=== PATIENT | male | born 1980 | race Two or more races ===

== ENCOUNTER 2023-11-11 08:34 | Outpatient (OUT) | payer OTHER, SELFPAY ==
[2023-11-11 09:16] LABS: Basophils Absolute Auto 0.1 10^3/uL (0.0-0.1); Basophils Percent Auto 1.1 % (0.2-2.0); Eosinophils Absolute Auto 0.1 10^3/uL (0.0-0.7); Eosinophils Percent Auto 1.6 % (0.9-7.0); Hematocrit 47.3 % (42.0-54.0); Hemoglobin 16.1 g/dL (14.0-18.0); Immature Granulocytes Abs Auto 0.03 10^3/uL (0.00-0.03); Immature Granulocytes Pct Auto 0.5 % (0.0-0.5); Lymphocytes Absolute Auto 2.3 10^3/uL (1.2-3.8); Lymphocytes Percent Auto 35.4 % (20.5-60.0); Mean Corpuscular Hemoglobin 29.1 pg (25.9-34.0); Mean Corpuscular Volume 85.5 fL (80.0-94.0); Mean Platelet Volume 9.7 fL (9.5-13.5); Monocytes Absolute Auto 0.6 10^3/uL (0.3-0.8); Monocytes Percent Auto 8.6 % (1.7-12.0); Neutrophils Absolute Auto 3.4 10^3/uL (1.4-6.5); Neutrophils Percent Auto 52.8 % (43.0-75.0); Platelet Count 268 10^3/uL (150-450); Red Blood Count 5.53 10^6/uL (4.70-6.10); White Blood Count 6.4 10^3/uL (4.0-11.0)
[2023-11-11 10:11] LABS: Alanine Aminotransferase 46 U/L (16-63); Albumin Globulin Ratio 1.2; Albumin Level 4.1 g/dL (3.4-5.0); Alkaline Phosphatase 59 U/L (46-116); Anion Gap 10.7; Aspartate Amino Transferase 20 U/L (15-37); BUN Creatinine Ratio 18.5; Carbon Dioxide 30.7 mmol/L (21.0-32.0); Chloride 103 mmol/L (98-107); Chol HDL Ratio 4.3; Cholesterol 192 mg/dL (<=200); Estimated GFR (African America >60 (>=60); Estimated GFR (Non-African Ame >60 (>=60); Globulin 3.4 g/dL; Glucose 109 mg/dL (74-106); HDL Cholesterol 45 mg/dL (40-60); Potassium 4.4 mmol/L (3.5-5.1); Prostate Specific Antigen Scrn 0.71 ng/mL (<=4.00); Sodium 140 mmol/L (136-145); Thyroid Stimulating Hormone 1.437 uIU/mL (0.358-3.740); Total Protein 7.5 g/dL (6.4-8.2); Triglycerides 166 mg/dL (<=150); VLDL CHOLESTEROL 33.2 mg/dL
[2023-11-11 10:14] LABS: Estimated Average Glucose 105 mg/dL; Glycohemoglobin A1C 5.3 % (4.5-6.2)
[2023-11-11 10:51] LABS: Bilirubin Urine NEGATIVE (NEGATIVE); Blood Urine TRACE-I (NEGATIVE); Clarity Urine CLEAR (CLEAR); Color Urine YELLOW (YELLOW); Glucose Urine UA NEGATIVE (NEGATIVE); Ketones Urine NEGATIVE (NEGATIVE); Leukocyte Esterase Urine NEGATIVE (NEGATIVE); Nitrite Urine NEGATIVE (NEGATIVE); Protein Urine NEGATIVE (NEG/TRACE); Specific Gravity Urine >=1.030 (1.005-1.025); Urobilinogen Urine 0.2 EU/dL (0.2-1.0)
[2023-11-11 11:44] LABS: Bacteria Urine NONE SEEN #/HPF (NONE SEEN); Crystals Seen? None Seen #/HPF (None Seen); Mucus Urine NONE SEEN (NONE SEEN); RBC Urine 0-2 #/HPF (0-2); Squamous Epithelial Cell Urine NONE SEEN #/LPF (NONE/RARE); WBC Urine 0-2 #/HPF (NONE SEEN)
[2023-11-11 11:45] LABS: Cast Seen? NONE SEEN #/LPF (NONE SEEN)
== END 2023-11-11 08:35 | disposition home or self-care (01) ==
LOC: LAB 08:39
PROVIDERS: PCP Family Medicine; Visit Provider Family Medicine
DX: Z00.00 Encounter for general adult medical examination without abnormal findings (principal); R63.5 Abnormal weight gain; Z12.5 Encounter for screening for malignant neoplasm of prostate
CPT/HCPCS: 36415; 80053; 80061; 81001; 83036; 84443; 85025; G0103

== ENCOUNTER 2024-11-12 08:45 | Outpatient (OUT) | payer OTHER, SELFPAY ==
--- OUTSIDE RECORDS SUMMARY | 2024-11-12 08:50 | XMS_ITS | Clinical Summary ---
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 Assessment & Plan (08/23/2022 10:23 AM EDT): Assessment: BMI = 32.10. Assessment & Plan (07/16/2022 8:48 AM EDT): Assessment: BMI=32 Encounters Date Type Department Care Team Description 10/30/2024 Patient Msg HOSP MAIN H060 [address] [place] [address] Provider, [facility] Sign up to manage your digestive symptoms in between visits, covered by insurance from Last 3 Months Family History Medical History Relation Comments No Known Problems Father No Known Problems Mother Anesthesia Problems No Family History Clotting Disorder No Family History Malig Hyperthermia No Family History Relation Status Comments Father Mother Social History Tobacco Use Types Packs/Day Years Used Date Smoking Tobacco: Never Smokeless Tobacco: Never Tobacco Cessation:Counseling Given: Not Answered Alcohol Use Standard Drinks/Week Comments Not Currently 0 (1 standard drink = 0.6 oz pur e alcohol) Area Deprivation Index Answer Date Collin rded National Score (1-100), lower number is lower ri sk 63 08/21/2022 State Score (1-10), lower number is lower risk 4 08/21/2022 Data from: https://www.neighborhoodatlas.medicine.[facility]/. Last address used for calculation [address] [place] [address] [address] 08/21/2022 Sex and Gender Information Value Date Recorded Sex Assigned at Not on file Legal Sex Male 12:47 AM EST Gender Identity Not on file Sexual Orientation Not on file Last Filed Vital Signs Vital Sign Reading Time Taken Comments Blood Pressure 118/68 05/31/2023 2:00 AM EST Pulse 69 05/31/2023 2:00 AM EST Temperature 36.5 C (97.7 F) 05/30/2023 11:23 PM EST Respiratory Rate 16 05/31/2023 2:00 AM EST Oxygen Saturation 98% 05/31/2023 2:00 AM EST Inhaled Oxygen Concentration - - Weight 119.7 kg (264 lb) 06/17/2023 9:04 AM EST Height 188 cm (6' 2 ) 06/17/2023 9:04 AM EST Body Mass Index 33.9 06/17/2023 9:04 AM EST Plan of Treatment Health Maintenance Due Date Last Done Comments Anxiety Screening 2000 Depression Screening 2000 HIV Screening 2000 Hepatitis C Screening 2000 DTaP,Tdap,Td Vaccine (1 - Tdap) 2001 Hepatitis B Vaccine (1 of 3 - 19+ 3-dose series) 06/12 Lipid Screening 2017 Influenza Vaccine (#1) 2024 Colonoscopy 01/17/2033 01/17/2023 Colorectal Cancer Screening 01/17/2033 Procedures Procedure Name Priority Date/Time Associated Diagnosis Comments COLONOSCOPY DIAGNOSTIC Routine 01/17/2023 7:16 AM EDT Crohn's disease with fistula, unspecified gastrointestinal tract location (HCC) from Last 3 Months or Most Recently Relevant to Health Maintenance Results * COLONOSCOPY DIAGNOSTIC (01/17/2023 7:16 AM EDT) Anatomical Region Laterality Modality Other 01/17/2023 7:16 AM EDT Narrative 01/17/2023 8:47 AM EDT [facility] Gastrointestinal Endoscopy Patient Name: Min Rock Procedure Date: 01/17/2023 7:16 AM Date of : 1980 Admit Type: Outpatient Age: 42 Room: [place] [address] Gender: Male Note Status: Finalized Attending MD: Christa Dubois MD Procedure: Colonoscopy Indications: Exclusion of Crohn's disease, Preoperative assessment Providers: Christa Dubois MD Patient Profile: Last Colonoscopy: none. The patient's first colonoscopy is today. Referring Physician: Christa Dubois MD (Referring MD) Medicines: Monitored Anesthesia Care Complications: No immediate complications. Estimated blood loss: Minimal. Requesting Provider: Procedure: Pre-Anesthesia Assessment: - Prior to the procedure, a History and Physical was performed, and patient medications and allergies were reviewed. The patient's tolerance of previous anesthesia was also reviewed. The risks and benefits of the procedure and the sedation options and risks were discussed with the patient. All questions were answered, and informed consent was obtained. Prior Anticoagulants: The patient has taken no anticoagulant or antiplatelet agents. ASA Grade Assessment: I - A normal, healthy patient. After reviewing the risks and benefits, the patient was deemed in satisfactory condition to undergo the procedure. After I obtained informed consent, the scope was passed under direct vision. Throughout the procedure, the patient's blood pressure, pulse, and oxygen saturations were monitored continuously. The [id number] was introduced through the anus and advanced to the terminal ileum. The colonoscopy was performed without difficulty. The patient tolerated the procedure well. The quality of the bowel preparation was good. The terminal ileum, ileocecal valve, appendiceal orifice, and rectum were photographed. Scope Withdrawal Time: 0 hours 16 minutes 48 seconds Moderate Sedation: MAC anesthesia was administered by the anesthesia team. Total Procedure Duration: 0 hours 22 minutes 57 seconds Findings: The perianal exam findings include external opening right posterior 2 cm from the anal verge without fluctuance. The exam was otherwise without abnormality on direct and retroflexion views. Random biopsies were taken with jubmo forceps in the TI, ascending colon, transvese colon, descending colon and rectum. EBL was minimal. No internal fistula opening visualized. Non-bleeding internal hemorrhoids were found during retroflexion. The hemorrhoids were mild. Impression: - External opening right posterior 2 cm from the anal verge without fluctuance found on perianal exam. - Non-bleeding internal hemorrhoids. - The examination was otherwise normal on direct and retroflexion views. No internal fistula opening visualized. - Random biopsies of the TI, ascending, transvese, descending colon and rectum for histoloy. Recommendation: - Patient has a contact number available for emergencies. The signs and symptoms of potential delayed complications were discussed with the patient. Return to normal activities tomorrow. Written discharge instructions were provided to the patient. - Resume previous diet. - Continue present medications. - Await pathology results. - Repeat colonoscopy in 10 years for screening purposes. - Return to my office as previously scheduled. Procedure Code(s): --- Professional --- 73244, Colonoscopy, flexible; diagnostic, including collection of specimen(s) by brushing or washing, when performed (separate procedure) Diagnosis Code(s): --- Professional --- K64.8, Other hemorrhoids Z01.818, Encounter for other preprocedural examination CPT copyright 2020 [employer]. All rights reserved. The codes documented in this report are preliminary and upon jacquard loom carpet weaver review may be revised to meet current compliance requirements. Attending Participation: I personally performed the entire procedure. Scope In: 8:07:24 AM Scope Out: 8:30:21 AM MD Christa Reddy MD 01/17/2023 8:43:04 AM This report has been signed electronically by Christa Dubois MD Number of Addenda: 0 Note Initiated On: 01/17/2023 7:16 AM Estimated Blood Loss: Estimated blood loss was minimal. Christa Dubois MD DIGESTIVE DISEASE Final Result from Last 3 Months or Most Recently Relevant to Health Maintenance Insurance [facility] Care Teams Pt Skilled Relationship Specialty Start Date End Date Dwight Mcqueen DO [address] [place] [phone] PCP - General Family Medicine 07/12/22
--- OUTSIDE RECORDS SUMMARY | 2024-11-12 08:50 | XMS_ITS | Encounter Summary ---
Author Organization [facility] Address [address] [place] [address] Care Team Providers Care Machines Technician Name Role Phone Dwight Mcqueen DO Primary Care Provider [phone] Source Comments In the event this information is protected by the Federal Confidentiality of Alcohol and Drug AbusePatient Records regulations: The Federal rules restrict any use of the information to criminally investigate or prosecute any alcohol or drug abuse patient.[facility] Encounter Details Date Type Department Care Team (Late st Contact Info) Description 01/16/2023 GI Preprocedure Call [facility] Surgery [address] [place] [address] Dwight Mcqueen, DO [address] [place] [address] Social History Tobacco Use Types Packs/Day Years Used Date Smoking Tobacco: Never Smokeless Tobacco: Never Alcohol Use Standard Drinks/Week Comments Not Currently 0 (1 standard drink = 0.6 oz pur e alcohol) Area Deprivation Index Answer Date Collin rded National Score (1-100), lower number is lower ri sk 63 08/21/2022 State Score (1-10), lower number is lower risk 4 08/21/2022 Data from: https://www.neighborhoodatlas.medicine.[facility].edu/. Last address used for calculation [address] [place] [address] [address] 08/21/2022 Sex and Gender Information Value Date Recorded Sex Assigned at Not on file Legal Sex Male 12:47 AM EST Gender Identity Not on file Sexual Orientation Not on file documented as of this encounter Plan of Treatment Not on file documented as of this encounter Visit Diagnoses Not on filedocumented in this encounter Care Teams Machines Technician Relationship Specialty Start Date End Date Dwight Mcqueen DO [address] [place] [phone] PCP - General Family Medicine 07/12/22 documented as of this encounter
--- OUTSIDE RECORDS SUMMARY | 2024-11-12 08:50 | XMS_ITS | Clinical Summary ---
Author Organization [facility] Address [address] [facility] [place] [address] Phone Care Team Providers Care Wash Oil Cooler Operator Name Role Phone Dwight Mcqueen DO Primary Care Provider [phone] Social History Tobacco Use Types Packs/Day Years Used Date Smoking Tobacco: Never Assessed Sex and Gender Information Value Date Recorded Sex Assigned at Not on file Legal Sex Male 9:19 AM EST Gender Identity Not on file Sexual Orientation Not on file Plan of Treatment Not on file Care Teams Wash Oil Cooler Operator Relationship Specialty Start Date End Date Dwight Mcqueen DO PCP - General 10/26/20
--- OUTSIDE RECORDS SUMMARY | 2024-11-12 08:50 | XMS_ITS | Encounter Summary ---
Author Organization [facility] Address [address] [place] [address] Care Team Providers Care Slate Mixer Name Role Phone Dwight Mcqueen DO Primary Care Provider [phone] Source Comments In the event this information is protected by the Federal Confidentiality of Alcohol and Drug AbusePatient Records regulations: The Federal rules restrict any use of the information to criminally investigate or prosecute any alcohol or drug abuse patient.[facility] Encounter Details Date Type Department Care Team (Late st Contact Info) Description 05/09/2022 Lab Requisition [facility] Laboratory [address] [place] [address] [address] [place] [address] Social History Tobacco Use Types Packs/Day Years Used Date Smoking Tobacco: Never Assessed Sex and Gender Information Value Date Recorded Sex Assigned at Not on file Legal Sex Male 12:47 AM EST Gender Identity Not on file Sexual Orientation Not on file documented as of this encounter Plan of Treatment Not on file documented as of this encounter Procedures Procedure Name Priority Date/Time Associated Diagnosis Comments ORGANISM JAKI Routine 05/03/2022 4:40 PM EST documented in this encounter Results * (ABNORMAL) ORGANISM JAKI (05/03/2022 4:40 PM EST) Culture, Organism JAKI Result Parabacteroides distasonis(A) MINIMUM INHIBITORY CONCENTRATION ([place]) 05/14/2022 8:23 AM EST [facility] Comment: Identification performed by client. (Bacteroides fragilis group) Micro Specimen SPECIMEN FROM ABSCESS / Unknown 05/03/2022 4:40 PM EST 05/09/2022 12:49 AM EST Narrative [facility] - 05/14/2022 8:23 AM EST Organism Antibiotic Method Susceptibility Parabacteroides distasonis Ertapenem MINIM UM INHIBITORY CONCENTRATION(E-TEST ) 0.5: Susceptible Parabacteroides distasonis Ampicillin/Sulbact MT NIMUM INHIBITORY CONCENTRATION(E-TEST ) 32: Resistant Parabacteroides distasonis Metronidazole MINIM UM INHIBITORY CONCENTRATION(E-TEST ) 0.25: Susceptible us [place] Ann LABORATORY Final Res ult [facility] [address] [place] [address], documented in this encounter Visit Diagnoses Not on filedocumented in this encounter Care Teams Slate Mixer Relationship Specialty Start Date End Date Dwight Mcqueen DO [address] [place] [address] PCP - General Family Medicine 07/12/22 documented as of this encounter
--- OUTSIDE RECORDS SUMMARY | 2024-11-12 08:50 | XMS_ITS | Clinical Summary ---
Author Organization [facility] Address [address] [place] [address], [address] [place] [address] Care Team Providers Care Shellacker Name Role Phone Unavailable Primary Care Provider Unavailabl e Allergies No known active allergies Medications No known medications Social History Tobacco Use Types Packs/Day Years Used Date Smoking Tobacco: Never Alcohol Use Standard Drinks/Week Comments Yes 0 (1 standard drink = 0.6 oz pur e alcohol) social Sex and Gender Information Value Date Recorded Sex Assigned at Not on file Legal Sex Male 8:32 PM EDT Gender Identity Not on file Sexual Orientation Not on file Last Filed Vital Signs Vital Sign Reading Time Taken Comments Blood Pressure 120/75 09/18/2017 9:38 PM EDT Pulse 86 09/18/2017 9:38 PM EDT Temperature 36.6 C (97.9 F) 09/18/2017 8:37 PM EDT Respiratory Rate 20 09/18/2017 9:38 PM EDT Oxygen Saturation 93% 09/18/2017 9:38 PM EDT Inhaled Oxygen Concentration - - Weight 108.6 kg (239 lb 7 oz) 09/18/2017 8:37 PM EDT Height 188 cm (6' 2 ) 09/18/2017 8:37 PM EDT Body Mass Index 30.74 09/18/2017 8:37 PM EDT Plan of Treatment Not on file Insurance [employer]
--- OUTSIDE RECORDS SUMMARY | 2024-11-12 08:50 | XMS_ITS | Clinical Summary ---
Author Organization [facility] Address [id number] [address] [place] [address] Care Team Providers Care Cold Storage Worker Name Role Phone Unavailable Primary Care Provider Unavailabl e Social History Tobacco Use Types Packs/Day Years Used Date Smoking Tobacco: Never Assessed Sex and Gender Information Value Date Recorded Sex Assigned at Not on file Legal Sex Male 3:16 PM EDT Gender Identity Not on file Sexual Orientation Not on file Plan of Treatment Health Maintenance Due Date Last Done Comments Depression Screening 1994 Tobacco Screening 1994 Adult BMI Screening 2000 DTaP,Tdap and Td Vaccines (1 - Tdap) 2001 Influenza Vaccine 12/14/2024 Medical Devices Not on file Insurance [employer]
--- OUTSIDE RECORDS SUMMARY | 2024-11-12 08:50 | XMS_ITS | Encounter Summary ---
Author Organization [facility] Address [address] [place] [address] Care Team Providers Care Director Of Graduate Admissions Name Role Phone Dwight Mcqueen DO Primary Care Provider [phone] Source Comments In the event this information is protected by the Federal Confidentiality of Alcohol and Drug AbusePatient Records regulations: The Federal rules restrict any use of the information to criminally investigate or prosecute any alcohol or drug abuse patient.[facility] Encounter Details Date Type Department Care Team (Late st Contact Info) Description 08/23/2022 Patient Msg Pre Anesthesia [address] [facility] [address] [place] [phone] Chapis Petersen APRN.TALENT ASSISTANT [address] [place] [address] Pre-op Instructions Social History Tobacco Use Types Packs/Day Years Used Date Smoking Tobacco: Never Smokeless Tobacco: Never Alcohol Use Standard Drinks/Week Comments Not Currently 0 (1 standard drink = 0.6 oz pur e alcohol) Area Deprivation Index Answer Date Collin rded National Score (1-100), lower number is lower ri sk 63 08/21/2022 State Score (1-10), lower number is lower risk 4 08/21/2022 Data from: https://www.neighborhoodatlas.[facility]/. Last address used for calculation [address] [place] [address] [address] 08/21/2022 Sex and Gender Information Value Date Recorded Sex Assigned at Not on file Legal Sex Male 12:47 AM EST Gender Identity Not on file Sexual Orientation Not on file documented as of this encounter Plan of Treatment Not on file documented as of this encounter Visit Diagnoses Not on filedocumented in this encounter Care Teams Director Of Graduate Admissions Relationship Specialty Start Date End Date Dwight Mcqueen DO [address] [place] [phone] PCP - General Family Medicine 07/12/22 documented as of this encounter
--- OUTSIDE RECORDS SUMMARY | 2024-11-12 08:50 | XMS_ITS | Encounter Summary ---
Author Organization [employer] Address [id number] [address] [place] [address] Care Team Providers Care Morgue Technician Name Role Phone Unavailable Primary Care Provider Unavailabl e Encounter Details Date Type Department Care Team (Late st Contact Info) Description 07/25/2022 Orders Only [facility] [address] [facility] [address] [place] [phone] External, Scanning Provider Social History Tobacco Use Types Packs/Day Years [...] Procedure Name Priority Date/Time Associated Diagnosis Comments UNLISTED NON-[facility] PROCEDURE Routine 05/03/2022 UNLISTED NON-[facility] PROCEDURE Routine 03/29/2022 documented in this encounter Results * Unlisted Non-[facility] Procedure (05/03/2022) us Scanning Provider External PROCEDURE/MINOR SURGI SANDY ORDERABLES Final Result Performing Organization Address City/[facility] Co de Phone Number MANUALLY TRANSCRIBED RESULTS * Unlisted Non-[facility] Procedure (03/29/2022) us Scanning Provider External PROCEDURE/MINOR SURGI SANDY ORDERABLES Final Result Performing Organization Address City/[facility] Co de Phone Number MANUALLY TRANSCRIBED RESULTS documented in this encounter Visit Diagnoses Not on filedocumented in this encounter
--- OUTSIDE RECORDS SUMMARY | 2024-11-12 08:50 | XMS_ITS | Encounter Summary ---
Author Organization [facility] Address [address] [place] [address] Care Team Providers Care Assistant Name Role Phone Dwight Mcqueen DO Primary Care Provider [phone] Source Comments In the event this information is protected by the Federal Confidentiality of Alcohol and Drug AbusePatient Records regulations: The Federal rules restrict any use of the information to criminally investigate or prosecute any alcohol or drug abuse patient.[facility] Encounter Details Date Type Department Care Team (Late st Contact Info) Description 05/30/2023 Get Medical Advice Colorectal Surgery [address] [place] [address] Dwight Castañeda MD [address] [place], [place] [id number] Updated photos Social History Tobacco Use Types Packs/Day Years Used Date Smoking Tobacco: Never Smokeless Tobacco: Never Alcohol Use Standard Drinks/Week Comments Not Currently 0 (1 standard drink = 0.6 oz pur e alcohol) Area Deprivation Index Answer Date Collin rded National Score (1-100), lower number is lower ri sk 63 08/21/2022 State Score (1-10), lower number is lower risk 4 08/21/2022 Data from: https://www.neighborhoodatlas.medicine.[facility].edu/. Last address used for calculation [address] [place] [address] [address] 08/21/2022 Sex and Gender Information Value Date Recorded Sex Assigned at Not on file Legal Sex Male 12:47 AM EST Gender Identity Not on file Sexual Orientation Not on file documented as of this encounter Plan of Treatment Not on file documented as of this encounter Visit Diagnoses Not on filedocumented in this encounter Care Teams Assistant Relationship Specialty Start Date End Date Dwight Mcqueen, [address] [place] [phone] PCP - General Family Medicine 07/12/22 documented as of this encounter
--- OUTSIDE RECORDS SUMMARY | 2024-11-12 08:50 | XMS_ITS | Encounter Summary ---
Author Organization [facility] Address [address] [place] [address] Care Team Providers Care Field Director Name Role Phone Dwight Mcqueen DO Primary Care Provider [phone] Source Comments In the event this information is protected by the Federal Confidentiality of Alcohol and Drug AbusePatient Records regulations: The Federal rules restrict any use of the information to criminally investigate or prosecute any alcohol or drug abuse patient.[facility] Encounter Details Date Type Department Care Team (Late st Contact Info) Description 05/30/2023 Get Medical Advice Colorectal Surgery [address] [place] [address] Dwight Castañeda MD [address] [place], [place] [phone] Follow up Social History Tobacco Use Types Packs/Day Years Used Date Smoking Tobacco: Never Smokeless Tobacco: Never Alcohol Use Standard Drinks/Week Comments Not Currently 0 (1 standard drink = 0.6 oz pur e alcohol) Area Deprivation Index Answer Date Collin rded National Score (1-100), lower number is lower ri sk 63 08/21/2022 State Score (1-10), lower number is lower risk 4 08/21/2022 Data from: https://www.neighborhoodatlas.medicine.[facility].edu/. Last address used for calculation [address] [place] [address] [address] 08/21/2022 Sex and Gender Information Value Date Recorded Sex Assigned at Not on file Legal Sex Male 12:47 AM EST Gender Identity Not on file Sexual Orientation Not on file documented as of this encounter Plan of Treatment Not on file documented as of this encounter Visit Diagnoses Not on filedocumented in this encounter Care Teams Field Director Relationship Specialty Start Date End Date Dwight Mcqueen, [address] [place] [phone] PCP - General Family Medicine 07/12/22 documented as of this encounter
--- OUTSIDE RECORDS SUMMARY | 2024-11-12 08:50 | XMS_ITS | Encounter Summary ---
Author Organization [facility] Address [address] [place] [address] Care Team Providers Care Hospital Cleaning Specialist Name Role Phone Dwight Mcqueen DO Primary Care Provider [phone] Source Comments In the event this information is protected by the Federal Confidentiality of Alcohol and Drug AbusePatient Records regulations: The Federal rules restrict any use of the information to criminally investigate or prosecute any alcohol or drug abuse patient.[facility] Encounter Details Date Type Department Care Team (Late st Contact Info) Description 12/10/2022 Patient Msg Gastroenterology [address] [place], [place] [id number] Provider, Ccf Miralax prep instructions Social History Tobacco Use Types Packs/Day Years Used Date Smoking Tobacco: Never Smokeless Tobacco: Never Alcohol Use Standard Drinks/Week Comments Not Currently 0 (1 standard drink = 0.6 oz pur e alcohol) Area Deprivation Index Answer Date Collin rded National Score (1-100), lower number is lower ri sk 63 08/21/2022 State Score (1-10), lower number is lower risk 4 08/21/2022 Data from: https://www.neighborhoodatlas.medicine.[facility].edu/. Last address used for calculation [address] [place] [address] 08/21/2022 Sex and Gender Information Value Date Recorded Sex Assigned at Not on file Legal Sex Male 12:47 AM EST Gender Identity Not on file Sexual Orientation Not on file documented as of this encounter Plan of Treatment Not on file documented as of this encounter Visit Diagnoses Not on filedocumented in this encounter Care Teams Hospital Cleaning Specialist Relationship Specialty Start Date End Date Dwight Mcqueen DO [address] [place] [address] PCP - General Family Medicine 07/12/22 documented as of this encounter
--- OUTSIDE RECORDS SUMMARY | 2024-11-12 08:50 | XMS_ITS | Clinical Summary ---
Author Organization [facility] Address [address] [place] [address] Care Team Providers Care Applications Packager Name Role Phone Unavailable Primary Care Provider Unavailabl e Social History Tobacco Use Types Packs/Day Years Used Date Smoking Tobacco: Never Assessed Sex and Gender Information Value Date Recorded Sex Assigned at Not on file Legal Sex Male 11:09 PM EDT Gender Identity Not on file Sexual Orientation Not on file Last Filed Vital Signs Vital Sign Reading Time Taken Comments Blood Pressure 120/72 11/13/2020 12:00 PM EDT Pulse - - Temperature - - Respiratory Rate - - Oxygen Saturation - - Inhaled Oxygen Concentration - - Weight 118 kg (260 lb) 07/03/2022 12:00 PM EDT Height 188 cm (6' 2 ) 07/03/2022 12:00 PM EDT Body Mass Index 33.38 07/03/2022 12:00 PM EDT Plan of Treatment Not on file Insurance [employer]
--- OUTSIDE RECORDS SUMMARY | 2024-11-12 08:50 | XMS_ITS | Encounter Summary ---
Author Organization [facility] Address [address] [place] [address] Care Team Providers Care Lead Mechanic Name Role Phone Dwight Mcqueen DO Primary Care Provider [phone] Source Comments In the event this information is protected by the Federal Confidentiality of Alcohol and Drug AbusePatient Records regulations: The Federal rules restrict any use of the information to criminally investigate or prosecute any alcohol or drug abuse patient.[facility] Encounter Details Date Type Department Care Team (Late st Contact Info) Description 07/23/2022 Patient Msg Colorectal Surgery [address] [place] [address] [place] [address] [address] [place], [place] [id number] MRI results Social History Tobacco Use Types Packs/Day Years Used Date Smoking Tobacco: Never Smokeless Tobacco: Never Alcohol Use Standard Drinks/Week Comments Not Currently 0 (1 standard drink = 0.6 oz pur e alcohol) Area Deprivation Index Answer Date Collin rded National Score (1-100), lower number is lower ri sk 60 07/06/2022 State Score (1-10), lower number is lower risk N ot on file 07/06/2022 Data from: https://www.neighborhoodatlas.[facility].edu/. Last address used for calculation [address] [place] [address] [address] 07/06/2022 Sex and Gender Information Value Date Recorded Sex Assigned at Not on file Legal Sex Male 12:47 AM EST Gender Identity Not on file Sexual Orientation Not on file documented as of this encounter Plan of Treatment Not on file documented as of this encounter Visit Diagnoses Not on filedocumented in this encounter Care Teams Lead Mechanic Relationship Specialty Start Date End Date Dwight Mcqueen DO [address] [place] [address] PCP - General Family Medicine 07/12/22 documented as of this encounter
--- OUTSIDE RECORDS SUMMARY | 2024-11-12 08:50 | XMS_ITS | Encounter Summary ---
Author Organization [facility] Address [address] [place] [address] Care Team Providers Care Pharmacist Apprentice Name Role Phone Dwight Mcqueen DO Primary Care Provider [phone] Source Comments In the event this information is protected by the Federal Confidentiality of Alcohol and Drug AbusePatient Records regulations: The Federal rules restrict any use of the information to criminally investigate or prosecute any alcohol or drug abuse patient.[facility] Encounter Details Date Type Department Care Team (Late st Contact Info) Description 10/01/2022 Patient Msg General Surgery [address] [place] [address] Provider, Ccf Appointment Social History Tobacco Use Types Packs/Day Years Used Date Smoking Tobacco: Never Smokeless Tobacco: Never Alcohol Use Standard Drinks/Week Comments Not Currently 0 (1 standard drink = 0.6 oz pur e alcohol) Area Deprivation Index Answer Date Collin rded National Score (1-100), lower number is lower ri sk 63 08/21/2022 State Score (1-10), lower number is lower risk 4 08/21/2022 Data from: https://www.neighborhoodatlas.medicine.[facility].edu/. Last address used for calculation [address] [place] [address] 08/21/2022 Sex and Gender Information Value Date Recorded Sex Assigned at Not on file Legal Sex Male 12:47 AM EST Gender Identity Not on file Sexual Orientation Not on file documented as of this encounter Plan of Treatment Not on file documented as of this encounter Visit Diagnoses Not on filedocumented in this encounter Care Teams Pharmacist Apprentice Relationship Specialty Start Date End Date Dwight Mcqueen DO [address] [place] [address] PCP - General Family Medicine 07/12/22 documented as of this encounter
--- OUTSIDE RECORDS SUMMARY | 2024-11-12 08:50 | XMS_ITS | Encounter Summary ---
Author Organization [facility] Address [address] [place] [address] Care Team Providers Care Securities Analyst Name Role Phone Dwight Mcqueen DO Primary Care Provider [phone] Source Comments In the event this information is protected by the Federal Confidentiality of Alcohol and Drug AbusePatient Records regulations: The Federal rules restrict any use of the information to criminally investigate or prosecute any alcohol or drug abuse patient.[facility] Encounter Details Date Type Department Care Team (Late st Contact Info) Description 01/21/2023 Patient Msg Colorectal Surgery [address] [place] [address] [place] [address] [place], [place] [phone] MRI and colonoscopy results Social History Tobacco Use Types Packs/Day [...] [facility].edu/. Last address used for calculation [address] [place] [address] [address] 08/21/2022 Sex and Gender Information Value Date Recorded Sex Assigned at Not on file Legal Sex Male 12:47 AM EST Gender Identity Not on file Sexual Orientation Not on file documented as of this encounter Plan of Treatment Not on file documented as of this encounter Visit Diagnoses Not on filedocumented in this encounter Care Teams Securities Analyst Relationship Specialty Start Date End Date Dwight Mcqueen DO [address] [place] [address] PCP - General Family Medicine 07/12/22 documented as of this encounter
--- OUTSIDE RECORDS SUMMARY | 2024-11-12 08:50 | XMS_ITS | Encounter Summary ---
Author Organization [facility] Address [address] [place] [address] Care Team Providers Care Ballistics Laboratory Gunsmith Name Role Phone Dwight Mcqueen DO Primary Care Provider [phone] Source Comments In the event this information is protected by the Federal Confidentiality of Alcohol and Drug AbusePatient Records regulations: The Federal rules restrict any use of the information to criminally investigate or prosecute any alcohol or drug abuse patient.[facility] Encounter Details Date Type Department Care Team (Late st Contact Info) Description 10/30/2024 Patient Msg HOSP MAIN H[address] [place] [address] Provider, Ccf Sign up to manage your digestive symptoms in between visits, covered by insurance Social History Tobacco Use Types Packs/Day Years Used Date Smoking Tobacco: Never Smokeless Tobacco: Never Alcohol Use Standard Drinks/Week Comments Not Currently 0 (1 standard drink = 0.6 oz pur e alcohol) Area Deprivation Index Answer Date Collin rded National Score (1-100), lower number is lower ri sk 63 08/21/2022 State Score (1-10), lower number is lower risk 4 08/21/2022 Data from: https://www.neighborhoodatlas.medicine.[facility].edu/. Last address used for calculation [address] [place] [address] 08/21/2022 Sex and Gender Information Value Date Recorded Sex Assigned at Not on file Legal Sex Male 12:47 AM EST Gender Identity Not on file Sexual Orientation Not on file documented as of this encounter Plan of Treatment Not on file documented as of this encounter Visit Diagnoses Not on filedocumented in this encounter Care Teams Ballistics Laboratory Gunsmith Relationship Specialty Start Date End Date Dwight Mcqueen DO [address] [place] [address] PCP - General Family Medicine 07/12/22 documented as of this encounter
--- OUTSIDE RECORDS SUMMARY | 2024-11-12 08:50 | XMS_ITS | Encounter Summary ---
Author Organization [facility] Address [address] [place] [address] Care Team Providers Care Core Placer Name Role Phone Dwight Mcqueen DO Primary Care Provider [phone] Source Comments In the event this information is protected by the Federal Confidentiality of Alcohol and Drug AbusePatient Records regulations: The Federal rules restrict any use of the information to criminally investigate or prosecute any alcohol or drug abuse patient.[facility] Encounter Details Date Type Department Care Team (Late st Contact Info) Description 07/01/2023 Get Medical Advice Colorectal Surgery [address] [place] [address] Dwight Castañeda MD [address] [place], [place] [id number] Follow up Social History Tobacco Use Types [...] is lower risk 4 08/21/2022 Data from: https://www.neighborhoodatlas.medicine.[facility].edu/. Last address used for calculation [address] [place] [address] [address] 08/21/2022 Sex and Gender Information Value Date Recorded Sex Assigned at Not on file Legal Sex Male 12:47 AM EST Gender Identity Not on file Sexual Orientation Not on file documented as of this encounter Plan of Treatment Not on file documented as of this encounter Visit Diagnoses Not on filedocumented in this encounter Care Teams Core Placer Relationship Specialty Start Date End Date Dwight Mcqueen, [address] [place] [address] PCP - General Family Medicine 07/12/22 documented as of this encounter
--- OUTSIDE RECORDS SUMMARY | 2024-11-12 08:50 | XMS_ITS | Encounter Summary ---
Author Organization [facility] Address [address] [place] [address] Care Team Providers Care Electric Motor Control Assembler Name Role Phone Dwight Mcqueen DO Primary Care Provider [phone] Source Comments In the event this information is protected by the Federal Confidentiality of Alcohol and Drug AbusePatient Records regulations: The Federal rules restrict any use of the information to criminally investigate or prosecute any alcohol or drug abuse patient.[facility] Encounter Details Date Type Department Care Team (Late st Contact Info) Description 02/28/2023 Get Medical Advice Colorectal Surgery [address] [place] [address] Dwight Castañeda MD [address] [place], [place] [phone] Schedule EUA Social History Tobacco Use Types Packs/Day Years [...] risk 4 08/21/2022 Data from: https://www.neighborhoodatlas.medicine.[facility].edu/. Last address used for calculation [address] [place] [address] [address] 08/21/2022 Sex and Gender Information Value Date Recorded Sex Assigned at Not on file Legal Sex Male 12:47 AM EST Gender Identity Not on file Sexual Orientation Not on file documented as of this encounter Plan of Treatment Not on file documented as of this encounter Visit Diagnoses Not on filedocumented in this encounter Care Teams Electric Motor Control Assembler Relationship Specialty Start Date End Date Dwight Mcqueen DO [address] [place] [address] PCP - General Family Medicine 07/12/22 documented as of this encounter
--- OUTSIDE RECORDS SUMMARY | 2024-11-12 09:08 | XMS_ITS | CCD ---
Author Organization [facility] Care Team Providers Care Emergency Services Dispatcher Name Role Phone JENS SHAIKH Unavailable Unavailable Renetta Gonzalez Unavailable DO Renetta Gonzalez Primary Care Provider MD Lokesh Ann Attending Provider DR RENETTA GONZALEZ Primary Care Unavailable SADIE LOZOYA Admitting Unavailable SADIE LOZOYA Attending Unavailable SADIE LOZOYA Consulting Unavailable PIA COLLINS Consulting Unavailable CHIKIS SANDOVAL Consulting Unavailable DR RENETTA GONZALEZ Primary Care Unavailable JENS SHAIKH Admitting Unavailable JENS SHAIKH Attending Unavailable JENS SHAIKH Consulting Unavailable Lokesh Ann Admitting Unavailable Lokesh Ann Attending Unavailable Renetta Gonzalez Primary Care Unavailable Lokesh Ann Admitting Unavailable Lokesh Ann Attending Unavailable Renetta Gonzalez Primary Care Unavailable Unavailable Primary Care Provider UnavailRenetta Vogt DO Primary Care Provider Renetta Gonzalez DO Primary Care Provider SHERLY, CHRISTA Referring Unavailable RENETTA GONZALEZ Primary Care Unavailable SEAN ANDRADE Attending Unavailable SHERLY, CHRISTA Referring Unavailable RENETTA GONZALEZ Primary Care Unavailable BAN, CHRISTA Attending Unavailable BAN, CHRISTA Admitting Unavailable BAN CHRISTA Attending Unavailable BAN, CHRISTA Admitting Unavailable RENETTA GONZALEZ Primary Care Unavailable BAN, CHRISTA Attending Unavailable SHERLY, CHRISTA Admitting Unavailable RENETTA GONZALEZ Primary Care Unavailable SHERLY, CHRISTA Referring Unavailable RENETTA GONZALEZ Primary Care Unavailable SHERLY, CHRISTA Referring Unavailable RENETTA GONZALEZ Primary Care Unavailable RENETTA GARNER Referring Unavailable RENETTA GONZALEZ Primary Care Unavailable Renetta Gonzalez DO Primary Care Provider [phone] ERIK POWERS Attending Unavailable RENETTA GONZALEZ Primary Care Unavailable RENETTA GARNER Attending Unavailable RENETTA GONZALEZ Primary Care Unavailable CHRISTA DUBOIS Attending Unavailable RENETTA GONZALEZ Primary Care Unavailable CLIFFORD MAN Attending Unavailable RENETTA GONZALEZ Primary Care Unavailable CLIFFORD MAN Referring Unavailable RENETTA GONZALEZ Primary Care Unavailable RENETTA GARNER Admitting Unavailable RENETTA GONZALEZ Primary Care Unavailable RENETTA GARNER Attending Unavailable RENETTA GONZALEZ Primary Care Unavailable RENETTA GARNER Attending Unavailable RENETTA GARNER Admitting Unavailable RENETTA GONZALEZ Primary Care Unavailable LUZ RING Attending Unavailable RENETTA GARNER Attending Unavailable RENETTA GONZALEZ Primary Care Unavailable CHRISTA DUBOIS Attending Unavailable RENETTA GONZALEZ Primary Care Unavailable RENETTA GARNER Attending Unavailable RENETTA GONZALEZ Primary Care Unavailable RENETTA GONZALEZ Primary Care Unavailable RENETTA GONZALEZ Primary Care Unavailable RENETTA GARNER Attending Unavailable RENETTA GONZALEZ Primary Care Unavailable RENETTA GARNER Referring Unavailable Medications Current Medications Medication Drug Class(es) Dates Sig (Normalized) Sig (Original) acetaminophen 325 mg / HYDROcodone bitartrate 5 mg oral tablet (5 sources) Opioid Agonist Start: 03-29-2022 End: 05-03-2022 take 1 tablet by mouth every six hours Hydrocodone-Aceta minophen Active 1 TAB PO Q6H 28 7 May 03, 2022 Start: 03-29-2022 End: 05-03-2022 Hydrocodone-Acetaminophen Di scontinued 1 TAB PO As Directed March 29, 2022 12:00am May 03, 2022 1:04pm aspirin 81 mg oral tablet (3 sources) Platelet Aggregation Inhibitor, Nonsteroidal Anti-inflammatory Drug Start: 09-14-2020 take 1 tablet by mouth once daily at mealtime Aspirin EC 81 MG 1 tablet Orally qd with food Sep, Active Start: 09-14-2020 take 1 tablet by heather th once daily at mealtime Aspirin EC 81 MG 1 tablet Orally qd with food Sep, Active azithromycin 250 mg oral tablet (2 sources) Macrolide Antimicrobial Start: 08-28-2021 Azithromycin 250 MG 2 tablet on the first day, then 1 tablet daily for 4 days Orally Once a day for 5 day(s) August, Active cephalexin 500 mg oral capsule (1 source) Cephalosporin Antibacterial Start: 05-03-2022 take 500 mg by mouth twice daily Cephalexin Active 500 MG PO Twice daily May 03, 2022 12:00am Co Q 10 100 MG (3 sources) Start: 05-08-2021 Co Q 10 100 MG as directed Orally Apr, Active Magnesium (3 sources) Start: 05-08-2021 Magnesium 400 MG as directed Orally Apr, Active Multivitamin preparation (2 sources) Start: 03-29-2022 take 1 tablet by mouth once daily Multivitamin Active 1 TAB PO Daily March 29, 2022 12:00am Tomales 3 1000 MG (3 sources) Start: 05-08-2021 take 1 capsule by mouth once daily Tomales 3 1000 MG 1 capsule Orally Once a day Apr, Active predniSONE 20 mg oral tablet (3 sources) Start: 08-28-2021 predniSONE 20 MG take 3 tablets Orally x3 days, then 2 tabs x3 days then 1 tab a day x3 days with food or milk for 9 days August, Active Start: 08-29-2020 predniSONE 20 MG take 3 tablets Orally x3 days, then 2 tabs x3 days then 1 tab a day x3 days with food or milk for 9 days August, Not-Taking sulfamethoxazole 800 mg / trimethoprim 160 mg oral tablet (1 source) Dihydrofolate Reductase Inhibitor Antibacterial, Sulfonamide Antimicrobial Start: 08-13-2022 End: 08-18-2022 take 1 tablet by mouth twice daily sulfamethoxazole-trimethoprim (BACTRIM DS) 800-160 mg per tablet Indications: Anal fistula Take 1 tablet by mouth twice daily for 5 days. 10 tablet 0 08/13/2022 08/18/2022 Active Comment on above: Take 1 tablet by heather twice daily for 5 days. Completed/Discontinued Medications Medication Drug Class(es) Dates Sig (Normalized) Sig (Original) acetaminophen 325 mg oral tablet (20 sources) Start: 10-19-2022 End: 06-17-2023 take 2 tablets by mouth every six hours acetaminophen (TYLENOL) 325 mg tablet Take 2 tablets by mouth every 6 hours. 0 10/19/2022 06/17/2023 Discontinued acetaminophen (T YLENOL ORAL) Take by mouth. 0 Active Comment on above: Take by mouth. Take 2 tablets by [facility] every 6 hours. cholecalciferol 0.025 mg oral tablet (20 sources) Vitamin D take 1 tablet by mouth once daily cholecalciferol (VITAMIN D3) 1,000 unit tab tablet Take 1,000 Units by mouth once daily. 0 Active Comment on above: Take 1,000 Units by mouth once daily. clindamycin 300 mg oral capsule (2 sources) Lincosamide Antibacterial Start: End: take 300 mg by mouth four times daily Clindamycin Hcl Discontinued 300 MG PO Four times daily March 29, 2022 12:00am May 03, 2022 1:06pm diclofenac potassium 50 mg oral tablet (11 sources) Nonsteroidal Anti-inflammatory Drug take 50 mg by mouth twice daily DICLOFENAC SODIUM ORAL Take 50 mg by mouth twice daily. 0 Active Comment on above: Take 50 mg by mouth twice daily. docusate sodium 100 mg oral capsule (2 sources) Start: End: take 1 capsule by mouth twice daily docusate sodium (COLACE) 100 mg capsule Take 1 capsule by mouth two times a day. 60 capsule 0 05/21/2023 06/17/2023 Discontinued Comment on above: Take 1 capsule by [facility] two times a day. enteric contrast (will be provided with radiology test) (18 sources) Start: End: enteric contrast (will be provided with radiology test) Indications: Crohn's disease with fistula, unspecified gastrointestinal tract location (HCC) For MRI ENTEROGRAPHY WO/W Administer, As Directed One Time Only, via Oral, Rectal, both Oral and Rectal, Enteric Tube, Stoma or Indwelling Catheter, Enteric Contrast as designated per enteric contrast guidelines 1 Each 0 11/27/2022 06/17/2023 Discontinued Start: 11-27-[address] (will be provided with radiology test) Indications: Crohn's disease with fistula, unspecified gastrointestinal tract location (HCC) For MRI ENTEROGRAPHY WO/W Administer, As Directed One Time Only, via Oral, Rectal, both Oral and Rectal, Enteric Tube, Stoma or Indwelling Catheter, Enteric Contrast as designated per enteric contrast guidelines 1 Each 0 11/27/2022 Active Comment on above: For MRI ENTEROGRAPHY WO/W Administer, As Directed One Time Only, via Oral, Rectal, both Oral and Rectal, Enteric Tube, Stoma or Indwelling Catheter, Enteric Contrast as designated per enteric contrast guidelines glucagon (rdna) 1 mg injection (16 sources) Antihypoglycemic Agent Start: 2022 End: 2023 inject 1 mg intravenously once glucagon (GLUCAGEN) 1 mg/mL injection Indications: Crohn's disease with fistula, unspecified gastrointestinal tract location (HCC) Inject 1 mg intravenously one time only for 1 dose. For MRI Enterography, Inject 1 mg intravenously, as directed. Slow push at the appropriate time during MRI Scan 1 Each 0 11/27/2022 06/17/2023 Discontinued Comment on above: Inject 1 mg intravenously one time only for 1 dose. For MRI Enterography, Inject 1 mg intravenously, as directed. Slow push at the appropriate time during MRI Scan HERBAL DRUGS ORAL (20 sources) HERBAL DRUGS ORA L Take by mouth. Vitamin c, b, e, omega and whey protein 0 Active Comment on above: Take by mouth. Vitamin c, b, e, omega an d whey protein ibuprofen 200 mg oral tablet (20 sources) Nonsteroidal Anti-inflammatory Drug Start: 2022 End: 2023 take 1-2 tablets by mouth every six hours ibuprofen (MOTRIN) 200 mg tablet Take 1-2 tablets by mouth every 6 hours. 0 10/19/2022 06/17/2023 Discontinued ibuprofen (MOTRI N ORAL) Take by mouth. 0 Active Comment on above: Take by mouth. Take 1-2 tablets by mouth every 6 hours. iv contrast (will be provided with radiology test) (20 sources) Start: 02-04-2023 End: 02-05-2023 iv contrast (will be provided with radiology test) MRI Pel/Perineum Inject, intravenously, once for 1 dose. No IV access, insert saline lock prior to the beginning of sedation, infusion, injection of imaging exam. Discontinue saline lock post exam. If Pt has a central line or IVAD, may access for administration according to line specific nursing protocol. Once exam is complete flush line and de-access according to line specific nursing protocol in the MR contrast administration guidelines link. 1 Each 0 02/04/2023 02/05/2023 Start: 11-27-2022 End: 06-17-2023 iv contrast (will be provide d with radiology test) Indications: Crohn's disease with fistula, unspecified gastrointestinal tract location (HCC) MRI Enterography Inject, intravenously, once for 1 dose. No IV access, insert saline lock prior to the beginning of sedation, infusion, injection of imaging exam. Discontinue saline lock post exam. If Pt. has a central line or IVAD, may access for administration according to line specific nursing protocol. Once exam is complete flush line and de-access according to line specific nursing protocol in the MR contrast administration guidelines link. 1 Each 0 11/27/2022 06/17/2023 Discontinued Start: 11-27-2022 iv contrast (w ill be provided with radiology test) Indications: Crohn's disease with fistula, unspecified gastrointestinal tract location (HCC) MRI Enterography Inject, intravenously, once for 1 dose. No IV access, insert saline lock prior to the beginning of sedation, infusion, injection of imaging exam. Discontinue saline lock post exam. If Pt. has a central line or IVAD, may access for administration according to line specific nursing protocol. Once exam is complete flush line and de-access according to line specific nursing protocol in the MR contrast administration guidelines link. 1 Each 0 11/27/2022 Active Start: 07-16-2022 End: 07-17-2022 iv contrast (will be provide d with radiology test) MRI Pel/Perineum Inject, intravenously, once for 1 dose. No IV access, insert saline lock prior to the beginning of sedation, infusion, injection of imaging exam. Discontinue saline lock post exam. If Pt has a central line or IVAD, may access for administration according to line specific nursing protocol. Once exam is complete flush line and de-access according to line specific nursing protocol in the MR contrast administration guidelines link. 1 Each 0 07/16/2022 07/17/2022 Active Comment on above: MRI Pel/Perineum Inj ect, intravenously, once for 1 dose. No IV access, insert saline lock prior to the beginning of sedation, infusion, injection of imaging exam. Discontinue saline lock post exam. If Pt has a central line or IVAD, may access for administration according to line specific nursing protocol. Once exam is complete flush line and de-access according to line specific nursing protocol in the MR contrast administration guidelines link. MRI Enterography Inj ect, intravenously, once for 1 dose. No IV access, insert saline lock prior to the beginning of sedation, infusion, injection of imaging exam. Discontinue saline lock post exam. If Pt. has a central line or IVAD, may access for administration according to line specific nursing protocol. Once exam is complete flush line and de-access according to line specific nursing protocol in the MR contrast administration guidelines link. oxyCODONE hydrochloride 5 mg oral tablet (20 sources) Opioid Agonist Start: 10-20-19 End: 01-18-20 take 0.5 tablet by mouth every six hours as needed for pain oxyCODONE IR (ROXICODONE) 5 mg immediate release tablet Indications: Obesity, Class I, BMI 30-34.9 Take 0.5 tablets by mouth every 6 hours as needed for pain. 10 tablet 0 10/19/2022 01/17/2023 Discontinued Start: 09-07-2022 take 1 tablet by heather th every six hours as needed for pain oxyCODONE IR (ROXICODONE) 5 mg immediate release tablet Indications: Transsphincteric anal fistula Take 1 tablet by mouth every 6 hours as needed for pain. 20 tablet 0 09/07/2022 Active Start: 07-27-2022 End: 08-09-2022 take 1 tablet by mouth every six hours as needed for pain oxyCODONE IR (ROXICODONE) 5 mg immediate release tablet Indications: Post-op pain Take 1 tablet by mouth every 6 hours as needed for pain. 5 tablet 0 08/09/2022 Active Comment on above: Take 1 tablet by heather th every 6 hours as needed for pain. Take 0.5 tablets by mouth every 6 hours as needed for pain. 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, unspecified] Chronic Joint disorders and dislocations; trauma-related (1 source) Unspecified dislocation of left shoulder joint, initial encounter; Translations: [Unspecified dislocation of left shoulder joint, initial encounter] Onset: 09-18-2017 Episodic Other aftercare (2 sources) Surgical follow-up; Translations: [Encounter for follow-up examination after completed treatment for conditions other than malignant neoplasm] Episodic Other aftercare (1 source) Wound ; Translations: [Encounter for other specified surgical aftercare] Episodic Other and ill-defined heart disease (3 sources) Right atrial enlargement; Translations: [Cardiomegaly] Chronic Other disorders of stomach and duodenum (2 sources) Gastrointestinal fistula; Translations: [Fistula of stomach and duodenum] Episodic Other liver diseases (3 sources) Steatosis of liver; Translations: [Fatty (change of) liver, not elsewhere classified] Chronic Other nervous system disorders (2 sources) Acute postoperative pain; Translations: [Other acute postprocedural pain] 03-29-2022 Episodic Other nervous system disorders (1 source) Postoperative pain ; Translations: [Other acute postprocedural pain] Episodic Other nutritional; endocrine; and metabolic disorders (20 sources) Obese class I; Translations: [Obesity, unspecified] Onset: 07-10-2022 07-10-2022 Chronic Other nutritional; endocrine; and metabolic disorders (1 source) Obesity, unspecified; Translations: [Obesity, Class I, BMI 30-34.9] Onset: 07-10-2022 Chronic Regional enteritis and ulcerative colitis (5 sources) Crohn's disease; Translations: [Crohn's disease, unspecified, with fistula] Onset: 01-17-2023 11-27-2022 Chronic Residual codes; unclassified (1 source) Other specified postprocedural states; Translations: [Other specified postprocedural states] Onset: 05-03-2022 Episodic Residual codes; unclassified (1 source) Postoperative state; Translations: [Other specified postprocedural states] 06-01-2023 Episodic Skin and subcutaneous tissue infections (8 sources) Cutaneous abscess of buttock; Translations: [Cellulitis of buttock] Onset: 03-01-2022 Episodic Past or Other Problems Problem Classification Problem Date Documented Da te Episodic/Chronic Gastrointestinal hemorrhage (1 source) Hemorrhage of anus and rectum; Translations: [Anal bleeding] Onset: 05-30-2023 Episodic Headache; including migraine (1 source) Headache; including migraine Onset: 01-24-2022 Resolved: 05-08-2021 Other aftercare (1 source) Encounter for follow-up examination after completed treatment for conditions other than malignant neoplasm; Translations: [Follow-up examination after colorectal surgery] Onset: 11-27-2022 Episodic Other disorders of stomach and duodenum (1 source) Fistula of stomach and duodenum; Translations: [Fistula of stomach and duodenum (CODE)] Onset: 07-20-2022 Episodic Other nervous system disorders (3 sources) Other acute postprocedural pain; Translations: [Other acute postprocedural pain] Onset: 05-03-2022 Episodic Other nutritional; endocrine; and metabolic disorders (1 source) Abnormal weight gain Onset: 05-08-2021 Resolved: 05-08-2021 Episodic Unclassified (1 source) Lumbar pain M54.50 Onset: 05-08-2021 Resolved: 05-08-2021 Viral infection (1 source) COVID-19 Onset: 05-08-2021 Resolved: 05-08-2021 Results Test Name Value Interpretation Reference Range Facility [facility] 11-08-2023 [facility] Telephone (ALBINO) ----- LORENZA ROCK ([id number]) 1980 M Date Time Provider Department 11/08/23 RENETTA GARNER During your visit today, we recorded the following information about you: Anita Payne 11/08/2023 9:17 AM Signed Lorenza Rock returned Lorena's call. [phone] Lorena Ren RN 11/11/2023 3:32 PM Signed SPECIALTY CARE COORDINATION FOLLOW-UP NOTE Return call to Lorenza. No answer, voicemail left to follow up to further discuss message received. Welcome to call the office back to discuss his questions/concerns and follow up since surgery. 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 He is still experiencing the same issues. [phone] Lorena Ren RN 11/04/2023 9:52 AM Addendum SPECIALTY CARE COORDINATION FOLLOW-UP NOTE Return call to Lorenza to further discuss message received. No answer, voicemail left to call back to further discuss his concerns. He mentions a 'bump' near his incisional site that is fully healed. Photo was sent via [employer] and the area circled looks as if this is a healed, likely scar tissued area. Does not look concerning or in need of surgical intervention. If he notices that he has a hard nodule/lesion, tenderness, redness, pain, or is experiencing fevers, then he will need further evaluation in office is able to do same day appointment or go the ED for evaluation and rule out abscess. Right now, nothing of concern noted. If he would like to have this evaluated he can schedule a visit with our SECURITY PROGRAM MANAGER, Erik. 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 He had to cancel his trip to [place] because his wound is not completely healed. The airline is requesting a letter from the doctor so he can get reimbursed. [phone] Lorena Ren RN 07/04/2023 12:47 PM Signed SPECIALTY CARE COORDINATION FOLLOW-UP NOTE Message sent to Admin to assist with letter needed in request for airline to refund cancelled drip. You can write him a letter for a refund. Just ask him specifically what he needs in the letter. He has a slow healing post-surgical wound. 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] 01/07/2023 Perianal abscess [K61.0] 01/07/2023 Encounter Status:Closed by ANITA PAYNE on 07/04/23 [facility] CNOVon 06-17-2023 RADHA Office Visit (ALBINO ) ----- LORENZA ROCK ([id number]) 1980 M Date Time Provider Department 06/17/23 9:40 AM RENETTA GARNER During your visit today, we recorded the following information about you: Weight Height 119.7 kg 1.88 m Renetta Garner MD 06/17/2023 10:27 PM Signed COLORECTAL SURGERY Post-Op Visit June 17, 2023 Lorenza Rock returns for a post-operative visit after undergoing Examination under anesthesia, removal of seton and fistulotomy, on 05/21/23. His post-operative period was uncomplicated. He is tolerating diet with an improving appetite, stable weight, and energy level is improving . He has no specific complaints. He has regular BM, once daily, no bleeding/rectum, occasional yellowish discharge, no incontinence. He shows concern about whitish granulation tissue growth at site of fistulotomy. Current pain medications: NA Current bowel related medications: NA Bowel movement frequency: 1/day Current Outpatient Medications Medication Sig Dispense Refill docusate sodium (COLACE) 100 mg capsule Take 1 capsule by mouth two times a day. 60 capsule 0 iv contrast (will be provided with radiology test) MRI Enterography Inject, intravenously, once for 1 dose. No IV access, insert saline lock prior to the beginning of sedation, infusion, injection of imaging exam. Discontinue saline lock post exam. If Pt. has a central line or IVAD, may access for administration according to line specific nursing protocol. Once exam is complete flush line and de-access according to line specific nursing protocol in the MR contrast administration guidelines link. 1 Each 0 enteric contrast (will be provided with radiology test) For MRI ENTEROGRAPHY WO/W Administer, As Directed One Time Only, via Oral, Rectal, both Oral and Rectal, Enteric Tube, Stoma or Indwelling Catheter, Enteric Contrast as designated per enteric contrast guidelines 1 Each 0 glucagon (GLUCAGEN) 1 mg/mL injection Inject 1 mg intravenously one time only for 1 dose. For MRI Enterography, Inject 1 mg intravenously, as directed. Slow push at the appropriate time during MRI Scan 1 Each 0 ibuprofen (MOTRIN) 200 mg tablet Take 1-2 tablets by mouth every 6 hours. acetaminophen (TYLENOL) 325 mg tablet Take 2 tablets by mouth every 6 hours. No current facility-administered medications for this visit. ALLERGIES No Known Allergies Ht 188 cm (6' 2 ) Wt 119.7 kg (264 lb) BMI 33.90 kg/m? Abdominal examination: soft, non-distended, and non-tender without masses or hernias. Wound is granulating. Anorectal: fistulotomy site is healing with healthy granulation tissue and no signs of infection. 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 He is here for postop follow up visit, reporting regular BM, no incontinence. Fistulotomy site is granulating well with no signs of infection. Plan - can use sitz warm bath as needed. - reassured that fistulotomy growth site is healing well - f/u here as needed. 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 No IV access, insert saline lock prior to the beginning of sedation, infusion, injection of imaging exam. Discontinue saline lock post exam. If Pt. has a central line or IVAD, may access for administration according to line specific nursing protocol. Once exam is complete flush line and de-access according to line specific nursing protocol in the MR contrast administration guidelines link. - ibuprofen (MOTRIN) 200 mg tablet (Discontinued) Take 1-2 tablets by mouth every 6 hours. - glucagon (GLUCAGEN) 1 mg/mL injection (Discontinued) Inject 1 mg intravenously one time only for 1 dose. For MRI Enterography, Inject 1 mg intravenously, as directed. Slow push at the appropriate time during MRI Scan - enteric contrast (will be provided with radiology test) (Discontinued) For MRI ENTEROGRAPHY WO/W Administer, As Directed One Time Only, via Oral, Rectal, both Oral and Rectal, Enteric Tube, Stoma or Indwelling Catheter,? Enteric Contrast as designated per enteric contrast guidelines - docusate sodium (COLACE) 100 mg capsule (Discontinued) Take 1 capsule by mouth two (more content not included)... Normal [facility] CBC W Auto Differential pane l (Bld)on 05-31-2023 Basophils (Bld) [#/Vol] 0.10 10*3/uL Normal <0.11 [facility] Comment on above: Order Comment: Speci men Type: BLOOD SPECIMENOrdering Facility: [facility] Address: [address] [place] [address] Performed By: #### 5 7021-8 ####[facility] LABCLIA [id number] [place] [address] [place] Basophils/100 WBC (Bld) 0.9 % Normal [facility] Comment on above: Order Comment: Speci men Type: BLOOD SPECIMENOrdering Facility: [facility] Address: [address] [place] [address] Performed By: #### 5 7021-8 ####[facility] LABCLIA [id number] [place] [address] [place] Differential cell count method Nom (Bld) Auto Normal [facility] Comment on above: Order Comment: Speci men Type: BLOOD SPECIMENOrdering Facility: [facility] Address: [address] [place] [address] Performed By: #### 5 7021-8 ####[facility] LABCLIA [id number] [place] [address] [place] Eosinophils (Bld) [#/Vol] 0.19 10*3/uL Normal <0.46 [facility] Comment on above: Order Comment: Speci men Type: BLOOD SPECIMENOrdering Facility: [facility] Address: [address] [place] [address] Performed By: #### 5 7021-8 ####[facility] LABCLIA [id number] [place] [address] [place] Eosinophils/100 WBC (Bld) 1.8 % Normal [facility] Comment on above: Order Comment: Speci men Type: BLOOD SPECIMENOrdering Facility: [facility] Address: [address] [place] [address] Performed By: #### 5 7021-8 ####[facility] LABCLIA [id number] [place] [address] [place] Erythrocyte distribution width (RBC) [Ratio] 11.9 % Normal 11.5-15.0 [facility] Comment on above: Order Comment: Speci men Type: BLOOD SPECIMENOrdering Facility: [facility] Address: [address] [place] [address] Performed By: #### 5 7021-8 ####[facility] LABCLIA [id number] [place] [address] [place] Hematocrit (Bld) [Volume fraction] 48.9 % Normal 39.0-51.0 [facility] Comment on above: Order Comment: Speci men Type: BLOOD SPECIMENOrdering Facility: [facility] Address: [address] [place] [address] Performed By: #### 5 7021-8 ####[facility] LABCLIA [id number] [place] [address] [place] Hemoglobin (Bld) [Mass/Vol] 17.0 g/dL Normal 13.0-17.0 [facility] Comment on above: Order Comment: Speci men Type: BLOOD SPECIMENOrdering Facility: [facility] Address: [address] [place] [address] Performed By: #### 5 7021-8 ####[facility] LABCLIA [id number] [place] [address] [place] Immature granulocytes (Bld) [#/Vol] 0.06 10*3/uL Normal <0.10 [facility] Comment on above: Order Comment: Speci men Type: BLOOD SPECIMENOrdering Facility: [facility] Address: [address] [place] [address] Performed By: #### 5 7021-8 ####[facility] LABCLIA [id number] [place] [address] [place] Immature granulocytes/100 WBC (Bld) 0.6 % Normal [facility] Comment on above: Order Comment: Speci men Type: BLOOD SPECIMENOrdering Facility: [facility] Address: [address] [place] [address] Performed By: #### 5 7021-8 ####[facility] LABCLIA [id number] [place] [address] [place] Lymphocytes (Bld) [#/Vol] 3.09 10*3/uL Normal 1.00-4.00 [facility] Comment on above: Order Comment: Speci men Type: BLOOD SPECIMENOrdering Facility: [facility] Address: [address] [place] [address] Performed By: #### 5 7021-8 ####[facility] LABIA [id number] [place] [address] [place] Lymphocytes/100 WBC (Bld) 28.6 % Normal [facility] Comment on above: Order Comment: Speci men Type: BLOOD SPECIMENOrdering Facility: [facility] Address: [address] [place] [address] Performed By: #### 5 7021-8 ####[facility] LABIA [id number] [place] [address] [place] MCH (RBC) [Entitic mass] 28.9 pg Normal 26.0-34.0 [facility] Comment on above: Order Comment: Speci men Type: BLOOD SPECIMENOrdering Facility: [facility] Address: [address] [place] [address] Performed By: #### 5 7021-8 ####[facility] LABIA [id number] [place] [address] [place] MCHC (RBC) [Mass/Vol] 34.8 g/dL Normal 30.5-36.0 [facility] Comment on above: Order Comment: Speci men Type: BLOOD SPECIMENOrdering Facility: [facility] Address: [address] [place] [address] Performed By: #### 5 7021-8 ####[facility] LABIA [id number] [place] [address] [place] MCV (RBC) [Entitic vol] 83.2 fL Normal 80.0-100.0 [facility] Comment on above: Order Comment: Speci men Type: BLOOD SPECIMENOrdering Facility: [facility] Address: [address] [place] [address] Performed By: #### 5 7021-8 ####[facility] LABCLIA [id number] [place] [address] [place] Monocytes (Bld) [#/Vol] 0.97 10*3/uL High <0.87 [facility] Comment on above: Order Comment: Speci men Type: BLOOD SPECIMENOrdering Facility: [facility] Address: [address] [place] [address] Performed By: #### 5 7021-8 ####[facility] LABCLIA [id number] [place] [address] [place] Monocytes/100 WBC (Bld) 9.0 % Normal [facility] Comment on above: Order Comment: Speci men Type: BLOOD SPECIMENOrdering Facility: [facility] Address: [address] [place] [address] Performed By: #### 5 7021-8 ####[facility] LABCLIA [id number] [place] [address] [place] Neutrophils (Bld) [#/Vol] 6.38 10*3/uL Normal 1.45-7.50 [facility] Comment on above: Order Comment: Speci men Type: BLOOD SPECIMENOrdering Facility: [facility] Address: [address] [place] [address] Performed By: #### 5 7021-8 ####[facility] LABCLIA [id number] [place] [address] [place] Neutrophils/100 WBC (Bld) 59.1 % Normal [facility] Comment on above: Order Comment: Speci men Type: BLOOD SPECIMENOrdering Facility: [facility] Address: [address] [place] [address] Performed By: #### 5 7021-8 ####[facility] LABCLIA [id number] [place] [address] [place] Nucleated RBC (Bld) [#/Vol] 10*3/uL Normal <0.01 [facility] Comment on above: Order Comment: Speci men Type: BLOOD SPECIMENOrdering Facility: [facility] Address: [address] [place] [address] Performed By: #### 5 7021-8 ####[facility] LABCLIA [id number] [place] [address] [place] Nucleated RBC/100 WBC (Bld) [Ratio] 0.0 /100 WBC Normal [facility] Comment on above: Order Comment: Speci men Type: BLOOD SPECIMENOrdering Facility: [facility] Address: [address] [place] [address] Performed By: #### 5 7021-8 ####[facility] LABIA [id number] [place] [address] [place] Platelet mean volume (Bld) [Entitic vol] 9.5 fL Normal 9.0-12.7 [facility] Comment on above: Order Comment: Speci men Type: BLOOD SPECIMENOrdering Facility: [facility] Address: [address] [place] [address] Performed By: #### 5 7021-8 ####[facility] LABIA [id number] [place] [address] [place] Platelets (Bld) [#/Vol] 310 10*3/uL Normal 150-400 [facility] Comment on above: Order Comment: Speci men Type: BLOOD SPECIMENOrdering Facility: [facility] Address: [address] [place] [address] Performed By: #### 5 7021-8 ####[facility] LABIA [id number] [place] [address] [place] RBC (Bld) [#/Vol] 5.88 10*6/uL Normal 4.20-6.00 [facility] Comment on above: Order Comment: Speci men Type: BLOOD SPECIMENOrdering Facility: [facility] Address: [address] [id number] Performed By: #### 5 7021-8 ####[facility] [id number] [place] [address] [place] WBC (Bld) [#/Vol] 10.79 10*3/uL Normal 3.70-11.00 [facility] Comment on above: Order Comment: Speci men Type: BLOOD SPECIMENOrdering Facility: [facility] Address: [address] [id number] Performed By: #### 5 7021-8 ####[facility] [id number] [place] [id number] [place] CNOVon 05-31-2023 CNOV Office Visit ([facility] ) ----- LORENZA ROCK ([id number]) 1980 M Date Time Provider Department 05/31/23 10:30 AM ERIK POWERS During your visit today, we recorded the following information about you: Weight Height 119.7 kg 1.88 m Erik Powers APRN.[facility] 06/01/2023 10:39 PM Signed COLORECTAL SURGERY Post-Op Visit Lorenza Rock returns for a post-operative visit after undergoing surgery, on 05/21/23. SURGEON: Renetta Garner M.D. SURGERY/PROCEDURE: Examination under anesthesia, removal of seton and fistulotomy. INDICATIONS: This is a 42-year-old male with a complicated history related to anal abscesses and fistulas. This started at the end of 2021, and he has required over 6 trips to operating rooms at different hospitals for treatment of his fistula. I performed an examination under anesthesia in February of this year, where a transsphincteric fistula was identified and a seton had been placed. He now presents to the operating room for definitive treatment. We discussed doing a fistulotomy versus advancement flap depending on the involvement of the sphincter muscle. Of note, he had excellent sphincter function. We discussed risks, benefits, and alternatives in detail including risks related to anesthesia, risks of bleeding, infection, recurrence, and sphincter injury. He understood all this well and desired to proceed. OPERATIVE FINDINGS: On examination under anesthesia, the seton was identified posteriorly, just right of the midline approximately a centimeter from the anal verge. The fistula tract was mostly involving scar tissue from prior and a small amount of internal sphincter muscle and about 2 mm of external sphincter muscle. Given the minimal amount of external sphincter muscle involved, the fistulotomy was performed. The external sphincter muscle at the distal aspect of the base of the wound was reapproximated. Patient messaged the office 05/30/23 to report increased wound drainage/bleeding (see photos from 05/30/23). Today he reports: -Patient monitored increased bloody drainage from wound and as the day progressed the amount of bloody drainage increased, which prompted him to go the ED in the evening on 05/30 -the wound had stopped bleeding/draining by the time he was assessed in the ED -wound care: no longer packing. Now keeping dry gauze tucked between buttocks to absorb drainage -Showering daily and doing frequent sitz baths daily -Denies f/c -bm frequency/consistency: once daily, soft -Bowel regimen: none -no pain regimen -denies change in activity that would have caused increased bleeding -wound is tender, feels like there is a foreign object inside his perianal area -Walking and sitting are very uncomfortable -He is avoiding sitting directly on the wound Path: none Current Outpatient Medications Medication Sig Dispense Refill docusate sodium (COLACE) 100 mg capsule Take 1 capsule by mouth two times a day. 60 capsule 0 iv contrast (will be provided with radiology test) MRI Enterography Inject, intravenously, once for 1 dose. No IV access, insert saline lock prior to the beginning of sedation, infusion, injection of imaging exam. Discontinue saline lock post exam. If Pt. has a central line or IVAD, may access for administration according to line specific nursing protocol. Once exam is complete flush line and de-access according to line specific nursing protocol in the MR contrast administration guidelines link. 1 Each 0 enteric contrast (will be provided with radiology test) For MRI ENTEROGRAPHY WO/W Administer, As Directed One Time Only, via Oral, Rectal, both Oral and Rectal, Enteric Tube, Stoma or Indwelling Catheter, Enteric Contrast as designated per enteric contrast guidelines 1 Each 0 glucagon (GLUCAGEN) 1 mg/mL injection Inject 1 mg intravenously one time only for 1 dose. For MRI Enterography, Inject 1 mg intravenously, as directed. Slow push at the appropriate time during MRI Scan 1 Each 0 ibuprofen (MOTRIN) 200 mg tablet Take 1-2 tablets by mouth every 6 hours. acetaminophen (TYLENOL) 325 mg tablet Take 2 tablets by mouth every 6 hours. No current facility-administered medications for this visit. ALLERGIES No Known Allergies There were no vitals taken for this visit. Abdominal examination: deferred Anorectal: perianal skin is mildly excoriated. Perianal wound right lateral to anal verge,nickel-sized, wound is granulating in with scant slough in the wound bed. Skin surrounding wound bed is blanchable and bleeds easily. +TTP. No concern for infection. See picture below for reference: Health Program Director present: Chikis Maharaj MA Assessment Assessment: Incision/wound: healing as expected BMs: normal Overall doing well from surgical standpoint Plan: -sitz baths 2-3x/day in very warm water for ~15 min -shower daily and allow soap and (more content not included)... Normal [facility] CONSULTon 05-31-2023 CONSULT HNO ID: [id number] Author: MARIZOL BACH MD Service: Colorectal Author Type: Resident Type: Consults Filed: 06/04/2023 20:55 Note Text: ----- Attestation signed by Marizol Bach MD at 06/04/2023 8:55 PM Agree. Patient has an appointment in the morning Marizol Bach MD ----- GENERAL SURGERY INITIAL CONSULT NOTE NAME: Lorenza Rock DATE: 05/31/2023 TIME: 12:50 AM REASON FOR CONSULT: postop bleeding SUBJECTIVE HISTORY OF PRESENT ILLNESS: Lorenza Rock is a 42 year old man with recurrent perianal abscess s/p transsphincteric anal fistula s/p multiple interventions since March 2022, most recently seton placement (Maddy 02/2023) and removal of seton and fistulotomy (Maddy 05/21/2023) who presents with bleeding from surgical site. Colorectal surgery is consulted to evaluate in the setting of recent anorectal procedure. In the ED, patient is afebrile and hemodynamically stable in bed. He reports he had been packing the anus daily since surgery and was done with packing 05/30. After he stopped packing he started noticing ongoing bleeding per rectum. He had placed gauze external to the anal opening and was needing to change it 3-4 times given saturation. He called Dr. Garner's office and they were able to schedule him to see a nurse practitioner 05/31 at 10:30 am. He presents this evening for concern of ongoing bleeding. On my evaluation, there is healthy granulation tissue at the left wall of the anal canal at the site of the fistulotomy. No bleeding noted. No tenderness of fluctuance. Patient is having normal soft, formed bowel movements without blood. Normal appetite, no nausea or vomiting. Nopurulent drainage or fullness subjectively. No fevers or chills. Previous Anorectal Procedures: 07/2022: seton placement 08/2022: drainage of perirectal abscess, removal of prior seton and placement of new seton 10/2022: complex fistulotomy 02/2023: debridement of anal fistula tract and seton placement 05/21/2022: removal of seton and fistulotomy Last Colonoscopy/ EGD: 01/2023 colonoscopy Anticoagulation/ Antiplatelet: none REVIEW OF SYSTEMS: Consitutional: denies fevers/chills, significant weight loss/gain Neuro: denies dizziness/syncope CV: denies chest pain, palpitations, leg swelling Pulm: denies cough, SOB, hemoptysis GI: + blood per rectum, denies nausea, vomiting, hematemesis, hematochezia, diarrhea : denies hematuria, dysuria, urinary incontinence, retention PAST MEDICAL HISTORY: PAST MEDICAL HISTORY Diagnosis Date Fistula 07/2022 PAST SURGICAL HISTORY: PAST SURGICAL HISTORY Procedure Laterality Date FISTULOTOMY SUBCUT 10/2022 PAST SURGICAL HISTORY OF rectal abscess drained x 2 PAST SURGICAL HISTORY OF [place] teeth removal PAST SURGICAL HISTORY OF 08/2022 anal procedure PAST SURGICAL HISTORY OF 03/06/2023 EUA, debridement of anal fistula tract and seton placement FAMILY HISTORY: FAMILY HISTORY Problem Relation Age of Onset No Known Problems Mother No Known Problems Father Clotting Disorder No Family History Anesthesia Problems No Family History Malig Hyperthermia No Family History SOCIAL HISTORY: Social History Tobacco Use Smoking status: Never Smokeless tobacco: Never Vaping Use Vaping Use: Never used Substance Use Topics Alcohol use: Not Currently Drug use: Not Currently MEDICATIONS: Prior to Admission Medications: (Not in a hospital admission) No current facility-administered medications for this encounter. ALLERGIES: ALLERGIES No Known Allergies OBJECTIVE PHYSICAL EXAM: BP 134/71 Pulse 70 Temp (Src) 97.7 (Oral) Resp 16 Wt 260 lb (117.9kg) SpO2 95% O2 Therapy: Room Air General: comfortable, no acute distress Cardiac: regular rate AND rhythm; no murmurs, rubs, or gallops Pulm: normal respiratory effort on room air; lungs clear to auscultation bilaterally Abd: soft, non-distended, non-tender Anorectal: left anal canal wall with healthy granulation tissue, no bleeding, no fluctuance, no drainage, no tenderness LABS: Recent Labs 05/31/23 0001 WBC 10.79 HB 17.0 HCT 48.9 PLT 310 NA 139 K 4.2 CHLOR 104 CO2 22 CREAT 1.20 BUN 25* GLUC 114* TPROT 7.7 ALB 4.6 CA 10.1 ALKPHOS 65 TBILI 0.7 AST 22 ALT 34 IMAGING: No imaging obtained. ASSESSMENT AND PLAN Lorenza Rock is a 42 year old man with recurrent perianal abscess s/p transsphincteric anal fistula s/p multiple interventions since March 2022, most recently seton placement (Liska 02/2023) and removal of seton and fistulotomy (Liska 05/21/2023) who presents with bleeding from surgical site. Colorectal surgery is consulted to evaluate in the setting of recent anorectal procedure. On exam, patient is HDS and the wound appears to have healthy (more content not included)... Normal [facility] Comprehensive metabolic 2000 panelon 05-31-2023 Albumin [Mass/Vol] 4.6 g/dL Normal 3.9-4.9 [facility] Comment on above: Order Comment: Speci men Type: BLOOD SPECIMENOrdering Facility: [facility] Address: [address] [place] [address] Performed By: #### 2 4323-8 ####[facility] LABCLIA [id number] [place] [address] [place] ALP [Catalytic activity/Vol] 65 U/L Normal 38-113 [facility] Comment on above: Order Comment: Speci men Type: BLOOD SPECIMENOrdering Facility: [facility] Address: [address] [place] [address] Performed By: #### 2 4323-8 ####[facility] LABCLIA [id number] [place] [address] [place] ALT [Catalytic activity/Vol] 34 U/L Normal 10-54 [facility] Comment on above: Order Comment: Speci men Type: BLOOD SPECIMENOrdering Facility: [facility] Address: [address] [place] [address] Performed By: #### 2 4323-8 ####[facility] LABCLIA [id number] [place] [address] [place] Anion gap [Moles/Vol] 13 mmol/L Normal 9-18 [facility] Comment on above: Order Comment: Speci men Type: BLOOD SPECIMENOrdering Facility: [facility] Address: [address] [place] [address] Performed By: #### 2 4323-8 ####[facility] LABCLIA [id number] [place] [id number] [place] AST [Catalytic activity/Vol] 22 U/L Normal 14-40 [facility] Comment on above: Order Comment: Speci men Type: BLOOD SPECIMENOrdering Facility: [facility] Address: [address] [place] [address] Performed By: #### 2 4323-8 ####[facility] LABCLIA [id number] [place] [address] [place] Bilirubin [Mass/Vol] 0.7 mg/dL Normal 0.2-1.3 [facility] Comment on above: Order Comment: Speci men Type: BLOOD SPECIMENOrdering Facility: [facility] Address: [address] [place] [address] Performed By: #### 2 4323-8 ####[facility] LABCLIA [id number] [place] [address] [place] Calcium [Mass/Vol] 10.1 mg/dL Normal 8.5-10.2 [facility] Comment on above: Order Comment: Speci men Type: BLOOD SPECIMENOrdering Facility: [facility] Address: [address] [place] [address] Performed By: #### 2 4323-8 ####[facility] LABCLIA [id number] [place] [address] [place] Chloride [Moles/Vol] 104 mmol/L Normal 97-105 [facility] Comment on above: Order Comment: Speci men Type: BLOOD SPECIMENOrdering Facility: [facility] Address: [address] [place] [address] Performed By: #### 2 4323-8 ####[facility] LABCLIA [id number] [place] [id number] [place] CO2 [Moles/Vol] 22 mmol/L Normal 22-30 [facility] Comment on above: Order Comment: Speci men Type: BLOOD SPECIMENOrdering Facility: [facility] Address: [address] [place] [address] Performed By: #### 2 4323-8 ####[facility] LABIA [id number] [place] [address] [place] Creatinine [Mass/Vol] 1.20 mg/dL Normal 0.73-1.22 [facility] Comment on above: Order Comment: Speci men Type: BLOOD SPECIMENOrdering Facility: [facility] Address: [address] [place] [address] Performed By: #### 2 4323-8 ####[facility] LABIA [id number] [place] [address] [place] Creatinine and Glomerular filtration rate.predicted panel (S/P/Bld) 78 mL/min/1.73m??? Normal >=60 [facility] Comment on above: Order Comment: Speci men Type: BLOOD SPECIMENOrdering Facility: [facility] Address: [address] [place] [address] Result Comment: Miladis mated Glomerular Filtration Rate (eGFR) is calculated using the 2020 CKD-EPI creatinine equation. This equation utilizes serum creatinine, sex, and age as parameters. The creatinine assay has traceable calibration to isotope dilution-mass spectrometry. Refer to KDIGO guidelines for clinical interpretation. In patients with unstable renal function, e.g. those with acute kidney injury, the eGFR may not accurately reflect actual GFR. Performed By: #### 2 4323-8 ####[facility] LABIA [id number] [place] [address] [place] Glucose [Mass/Vol] 114 mg/dL High 74-99 [facility] Comment on above: Order Comment: Speci men Type: BLOOD SPECIMENOrdering Facility: [facility] Address: [address] [place] [address] Result Comment: The [place] Diabetes [employer] (ADA) provides guidance for cutoff values for fasting glucose and random glucose. The ADA defines fasting as no caloric intake for at least 8 hours. Fasting plasma glucose results between 100 to 125 mg/dL indicate increased risk for diabetes (prediabetes). Fasting plasma glucose results greater than or equal to 126 mg/dL meet the criteria for diagnosis of diabetes. In the absence of unequivocal hyperglycemia, results should be confirmed by repeat testing. In a patient with classic symptoms of hyperglycemia or hyperglycemic crisis, random plasma glucose results greater than or equal to 200 mg/dL meet the criteria for diagnosis of diabetes. Reference: Standards of Medical Care in Diabetes 2016, [place] Diabetes Association. Diabetes Care. 2016.39(Suppl 1). Performed By: #### 2 4323-8 ####[facility] LABCLIA [id number] [place] [address] [place] Potassium [Moles/Vol] 4.2 mmol/L Normal 3.7-5.1 [facility] Comment on above: Order Comment: Ashly vaughan Type: BLOOD SPECIMENOrdering Facility: [facility] Address: [address] [place] [address] Performed By: #### 2 4323-8 ####[facility] LABCLIA [id number] [place] [address] [place] Protein [Mass/Vol] 7.7 g/dL Normal 6.3-8.0 [facility] Comment on above: Order Comment: Evensi clement Type: BLOOD SPECIMENOrdering Facility: [facility] Address: [address] [place] [address] Performed By: #### 2 4323-8 ####[facility] LABCLIA [id number] [place] [address] [place] Sodium [Moles/Vol] 139 mmol/L Normal 136-144 [facility] Comment on above: Order Comment: Speci men Type: BLOOD SPECIMENOrdering Facility: [facility] Address: [address] [place] [address] Performed By: #### 2 4323-8 ####[facility] LABCLIA [id number] [place] [address] [place] Urea nitrogen [Mass/Vol] 25 mg/dL High 9-24 [facility] Comment on above: Order Comment: Speci men Type: BLOOD SPECIMENOrdering Facility: [facility] Address: [address] [place] [address] Performed By: #### 2 4323-8 ####[facility] LABCLIA [id number] [place] [address] [place] PT panel Coag (PPP)on 2023 INR Coag (PPP) [Relative time] 1.0 {INR} Normal 0.9-1.3 [facility] Comment on above: Order Comment: Speci clement Type: BLOOD SPECIMENOrdering Facility: [facility] Address: [address] [place] [address] Result Comment: Rosalva min K Antagonist (VKA) Therapeutic Range: INR 2 to 3 (Target INR of 2.5) Note: For patients treated with VKA drugs, such as warfarin, the [place] [employer] 2012 Guideline recommends a therapeutic INR range of 2 to 3 (target INR of 2.5). This recommendation includes high-risk patients with antiphospholipid syndrome with previous arterial or venous thromboembolism, current-generation mechanical or bioprosthetic aortic heart valve replacement. Note: Patients with mechanical aortic valve replacement and additional risk factors for thromboembolic events (atrial fibrillation, previous thromboembolism, LV dysfunction, hypercoagulable conditions) or an older generation mechanical AVR (i.e., ball in-Cage) or any mechanical MVR should have a INR therapeutic range of 2.5 to 3.5 (target INR of 3). Tacos GH, et al. Chest 2012, 141:7S-47S Zaira RA et al. [facility] 2017, 70: 252-289 Performed By: #### 1 4979-9, 34542-9 ####[facility] LABIA [id number] [place] [address] [place] PT Coag (PPP) [Time] 10.7 s Normal 9.7-13.0 [facility] Comment on above: Order Comment: Speci men Type: BLOOD SPECIMENOrdering Facility: [facility] Address: [address] [place] [address] Performed By: #### 1 4979-9, 15484-8 ####[facility] LABCLIA [id number] [place] [address] [place] TYPE + SCREENon 05-31-2023 ABO O Normal [facility] Comment on above: Order Comment: Speci men Type: BLOOD SPECIMENOrdering Facility: [facility] Address: [address] [place] [address] Performed By: #### T SCR ####[facility] BLOOD BANKCLIA [id number] [place] [address] [place] HISTORICAL AB SCR STATUS Negative Normal [facility] Comment on above: Order Comment: Speci men Type: BLOOD SPECIMENOrdering Facility: [facility] Address: [address] [place] [address] Performed By: #### T SCR ####[facility] BLOOD BANKCLIA [id number] [place] [address] [place] Rh Nom (Bld) Positive Normal [facility] Comment on above: Order Comment: Speci men Type: BLOOD SPECIMENOrdering Facility: [facility] Address: [address] [place] [address] Performed By: #### T SCR ####[facility] BLOOD BANKCLIA [id number] [place] [address] [place] TYPE AND SCREEN EXPIRATION 06/03/2023 23:59 Normal [facility] Comment on above: Order Comment: Speci men Type: BLOOD SPECIMENOrdering Facility: [facility] Address: [address] [place] [address] Performed By: #### T SCR ####[facility] BLOOD BANKCLIA [id number] [place] [id number] [place] aPTT PPPon 05-31-2023 aPTT Coag (PPP) [Time] 33.9 s High 23.0-32.4 [facility] Comment on above: Order Comment: Speci men Type: BLOOD SPECIMENOrdering Facility: [facility] Address: [address] [place] [address] Performed By: #### 1 4979-9, 90862-6 ####[facility] LABCLIA [id number] [id number] [address] [place] ED PROV NOTEon 05-30-2023 ED PROV NOTE HNO ID: [id number] Author: LUZ RING MD Service: Emergency Medicine Author Type: Physician Type: ED Provider Notes Filed: 05/31/2023 18:23 Note Text: ED Provider Note Patient Name: Lorenza Rock : 1980 SERVICE DATE: 05/30/23 History Patient presents with: Post Op Bleeding: Patient states he had a fistulotomy on 05/21 and is now experiencing increased anal bleeding not associated with any bowel movements. Patient not able to sit in triage. Patient has not been taking prescribed colace. HPI 32-year-old male past medical history of perirectal fistula with fistulotomy presents for anal bleeding and pain. Patient states that he has had continued pain since his fistulotomy last week. He is unable to sit on his bottom. Also endorses bleeding that is not associated with stool or bowel movements. Denies incontinence, fever, chills, abdominal pain, painful defecation. Does endorse some expression of pus on gauze. PAST MEDICAL HISTORY Diagnosis Date Fistula 07/2022 PAST SURGICAL HISTORY Procedure Laterality Date FISTULOTOMY SUBCUT 10/2022 PAST SURGICAL HISTORY OF rectal abscess drained x 2 PAST SURGICAL HISTORY OF [place] teeth removal PAST SURGICAL HISTORY OF 08/2022 anal procedure PAST SURGICAL HISTORY OF 03/06/2023 EUA, debridement of anal fistula tract and seton placement FAMILY HISTORY Problem Relation Age of Onset No Known Problems Mother No Known Problems Father Clotting Disorder No Family History Anesthesia Problems No Family History Malig Hyperthermia No Family History Social History Tobacco Use Smoking status: Never Smokeless tobacco: Never Vaping Use Vaping Use: Never used Substance and Sexual Activity Alcohol use: Not Currently Drug use: Not Currently Sexual activity: Not on file ALLERGIES No Known Allergies Review of Systems Constitutional: Negative for fatigue and fever. HENT: Negative for congestion. Respiratory: Negative for cough and shortness of breath. Cardiovascular: Negative for chest pain and leg swelling. Gastrointestinal: Positive for anal bleeding. Negative for diarrhea, nausea and vomiting. Genitourinary: Negative for dysuria. Musculoskeletal: Negative for back pain. Neurological: Negative for headaches. Physical Exam Vitals BP Pulse Temp Temp src Resp SpO2 Weight Height 05/30/23 2323 05/30/23 2323 05/30/23 2323 05/30/23232205/30/23232205/30/23232205/30/235 -- 145/99 83 36.5 ?C (97.7 ?F) Oral 18 98 % 117.9 kg (260 lb) Physical Exam Constitutional: General: He is not in acute distress. Appearance: He is not toxic-appearing. HENT: Head: Normocephalic. Nose: Nose normal. Mouth/Throat: Mouth: Mucous membranes are moist. Eyes: Conjunctiva/sclera: Conjunctivae normal. Cardiovascular: Rate and Rhythm: Normal rate. Pulses: Normal pulses. Pulmonary: Effort: Pulmonary effort is normal. No respiratory distress. Breath sounds: No wheezing. Abdominal: Palpations: Abdomen is soft. Tenderness: There is no abdominal tenderness. There is no guarding. Genitourinary: Comments: Opening of fistula appreciated near anal verge. No active bleeding or pus appreciated. Musculoskeletal: Cervical back: Normal range of motion. Right lower leg: No edema. Left lower leg: No edema. Skin: General: Skin is warm. Neurological: Mental Status: He is alert. Mental status is at baseline. Psychiatric: Mood and Affect: Mood normal. Diagnostic Testing ED Labs Ordered and Reviewed COMP METABOLIC PANEL - Abnormal; Notable for the following components: Result Value Ref Range Glucose 114 (*) 74 - 99 mg/dL BUN 25 (*) 9 - 24 mg/dL All other components within normal limits CBC + DIFF - Abnormal; Notable for the following components: Abs Frontier 0.97 (*) <0.87 k/uL All other components within normal limits ACTIVATED PTT - Abnormal; Notable for the following components: APTT 33.9 (*) 23.0 - 32.4 sec All other components within normal limits Narrative: Unfractionated Heparin Therapeutic Ranges: Standard Heparin Nomogram: 53 to 78 seconds (anti-Xa level of 0.3 to 0.7 U/ml) Low Dose/ACS Nomogram: 49 to 67 seconds (anti-Xa level of 0.2 to 0.5 U/ml) Stroke Treatment Nomogram: 49 to 67 seconds (anti-Xa level of 0.2 to 0.5 U/ml) Note: The APTT therapeutic range has been determined for the current lot of laboratory APTT reagent in use throughout the [facility]. PROTHROMBIN TIME/PT - Normal TYPE + SCREEN Procedures ED Course / Clinical Impression ED Course as of 05/31/23 1822 Others' Documentation SatMay 31, 2023 0036 COMP METABOLIC PANEL (BMP+LFT)(!): Protein, Total 7.7 Albumin 4.6 Calcium 10.1 Bilirubin, Total 0.7 Alkaline Phosphatase 65 AST 22 ALT 34 Glucose 114(!) BUN 25(!) Creatinine 1.20 Sodium 139 Potassium 4.2 Chloride 104 CO2 22 Anion Gap 13 eGFR 78 Serum creatinine near prior [KS] 0036 CBC (more content not included)... Normal [facility] ANES POSTPROC EVALon 024 ANES POSTPROC EVAL HNO ID: [id number] Author: GERARDO ALEXANDER MD Service: ? Author Type: Anesthesiologist Type: Anesthesia Postprocedure Evaluation Filed: 05/21/2023 16:49 Note Text: POST ANESTHESIA EVALUATION NOTE : 1980 Procedure Summary Date: 05/21/23 Room / Location: [address] [facility] Anesthesia Start: 1009 Anesthesia Stop: 1124 Procedures: FISTULOTOMY ANAL SUBCUTANEOUS (Anus) EXAM UNDER ANESTHESIA RECTAL (Anus) Diagnosis: Perirectal fistula (Perirectal fistula [K60.4]) Surgeons: Renetta Garner MD Responsible Provider: Gerardo Alexander MD Anesthesia Type: general ASA Status: 2 Anesthesia Type: general Airway Type: LMA Last Vitals Vitals Value Taken Time BP 137/66 05/21/23 1230 Temp 36.2 ?C (97.2 ?F) 05/21/23 1230 Pulse 73 05/21/23 1230 Resp 16 05/21/23 1230 SpO2 95 % 05/21/23 1230 Post Anesthesia Patient Status Patient Evaluation: PACU. PACU/ICU Patient Condition: stable. Anticipated Disposition: phase 2 then home. Neurological Status: aware and responsive. Pulmonary Status: breathing comfortably on room air Airway Control: returned to baseline unsupported. Cardiovascular Status: stable. Pain Management: clinically adequate Postoperative Hydration: acceptable. Intraoperative Events: no significant anesthesia events Post Operative Nausea/Vomiting Status: no significant post operative nausea or vomiting Recommendation: continue current plan of care. Anesthesia Observations No Documentation SIGNATURE: Gerardo Alexander MD PATIENT NAME: Lorenza Rock DATE: May 21, 2023 TIME: 4:49 PM CSN: [id number] Normal [facility] ANES PRE-OPon 05-21-2023 ANES PRE-OP HNO ID: [id number] Author: GERARDO ALEXANDER MD Service: ? Author Type: Anesthesiologist Type: Anesthesia Preprocedure Evaluation Filed: 05/21/2023 09:15 Note Text: ANESTHESIOLOGY DAY OF SURGERY NOTE : 1980 Procedure Information Date/Time: 05/21/23 0903 Procedures: FISTULOTOMY ANAL SUBCUTANEOUS (Anus) CLOSURE OF ANAL FISTULA WITH RECTAL ADVANCEMENT FLAP ADULT (Anus) EXAM UNDER ANESTHESIA RECTAL (Anus) Location: [facility] Surgeons: Renetta Garner MD Estimated body mass index is 33.9 kg/m? as calculated from the following: Height as of 04/22/23: 188 cm (6' 2 ). Weight as of 04/22/23: 119.7 kg (264 lb). Most recent hematocrit and potassium results: Hematocrit 47.3 04/22/2023 Potassium 4.6 04/22/2023 Relevant Problems No relevant active problems I - PHYSICAL EVALUATION AIRWAY Patient intubated: No. Tracheostomy tube not present Mallampati: II. TM distance: >3 FB. Neck ROM: full ROM without neurological symptoms. Mouth opening: adequate. Short neck: no. Thick neck: no Dunham present: yes Microretrognathia/Microna gthia/Recessed Chin: No DENTAL Dental findings: teeth intact. Additional exam findings: yes. Other findings: denies regurg, reflux, motion sickness or anesthesia problems recurrant anal fistula . II - ANESTHESIA PLAN ASA Score: 2 Anesthetic Plan: general Airway type: LMA The patient is not a current smoker. NPO Status: adequate Anesthetic plan additional comments: ETT if lateral or prone . Beta Ha Monitoring Plan Monitoring plan: standard ASA. Post Procedure Analgesic Plan Postoperative analgesic plan: parenteral or oral opioids. Informed Consent Anesthetic risks, benefits, alternatives, personnel and consent discussed: yes. Patient / Responsible Constitution Party agrees to proceed: yes Patient / Surrogate agrees to blood products: Yes Significant changes in the patient condition since the History and Physical, not otherwise documented in primary service progress note: no. Potential Anesthesia issues that may suggest increased risk of complications or contraindication to planned procedure: none. Vitals Value Taken Time BP 122/75 05/21/23805 Pulse 75 05/21/23805 Resp 16 05/21/23805 Temp 36.5 ?C (97.7 ?F) 05/21/23805 SpO2 94 % 05/21/23805 Facility-Administered Medications as of 05/21/2023 Medication Dose Route Frequency - lidocaine (PF) 10 mg/mL (1 %) 1-2 mg injection (XYLOCAINE) 0.1-0.2 mL INTRADERMAL PRN Or - lidocaine 1% 0.25 mL subcutaneous j-tip syringe (XYLOCAINE) 0.25 mL SUBCUTANEOUS PRN - lactated ringers iv infusion 50 mL/hr INTRAVENOUS CONTINUOUS - NaCl 0.9% iv flush bag 20 mL INTRAVENOUS PRN - acetaminophen 1,000 mg tab(s) (TYLENOL) 1,000 mg ORAL ONCE - promethazine 12.5 mg tab(s) (PHENERGAN) 12.5 mg ORAL Pre-Op Once Outpatient Medications as of 05/21/2023 Medication Sig - acetaminophen (TYLENOL) 325 mg tablet Take 2 tablets by mouth every 6 hours. - oxyCODONE IR (ROXICODONE) 5 mg immediate release tablet Take 1 tablet by mouth every 8 hours as needed for pain. (Patient not taking: Reported on 04/22/2023) - iv contrast (will be provided with radiology test) MRI Enterography Inject, intravenously, once for 1 dose. No IV access, insert saline lock prior to the beginning of sedation, infusion, injection of imaging exam. Discontinue saline lock post exam. If Pt. has a central line or IVAD, may access for administration according to line specific nursing protocol. Once exam is complete flush line and de-access according to line specific nursing protocol in the MR contrast administration guidelines link. - enteric contrast (will be provided with radiology test) For MRI ENTEROGRAPHY WO/W Administer, As Directed One Time Only, via Oral, Rectal, both Oral and Rectal, Enteric Tube, Stoma or Indwelling Catheter,? Enteric Contrast as designated per enteric contrast guidelines - ibuprofen (MOTRIN) 200 mg tablet Take 1-2 tablets by mouth every 6 hours. I have interviewed and examined the patient. I have reviewed the medical record and/or the pre-anesthesia evaluation, pertinent labs, and test results. This contains updated information obtained within 48 hours of Surgery/Procedure. SIGNATURE: Gerardo Alexander MD PATIENT NAME: Lorenza Rock DATE: May 21, 2023 TIME: 9:07 AM CSN: [id number] Normal [facility] BRIEF OP NOTon 05-21-2023 BRIEF OP NOT HNO ID: [id number] Author: RADHIKA HODGES MD Service: Colorectal Author Type: Fellow Type: Brief Op Note Filed: 05/21/2023 11:05 Note Text: BRIEF OPERATIVE / PROCEDURE NOTE LOG ID: [id number] SURGERY/PROCEDURE DATE: 05/21/2023 INCISION/PROCEDURE START TIME: 10:26 AM INCISION CLOSE/PROCEDURE END TIME: 10:59 AM SURGEON(S)/PROCEDURALIST( S) AND PATTERN CHANGER AND REPAIRER(S): Surgeon(s) and Role: * Renetta Garner MD - Primary * Radhika Hodges MD - Fellow No Additional Staff SURGERY/PROCEDURE(S): Examination under anesthesia of anus, removal of seton, fistulotomy ANESTHESIA: General FINDINGS: 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 Fistula layed open. Base curetted. Ext sphincter edges reapprox 3/0 vicryl at base of the wound which closed some of the space of the wound. Exparel injected into wound ESTIMATED BLOOD LOSS: 5 mls SPECIMENS: * No specimens in log * COMPLICATIONS: None CLOSURE TECHNIQUE: Non-primary PRE-OP/PRE-PROCEDURE DIAGNOSIS: Axysyri-pc-qxw (cryptoglandular) POST-OP/POST-PROCEDURE DIAGNOSIS: Same as Preop SIGNATURE: Radhika Hodges MD PATIENT NAME: Lorenza Rock DATE: May 21, 2023 TIME: 11:03 AM Normal [facility] HISTORY PHYSICALon 4 HISTORY PHYSICAL HNO ID: [id number] Author: ALMA PITTS MD Service: Colorectal Author Type: Fellow Type: H&P Filed: 05/21/2023 08:44 Note Text: COLORECTAL SURGERY Follow-up April 22, 2023 Chief complaint: Perirectal Abscess HPI: Lorenza is a 42 y/o male here to follow up S/p EUA, debridement of anal fistula tract and seton placement on 03/06/23. Back Story: He began experiencing constipation in fall 12/2021 and noticed a perianal bump about 1-2 months later. Diagnosed with a perianal abscess that spontaneously burst and was debrided in 03/2022. Abscesses were drained in [place] in the OR. The abscess did not heal and he further followed up with Dr. Dubois in Colorectal Surgery. He had an EUA w/seton placement on 07/27/22 and subsequent EUA, drainage of abscess cavity, partial fistulotomy and seton placement on 09/07/22. He had a complex fistulotomy was performed on 10/19/22. He was seen in GI clinic with Dr. Man and recommended to complete Crohn's disease workup and follow up after. Further GI workup to r/o Crohn's disease was completed (see results below) and was negative. Currently: - Seton in place - No perianal pain. - Has occasional discharge - pus/mucus - wears a pad - Passes single soft bowel motion daily. No incontinence to stool or flatus. - No perianal bleeding - Non-smoker. Nil other drugs. Does not vape Diagnostics/Endoscopy Reviewed 02/05/23 MRI Perineum WWO FINDINGS: At the posterior aspect of the rectum 3 cm superior to the anal verge there is again demonstrated a fistulous tract from the approximately 6 o'clock location of the anus to the right gluteal fold, this is much less prominent than on the 07/20/2022 study, but this is visualized better than on the 01/18/2023 study, there is no visible abscess. Large and small bowel loops otherwise are unremarkable. Urinary bladder, prostate gland and seminal vesicles are unremarkable. The solid or cystic bone or soft tissue masses. No ascites. Vasculature is unremarkable. Study otherwise is unchanged and unremarkable. 01/18/23 MRE ABD/PEL WWO Impression No active inflammatory small bowel Crohn's disease. Penetrating disease: Absent Poorly visualized right perianal tract possibly corresponding to the known perianal fistula. No abscess. 01/17/23 Colonoscopy- Dr. Christa Dubois Findings: The perianal exam findings include external [...] found during retroflexion. The hemorrhoids were mild. FINAL DIAGNOSIS A. Terminal ileum, biopsy: - Small bowel mucosa with no diagnostic abnormality. B. Ascending colon, biopsy: - Colonic mucosa with no diagnostic abnormality. C. Transverse colon, biopsy: - Colonic mucosa with no diagnostic abnormality. D. Descending colon, biopsy: - Colonic mucosa with no diagnostic abnormality. E. Rectum, biopsy: - Colonic mucosa with no diagnostic abnormality. 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 Physical Exam: BP 122/75 Pulse 75 Temp 36.5 ?C (97.7 ?F) (Temporal Artery) Resp 16 SpO2 94% General - awake, alert, no acute distress HS dual Chest clear to auscultation Heart: RRR, normal S1.s2. No murmurs Abdominal - soft and non tender Anorectal: Perianal skin is intact. No erythema, induration or excoriation. Seton in place. Appears as superficial/intersphincte tyree fistula with external opening close to anal verge but internal opening near dentate. 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 No incontinence. Data Reviewed: Tests AND Documents Reviewed/ordered: Review of prior notes from previous encounters, all within [facility] Review of prior operative reports Review of Pathology Review of Imaging: MRI Abdomen, MRI Pelvis, MRI Perineum Review of Labs: most recent in [facility] Review of Procedures / Tests: Colonoscopy, Flexible [facility] I have independently interpreted: MRI Abdomen, MRI Pelvis, MRI Perineum I have discussed Lorenza H Morita's treatment plan and/or results with patient and his . Treatment plan: Explained will do EUA and likely fistulotomy. Risk of surgery explained including incontinence detailed. Consent obtained. Patient has trip booked to [place] end of june and ideally would like to have his surgery end of April/early may so the wound is mostly healed prior to his trip. Discussed that with repeat (more content not included)... Normal [facility] Basic metabolic 2000 panelon 04-22-2023 Anion gap [Moles/Vol] 11 mmol/L Normal 9-18 [facility] Comment on above: Order Comment: Speci men Type: BLOOD SPECIMENOrdering Facility: [facility] Address: [address] [place] [address] Performed By: #### 2 4321-2 ####[facility] LABCLIA [id number] [place] [address] [place] Calcium [Mass/Vol] 9.6 mg/dL Normal 8.5-10.2 [facility] Comment on above: Order Comment: Speci men Type: BLOOD SPECIMENOrdering Facility: [facility] Address: [address] [place] [address] Performed By: #### 2 4321-2 ####[facility] LABCLIA [id number] [place] [address] [place] Chloride [Moles/Vol] 103 mmol/L Normal 97-105 [facility] Comment on above: Order Comment: Speci men Type: BLOOD SPECIMENOrdering Facility: [facility] Address: [address] [place] [address] Performed By: #### 2 4321-2 ####[facility] LABCLIA [id number] [place] [address] [place] CO2 [Moles/Vol] 27 mmol/L Normal 22-30 [facility] Comment on above: Order Comment: Speci men Type: BLOOD SPECIMENOrdering Facility: [facility] Address: [address] [place] [address] Performed By: #### 2 4321-2 ####[facility] LABIA [id number] [place] [address] [place] Creatinine [Mass/Vol] 1.17 mg/dL Normal 0.73-1.22 [facility] Comment on above: Order Comment: Ashly vaughan Type: BLOOD SPECIMENOrdering Facility: [facility] Address: [address] [place] [address] Performed By: #### 2 4321-2 ####[facility] LABIA [id number] [place] [address] [place] Creatinine and Glomerular filtration rate.predicted panel (S/P/Bld) 81 mL/min/1.73m??? Normal >=60 [facility] Comment on above: Order Comment: Ashly vaughan Type: BLOOD SPECIMENOrdering Facility: [facility] Address: [address] [place] [address] Result Comment: Miladis mated Glomerular Filtration Rate (eGFR) is calculated using the 2020 CKD-EPI creatinine equation. This equation utilizes serum creatinine, sex, and age as parameters. The creatinine assay has traceable calibration to isotope dilution-mass spectrometry. Refer to KDIGO guidelines for clinical interpretation. In patients with unstable renal function, e.g. those with acute kidney injury, the eGFR may not accurately reflect actual GFR. Performed By: #### 2 4321-2 ####[facility] LABIA [id number] [place] [address] [place] Glucose [Mass/Vol] 105 mg/dL High 74-99 [facility] Comment on above: Order Comment: Ashly vaughan Type: BLOOD SPECIMENOrdering Facility: [facility] Address: [address] [place] [address] Result Comment: The [place] Diabetes Association (ADA) provides guidance for cutoff values for fasting glucose and random glucose. The ADA defines fasting as no caloric intake for at least 8 hours. Fasting plasma glucose results between 100 to 125 mg/dL indicate increased risk for diabetes (prediabetes). Fasting plasma glucose results greater than or equal to 126 mg/dL meet the criteria for diagnosis of diabetes. In the absence of unequivocal hyperglycemia, results should be confirmed by repeat testing. In a patient with classic symptoms of hyperglycemia or hyperglycemic crisis, random plasma glucose results greater than or equal to 200 mg/dL meet the criteria for diagnosis of diabetes. Reference: Standards of Medical Care in Diabetes 2016, [place] Diabetes Association. Diabetes Care. 2016.39(Suppl 1). Performed By: #### 2 4321-2 ####[facility] LABCLIA [id number] [place] [address] [place] Potassium [Moles/Vol] 4.6 mmol/L Normal 3.7-5.1 [facility] Comment on above: Order Comment: Speci men Type: BLOOD SPECIMENOrdering Facility: [facility] Address: [address] [place] [address] Performed By: #### 2 4321-2 ####[facility] LABIA [id number] [place] [address] [place] Sodium [Moles/Vol] 141 mmol/L Normal 136-144 [facility] Comment on above: Order Comment: Speci men Type: BLOOD SPECIMENOrdering Facility: [facility] Address: [address] [place] [address] Performed By: #### 2 4321-2 ####[facility] LABIA [id number] [place] [address] [place] Urea nitrogen [Mass/Vol] 17 mg/dL Normal 9-24 [facility] Comment on above: Order Comment: Speci men Type: BLOOD SPECIMENOrdering Facility: [facility] Address: [address] [place] [address] Performed By: #### 2 4321-2 ####[facility] LABIA [id number] [place] [address] [place] CBC W Auto Differential pane l (Bld)on 04-22-2023 Basophils (Bld) [#/Vol] 0.04 10*3/uL Normal <0.11 [facility] Comment on above: Order Comment: Speci men Type: BLOOD SPECIMENOrdering Facility: [facility] Address: [address] [place] [address] Performed By: #### 5 7021-8 ####[facility] LABCLIA [id number] [place] [address] [place] Basophils/100 WBC (Bld) 0.8 % Normal [facility] Comment on above: Order Comment: Speci men Type: BLOOD SPECIMENOrdering Facility: [facility] Address: [address] [place] [address] Performed By: #### 5 7021-8 ####[facility] LABCLIA [id number] [place] [address] [place] Differential cell count method Nom (Bld) Auto Normal [facility] Comment on above: Order Comment: Speci men Type: BLOOD SPECIMENOrdering Facility: [facility] Address: [address] [place] [address] Performed By: #### 5 7021-8 ####[facility] LABCLIA [id number] [place] [address] [place] Eosinophils (Bld) [#/Vol] 0.09 10*3/uL Normal <0.46 [facility] Comment on above: Order Comment: Speci men Type: BLOOD SPECIMENOrdering Facility: [facility] Address: [address] [place] [address] Performed By: #### 5 7021-8 ####[facility] LABCLIA [id number] [place] [address] [place] Eosinophils/100 WBC (Bld) 1.9 % Normal [facility] Comment on above: Order Comment: Speci men Type: BLOOD SPECIMENOrdering Facility: [facility] Address: [address] [place] [address] Performed By: #### 5 7021-8 ####[facility] LABCLIA [id number] [place] [address] [place] Erythrocyte distribution width (RBC) [Ratio] 11.9 % Normal 11.5-15.0 [facility] Comment on above: Order Comment: Speci men Type: BLOOD SPECIMENOrdering Facility: [facility] Address: [address] [place] [address] Performed By: #### 5 7021-8 ####[facility] LABCLIA [id number] [place] [address] [place] Hematocrit (Bld) [Volume fraction] 47.3 % Normal 39.0-51.0 [facility] Comment on above: Order Comment: Speci men Type: BLOOD SPECIMENOrdering Facility: [facility] Address: [address] [place] [address] Performed By: #### 5 7021-8 ####[facility] LABIA [id number] [place] [address] [place] Hemoglobin (Bld) [Mass/Vol] 15.8 g/dL Normal 13.0-17.0 [facility] Comment on above: Order Comment: Speci men Type: BLOOD SPECIMENOrdering Facility: [facility] Address: [address] [place] [address] Performed By: #### 5 7021-8 ####[facility] LABIA [id number] [place] [address] [place] Immature granulocytes (Bld) [#/Vol] 10*3/uL Normal <0.10 [facility] Comment on above: Order Comment: Speci men Type: BLOOD SPECIMENOrdering Facility: [facility] Address: [address] [place] [address] Performed By: #### 5 7021-8 ####[facility] LABIA [id number] [place] [address] [place] Immature granulocytes/100 WBC (Bld) 0.4 % Normal [facility] Comment on above: Order Comment: Speci men Type: BLOOD SPECIMENOrdering Facility: [facility] Address: [address] [place] [address] Performed By: #### 5 7021-8 ####[facility] LABCLIA [id number] [place] [address] [place] Lymphocytes (Bld) [#/Vol] 1.99 10*3/uL Normal 1.00-4.00 [facility] Comment on above: Order Comment: Speci men Type: BLOOD SPECIMENOrdering Facility: [facility] Address: [address] [place] [address] Performed By: #### 5 7021-8 ####[facility] LABCLIA [id number] [place] [address] [place] Lymphocytes/100 WBC (Bld) 41.2 % Normal [facility] Comment on above: Order Comment: Speci men Type: BLOOD SPECIMENOrdering Facility: [facility] Address: [address] [place] [address] Performed By: #### 5 7021-8 ####[facility] LABIA [id number] [place] [address] [place] MCH (RBC) [Entitic mass] 28.9 pg Normal 26.0-34.0 [facility] Comment on above: Order Comment: Speci men Type: BLOOD SPECIMENOrdering Facility: [facility] Address: [address] [place] [address] Performed By: #### 5 7021-8 ####[facility] LABCLIA [id number] [place] [address] [place] MCHC (RBC) [Mass/Vol] 33.4 g/dL Normal 30.5-36.0 [facility] Comment on above: Order Comment: Speci men Type: BLOOD SPECIMENOrdering Facility: [facility] Address: [address] [place] [address] Performed By: #### 5 7021-8 ####[facility] LABCLIA [id number] [place] [address] [place] MCV (RBC) [Entitic vol] 86.6 fL Normal 80.0-100.0 [facility] Comment on above: Order Comment: Speci men Type: BLOOD SPECIMENOrdering Facility: [facility] Address: [address] [place] [address] Performed By: #### 5 7021-8 ####[facility] LABCLIA [id number] [place] [address] [place] Monocytes (Bld) [#/Vol] 0.52 10*3/uL Normal <0.87 [facility] Comment on above: Order Comment: Speci men Type: BLOOD SPECIMENOrdering Facility: [facility] Address: [address] [place] [address] Performed By: #### 5 7021-8 ####[facility] LABCLIA [id number] [place] [address] [place] Monocytes/100 WBC (Bld) 10.8 % Normal [facility] Comment on above: Order Comment: Speci men Type: BLOOD SPECIMENOrdering Facility: [facility] Address: [address] [place] [address] Performed By: #### 5 7021-8 ####[facility] LABCLIA [id number] [place] [address] [place] Neutrophils (Bld) [#/Vol] 2.17 10*3/uL Normal 1.45-7.50 [facility] Comment on above: Order Comment: Speci men Type: BLOOD SPECIMENOrdering Facility: [facility] Address: [address] [place] [address] Performed By: #### 5 7021-8 ####[facility] LABCLIA [id number] [place] [address] [place] Neutrophils/100 WBC (Bld) 44.9 % Normal [facility] Comment on above: Order Comment: Speci men Type: BLOOD SPECIMENOrdering Facility: [facility] Address: [address] [place] [address] Performed By: #### 5 7021-8 ####[facility] LABCLIA [id number] [place] [address] [place] Nucleated RBC (Bld) [#/Vol] 10*3/uL Normal <0.01 [facility] Comment on above: Order Comment: Speci men Type: BLOOD SPECIMENOrdering Facility: [facility] Address: [address] [place] [address] Performed By: #### 5 7021-8 ####[facility] LABIA [id number] [place] [address] [place] Nucleated RBC/100 WBC (Bld) [Ratio] 0.0 /100 WBC Normal [facility] Comment on above: Order Comment: Speci men Type: BLOOD SPECIMENOrdering Facility: [facility] Address: [address] [place] [address] Performed By: #### 5 7021-8 ####[facility] LABIA [id number] [place] [address] [place] Platelet mean volume (Bld) [Entitic vol] 9.7 fL Normal 9.0-12.7 [facility] Comment on above: Order Comment: Speci men Type: BLOOD SPECIMENOrdering Facility: [facility] Address: [address] [place] [address] Performed By: #### 5 7021-8 ####[facility] LABIA [id number] [place] [address] [place] Platelets (Bld) [#/Vol] 236 10*3/uL Normal 150-400 [facility] Comment on above: Order Comment: Speci men Type: BLOOD SPECIMENOrdering Facility: [facility] Address: [address] [place] [address] Performed By: #### 5 7021-8 ####[facility] LABIA [id number] [place] [address] [place] RBC (Bld) [#/Vol] 5.46 10*6/uL Normal 4.20-6.00 [facility] Comment on above: Order Comment: Speci men Type: BLOOD SPECIMENOrdering Facility: [facility] Address: [place] [address] Performed By: #### 5 7021-8 ####[facility] LABCLIA [id number] [place] [address] [place] WBC (Bld) [#/Vol] 4.83 10*3/uL Normal 3.70-11.00 [facility] Comment on above: Order Comment: Speci men Type: BLOOD SPECIMENOrdering Facility: [facility] Address: [place] [address] Performed By: #### 5 7021-8 ####[facility] LABCLIA [id number] [address] [place] CNOVon 04-22-2023 CNOV Office Visit (ALBINO ) ----- LORENZA ROCK ([id number]) 1980 M Date Time Provider Department 04/22/23 10:40 AM RENETTA GARNER During your visit today, we recorded the following information about you: Weight Height 119.7 kg 1.88 m Renetta Garner MD 04/27/2023 7:17 AM Signed [facility] Follow-up April 22, 2023 Chief complaint: Perirectal Abscess HPI: Lorenza is a 42 y/o male here to follow up S/p EUA, debridement of anal fistula tract and seton placement on 03/06/23. Back Story: He began experiencing constipation in fall 12/2021 and noticed a perianal bump about 1-2 months later. Diagnosed with a perianal abscess that spontaneously burst and was debrided in 03/2022. Abscesses were drained in [place] in the OR. The abscess did not heal and he further followed up with Dr. Dubois in Colorectal Surgery. He had an EUA w/seton placement on 07/27/22 and subsequent EUA, drainage of abscess cavity, partial fistulotomy and seton placement on 09/07/22. He had a complex fistulotomy was performed on 10/19/22. He was seen in GI clinic with Dr. Man and recommended to complete Crohn's disease workup and follow up after. Further GI workup to r/o Crohn's disease was completed (see results below) and was negative. Currently: - Seton in place - No perianal pain. - Has occasional discharge - pus/mucus - wears a pad - Passes single soft bowel motion daily. No incontinence to stool or flatus. - No perianal bleeding - Non-smoker. Nil other drugs. Does not vape Diagnostics/Endoscopy Reviewed 02/05/23 MRI Perineum WWO FINDINGS: At the posterior aspect of the rectum 3 cm superior to the anal verge there is again demonstrated a fistulous tract from the approximately 6 o'clock location of the anus to the right gluteal fold, this is much less prominent than on the 07/20/2022 study, but this is visualized better than on the 01/18/2023 study, there is no visible abscess. Large and small bowel loops otherwise are unremarkable. Urinary bladder, prostate gland and seminal vesicles are unremarkable. The solid or cystic bone or soft tissue masses. No ascites. Vasculature is unremarkable. Study otherwise is unchanged and unremarkable. 01/18/23 MRE ABD/PEL WWO Impression No active inflammatory small bowel Crohn's disease. Penetrating disease: Absent Poorly visualized right perianal tract possibly corresponding to the known perianal fistula. No abscess. 01/17/23 Colonoscopy- Dr. Christa Dubois Findings: The perianal exam findings include external [...] found during retroflexion. The hemorrhoids were mild. FINAL DIAGNOSIS A. Terminal ileum, biopsy: - Small bowel mucosa with no diagnostic abnormality. B. Ascending colon, biopsy: - Colonic mucosa with no diagnostic abnormality. C. Transverse colon, biopsy: - Colonic mucosa with no diagnostic abnormality. D. Descending colon, biopsy: - Colonic mucosa with no diagnostic abnormality. E. Rectum, biopsy: - Colonic mucosa with no diagnostic abnormality. 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 Physical Exam: Ht 188 cm (6' 2 ) Wt 119.7 kg (264 lb) BMI 33.90 kg/m? General - awake, alert, no acute distress HS dual Chest clear to auscultation Abdominal - soft and non tender Anorectal: Perianal skin is intact. No erythema, induration or excoriation. Seton in place. Appears as superficial/intersphincte tyree fistula with external opening close to anal verge but internal opening near dentate. 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 No incontinence. Data Reviewed: Tests AND Documents Reviewed/ordered: Review of prior notes from previous encounters, all within [facility] Review of prior operative reports Review of Pathology Review of Imaging: MRI Abdomen, MRI Pelvis, MRI Perineum Review of Labs: most recent in [facility] Review of Procedures / Tests: Colonoscopy, Flexible [facility] I have independently interpreted: MRI Abdomen, MRI Pelvis, MRI Perineum I have discussed Lorenza Rock's treatment plan and/or results with patient and his . Treatment plan: Explained will do EUA and likely fistulotomy. Risk of surgery explained including incontinence detailed. Consent obtained. Patient [place] trip [place] (more content not included)... Normal [facility] TYPE AND SCREEN,30 DAYon ABO O Normal [facility] Comment on above: Order Comment: Speci men Type: BLOOD SPECIMENOrdering Facility: [facility] Address: [address] [place] [address] Performed By: #### T SCR30 ####[facility] BANKCLIA [id number] [place] [address] [place] HISTORICAL AB SCR STATUS Negative Normal [facility] Comment on above: Order Comment: Speci men Type: BLOOD SPECIMENOrdering Facility: [facility] Address: [address] [place] [address] Performed By: #### T SCR30 ####[facility] BLO[facility] BANKCLIA [id number] [address] [place] Rh Nom (Bld) Positive Normal [facility] Comment on above: Order Comment: Speci men Type: BLOOD SPECIMENOrdering Facility: [facility] Address: [address] [place] [address] Performed By: #### T SCR30 ####[facility] BLOOD BANKCLIA [id number] [address] OF [facility] ANES POSTPROC EVALon 023 ANES POSTPROC EVAL HNO ID: [id number] Author: Vandana Littlejohn MD Service: ? Author Type: Anesthesiologist Type: Anesthesia Postprocedure Evaluation Filed: 03/06/2023 2:39 PM Note Text: POST ANESTHESIA EVALUATION NOTE : 1980 Procedure Summary Date: 03/06/23 Room / Location: [address] [facility] Anesthesia Start: 1113 Anesthesia Stop: 1209 Procedure: EXAM UNDER ANESTHESIA RECTAL (Anus) Diagnosis: Perirectal fistula (Perirectal fistula [K60.4]) Surgeons: Renetta Garner MD Responsible Provider: Vandana Littlejohn MD Anesthesia Type: MAC, general ASA Status: 2 Anesthesia Type: MAC, general Last Vitals Vitals Value Taken Time BP 114/62 03/06/23 1237 Temp 36.6 ?C (97.9 ?F) 03/06/23 1237 HR SpO2 70 03/06/23 1237 Resp 18 03/06/23 1237 SpO2 96 % 03/06/23 1237 Post Anesthesia Patient Status Patient Evaluation: bedside. Neurological Status: aware and responsive. Pulmonary Status: breathing comfortably on room air Airway Control: returned to baseline unsupported. Cardiovascular Status: stable. Pain Management: clinically adequate Postoperative Hydration: acceptable. Intraoperative Events: no significant anesthesia events Post Operative Nausea/Vomiting Status: no significant post operative nausea or vomiting Recommendation: continue current plan of care. Anesthesia Observations No Documentation SIGNATURE: Vandana Littlejohn MD PATIENT NAME: Lorenza Rock DATE: March 06, 2023 TIME: 2:39 PM CSN: [id number] Normal [facility] ANES PRE-OPon 03-06-2023 ANES PRE-OP HNO ID: [id number] Author: Vandana Littlejohn MD Service: ? Author Type: Anesthesiologist Type: Anesthesia Preprocedure Evaluation Filed: 03/06/2023 9:24 AM Note Text: ANESTHESIOLOGY DAY OF SURGERY NOTE : 1980 Procedure Information Date/Time: 03/06/23 1045 Procedure: EXAM UNDER ANESTHESIA RECTAL (Anus) Location: [place] [address] / [facility] Surgeons: Renetta Garner MD Estimated body mass index is 34.79 kg/m? as calculated from the following: Height as of 02/04/23: 188 cm (6' 2 ). Weight as of 02/04/23: 122.9 kg (271 lb). Most recent hematocrit and potassium results: Hematocrit 45.9 01/07/2023 Potassium 3.7 01/07/2023 Relevant Problems No relevant active problems I - PHYSICAL EVALUATION AIRWAY Patient intubated: No. Tracheostomy tube not present Mallampati: II. TM distance: >3 FB. Neck ROM: full ROM without neurological symptoms. Mouth opening: adequate. Short neck: no. Thick neck: no DENTAL Normal dental observations. II - ANESTHESIA PLAN ASA Score: 2 Anesthetic Plan: MAC and general Beta Ha Monitoring Plan Monitoring plan: standard ASA. Post Procedure Analgesic Plan Informed Consent Anesthetic risks, benefits, alternatives, personnel and consent discussed: yes. Patient / Responsible [employer] Party agrees to proceed: yes Patient / Surrogate agrees to blood products: Yes Vitals Value Taken Time BP 138/69 03/06/23 0859 Pulse Resp 16 03/06/23 0859 Temp 36 ?C (96.8 ?F) 03/06/23 0859 SpO2 95 % 03/06/23 0859 Facility-Administered Medications as of 03/06/2023 Medication Dose Route Frequency - lidocaine (PF) 10 mg/mL (1 %) 1-2 mg injection (XYLOCAINE) 0.1-0.2 mL INTRADERMAL PRN Or - lidocaine 1% 0.25 mL subcutaneous j-tip syringe (XYLOCAINE) 0.25 mL SUBCUTANEOUS PRN - lactated ringers iv infusion 5-30 mL/hr INTRAVENOUS CONTINUOUS - NaCl 0.9% iv flush bag 20 mL INTRAVENOUS PRN Outpatient Medications as of 03/06/2023 Medication Sig - acetaminophen (TYLENOL) 325 mg tablet Take 2 tablets by mouth every 6 hours. - iv contrast (will be provided with radiology test) MRI Enterography Inject, intravenously, once for 1 dose. No IV access, insert saline lock prior to the beginning of sedation, infusion, injection of imaging exam. Discontinue saline lock post exam. If Pt. has a central line or IVAD, may access for administration according to line specific nursing protocol. Once exam is complete flush line and de-access according to line specific nursing protocol in the MR contrast administration guidelines link. - enteric contrast (will be provided with radiology test) For MRI ENTEROGRAPHY WO/W Administer, As Directed One Time Only, via Oral, Rectal, both Oral and Rectal, Enteric Tube, Stoma or Indwelling Catheter,? Enteric Contrast as designated per enteric contrast guidelines - ibuprofen (MOTRIN) 200 mg tablet Take 1-2 tablets by mouth every 6 hours. I have interviewed and examined the patient. I have reviewed the medical record and/or the pre-anesthesia evaluation, pertinent labs, and test results. This contains updated information obtained within 48 hours of Surgery/Procedure. SIGNATURE: Vandana Littlejohn MD PATIENT NAME: Lorenza Rock DATE: March 06, 2023 TIME: 9:24 AM CSN: [id number] [facility] BRIEF OP NOTon 03-06-2023 BRIEF OP NOT HNO ID: [id number] Author: Antonella Streeter MD Service: Colorectal Author Type: Resident Type: Brief Op Note Filed: 03/06/2023 11:58 AM Note Text: BRIEF OPERATIVE NOTE - COLORECTAL SURGERY Log ID: [id number] Surgery/Procedure Date: 03/06/2023 Incision/Procedure Start Time: 11:23 AM Incision Close/Procedure End Time: 11:48 AM Surgeon(s) and Outside Plant Field Engineer(s): Surgeon(s) and Role: * Renetta Garner MD - Primary * Antonella Streeter MD - Resident - Assisting No Additional Staff Procedures and Anesthesia: Procedure(s) and Anesthesia Type: * EXAM UNDER ANESTHESIA RECTAL - General Stoma Type: N/A Findings: - No perianal abscess appreciated - Evidence of prior scar - Some internal and external hemorrhoids - Right posterior transphincteric fistula , seton placed and tract curetted , exparel injected Estimated Blood Loss: Minimal Specimens: None Diagnosis Code(s): Pre-Op Diagnosis Codes: * Perirectal fistula [K60.4] Postop Diagnosis: Perianal fistula Drains: None Wound Classification: NA Complications: None SIGNATURE: Antonella Patiño MD PATIENT NAME: Lorenza Rock DATE: March 06, 2023 TIME: 11:57 AM Normal [facility] OPERATIVE NOon 03-06-2023 OPERATIVE NO HNO ID: [id number] Author: Renetta Garner MD Service: Colorectal Author Type: Physician Type: Operative Report Filed: 03/07/2023 12:54 PM Note Text: [facility] - Operative Report [id number] [place] [address] [place] LORENZA ROCK : 1980 AGE: 42. SEX: M PATIENT TYPE: A HOSP SVC: [facility] LOCATION: [place] [address] ATTENDING PHYSICIAN: Renetta Garner M.D. CSN NUMBER: [id number] DATE OF SURGERY/PROCEDURE: 03/06/2023 INCISION/PROCEDURE START TIME: 11:23 a.m. INCISION CLOSE/PROCEDURE END TIME: 11:48 a.m. PREOPERATIVE DIAGNOSIS: Recurrent anal fistula. POSTOPERATIVE DIAGNOSIS: Recurrent anal fistula. SURGEON: Renetta Garner M.D. PATTERN CHANGER AND REPAIRER: Dr. Antonella Streeter. SURGERY/PROCEDURE: Examination under anesthesia and debridement of anal fistula tract and seton placement. ANESTHESIA: General. INDICATIONS: This is a 42-year-old male with a history of anal fistula. This started when he developed an abscess at the end of 2021. The abscess spontaneously drained and then he developed a fistula and he was seen by one of my partners at [facility] and initially had a seton placed in July and subsequently underwent another examination under anesthesia with drainage of the abscess and partial fistulotomy and seton placement in August. In October, he then had a fistulotomy done. He had workup for Crohn's disease, which was negative. He unfortunately developed recurrent drainage from the wound from his fistulotomy with an external opening that had the appearance of a fistula tract. We ordered an MRI that showed a recurrent fistula in his right posterior perianal area, which looked similar to his previous fistula but was more fibrotic and smaller. Per my discussion with the radiologist, this appeared to be an intersphincteric fistula tract. I discussed with the patient performing an examination under anesthesia with assessment of the fistula with possible seton placement versus fistulotomy. We discussed risks, benefits, and alternatives including risks related to anesthesia and bleeding infections, recurrence and incontinence. He understood all this well and desired to proceed. OPERATIVE FINDINGS: On examination under anesthesia, we again found the external opening in the right posterior perianal area approximately 2 cm or a centimeter and a half from the anal verge. This external opening looked like quite fibrotic on probing and on anoscopy, there were enlarged internal hemorrhoids, but there was also an internal opening seen at the dentate line, which also was communicating with the scarred fistula tract. After widening the external opening, we were able to identify the chronic fistula tract, which was communicating with the internal opening and there appeared to be mostly internal sphincter muscle, but also a small amount of external muscle involved with the fistula tract making this a transsphincteric fistula. A seton was placed for ongoing drainage to allow for a subsequent definitive repair or fistulotomy. DESCRIPTION OF PROCEDURE: The patient was brought to the operating room. A surgical huddle was held. No preoperative antibiotics were indicated. General anesthesia was induced by Anesthesia team. The patient was placed in the lithotomy position. The perineum was prepped and draped. Visual inspection was performed and we then did a digital examination with a palpable small defect in the internal sphincter muscle on the right posterior aspect. A fistula probe was then used to cannulate the external opening and it did not immediately communicate with the tract. We then inserted a Hill-Clifton retractor and performed anoscopy and found a small opening corresponding to an internal opening, which was communicating with the tract that was heading towards the external opening. However, it also was not completely communicating. We were then able to gently debride the scar tissue associated with the external opening and we then were able to fall into a chronic appearing tract that was now communicating with the internal opening as evidenced by hydrogen peroxide that was coming from the small internal opening. We were now able to guide a probe through this tract and then threaded a silastic seton through it that was then tied to itself. We then used curettes to debride the tract and dilate the external opening. Exparel was then used for local anesthesia. The patient was then awoken from anesthesia and taken to the recovery room in stable condition. I, Renetta Garner, performed the entire procedure with the assistance of Dr. Antonella Streeter. WOUND CLASSIFICATION: Class 3. ESTIMATED BLOOD LOSS: Minimal. DRAINS: Silastic seton. COMPLICATIONS: None. SPECIMENS: None. Renetta Garner M.D. DL:[id number] /[id number] Normal [facility] 02-28-2023 [facility] Telephone ([facility]) ----- LORENZA ROCK ([id number]) 1980 M Date Time Provider Department 02/28/23 RENETTA GARNER During your visit today, we recorded the following information about you: Anita Payne 02/28/2023 3:17 PM Signed Lorenza Rock called again to schedule procedure. [phone] Allergies As of Date: 02/28/2023 (No Known Allergies) Date Reviewed: 02/20/2023 Reviewed by: Christa Dubois MD - Fully Assessed Reason for Visit: Patient Update [1234] Prescriptions as of 02/28/2023 - iv contrast (will be provided with radiology test) MRI Enterography Inject, intravenously, once for 1 dose. No IV access, insert saline lock prior to the beginning of sedation, infusion, injection of imaging exam. Discontinue saline lock post exam. If Pt. has a central line or IVAD, may access for administration according to line specific nursing protocol. Once exam is complete flush line and de-access according to line specific nursing protocol in the MR contrast administration guidelines link. - enteric contrast (will be provided with radiology test) For MRI ENTEROGRAPHY WO/W Administer, As Directed One Time Only, via Oral, Rectal, both Oral and Rectal, Enteric Tube, Stoma or Indwelling Catheter,? Enteric Contrast as designated per enteric contrast guidelines - glucagon (GLUCAGEN) 1 mg/mL injection Inject 1 mg intravenously one time only for 1 dose. For MRI Enterography, Inject 1 mg intravenously, as directed. Slow push at the appropriate time during MRI Scan - ibuprofen (MOTRIN) 200 mg tablet Take 1-2 tablets by mouth every 6 hours. - acetaminophen (TYLENOL) 325 mg tablet Take 2 tablets by mouth every 6 hours. 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 [phone] Lorena Ren RN 03/01/2023 2:28 PM Signed SPECIALTY CARE COORDINATION FOLLOW-UP NOTE Return call to Lorenza. Discussed next step to have outpatient EUA. Confirmed date for 03/06/23. Pre-op nursing educational sent through [employer] 2 fleet enemas to be administered prior to arrival. CR scheduling number to call for arrival time on Monday 03/05. NPO after midnight. Same day procedure, will need transportation arranged. Call with any further questions. Signature Lorena Ren RN March 01, 2023 Allergies As of Date: 02/27/2023 (No Known Allergies) Date Reviewed: 02/20/2023 Reviewed by: Christa Dubois MD - Fully Assessed Reason for Visit: Patient Update [1234] Care Coordination [4251] Prescriptions as of 03/01/2023 - iv contrast (will be provided with radiology test) MRI Enterography Inject, intravenously, once for 1 dose. No IV access, insert saline lock prior to the beginning of sedation, infusion, injection of imaging exam. Discontinue saline lock post exam. If Pt. has a central line or IVAD, may access for administration according to line specific nursing protocol. Once exam is complete flush line and de-access according to line specific nursing protocol in the MR contrast administration guidelines link. - enteric contrast (will be provided with radiology test) For MRI ENTEROGRAPHY WO/W Administer, As Directed One Time Only, via Oral, Rectal, both Oral and Rectal, Enteric Tube, Stoma or Indwelling Catheter,? Enteric Contrast as designated per enteric contrast guidelines - glucagon (GLUCAGEN) 1 mg/mL injection Inject 1 mg intravenously one time only for 1 dose. For MRI Enterography, Inject 1 mg intravenously, as directed. Slow push at the appropriate time during MRI Scan - ibuprofen (MOTRIN) 200 mg tablet Take 1-2 tablets by mouth every 6 hours. - acetaminophen (TYLENOL) 325 mg tablet Take 2 tablets by mouth every 6 hours. 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 Telephone ([facility]) ----- JOLOERNZA ANDERSON ([id number]) 1980 M Date Time Provider Department 02/27/23 LORENA REN During your visit today, we recorded the following information about you: Lorena Ren RN 02/27/2023 11:03 AM Signed SPECIALTY CARE COORDINATION FOLLOW-UP NOTE Follow up call to Lorenza. No answer, voicemail left recommending call back to the office, contact information provided. As discussed during virtual visit, plan for EUA with Dr. Garner. Signature Lorena Ren RN February 27, 2023 Allergies As of Date: 02/27/2023 (No Known Allergies) Date Reviewed: 02/20/2023 Reviewed by: Christa Dubois MD - Fully Assessed Reason for Visit: Care Coordination [3132] Prescriptions as of 02/27/2023 - iv contrast (will be provided with radiology test) MRI Enterography Inject, intravenously, once for 1 dose. No IV access, insert saline lock prior to the beginning of sedation, infusion, injection of imaging exam. Discontinue saline lock post exam. If Pt. has a central line or IVAD, may access for administration according to line specific nursing protocol. Once exam is complete flush line and de-access according to line specific nursing protocol in the MR contrast administration guidelines link. - enteric contrast (will be provided with radiology test) For MRI ENTEROGRAPHY WO/W Administer, As Directed One Time Only, via Oral, Rectal, both Oral and Rectal, Enteric Tube, Stoma or Indwelling Catheter,? Enteric Contrast as designated per enteric contrast guidelines - glucagon (GLUCAGEN) 1 mg/mL injection Inject 1 mg intravenously one time only for 1 dose. For MRI Enterography, Inject 1 mg intravenously, as directed. Slow push at the appropriate time during MRI Scan - ibuprofen (MOTRIN) 200 mg tablet Take 1-2 tablets by mouth every 6 hours. - acetaminophen (TYLENOL) 325 mg tablet Take 2 tablets by mouth every 6 hours. 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 ) ----- LORENZA ROCK ([id number]) 1980 M Date Time Provider Department 02/19/23 2:40 PM CHRISTA DUBOIS [facility] During your visit today, we recorded the following information about you: Temperature Pulse Blood pressure 97.7 degrees 91/minute 147/82 Bertha Ravi, CATINA 02/19/2023 2:40 PM Signed What is the reason for your visit today? Follow up anal fistula Who is your referring physician? Are you having poor oral intake? NO Have you had unintentional weight loss of 15 lbs/7 Kg in the last 3-6 months? NO Bowels: regular Wound: Temperature: No Drains: No Christa Dubois MD 02/20/2023 3:02 PM Signed COLORECTAL SURGERY February 19, 2023 Lorenza Tinoco Shweta Chief Complaint: follow up/ anal fistula History of Present Illness: Lorenza Rock is a 42 year old male presents to the office for a follow up evaluation after undergoing a rectal exam under anesthesia with complex fistulotomy on 10/19/2022. Last seen in the office on 11/27/22. Prior A/P: Lorenza Rock is a 42 year old male with complex, atypical anal fistula s/p staged fistulotomy w/ sinus tract posterior midline appreciated on most recent EUA concerning for perianal Crohn's disease. Wound defer any testing until 8 weeks from surgery as he is otherwise asymptomatic and healing well They are very anxious about next steps if this does not heal and desire to proceed with Crohn's workup. Colonoscopy Labs MR enterography GI consultation - he will defer scheduling until next month --------- Still with persistent drainage from external opening as before. Denies swelling, pain, erythema. Moving his bowels no issue. No FI. Saw Dr. Garner for second opinion regarding management who recommended MR perineum and likely EUA Assessment and plan of Dr Clifford Man on 01/07/23: 1) Complex transsphincteric anal fistula 2) Hx of perianal abscess Luminal and small bowel Crohn's disease should be ruled out in light of his difficult to treat perianal disease. He has no other concerning GI symptoms. No prior colonoscopy. No known FHx of IBD or colon cancer. If his objective testing is suggestive of Crohn's disease, an anti-TNF agent will be advised to manage his fistulizing disease. --Fecal calprotectin --Labs (CBC, CMP, CRP) --Diagnostic colonoscopy scheduled with Dr. Dubois early next month. Recommend segmental biopsies to rule out histologic features of Crohn's disease. --MRE scheduled early next month Follow up in 2 months Colonoscopy on 01/17/23: - External opening right posterior 2 cm from the anal verge without fluctuance found on perianal exam. - Non-bleeding internal hemorrhoids. - The examination was otherwise normal on direct and retroflexion views. No internal fistula opening visualized. - Random biopsies of the TI, ascending, transvese, descending colon and rectum for histoloy. Pathology: A. Terminal ileum, biopsy: - Small bowel mucosa with no diagnostic abnormality. B. Ascending colon, biopsy: - Colonic mucosa with no diagnostic abnormality. C. Transverse colon, biopsy: - Colonic mucosa with no diagnostic abnormality. D. Descending colon, biopsy: - Colonic mucosa with no diagnostic abnormality. E. Rectum, biopsy: - Colonic mucosa with no diagnostic abnormality MRI Enterography on 01/18/23: No active inflammatory small bowel Crohn's disease. Penetrating disease: Absent Poorly visualized right perianal tract possibly corresponding to the known perianal fistula. No abscess. MR perineum 02/2023: The right perianal fissure extending to the right gluteal fold is less prominent than on 07/20/2022 exam, it is better visualized than on the 01/18/2023 study but this likely relates to differences in technique. Recommend considering consult with Interventional Radiology to evaluate for possible closure of the fistula. FINDINGS: At the posterior aspect of the rectum 3 cm superior to the anal verge there is again demonstrated a fistulous tract from the approximately 6 o'clock location of the anus to the right gluteal fold, this is much less prominent than on the 07/20/2022 study, but this is visualized better than on the 01/18/2023 study, there is no visible abscess. Large and small bowel loops otherwise are unremarkable. Urinary bladder, prostate gland and seminal vesicles are unremarkable. The solid or cystic bone or soft tissue masses. No ascites. Vasculature is unremarkable. Study otherwise is unchanged and unremarkable. PAST MEDICAL HISTORY Diagnosis Date Fistula 07/2022 PAST SURGICAL HISTORY Procedure Laterality Date FISTULOTOMY SUBCUT 10/2022 PAST SURGICAL HISTORY OF rectal abscess drained x 2 PAST SURGICAL HISTORY OF [place] teeth removal PAST SURGICAL HISTORY OF 08/2022 anal procedure Current Outpatient Medications M (more content not included)... Normal [facility] MRI PERINEUM WO/W IVCONon MRI PERINEUM WO/W IVCON * * *Final Report* * * DATE OF EXAM: Feb 05 2023 10:13AM [facility] 0748 - MRI PERINEUM WO/W IVCON / PROCEDURE REASON: Anorectal fissure * * * * Physician Interpretation * * * * EXAMINATION: MRI OF THE PELVIS WITHOUT AND WITH CONTRAST, 02/05/2023 10:13 am TECHNIQUE: Multiplanar multisequence MRI of the pelvis was performed without and with the administration of intravenous contrast. COMPARISON: 01/18/2023 and 07/20/2022 MRI pelvis. HISTORY: ORDERING SYSTEM PROVIDED HISTORY: TECHNOLOGIST PROVIDED HISTORY: CONTRASTDOSE1: 20ML CONTRASTADMINROUTE1: IV Tech Inits:: ELH [id number] Segments: Anorectal fissure MOD1: MR SUSPECTED DIAGNOSIS: Perineal/perirectal/peria nal fistula EXTENDED DIAG 1: Anorectal fissure STATED HISTORY: ANORECTAL FISSURE, PERONEAL FISSURE, REOCCURANCE WITH PAIN PERINEUM Reason for Exam: Anorectal fissure FINDINGS: At the posterior aspect of the rectum 3 cm superior to the anal verge there is again demonstrated a fistulous tract from the approximately 6 o'clock location of the anus to the right gluteal fold, this is much less prominent than on the 07/20/2022 study, but this is visualized better than on the 01/18/2023 study, there is no visible abscess. Large and small bowel loops otherwise are unremarkable. Urinary bladder, prostate gland and seminal vesicles are unremarkable. The solid or cystic bone or soft tissue masses. No ascites. Vasculature is unremarkable. Study otherwise is unchanged and unremarkable. IMPRESSION: The right perianal fissure extending to the right gluteal fold is less prominent than on 07/20/2022 exam, it is better visualized than on the 01/18/2023 study but this likely relates to differences in technique. Recommend considering consult with Interventional Radiology to evaluate for possible closure of the fistula. Electronically signed By Rui Walton MD 02/16/2023 9:51:53 AM EST Workstation ID : [id number] [employer] Operator: [email or web address] Transcribe Date/Time: Feb 16 2023 9:51A Dictated by : RUI WALTON MD This examination was interpreted and the report reviewed and electronically signed by: RUI WALTON MD on Feb 16 2023 9:51AM EST [id number] [facility] 02-04-2023 [facility] Office Visit ([facility] ) ----- LORENZA ROCK ([id number]) 1980 M Date Time Provider Department 02/04/23 11:00 AM RENETTA GARNER During your visit today, we recorded the following information about you: Temperature Pulse Blood pressure Weight 97.5 degrees 83/minute 119/80 122.9 kg Height 1.88 m Renetta Garner MD 02/09/2023 8:39 PM Signed COLORECTAL SURGERY New Patient Visit February 04, 2023 Chief Complaint: Anal Fistula History of Present Illness: Lorenza Rock is a 42 year old male here for second surgical opinion for her anal fistula. He has been seen previously at [facility] with Dr. Christa Dubois. He began experiencing constipation in fall 12/2021 and noticed a perianal bump about 1-2 months later. Diagnosed with a perianal abscess that spontaneously burst and was debrided in 03/2022. Abscesses were drained in [place] in the OR. The abscess did not heal and he further followed up with Dr. Dubois in Colorectal Surgery. He had an EUA w/seton placement on 07/27/22 and subsequent EUA, drainage of abscess cavity, partial fistulotomy and seton placement on 09/07/22. He had a complex fistulotomy was performed on 10/19/22. He was seen in GI clinic with Dr. Man and recommended to complete Crohn's disease workup and follow up after. Further GI workup to r/o Crohn's disease was completed (see results below) and was negative. He is presenting today with concerns that the medial portion of the wound has not healed with discharge still. He reports that the discharge color and amount varies per day. Bowel Habits: - once per day - soft - No stool softeners , no fiber supplements He reports that his continence has been affected 5-10% , he can hold soft stools but does not think he would be able to hold diarrhea. Previous Encounters 11/27/22 Office Visit w/Dr. Dubois Assessment and Plan: Lorenza Rock is a 42 year old male with complex, atypical anal fistula s/p staged fistulotomy w/ sinus tract posterior midline appreciated on most recent EUA concerning for perianal Crohn's disease. Wound defer any testing until 8 weeks from surgery as he is otherwise asymptomatic and healing well They are very anxious about next steps if this does not heal and desire to proceed with Crohn's workup. Colonoscopy Labs MR enterography GI consultation - he will defer scheduling until next month Diagnostics/Endoscopy Reviewed 01/18/23 MRE ABD/PEL WWO Impression No active inflammatory small bowel Crohn's disease. Penetrating disease: Absent Poorly visualized right perianal tract possibly corresponding to the known perianal fistula. No abscess. 01/17/23 Colonoscopy- Dr. Christa Dubois Findings: The perianal exam findings include external [...] found during retroflexion. The hemorrhoids were mild. FINAL DIAGNOSIS A. Terminal ileum, biopsy: - Small bowel mucosa with no diagnostic abnormality. B. Ascending colon, biopsy: - Colonic mucosa with no diagnostic abnormality. C. Transverse colon, biopsy: - Colonic mucosa with no diagnostic abnormality. D. Descending colon, biopsy: - Colonic mucosa with no diagnostic abnormality. E. Rectum, biopsy: - Colonic mucosa with no diagnostic abnormality. 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 PAST MEDICAL HISTORY Diagnosis Date Fistula 07/2022 PAST SURGICAL HISTORY Procedure Laterality Date FISTULOTOMY SUBCUT 10/2022 PAST SURGICAL HISTORY OF rectal abscess drained x 2 PAST SURGICAL HISTORY OF [place] teeth removal PAST SURGICAL HISTORY OF 08/2022 anal procedure Current Outpatient Medications Medication Sig Dispense Refill ibuprofen (MOTRIN) 200 mg tablet Take 1-2 tablets by mouth every 6 hours. acetaminophen (TYLENOL) 325 mg tablet Take 2 tablets by mouth every 6 hours. iv contrast (will be provided with radiology test) MRI Enterography Inject, intravenously, once for 1 dose. No IV access, insert saline lock prior to the beginning of sedation, infusion, injection of imaging exam. Discontinue saline lock post exam. If Pt. has a central line or IVAD, may access for administration according to line specific nursing protocol. Once exam is complete flush line and de-access according to line specific nursing protocol in the MR contrast administration guidelines link. 1 Each 0 enteric contrast (will be provided with radiology test) For MRI ENTEROGRAPHY WO/W Administer, As Directed One Time Only, via O (more content not included)... Normal [facility] 01-18-2023 [facility] HNO ID: [id number] Author: Yessy Asencio RT(R) Service: Radiology Author Type: Technologist Type: Allied Health Filed: 01/18/2023 10:14 AM Note Text: Radiology Service Progress Note PATIENT NAME: Lorenza Rock DATE OF SERVICE: January 18, 2023 TIME: 10:13 AM PATIENT IDENTITY VERIFICATION COMPLETED USING TWO (2) IDENTIFIERS: Name and Date of confirmed by patient verbally. FALL SCREENING: Has the patient had 2 falls in the last year or 1 fall with injury or currently using an Ambulatory Assistive Device (Walker, Cane, Wheelchair, Crutches, etc.)? No PATIENT GENDER DATA: Male PATIENT RELEVANT IMPLANT DATA REVIEWED: Yes RADIOLOGY DEPARTMENT: MR; Exam(s) Completed: Body: MRE ABD/PELVIS PERIPHERAL IV DATA: Inpatient: see LDA documentation SIGNED BY: RT Paola(R) January 18, 2023 10:13 AM [facility] MRI ABD ENTEROG WO/W IVCONon 01-18-2023 MRI ABD ENTEROG WO/W IVCON * * *Final Report* * * DATE OF EXAM: Jan 18 2023 10:33AM [facility] 0684 - MRI ABD ENTEROG WO/W IVCON / PROCEDURE REASON: multiple diagnoses * * * * Physician Interpretation * * * * MRI ABDOMEN WITHOUT AND WITH IV CONTRAST, MRI PELVIS WITHOUT AND WITH IV CONTRAST (MR ENTEROGRAPHY) CLINICAL HISTORY: Perianal fistula. Abdominal pain. Crohn's disease. TECHNIQUE: Magnet: 1.5T scanner. Multiplanar MRI of the abdomen and MRI of pelvis with multiple sequences, performed before and after contrast. Technique was optimized for small bowel visualization/enterograph y. Contrast: Intravenous: 20 ml of Dotarem Oral: 1000ml ml of Breeza COMPARISON: None. RESULT: GI Tract: Small bowel: No mural hyperenhancement, edema, or wall thickening. Colon: No mural hyperenhancement, edema, or wall thickening. Strictures: None Fistulae/Sinus tracts: Ill-defined soft tissue thickening and enhancement measuring 0.6 cm long the right posterior perianal region (12:93) possibly corresponding to the known perianal fistula. The anal sphincter is otherwise not well visualized on the provided sequences. Abscess: None Abdomen and Pelvis: Liver: Normal morphology. No mass in the imaged portion. Biliary: No bile duct dilation. Gallbladder is normal. Spleen: No mass. No splenomegaly. Pancreas: No mass or duct dilation. Adrenals: No mass. Kidneys: Benign cysts including right interpolar 2.6 cm Bosniak 1 cyst (14:31). No solid mass. No hydronephrosis. Lymph nodes: No abdominal or pelvic lymphadenopathy. Mesentery / Peritoneum / Retroperitoneum: No ascites or mass. Vasculature: The celiac axis and SMA are patent. The portal vein and branches, splenic vein, SMV, and hepatic veins are patent. No aortic or iliac artery aneurysm. Pelvis: No mass, ascites, or loculated collection. Bones/Soft Tissues: No suspicious lesion. Lower chest: Unremarkable. Localizer: No additional findings. IMPRESSION: No active inflammatory small bowel Crohn's disease. Penetrating disease: Absent Poorly visualized right perianal tract possibly corresponding to the known perianal fistula. No abscess. Wagon Drill Operator: PATRICIA Transcribe Date/Time: Jan 18 2023 12:25P Dictated by : HERRERA REARDON MD This examination was interpreted and the report reviewed and electronically signed by: HERRERA REARDON MD on Jan 18 2023 12:35PM EST [id number] Normal [facility] MRI PEL ENTEROG WO/W IVCONon 01-18-2023 MRI PEL ENTEROG WO/W IVCON * * *Final Report* * * DATE OF EXAM: Jan 18 2023 10:33AM [facility] 0736 - MRI PEL ENTEROG WO/W IVCON / PROCEDURE REASON: multiple diagnoses * * * * Physician Interpretation * * * * MRI ABDOMEN WITHOUT AND WITH IV CONTRAST, MRI PELVIS WITHOUT AND WITH IV CONTRAST (MR ENTEROGRAPHY) CLINICAL HISTORY: Perianal fistula. Abdominal pain. Crohn's disease. TECHNIQUE: Magnet: 1.5T scanner. Multiplanar MRI of the abdomen and MRI of pelvis with multiple sequences, performed before and after contrast. Technique was optimized for small bowel visualization/enterograph y. Contrast: Intravenous: 20 ml of Dotarem Oral: 1000ml ml of Breeza COMPARISON: None. RESULT: GI Tract: Small bowel: No mural hyperenhancement, edema, or wall thickening. Colon: No mural hyperenhancement, edema, or wall thickening. Strictures: None Fistulae/Sinus tracts: Ill-defined soft tissue thickening and enhancement measuring 0.6 cm long the right posterior perianal region (12:93) possibly corresponding to the known perianal fistula. The anal sphincter is otherwise not well visualized on the provided sequences. Abscess: None Abdomen and Pelvis: Liver: Normal morphology. No mass in the imaged portion. Biliary: No bile duct dilation. Gallbladder is normal. Spleen: No mass. No splenomegaly. Pancreas: No mass or duct dilation. Adrenals: No mass. Kidneys: Benign cysts including right interpolar 2.6 cm Bosniak 1 cyst (14:31). No solid mass. No hydronephrosis. Lymph nodes: No abdominal or pelvic lymphadenopathy. Mesentery / Peritoneum / Retroperitoneum: No ascites or mass. Vasculature: The celiac axis and SMA are patent. The portal vein and branches, splenic vein, SMV, and hepatic veins are patent. No aortic or iliac artery aneurysm. Pelvis: No mass, ascites, or loculated collection. Bones/Soft Tissues: No suspicious lesion. Lower chest: Unremarkable. Localizer: No additional findings. IMPRESSION: No active inflammatory small bowel Crohn's disease. Penetrating disease: Absent Poorly visualized right perianal tract possibly corresponding to the known perianal fistula. No abscess. Wagon Drill Operator: PATRICIA Transcribe Date/Time: Jan 18 2023 12:25P Dictated by : HERRERA REARDON MD This examination was interpreted and the report reviewed and electronically signed by: HERRERA REARDON MD on Jan 18 2023 12:35PM EST [id number] Normal [facility] NURSING PROGon 01-18-2023 NURSING PROG HNO ID: [id number] Author: Domo Lopez RN Service: Radiology Author Type: Registered Nurse Type: Nursing Progress Note Filed: 01/18/2023 8:29 AM Note Text: Radiology Service Progress Note DATE OF SERVICE: January 18, 2023 TIME: 8:29 AM PATIENT WEIGHT: 266 LBS PATIENT IDENTITY VERIFICATION COMPLETED USING TWO (2) STANDARD IDENTIFIERS: Name and Date of confirmed by patient verbally and Name and Date of confirmed by identification band. FALL SCREENING: Has the patient had 2 falls in the last year or 1 fall with injury or currently using an Ambulatory Assistive Device (Walker, Cane, Wheelchair, Crutches, etc.)? No PATIENT GENDER DATA: Male ALLERGIES: Reviewed and unchanged CONTRAST ALLERGY: No EXAM: MRI - CONTRAST TYPE: GROUP II IV SITE: Ambulatory: A peripheral IV was started in the Left antecubital site with a Angio cath: 22 gauge. and A Saline lock was inserted per protocol IV SITE APPEARANCE: Clean,Dry and Intact SIGNATURE: Domo Lopez RN PATIENT NAME: Lorenza Rock DATE: January 18, 2023 TIME: 8:29 AM Normal [facility] SURGICAL PATHOLOGYon 023 Case Report Surgical Pathology R eport Case: [id number] Authorizing Provider: Christa Dubois MD Collected: 01/17/2023 08:18 AM Ordering Location: Procedures Received: 01/17/2023 09:07 AM Pathologist: Pia Blackmon MD Specimens: A) - TERMINAL ILEUM BIOPSY, Random B) - ASCENDING COLON BIOPSY, Random C) - TRANSVERSE COLON BIOPSY, Random D) - DESCENDING COLON BIOPSY, Random E) - RECTAL BIOPSY, Random [facility] FINAL DIAGNOSIS A. Terminal ileum, biopsy: - Small bowel mucosa with no diagnostic abnormality. B. Ascending colon, biopsy: - Colonic mucosa with no diagnostic abnormality. C. Transverse colon, biopsy: - Colonic mucosa with no diagnostic abnormality. D. Descending colon, biopsy: - Colonic mucosa with no diagnostic abnormality. E. Rectum, biopsy: - Colonic mucosa with no diagnostic abnormality. JEL 01/18/2023 [facility] Gross Description A. TERMINAL ILEUM BI OPSY Received in formalin are two pieces of oconnor, soft tissue aggregating to 0.9 x 0.3 x 0.2 cm. Totally submitted in one cassette. B. ASCENDING COLON BIOPSY Received in formalin is one piece of oconnor, soft tissue measuring 0.4 x 0.3 x 0.1 cm. Totally submitted in one cassette. C. TRANSVERSE COLON BIOPSY Received in formalin are two pieces of oconnor, soft tissue aggregating to 0.6 x 0.3 x 0.2 cm. Totally submitted in one cassette. D. DESCENDING COLON BIOPSY Received in formalin are two pieces of oconnor, soft tissue aggregating to 0.8 x 0.3 x 0.1 cm. Totally submitted in one cassette. E. RECTAL BIOPSY Received in formalin are two pieces of oconnor-red, soft tissue aggregating to 0.5 x 0.2 x 0.2 cm. Totally submitted in one cassette. [facility] January 17, 2023 1:29 PM Gross examination performed at [facility], [address] [place] [address] [facility] Performing Lab Diagnostic interpret ation performed at [facility], [address] [place] [address] CLIA# [id number] Linoleum Printer: Heber Jim M.D. [facility] ANES POSTPROC EVALon 023 ANES POSTPROC EVAL HNO ID: [id number] Author: Dimitris Sheehan MD Service: Anesthesiology Author Type: Physician Type: Anesthesia Postprocedure Evaluation Filed: 01/17/2023 9:08 AM Note Text: POST ANESTHESIA EVALUATION NOTE : 1980 Procedure Summary Date: 01/17/23 Room / Location: Procedures Anesthesia Start: 800 Anesthesia Stop: 831 Procedure: COLONOSCOPY DIAGNOSTIC Diagnosis: Crohn's disease with fistula, unspecified gastrointestinal tract location (HCC) (Exclusion of Crohn's disease) Scheduled Providers: Christa Dubois MD; Dimitris Sheehan MD; Sean Andrade AA Responsible Provider: Dimitris Sheehan MD Anesthesia Type: MAC ASA Status: 2 Anesthesia Type: MAC Last Vitals Vitals Value Taken Time BP 128/62 01/17/23 0900 Temp 36.9 ?C (98.5 ?F) 01/17/23 0835 Pulse 67 01/17/23 0900 Resp 16 01/17/23 0900 SpO2 99 % 01/17/23 0900 Post Anesthesia Patient Status Patient Evaluation: PACU. PACU/ICU Patient Condition: stable. Anticipated Disposition: phase 2 then home. Neurological Status: aware and responsive. Pulmonary Status: breathing comfortably on room air Airway Control: returned to baseline unsupported. Cardiovascular Status: stable. Pain Management: satisfactory to patient Postoperative Hydration: acceptable. Intraoperative Events: no significant anesthesia events Recommendation: continue current plan of care. Anesthesia Observations No Documentation SIGNATURE: Dimitris Sheehan MD PATIENT NAME: Lorenza Rock DATE: January 17, 2023 TIME: 9:08 AM CSN: [id number] [facility] ANES PRE-OPon 01-17-2023 ANES PRE-OP HNO ID: [id number] Author: Dimitris Sheehan MD Service: Anesthesiology Author Type: Physician Type: Anesthesia Preprocedure Evaluation Filed: 01/17/2023 7:08 AM Note Text: ANESTHESIOLOGY DAY OF SURGERY NOTE : 1980 Procedure Information Date/Time: 01/17/23 0800 Scheduled providers: Christa Dubois MD; Dimitris Sheehan MD; Sean Andrade AA Procedure: COLONOSCOPY DIAGNOSTIC Location: Procedures Estimated body mass index is 34.66 kg/m? as calculated from the following: Height as of 01/07/23: 186.7 cm (6' 1.5 ). Weight as of 01/07/23: 120.8 kg (266 lb 4.8 oz). Most recent hematocrit and potassium results: Hematocrit 45.9 01/07/2023 Potassium 3.7 01/07/2023 Relevant Problems Other (+) Obesity, Class I, BMI 30-34.9 I - PHYSICAL EVALUATION AIRWAY Patient intubated: No. Tracheostomy tube not present Mallampati: II. TM distance: >3 FB. Neck ROM: full. Mouth opening: adequate. Short neck: no. Thick neck: no Dunham present: no DENTAL Normal dental observations. Dental findings: teeth intact. Additional exam findings: no II - ANESTHESIA PLAN ASA Score: 2 Anesthetic Plan: MAC NPO Status: adequate Beta Ha Monitoring Plan Monitoring plan: Standard ASA. Post Procedure Analgesic Plan Postoperative analgesic plan: parenteral or oral opioids. Informed Consent Anesthetic risks, benefits, alternatives, personnel and consent discussed: yes. Patient / Responsible Constitution Party agrees to proceed: yes Patient / Surrogate agrees to blood products: blood products not planned Significant changes in the patient condition since the History and Physical, not otherwise documented in primary service progress note: no. Potential Anesthesia issues that may suggest increased risk of complications or contraindication to planned procedure: none. No vitals data found for the desired time range. Outpatient Medications as of 01/17/2023 Medication Sig - iv contrast (will be provided with radiology test) MRI Enterography Inject, intravenously, once for 1 dose. No IV access, insert saline lock prior to the beginning of sedation, infusion, injection of imaging exam. Discontinue saline lock post exam. If Pt. has a central line or IVAD, may access for administration according to line specific nursing protocol. Once exam is complete flush line and de-access according to line specific nursing protocol in the MR contrast administration guidelines link. - enteric contrast (will be provided with radiology test) For MRI ENTEROGRAPHY WO/W Administer, As Directed One Time Only, via Oral, Rectal, both Oral and Rectal, Enteric Tube, Stoma or Indwelling Catheter,? Enteric Contrast as designated per enteric contrast guidelines - glucagon (GLUCAGEN) 1 mg/mL injection Inject 1 mg intravenously one time only for 1 dose. For MRI Enterography, Inject 1 mg intravenously, as directed. Slow push at the appropriate time during MRI Scan - oxyCODONE IR (ROXICODONE) 5 mg immediate release tablet Take 0.5 tablets by mouth every 6 hours as needed for pain. (Patient not taking: Reported on 11/27/2022) - ibuprofen (MOTRIN) 200 mg tablet Take 1-2 tablets by mouth every 6 hours. - acetaminophen (TYLENOL) 325 mg tablet Take 2 tablets by mouth every 6 hours. No current facility-administered medications on file as of 01/17/2023. I have interviewed and examined the patient. I have reviewed the medical record and/or the pre-anesthesia evaluation, pertinent labs, and test results. This contains updated information obtained within 48 hours of Surgery/Procedure. SIGNATURE: Dimitris Sheehan MD PATIENT NAME: Lorenza Rock DATE: January 17, 2023 TIME: 7:07 AM CSN: [id number] Normal [facility] COLONOSCOPY DIAGNOSTICon [facility] Colonoscopyon 01-17-2023 Colonoscopy [facility] Gastrointestinal Endoscopy Patient Name: Lorenza Rock Procedure Date: 01/17/2023 7:16 AM Date of : 1980 Admit Type: Outpatient Age: 42 Room: [place] [address] Gender: Male Note Status: Finalized Attending MD: [...] previously scheduled. Procedure Code(s): --- Professional --- 97923, Colonoscopy, flexible; diagnostic, including collection of specimen(s) by brushing or washing, when performed (separate procedure) Diagnosis Code(s): --- Professional --- K64.8, Other hemorrhoids Z01.818, Encounter for other preprocedural examination CPT copyright 2020 [employer]. All rights reserved. The codes documented in this report are preliminary and upon coffee host review may be revised to meet current compliance requirements. Attending Participation: I personally performed the entire procedure. Scope In: 8:07:24 AM Scope Out: 8:30:21 AM MD Christa Reddy MD 01/17/2023 8:43:04 AM This report has been signed electronically by Christa Dubois MD Number of Addenda: 0 Note Initiated On: 01/17/2023 7:16 AM Estimated Blood Loss: Estimated blood loss was minimal. [facility] SURGICAL PATHOLOGYon 023 CASE REPORT [facility] Comment on above: Order Comment: Specdustin vaughan Type: TISSUE SPECIMEN Ordering Facility: [facility] Address: [address] [place] [address] Result Comment: Surg ical Pathology Report Case: [id number] Authorizing Provider: Christa Dubois MD Collected: 01/17/2023 08:18 AM Ordering Location: Procedures Received: 01/17/2023 09:07 AM Pathologist: Pia Blackmon MD Specimens: A) - TERMINAL ILEUM BIOPSY, Random B) - ASCENDING COLON BIOPSY, Random C) - TRANSVERSE COLON BIOPSY, Random D) - DESCENDING COLON BIOPSY, Random E) - RECTAL BIOPSY, Random Performed By: #### S #### [facility] [place] [id number] [address] [place] [address] FINAL DIAGNOSIS [facility] Comment on above: Order Comment: Speci clement Type: TISSUE SPECIMEN Ordering Facility: [facility] Address: [address] [place] [address] Result Comment: A. T erminal ileum, biopsy: - Small bowel mucosa with no diagnostic abnormality. B. Ascending colon, biopsy: - Colonic mucosa with no diagnostic abnormality. C. Transverse colon, biopsy: - Colonic mucosa with no diagnostic abnormality. D. Descending colon, biopsy: - Colonic mucosa with no diagnostic abnormality. E. Rectum, biopsy: - Colonic mucosa with no diagnostic abnormality. JEL 01/18/2023 Performed By: #### S #### [facility] CLIA [id number] [address] [place] [address] OF [facility] FINAL PERFORMING LAB Normal [facility] Comment on above: Order Comment: Speci men Type: TISSUE SPECIMEN Ordering Facility: [facility] Address: [address] [place] [address] Result Comment: Diag nostic interpretation performed at [facility], [address] [place] [address] CLIA# [id number] Linoleum Printer: Heber Jim M.D. Performed By: #### S #### [facility] CLIA [id number] [address] [place] [address] [place] GROSS DESCRIPTION [facility] Comment on above: Order Comment: Speci men Type: TISSUE SPECIMEN Ordering Facility: [facility] Address: [address] [place] [address] Result Comment: A. T ERMINAL ILEUM BIOPSY Received in formalin are two pieces of oconnor, soft tissue aggregating to 0.9 x 0.3 x 0.2 cm. Totally submitted in one cassette. B. ASCENDING COLON BIOPSY Received in formalin is one piece of oconnor, soft tissue measuring 0.4 x 0.3 x 0.1 cm. Totally submitted in one cassette. C. TRANSVERSE COLON BIOPSY Received in formalin are two pieces of oconnor, soft tissue aggregating to 0.6 x 0.3 x 0.2 cm. Totally submitted in one cassette. D. DESCENDING COLON BIOPSY Received in formalin are two pieces of oconnor, soft tissue aggregating to 0.8 x 0.3 x 0.1 cm. Totally submitted in one cassette. E. RECTAL BIOPSY Received in formalin are two pieces of oconnor-red, soft tissue aggregating to 0.5 x 0.2 x 0.2 cm. Totally submitted in one cassette. [facility] January 17, 2023 1:29 PM Gross examination performed at [facility], [address] [place] [address] Performed By: #### S #### [facility] CLIA [id number] [address] [place] [address] [place] C-REACTIVE PROTEIN (CRP)on 0 01-08-2023 CRP [Mass/Vol] <0.9 mg/dL [facility] Comprehensive metabolic 2000 panelon 01-08-2023 Albumin [Mass/Vol] 4.4 g/dL 3.9 - 4.9 g/dL [facility] ALP [Catalytic activity/Vol] 57 U/L 38 - 113 U/L [facility] ALT [Catalytic activity/Vol] 32 U/L 10 - 54 U/L [facility] Anion gap [Moles/Vol] 14 mmol/L 9 - 18 mmol/L [facility] AST [Catalytic activity/Vol] 22 U/L 14 - 40 U/L [facility] Bilirubin [Mass/Vol] 0.6 mg/dL 0.2 - 1.3 mg/dL [facility] Calcium [Mass/Vol] 9.3 mg/dL 8.5 - 10. 2 mg/dL [facility] Chloride [Moles/Vol] 101 mmol/L 97 - 105 mmol/L [facility] CO2 [Moles/Vol] 22 mmol/L 22 - 30 mmol/L [facility] Creatinine [Mass/Vol] 1.10 mg/dL 0.73 - 1.22 mg/dL [facility] Estimated Glomerular Filtration Rate 87 mL/min/1.73m >=60 mL/min/1.73m [facility] Glucose [Mass/Vol] 110 mg/dL High 74 - 99 mg/dL [facility] Potassium [Moles/Vol] 3.7 mmol/L 3.7 - 5.1 mmol/L [facility] Protein [Mass/Vol] 6.9 g/dL 6.3 - 8.0 g/dL [facility] Sodium [Moles/Vol] 137 mmol/L 136 - 144 mmol/L [facility] Urea nitrogen [Mass/Vol] 22 mg/dL 9 - 24 mg/dL [facility] CBC panel Auto (Bld)on 01-07 Erythrocyte distribution width (RBC) [Ratio] 12.0 % 11.5 - 15.0 % [facility] Hematocrit (Bld) [Volume fraction] 45.9 % 39.0 - 51.0 % [facility] Hemoglobin (Bld) [Mass/Vol] 15.4 g/dL 13.0 - 17.0 g/dL [facility] MCH (RBC) [Entitic mass] 29.0 pg 26.0 - 34.0 pg [facility] MCHC (RBC) [Mass/Vol] 33.6 g/dL 30.5 - 36.0 g/dL [facility] MCV (RBC) [Entitic vol] 86.4 fL 80.0 - 100.0 fL [facility] Nucleated RBC (Bld) [#/Vol] <0.01 k/uL [facility] Platelet mean volume (Bld) [Entitic vol] 10.0 fL 9.0 - 12.7 fL [facility] Platelets (Bld) [#/Vol] 262 10*3/uL 150 - 400 k/uL [facility] RBC (Bld) [#/Vol] 5.31 10*6/uL 4.20 - 6.0 0 m/uL [facility] WBC (Bld) [#/Vol] 6.42 10*3/uL 3.70 - 11. 00 k/uL [facility] Erythrocyte distribution width (RBC) [Ratio] 12.0 % Normal 11.5-15.0 [facility] Comment on above: Order Comment: Speci men Type: BLOOD SPECIMENOrdering Facility: [facility] Address: [address] [place] [address] Performed By: #### 5 8410-2, 4537-7 ####[facility] LABIA [id number] [address] STATES OF [facility] Hematocrit (Bld) [Volume fraction] 45.9 % Normal 39.0-51.0 [facility] Comment on above: Order Comment: Speci men Type: BLOOD SPECIMENOrdering Facility: [facility] Address: [address] [place] [address] Performed By: #### 5 8410-2, 4537-7 ####[facility] LABIA [id number] [place] [address] [place] Hemoglobin (Bld) [Mass/Vol] 15.4 g/dL Normal 13.0-17.0 [facility] Comment on above: Order Comment: Speci men Type: BLOOD SPECIMENOrdering Facility: [facility] Address: [address] [place] [address] Performed By: #### 5 8410-2, 7-7 ####[facility] LABCLIA [id number] [address] STATES [facility] MCH (RBC) [Entitic mass] 29.0 pg Normal 26.0-34.0 [facility] Comment on above: Order Comment: Speci men Type: BLOOD SPECIMENOrdering Facility: [facility] Address: [address] [place], [place] [id number] Performed By: #### 5 8410-2, 7 ####[facility] LABIA [id number] [address] MCHC (RBC) [Mass/Vol] 33.6 g/dL Normal 30.5-36.0 [facility] Comment on above: Order Comment: Speci men Type: BLOOD SPECIMENOrdering Facility: [facility] Address: [address] [place] [address] Performed By: #### 5 8410-2, 7 ####[facility] LABIA [id number] [address] [place] MCV (RBC) [Entitic vol] 86.4 fL Normal 80.0-100.0 [facility] Comment on above: Order Comment: Speci men Type: BLOOD SPECIMENOrdering Facility: [facility] Address: [address] [place], [place] [id number] Performed By: #### 5 8410-2, 7 ####[facility] LABIA [id number] [address] [place] Nucleated RBC (Bld) [#/Vol] 10*3/uL Normal <0.01 [facility] Comment on above: Order Comment: Speci men Type: BLOOD SPECIMENOrdering Facility: [facility] Address: [address] [place], [place] [id number] Performed By: #### 5 8410-2, 4536-7 ####[facility] LABCLIA [id number] [place] [address] [place] Platelet mean volume (Bld) [Entitic vol] 10.0 fL Normal 9.0-12.7 [facility] Comment on above: Order Comment: Speci men Type: BLOOD SPECIMENOrdering Facility: [facility] Address: [address] [place] [address] Performed By: #### 5 8410-2, 4537-7 ####[facility] LABIA [id number] [place] [address] [place] Platelets (Bld) [#/Vol] 262 10*3/uL Normal 150-400 [facility] Comment on above: Order Comment: Speci men Type: BLOOD SPECIMENOrdering Facility: [facility] Address: [address] [place] [address] Performed By: #### 5 8410-2, 4537-7 ####[facility] LABIA [id number] [place] [address] [place] RBC (Bld) [#/Vol] 5.31 10*6/uL Normal 4.20-6.00 [facility] Comment on above: Order Comment: Speci men Type: BLOOD SPECIMENOrdering Facility: [facility] Address: [address] [place], [place] [id number] Performed By: #### 5 8410-2, 4537-7 ####[facility] LABIA [id number] [place] [address] [place] WBC (Bld) [#/Vol] 6.42 10*3/uL Normal 3.70-11.00 [facility] Comment on above: Order Comment: Speci men Type: BLOOD SPECIMENOrdering Facility: [facility] Address: [address] [place], [place] [id number] Performed By: #### 5 8410-2, 4537-7 ####[facility] LABCLIA [id number] [address] [address] [place] [facility] CNOVon 01-07-2023 CNOV Office Visit ([facility] ) ----- LORENZA ROCK ([id number]) 1980 M Date Time Provider Department 01/07/23 3:30 PM CLIFFORD MAN [facility] During your visit today, we recorded the following information about you: Pulse Blood pressure Weight Height 75/minute 120/76 120.8 kg 1.867 m Clifford Man MD 01/07/2023 3:21 PM Signed Thank you for seeing me in clinic today. It was very nice to meet you! As we discussed, my recommendations are as follows: Please schedule a colonoscopy at your earliest convenience. Please see the pre-procedure diet and bowel preparation instructions below for details. You can purchase all of the ingredients for the bowel prep over the counter at your local pharmacy. Schedule your MR enterography as ordered by Dr. Dubois Please get lab work done and submit a stool sample at your earliest convenience. Please make a follow up visit with me in 2 months If you have any questions about the above treatment plan, please do not hesitate to send me a [employer] message or call the [facility] at [phone] to route me a message. Clifford Man MD 01/07/2023 4:08 PM Signed Consultation requested by Dr. Christa Dubois for an opinion regarding Crohn's evaluation. My final recommendations will be communicated back to the requesting physician by way of shared medical record or fax. REASON FOR VISIT: Evaluation for possible Crohn's disease HPI: Lorenza Rock is a 42 year old male with a history of obesity who is referred to the GI clinic for evaluation of possible Crohn's disease. He was in his usual state of health until he developed acute constipation on vacation in 12/2021. He passed a hard stool while straining and felt pain afterwards that eventually went away. Approximately 1-2 months later, he felt a bump forming in his perianal area. This protrusion burst in 03/2022 with yellow drainage. He was diagnosed with a perianal abscess that was debrided in 03/2022 and 04/2022. These debridements did not heal and continued to drain yellow/clear fluid. He underwent EUA in 07/2022, which revealed a suprasphincteric anal fistula. A seton was placed He went back to the OR again on 09/07/22 for drainage of persistent perianal abscess and placement of another seton. 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 At his last post-op visit on 11/27/22, his wound was healing with with a small punctate area of granulation tissue near the posterior midline draining a small amount of yellow fluid. Today, he still reports some scant yellow/drainage in the perianal area. He denies rectal pain or fevers/chills. He has a scheduled colonoscopy and MRE on the first week of January. GI ROS negative for rashes, joint pain, eye symptoms, aphthous ulcers, dysphagia, heartburn, regurgitation, early satiety, nausea, vomiting, abdominal pain, changes in appetite, change in bowel habits, unintentional weight loss or GI bleeding. He averages 1 soft, complete BM/day. No history of luminal surgery. No personal history of IBD. No prior history of colonoscopy. No known FHx of IBD or colon cancer. Tobacco - None EtOH - None Illicits - None NSAIDs - Infrequent ibuprofen use Past Clinical Work-Up: MR perineum: 07/23/22: Transsphincteric fistula extending into the right ischioanal fossa and right gluteal cleft. CT abd/pelv: 03/27/22: Peripheral enhancing fluid collection in the right medial gluteal cleft, suspicious for a perianal abscess. A fistulous communication with the anus is suspected given the limitations of this exam, though not confirmed. There are also findings indicating overlying cellulitis. ALLERGIES No Known Allergies No past medical history on file. PAST SURGICAL HISTORY Procedure Laterality Date PAST SURGICAL HISTORY OF rectal abscess drained x 2 PAST SURGICAL HISTORY OF [place] teeth removal PAST SURGICAL HISTORY OF 08/2022 anal procedure FAMILY HISTORY Problem Relation Age of Onset No Known Problems Mother No Known Problems Father Clotting Disorder No Family History Anesthesia Problems No Family History Malig Hyperthermia No Family History Social History Tobacco Use Smoking status: Never Smokeless tobacco: Never Vaping Use Vaping Use: Never used Substance Use Topics Alcohol use: Not Currently Drug use: Not Currently Current Outpatient Medications Medication Sig iv contrast (will be provided with radiology test) MRI Enterography Inject, intravenously, once for 1 dose. No IV access, insert saline lock prior to the beginning of sedation, infusion, injection of imaging exam. Discontinue saline lock post exam. If Pt. has a central line or IVAD, may access for administration according to line specific nursing pro (more content not included)... Normal [facility] CRP SerPl-mCncon 01-07-2023 CRP [Mass/Vol] mg/L Normal <0.9 [facility] Comment on above: Order Comment: Speci clement Type: BLOOD SPECIMENOrdering Facility: [facility] Address: [address] [place] [address] Performed By: #### 2 1987-08 ####[facility] LABCLIA [id number] [place] [address] [place] Comprehensive metabolic 2000 panelon 01-07-2023 Albumin [Mass/Vol] 4.4 g/dL Normal 3.9-4.9 [facility] Comment on above: Order Comment: Ashly vaughan Type: BLOOD SPECIMENOrdering Facility: [facility] Address: [address] [place] [address] Performed By: #### 2 1987-08 ####[facility] LABCLIA [id number] [address] [place] ALP [Catalytic activity/Vol] 57 U/L Normal 38-113 [facility] Comment on above: Order Comment: Evensi men Type: BLOOD SPECIMENOrdering Facility: [facility] Address: [address] [address] Performed By: #### 2 43206-20, 1987-08 ####[facility] LABCLIA [id number] [place] [address] [place] ALT [Catalytic activity/Vol] 32 U/L Normal 10-54 [facility] Comment on above: Order Comment: Speci men Type: BLOOD SPECIMENOrdering Facility: [facility] Address: [address] [place], [place] [id number] Performed By: #### 2 4322-11, 1987-08 ####[facility] LABCLIA [id number] [place] [address] [place] Anion gap [Moles/Vol] 14 mmol/L Normal 9-18 [facility] Comment on above: Order Comment: Speci men Type: BLOOD SPECIMENOrdering Facility: [facility] Address: [address] [place], [place] [id number] Performed By: #### 2 4322-11, 1987-08 ####[facility] LABCLIA [id number] [place] [address] [place] AST [Catalytic activity/Vol] 22 U/L Normal 14-40 [facility] Comment on above: Order Comment: Speci men Type: BLOOD SPECIMENOrdering Facility: [facility] Address: [address] [place], [place] [id number] Performed By: #### 2 4322-11, 1987-08 ####[facility] LABCLIA [id number] [place] [address] [place] Bilirubin [Mass/Vol] 0.6 mg/dL Normal 0.2-1.3 [facility] Comment on above: Order Comment: Speci men Type: BLOOD SPECIMENOrdering Facility: [facility] Address: [address] [place] [id number] Performed By: #### 2 4322-11, 1987-08 ####[facility] LABCLIA [id number] [place] [id number] [place] Calcium [Mass/Vol] 9.3 mg/dL Normal 8.5-10.2 [facility] Comment on above: Order Comment: Speci men Type: BLOOD SPECIMENOrdering Facility: [facility] Address: [address] Performed By: #### 2 43206-20, 1987-08 ####[facility] LABCLIA [id number] [place] [address] [place] Chloride [Moles/Vol] 101 mmol/L Normal 97-105 [facility] Comment on above: Order Comment: Speci men Type: BLOOD SPECIMENOrdering Facility: [facility] Address: [address] [place], [place] [id number] Performed By: #### 2 43206-20, 1987-08 ####[facility] LABCLIA [id number] [place] [address] [place] CO2 [Moles/Vol] 22 mmol/L Normal 22-30 [facility] Comment on above: Order Comment: Speci men Type: BLOOD SPECIMENOrdering Facility: [facility] Address: [address] [place], [place] [id number] Performed By: #### 2 43206-20, 1987-08 ####[facility] LABCLIA [id number] [place] [address] [place] Creatinine [Mass/Vol] 1.10 mg/dL Normal 0.73-1.22 [facility] Comment on above: Order Comment: Speci men Type: BLOOD SPECIMENOrdering Facility: [facility] Address: [address] [place], [place] [id number] Performed By: #### 2 4328, 1987-08 ####[facility] LABCLIA [id number] [place] [address] [place] [facility] [place] Creatinine and Glomerular filtration rate.predicted panel (S/P/Bld) 87 mL/min/1.73m??? Normal >=60 [facility] Comment on above: Order Comment: Speci men Type: BLOOD SPECIMENOrdering Facility: [facility] Address: [address] [place], [place] [id number] Result Comment: Miladis mated Glomerular Filtration Rate (eGFR) is calculated using the 2020 CKD-EPI creatinine equation. This equation utilizes serum creatinine, sex, and age as parameters. The creatinine assay has traceable calibration to isotope dilution-mass spectrometry. Refer to KDIGO guidelines for clinical interpretation. In patients with unstable renal function, e.g. those with acute kidney injury, the eGFR may not accurately reflect actual GFR. Performed By: #### 2 43206-20, 1987-08 ####[facility] LABCLIA [id number] [place] [address] [place] Glucose [Mass/Vol] 110 mg/dL High 74-99 [facility] Comment on above: Order Comment: Ashly vaughan Type: BLOOD SPECIMENOrdering Facility: [facility] Address: [address] [address] Result Comment: The [place] Diabetes Association (ADA) provides guidance for cutoff values for fasting glucose and random glucose. The ADA defines fasting as no caloric intake for at least 8 hours. Fasting plasma glucose results between 100 to 125 mg/dL indicate increased risk for diabetes (prediabetes). Fasting plasma glucose results greater than or equal to 126 mg/dL meet the criteria for diagnosis of diabetes. In the absence of unequivocal hyperglycemia, results should be confirmed by repeat testing. In a patient with classic symptoms of hyperglycemia or hyperglycemic crisis, random plasma glucose results greater than or equal to 200 mg/dL meet the criteria for diagnosis of diabetes. Reference: Standards of Medical Care in Diabetes 2016, [place] Diabetes Association. Diabetes Care. 2016.39(Suppl 1). Performed By: #### 2 4322-11, 1987-08 ####[facility] LABCLIA [id number] [place] [address] [place] Potassium [Moles/Vol] 3.7 mmol/L Normal 3.7-5.1 [facility] Comment on above: Order Comment: Ashly vaughan Type: BLOOD SPECIMENOrdering Facility: [facility] Address: [address] [id number] Performed By: #### 2 43206-20, 1987-08 ####[facility] LABCLIA [id number] [place] [address] [place] Protein [Mass/Vol] 6.9 g/dL Normal 6.3-8.0 [facility] Comment on above: Order Comment: Speci men Type: BLOOD SPECIMENOrdering Facility: [facility] Address: [address] [place] [address] Performed By: #### 2 43238, 1987-08 ####[facility] LABCLIA [id number] [place] [address] [place] Sodium [Moles/Vol] 137 mmol/L Normal 136-144 [facility] Comment on above: Order Comment: Speci men Type: BLOOD SPECIMENOrdering Facility: [facility] Address: [address] [place] [address] Performed By: #### 2 4328, 1987-08 ####[facility] LABCLIA [id number] [address] [place] Urea nitrogen [Mass/Vol] 22 mg/dL Normal 9-24 [facility] Comment on above: Order Comment: Speci men Type: BLOOD SPECIMENOrdering Facility: [facility] Address: [address] [place] [address] Performed By: #### 2 43238, 1987-08 ####[facility] LABCLIA [id number] [place] [address] [place] ESR Westergren method (Bld) [Velocity]on 01-07-2023 ESR (Bld) [Velocity] 5 mm/h Normal 0-15 [facility] Comment on above: Order Comment: Speci men Type: BLOOD SPECIMENOrdering Facility: [facility] Address: [address] [place] [address] Performed By: #### 5 8410-2, 4537-7 ####[facility] LABCLIA [id number] [place] [address] [place] HISTORY PHYSICALon 3 HISTORY PHYSICAL HNO ID: [id number] Author: Clifford Man MD Service: ? Author Type: Physician Type: HANDP Filed: 01/07/2023 4:08 PM Note Text: Consultation requested by Dr. Christa Dubois for an opinion regarding Crohn's evaluation. My final recommendations will be communicated back to the requesting physician by way of shared medical record or fax. REASON FOR VISIT: Evaluation for possible Crohn's disease HPI: Lorenza Rock is a 42 year old male with a history of obesity who is referred to the GI clinic for evaluation of possible Crohn's disease. He was in his usual state of health until he developed acute constipation on vacation in 12/2021. He passed a hard stool while straining and felt pain afterwards that eventually went away. Approximately 1-2 months later, he felt a bump forming in his perianal area. This protrusion burst in 03/2022 with yellow drainage. He was diagnosed with a perianal abscess that was debrided in 03/2022 and 04/2022. These debridements did not heal and continued to drain yellow/clear fluid. He underwent EUA in 07/2022, which revealed a suprasphincteric anal fistula. A seton was placed He went back to the OR again on 09/07/22 for drainage of persistent perianal abscess and placement of another seton. 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 At his last post-op visit on 11/27/22, his wound was healing with with a small punctate area of granulation tissue near the posterior midline draining a small amount of yellow fluid. Today, he still reports some scant yellow/drainage in the perianal area. He denies rectal pain or fevers/chills. He has a scheduled colonoscopy and MRE on the first week of January. GI ROS negative for rashes, joint pain, eye symptoms, aphthous ulcers, dysphagia, heartburn, regurgitation, early satiety, nausea, vomiting, abdominal pain, changes in appetite, change in bowel habits, unintentional weight loss or GI bleeding. He averages 1 soft, complete BM/day. No history of luminal surgery. No personal history of IBD. No prior history of colonoscopy. No known FHx of IBD or colon cancer. Tobacco - None EtOH - None Illicits - None NSAIDs - Infrequent ibuprofen use Past Clinical Work-Up: MR perineum: 07/23/22: Transsphincteric fistula extending into the right ischioanal fossa and right gluteal cleft. CT abd/pelv: 03/27/22: Peripheral enhancing fluid collection in the right medial gluteal cleft, suspicious for a perianal abscess. A fistulous communication with the anus is suspected given the limitations of this exam, though not confirmed. There are also findings indicating overlying cellulitis. ALLERGIES No Known Allergies No past medical history on file. PAST SURGICAL HISTORY Procedure Laterality Date PAST SURGICAL HISTORY OF rectal abscess drained x 2 PAST SURGICAL HISTORY OF [place] teeth removal PAST SURGICAL HISTORY OF 08/2022 anal procedure FAMILY HISTORY Problem Relation Age of Onset No Known Problems Mother No Known Problems Father Clotting Disorder No Family History Anesthesia Problems No Family History Malig Hyperthermia No Family History Social History Tobacco Use Smoking status: Never Smokeless tobacco: Never Vaping Use Vaping Use: Never used Substance Use Topics Alcohol use: Not Currently Drug use: Not Currently Current Outpatient Medications Medication Sig iv contrast (will be provided with radiology test) MRI Enterography Inject, intravenously, once for 1 dose. No IV access, insert saline lock prior to the beginning of sedation, infusion, injection of imaging exam. Discontinue saline lock post exam. If Pt. has a central line or IVAD, may access for administration according to line specific nursing protocol. Once exam is complete flush line and de-access according to line specific nursing protocol in the MR contrast administration guidelines link. enteric contrast (will be provided with radiology test) For MRI ENTEROGRAPHY WO/W Administer, As Directed One Time Only, via Oral, Rectal, both Oral and Rectal, Enteric Tube, Stoma or Indwelling Catheter, Enteric Contrast as designated per enteric contrast guidelines glucagon (GLUCAGEN) 1 mg/mL injection Inject 1 mg intravenously one time only for 1 dose. For MRI Enterography, Inject 1 mg intravenously, as directed. Slow push at the appropriate time during MRI Scan oxyCODONE IR (ROXICODONE) 5 mg immediate release tablet Take 0.5 tablets by mouth every 6 hours as needed for pain. (Patient not taking: Reported on 11/27/2022) ibuprofen (MOTRIN) 200 mg tablet Take 1-2 tablets by mouth every 6 hours. acetaminophen (TYLENOL) 325 mg tablet Take 2 tablets by mouth every 6 hours. No current facility-administered medications for this visit. I have confirmed and edited, if necessary, the PFSH obtained by donavan (more content not included)... Normal [facility] CNOVon 11-27-2022 CNOV Office Visit ([facility] ) ----- JOLORENZA ANDERSON ([id number]) 1980 M Date Time Provider Department 11/27/22 10:00 AM CHRISTA DUBOIS [facility] During your visit today, we recorded the following information about you: Temperature Pulse Blood pressure Weight 98.6 degrees 86/minute 141/84 117.9 kg Height 1.88 m Christa Dubois MD 11/27/2022 11:03 AM Signed COLORECTAL SURGERY November 27, 2022 Lorenza Rock Chief Complaint: follow up/ anal fistula History of Present Illness: Lorenza Rock is a 42 year old male presents to the office for a follow up evaluation after undergoing a rectal exam under anesthesia with complex fistulotomy on 10/19/2022. Last seen in the office on 11/02/22 with Susie Mancia NP. Wound has been healing well. Still with a punctate wound of granulation tissue near posterior midline that drains small amount of yellow or purulent fluid with pressure posterior midline from that area. No FI Stool is soft, some form. No diarrhea or hematochezia. No abdominal pain. Weight stable. OPERATIVE FINDINGS: 10/19/[address] Healed scar from prior partial fistulotomy at right lateral aspect of the anal margin. Seton with external opening right posterior involving some external sphincter muscle with internal opening posterior midline at dentate line. Normal external hemorrhoids, moderately enlarged internal hemorrhoids all locations. Normal rectal mucosa without proctitis. After fistulotomy, blind sinuses appreciated tracking right posterior to 6 cm from the anal verge (1 cm diameter) and posterior midline towards coccyx 5 cm from the anal verge (2 mm diameter). No past medical history on file. PAST SURGICAL HISTORY Procedure Laterality Date PAST SURGICAL HISTORY OF rectal abscess drained x 2 PAST SURGICAL HISTORY OF [place] teeth removal PAST SURGICAL HISTORY OF 08/2022 anal procedure Current Outpatient Medications Medication Sig Dispense Refill ibuprofen (MOTRIN) 200 mg tablet Take 1-2 tablets by mouth every 6 hours. acetaminophen (TYLENOL) 325 mg tablet Take 2 tablets by mouth every 6 hours. iv contrast (will be provided with radiology test) MRI Enterography Inject, intravenously, once for 1 dose. No IV access, insert saline lock prior to the beginning of sedation, infusion, injection of imaging exam. Discontinue saline lock post exam. If Pt. has a central line or IVAD, may access for administration according to line specific nursing protocol. Once exam is complete flush line and de-access according to line specific nursing protocol in the MR contrast administration guidelines link. 1 Each 0 enteric contrast (will be provided with radiology test) For MRI ENTEROGRAPHY WO/W Administer, As Directed One Time Only, via Oral, Rectal, both Oral and Rectal, Enteric Tube, Stoma or Indwelling Catheter, Enteric Contrast as designated per enteric contrast guidelines 1 Each 0 glucagon (GLUCAGEN) 1 mg/mL injection Inject 1 mg intravenously one time only for 1 dose. For MRI Enterography, Inject 1 mg intravenously, as directed. Slow push at the appropriate time during MRI Scan 1 Each 0 oxyCODONE IR (ROXICODONE) 5 mg immediate release tablet Take 0.5 tablets by mouth every 6 hours as needed for pain. (Patient not taking: Reported on 11/27/2022) 10 tablet 0 No current facility-administered medications for this visit. ALLERGIES No Known Allergies FAMILY HISTORY Problem Relation Age of Onset No Known Problems Mother No Known Problems Father Clotting Disorder No Family History Anesthesia Problems No Family History Malig Hyperthermia No Family History Social History Tobacco Use Smoking status: Never Smokeless tobacco: Never Vaping Use Vaping Use: Never used Substance Use Topics Alcohol use: Not Currently Drug use: Not Currently Physical Exam: BP 141/84 (BP Site: Right Arm, BP Position: Sitting, BP Cuff Size: Regular Adult) Pulse 86 Temp 37 ?C (98.6 ?F) Ht 188 cm (6' 2 ) Wt 117.9 kg (260 lb) SpO2 95% BMI 33.38 kg/m? General Appearance: Well appearing, alert, in no acute distress, well-hydrated, well nourished. Abdomen: soft ND NT Anorectal: External exam reveals posterior midline 2 mm focus of granulation tissue at medial aspect of fistulotomy site closed to 3.5 cm from the anal verge in the right lateral position, additional 2 mm focus of exophytic granulation tissue posterior midline at anal verge. No surrounding fluctuance, induration or erythema. No drainage expressed with pressure at posterior anal margin just outside granulation tissue Health Program Director present: Yes Bertha Assessment Assessment and Plan: Lorenza Rock is a 42 year old male with complex, atypical anal fistula s/p staged fistulotomy w/ sinus tract posterior midline appreciated on most recent EUA concerning for perianal Crohn's disease. Wound defer any testing until 8 weeks fr (more content not included)... Normal [facility] CNPNon 11-27-2022 CNPN Telephone (GABBIE) ----- LORENZA ROCK ([id number]) 1980 M Date Time Provider Department 11/27/22 CLIFFORD MAN During your visit today, we recorded the following information about you: Toya Ramey RN 11/27/2022 11:40 AM Signed Clifford Man MD Ban, Kristen, MD Cc: Toya Ramey, RN Thanks Christa. We'll try and get him in around mid to late Dec. Toya, can you get Arden scheduled with me around this time? Thanks Clifford Previous Messages ----- Message ----- From: Christa Dubois MD Sent: 11/27/2022 11:03 AM EDT To: Clifford Man MD Another referral for potential perianal Crohn's. He may still heal from most recent procedure, but they are very anxious about prior OR findings of complex sinuses associated with an already complex fistula that appears refractory to a staged fistulotomy. I told them not to schedule with you until mid-Sept at earliest to wait minimum 8 weeks from most recent OR. Toya Chisholm, LORRAINE 11/27/2022 11:40 AM Signed Please call pt and offer SaturdayJan [address] Man Please let me know if pt does not accept this visit. Thank you Sean Mishra 11/28/2022 12:20 PM Signed Spoke with Lorenza. He will not be available on Jan 02 He will be traveling for work the week of Dec 17 and then again from Dec 30-. Please advise another date to offer? Thank you Toya Ramey, LORRAINE 11/28/2022 2:37 PM Signed Offer 01-07 at 330 please Sherrie Payne 11/29/2022 11:16 AM Signed LVM for patient to contact [facility] to schedule. Thank you Sherrie Payne PSS Allergies As of Date: 11/27/2022 (No Known Allergies) Date Reviewed: 11/27/2022 Reviewed by: Christa Dubois MD - Fully Assessed Reason for Visit: Appointment [[id number]] Prescriptions as of 01/07/2023 - iv contrast (will be provided with radiology test) MRI Enterography Inject, intravenously, once for 1 dose. No IV access, insert saline lock prior to the beginning of sedation, infusion, injection of imaging exam. Discontinue saline lock post exam. If Pt. has a central line or IVAD, may access for administration according to line specific nursing protocol. Once exam is complete flush line and de-access according to line specific nursing protocol in the MR contrast administration guidelines link. - enteric contrast (will be provided with radiology test) For MRI ENTEROGRAPHY WO/W Administer, As Directed One Time Only, via Oral, Rectal, both Oral and Rectal, Enteric Tube, Stoma or Indwelling Catheter,? Enteric Contrast as designated per enteric contrast guidelines - glucagon (GLUCAGEN) 1 mg/mL injection Inject 1 mg intravenously one time only for 1 dose. For MRI Enterography, Inject 1 mg intravenously, as directed. Slow push at the appropriate time during MRI Scan - oxyCODONE IR (ROXICODONE) 5 mg immediate release tablet Take 0.5 tablets by mouth every 6 hours as needed for pain. - ibuprofen (MOTRIN) 200 mg tablet Take 1-2 tablets by mouth every 6 hours. - acetaminophen (TYLENOL) 325 mg tablet Take 2 tablets by mouth every 6 hours. Problem List As Of Date 11/27/2022 Noted Resolved Obesity, Class I, BMI 30-34.9 [E66.9] 07/10/2022 Encounter Status:Closed by TOYA RAMEY on 01/07/23 [facility] ANES POSTPROC EVALon 023 ANES POSTPROC EVAL HNO ID: [id number] Author: Giulia Patel DO Service: Anesthesiology Author Type: Physician Type: Anesthesia Postprocedure Evaluation Filed: 10/19/2022 10:28 PM Note Text: POST ANESTHESIA EVALUATION NOTE : 1980 Procedure Summary Date: 10/19/22 Room / Location: OR01 / [facility] Anesthesia Start: 163 Anesthesia Stop: 1733 Procedure: EUA, complex ANAL FISTULOTOMY INTERSPHINCTERIC Diagnosis: Anal fistula (Anal fistula [K60.3]) Surgeons: Christa Dubois MD Responsible Provider: Giulia Patel DO Anesthesia Type: MAC ASA Status: 2 Anesthesia Type: MAC Last Vitals Vitals Value Taken Time BP 132/88 10/19/22 1815 Temp 36.5 ?C (97.7 ?F) 10/19/22 1729 HR SpO2 82 10/19/22 1729 Resp 14 10/19/22 1745 SpO2 98 % 10/19/22 1815 Post Anesthesia Patient Status Patient Evaluation: PACU. PACU/ICU Patient Condition: stable. Anticipated Disposition: phase 2 then home. Neurological Status: aware and responsive. Pulmonary Status: breathing comfortably on room air Airway Control: returned to baseline unsupported. Cardiovascular Status: stable. Pain Management: clinically adequate Postoperative Hydration: acceptable. Intraoperative Events: no significant anesthesia events Post Operative Nausea/Vomiting Status: no significant post operative nausea or vomiting Recommendation: continue current plan of care. Anesthesia Observations No Documentation SIGNATURE: Giulia Patel DO PATIENT NAME: Lorenza Rock DATE: October 19, 2022 TIME: 10:28 PM CSN: [id number] [facility] ANES PRE-OPon 10-19-2022 ANES PRE-OP HNO ID: [id number] Author: Giulia Patel DO Service: Anesthesiology Author Type: Physician Type: Anesthesia Preprocedure Evaluation Filed: 10/19/2022 3:58 PM Note Text: ANESTHESIOLOGY DAY OF SURGERY NOTE : 1980 Procedure Information Date/Time: 10/19/22 1530 Procedure: ANAL FISTULOTOMY INTERSPHINCTERIC Location: [facility] OR01 / [facility] Surgeons: Christa Dubois MD Estimated body mass index is 33.38 kg/m? as calculated from the following: Height as of 10/17/22: 188 cm (6' 2 ). Weight as of 10/17/22: 117.9 kg (260 lb). Most recent hematocrit and potassium results: No results found for this basename: HCT,HEMATOCRIT,K,POTASSIU M Relevant Problems No relevant active problems I - PHYSICAL EVALUATION AIRWAY Patient intubated: No. Tracheostomy tube not present Mallampati: II. TM distance: >3 FB. Neck ROM: full ROM without neurological symptoms. Mouth opening: adequate. Short neck: no. Thick neck: no Dunham present: no DENTAL Dental findings: teeth intact. Additional exam findings: no II - ANESTHESIA PLAN ASA Score: 2 Anesthetic Plan: MAC NPO Status: adequate Beta Ha Monitoring Plan Monitoring plan: standard ASA. Post Procedure Analgesic Plan Postoperative analgesic plan: parenteral or oral opioids. Informed Consent Anesthetic risks, benefits, alternatives, personnel and consent discussed: yes. Patient / Responsible Constitution Party agrees to proceed: yes Patient / Surrogate agrees to blood products: blood products not planned DNR status not reviewed with patient and/or family prior to surgery. Significant changes in the patient condition since the History and Physical, not otherwise documented in primary service progress note: no. Potential Anesthesia issues that may suggest increased risk of complications or contraindication to planned procedure: none. Discussed the possibility of lip / dental damage: yes Vitals Value Taken Time BP 135/79 10/19/22 1445 Pulse 87 10/19/22 1445 Resp 18 10/19/22 1445 Temp 36.5 ?C (97.7 ?F) 10/19/22 1445 SpO2 96 % 10/19/22 1445 No current facility-administered medications on file as of 10/19/2022. Outpatient Medications as of 10/19/2022 Medication Sig - oxyCODONE IR (ROXICODONE) 5 mg immediate release tablet Take 1 tablet by mouth every 6 hours as needed for pain. (Patient not taking: Reported on 10/17/2022) - acetaminophen (TYLENOL ORAL) Take by mouth. (Patient not taking: Reported on 10/17/2022) - ibuprofen (MOTRIN ORAL) Take by mouth. (Patient not taking: Reported on 10/17/2022) - DICLOFENAC SODIUM ORAL Take 50 mg by mouth twice daily. (Patient not taking: Reported on 10/17/2022) - cholecalciferol (VITAMIN D3) 1,000 unit tab tablet Take 1,000 Units by mouth once daily. (Patient not taking: Reported on 10/17/2022) - HERBAL DRUGS ORAL Take by mouth. Vitamin c, b, e, omega and whey protein (Patient not taking: Reported on 10/17/2022) I have interviewed and examined the patient. I have reviewed the medical record and/or the pre-anesthesia evaluation, pertinent labs, and test results. This contains updated information obtained within 48 hours of Surgery/Procedure. [facility] BRIEF OP NOTon 10-19-2022 BRIEF OP NOT HNO ID: [id number] Author: Pako Hill MD Service: Colorectal Author Type: Resident Type: Brief Op Note Filed: 10/19/2022 5:40 PM Note Text: BRIEF OPERATIVE NOTE LOG ID: [id number] Surgery/Procedure Date: 10/19/2022 Incision/Procedure Start Time: 4:52 PM Incision Close/Procedure End Time: 5:20 PM Surgeon(s)/Proceduralist( s) and Outside Plant Field Engineer(s): Surgeon(s) and Role: * Christa Dubois MD - Primary * Pako Hill MD - Resident - Assisting No Additional Staff Procedure(s): examination under anesthesia, fistulotomy Implants: * No implants in log * Anesthesia: Monitored Anesthesia Care Findings: complex perianal fistula, previous seton in place with initial drainage of possibly purulent fluid, fistulotomy completed without further contents in cavity, lateral sinus opening unroofed to internal opening; one more sinus tract probed in large cavity, no tracking of hydrogen peroxide Estimated Blood Loss: 25 mL Specimens: * No specimens in log * Complications: None Pre-Procedure Diagnosis: complex mana-anal fistula Post-Procedure Diagnosis: Same as Preop Post-Op Plan / Disposition: Discharge home SIGNATURE: Pako Hill MD PATIENT NAME: Lorenza Rock DATE: October 19, 2022 TIME: 5:39 PM [facility] NURSING PROGon 10-19-2022 NURSING PROG HNO ID: [id number] Author: Halle Contreras RN Service: Nursing Author Type: Registered Nurse Type: Nursing Progress Note Filed: 10/19/2022 2:47 PM Note Text: PATIENT EDUCATION TOPIC: PROCEDURE / SURGERY: Pre-op Teaching: Surgical Safety Principles READINESS TO LEARN COGNITIVE ABILITY: Alert and oriented MOTIVATION TO LEARN: Interested FAMILY SUPPORT: Unable to assess - Family not present INSTRUCTION PROVIDED TO: Patient PATIENT LEARNS BEST BY: Individual Instruction FACTORS AFFECTING LEARNING: None PHYSICAL LIMITATIONS AFFECTING LEARNING: None LEARNING RESPONSE DIAGNOSIS: ADULT: Well Adult PATIENT/FAMILY RESPONSE: Information received as demonstrated by interest and questions METHOD OF INSTRUCTION: Individual instruction FOLLOW-UP PLAN: Complete - No need for follow-up INSTRUCTIONAL AIDS USED: NA SUPPLEMENTAL MATERIAL PROVIDED TO PATIENT: None REFERRAL (RECOMMENDATION): None Electronically Signed By: Halle Contreras [facility] OPERATIVE NOon 10-19-2022 OPERATIVE NO HNO ID: [id number] Author: Christa Dubois MD Service: Colorectal Author Type: Physician Type: Operative Report Filed: 10/19/2022 5:47 PM Note Text: COLON AND RECTAL SURGERY OPERATIVE REPORT PATIENT NAME: Lorenza Rock ADMISSION DATE: 10/19/2022 LOG ID: [id number] SURGERY/PROCEDURE DATE: 10/19/2022 INCISION/PROCEDURE START TIME: 4:52 PM INCISION CLOSE/PROCEDURE END TIME: 5:20 PM AGE: [age] year old SEX: male SURGEON(S)/PROCEDURALIST( S) AND PATTERN CHANGER AND REPAIRER(S): Surgeon(s) and Role: * Christa Dubois MD - Primary * Pako Hill MD - Resident - Assisting No Additional Staff ANESTHESIA: Monitored Anesthesia Care PREOPERATIVE DIAGNOSIS (ES): Complex suprasphincteric anal fistula POSTOPERATIVE DIAGNOSIS (ES): Complex suprasphincteric anal fistula, blind sinuses extending posterior midline and right posterior from fistula tract NAME OF OPERATION: Exam under anesthesia, complex fistulotomy INDICATIONS FOR PROCEDURE: Complex suprasphincteric anal fistula OPERATIVE FINDINGS: Prior seton in place. Healed scar from prior partial fistulotomy at right lateral aspect of the anal margin. Seton with external opening right posterior involving some external sphincter muscle with internal opening posterior midline at dentate line. Normal external hemorrhoids, moderately enlarged internal hemorrhoids all locations. Normal rectal mucosa without proctitis. After fistulotomy, blind sinuses appreciated tracking right posterior to 6 cm from the anal verge (1 cm diameter) and posterior midline towards coccyx 5 cm from the anal verge (2 mm diameter). DESCRIPTION OF PROCEDURE: The patient was brought to the operating room, placed under MAC anesthesia in the prone nubia-knife position. A surgical time-out was performed. The perineum was prepped and draped in normal sterile fashion and anesthetized with 40 mL of Exparel/0.5% Marcaine. A detailed digital rectal exam and anoscopy was performed which revealed the above findings. A complex fistulotomy was performed of remaining suprasphincteric fistula tract and the prior seton was removed. After fistulotomy, two blind sinuses were appreciated as above. Part of the prior healed fistulotomy scar was reopened to minimize tissue undermining in the right posterior position. The sinuses and fistula tract were curetted and hemostasis was ensured. Instillation of hydrogen peroxide via posterior midline sinus opening off of fistula tract failed to demonstrate an additional internal opening. Gauze packing was placed. ESTIMATED BLOOD LOSS: 15 mL SPECIMENS: None DRAINS: None COMPLICATIONS: None INTRAOPERATIVE FLUIDS: See anesthesia record. SPONGE/INSTRUMENT/NEEDLE COUNTS: Correct x2. PRESENCE STATEMENT: I was present for the entire procedure as I have dictated above. Christa Dubois M.D. Department of Surgery Division of Colon and Rectal Surgery [facility] ANES POSTPROC EVALon 023 ANES POSTPROC EVAL HNO ID: [id number] Author: Adam Rosales I, MD Service: Anesthesiology Author Type: Anesthesiologist Type: Anesthesia Postprocedure Evaluation Filed: 09/07/2022 3:41 PM Note Text: POST ANESTHESIA EVALUATION NOTE : 1980 Procedure Summary Date: 09/07/22 Room / Location: [address] / [facility] Anesthesia Start: 1426 Anesthesia Stop: 1525 Procedure: ANAL FISTULOTOMY INTERSPHINCTERIC (Anus) Diagnosis: Anal fistula (Anal fistula [K60.3]) Surgeons: Crhista Dubois MD Responsible Provider: Adam Rosales I, MD Anesthesia Type: MAC ASA Status: 2 Anesthesia Type: MAC Last Vitals Vitals Value Taken Time BP 122/82 09/07/22 1532 Temp 36.2 ?C (97.2 ?F) 09/07/22 1522 Pulse 76 09/07/22 1541 Resp 16 09/07/22 1522 SpO2 97 % 09/07/22 1541 Vitals shown include unvalidated device data. Post Anesthesia Patient Status Patient Evaluation: PACU. PACU/ICU Patient Condition: stable. Anticipated Disposition: phase 2 then home. Neurological Status: aware and responsive. Pulmonary Status: breathing comfortably on room air Airway Control: returned to baseline unsupported. Cardiovascular Status: stable. Pain Management: clinically adequate Postoperative Hydration: acceptable. Intraoperative Events: no significant anesthesia events Post Operative Nausea/Vomiting Status: no significant post operative nausea or vomiting Recommendation: continue current plan of care. Anesthesia Observations No Documentation SIGNATURE: Adam Rosales MD PATIENT NAME: Lorenza Rock DATE: September 07, 2022 TIME: 3:41 PM CSN: [id number] [facility] ANES PRE-OPon 09-07-2022 ANES PRE-OP HNO ID: [id number] Author: Adam Rosales I, MD Service: Anesthesiology Author Type: Anesthesiologist Type: Anesthesia Preprocedure Evaluation Filed: 09/07/2022 1:42 PM Note Text: ANESTHESIOLOGY DAY OF SURGERY NOTE : 1980 Procedure Information Date/Time: 09/07/22 1415 Procedure: ANAL FISTULOTOMY INTERSPHINCTERIC (Anus) Location: [address] / [facility] Surgeons: Christa Dubois MD Estimated body mass index is 32.1 kg/m? as calculated from the following: Height as of 08/23/22: 188 cm (6' 2 ). Weight as of 08/23/22: 113.4 kg (250 lb). Most recent hematocrit and potassium results: No results found for this basename: HCT,HEMATOCRIT,K,POTASSIU M Relevant Problems No relevant active problems I - PHYSICAL EVALUATION AIRWAY Patient intubated: No. Tracheostomy tube not present Mallampati: II. TM distance: >3 FB. Mouth opening: adequate. Short neck: no. Thick neck: no Dunham present: no DENTAL Dental findings: teeth intact. Additional exam findings: no II - ANESTHESIA PLAN ASA Score: 2 Anesthetic Plan: MAC NPO Status: adequate Beta Ha Monitoring Plan Monitoring plan: standard ASA. Post Procedure Analgesic Plan Postoperative analgesic plan: parenteral or oral opioids. Informed Consent Anesthetic risks, benefits, alternatives, personnel and consent discussed: yes. Patient / Responsible Constitution Party agrees to proceed: yes Patient / Surrogate agrees to blood products: blood products not planned DNR status not reviewed with patient and/or family prior to surgery. Significant changes in the patient condition since the History and Physical, not otherwise documented in primary service progress note: no. Vitals Value Taken Time BP Pulse Resp 16 09/07/22 1337 Temp 36.6 ?C (97.9 ?F) 09/07/22 1337 SpO2 95 % 09/07/22 1337 Facility-Administered Medications as of 09/07/2022 Medication Dose Route Frequency - lidocaine (PF) 10 mg/mL (1 %) 1-2 mg injection (XYLOCAINE) 0.1-0.2 mL INTRADERMAL PRN - lactated ringers iv infusion 5-30 mL/hr INTRAVENOUS CONTINUOUS - NaCl 0.9% iv flush bag 20 mL INTRAVENOUS PRN - [COMPLETED] acetaminophen 1,000 mg tab(s) (TYLENOL) 1,000 mg ORAL Pre-Op Once - [COMPLETED] promethazine 12.5 mg tab(s) (PHENERGAN) 12.5 mg ORAL Pre-Op Once - lactated ringers iv infusion 30 mL/hr INTRAVENOUS CONTINUOUS Outpatient Medications as of 09/07/2022 Medication Sig - oxyCODONE IR (ROXICODONE) 5 mg immediate release tablet Take 1 tablet by mouth every 6 hours as needed for pain. - cholecalciferol (VITAMIN D3) 1,000 unit tab tablet Take 1,000 Units by mouth once daily. - HERBAL DRUGS ORAL Take by mouth. Vitamin c, b, e, omega and whey protein I have interviewed and examined the patient. I have reviewed the medical record and/or the pre-anesthesia evaluation, pertinent labs, and test results. This contains updated information obtained within 48 hours of Surgery/Procedure. SIGNATURE: Adam Rosales MD PATIENT NAME: Lorenza Rock DATE: September 07, 2022 TIME: 1:42 PM CSN: [id number] [facility] OPERATIVE NOon 09-07-2022 OPERATIVE NO HNO ID: [id number] Author: Christa Dubois MD Service: Colorectal Author Type: Physician Type: Operative Report Filed: 09/07/2022 3:38 PM Note Text: COLON AND RECTAL SURGERY OPERATIVE REPORT PATIENT NAME: Lorenza Rock ADMISSION DATE: 09/07/2022 LOG ID: [id number] SURGERY/PROCEDURE DATE: 09/07/2022 INCISION/PROCEDURE START TIME: 2:37 PM INCISION CLOSE/PROCEDURE END TIME: 3:17 PM AGE: [age] year old SEX: male SURGEON(S)/PROCEDURALIST( S) AND PATTERN CHANGER AND REPAIRER(S): Surgeon(s) and Role: * Christa Dubois MD - Primary * Julia White MD - Resident - Assisting No Additional Staff ANESTHESIA: Monitored Anesthesia Care PREOPERATIVE DIAGNOSIS (ES): Suprasphincteric anal fistula POSTOPERATIVE DIAGNOSIS (ES): Suprasphincteric anal fistula Perirectal abscess NAME OF OPERATION: Exam under anesthesia, drainage of perirectal abscess, placement of seton INDICATIONS FOR PROCEDURE: Suprasphincteric anal fistula Perirectal abscess OPERATIVE FINDINGS: Induration right posterior space lateral to seton with expression of purulent fluid from internal opening of known fistula with pressure. New internal opening 0.5 cm lateral to external opening of known tract with seton in place communicating with same internal opening and abscess cavity. Fistula tract shortened from external opening - new external opening right posterior 1 cm from the anal verge. Abscess cavity and portion of fistula tract exposed curetted. Prior seton removed and new seton placed without tension. DESCRIPTION OF PROCEDURE: The patient was brought to the operating room, placed under MAC anesthesia in the prone nubia-knife position. A surgical time-out was performed. The perineum was prepped and draped in normal sterile fashion and anesthetized with 40 mL of Exparel/0.5% Marcaine. A detailed digital rectal exam and anoscopy was performed which revealed the above findings. A fistula probe was placed through the tract and the existing seton was removed. Starting at the external opening, a partial fistulotomy was performed to shorten the tract. The new external opening was in the right posterior position 1 cm from the anal verge. An abscess cavity lateral and deep to the fistula tract was appreciated which communicated with the tract itself. The abscess cavity and fistula tract were curetted. A new seton was placed without tension through the remaining tract. The wound was irrigated, hemostasis was ensured and gauze ribbon packing was placed in the cavity. A dressing was applied. ESTIMATED BLOOD LOSS: 20 mL SPECIMENS: None DRAINS: One to one seton exchange COMPLICATIONS: None INTRAOPERATIVE FLUIDS: See anesthesia record. SPONGE/INSTRUMENT/NEEDLE COUNTS: Correct x2. PRESENCE STATEMENT: I was present for the entire procedure as I have dictated above. Christa Dubois M.D. Department of Surgery Division of Colon and Rectal Surgery [facility] ANES POSTPROC EVALon 023 ANES POSTPROC EVAL HNO ID: [id number] Author: Luz Talavera MD Service: Anesthesiology Author Type: Anesthesiologist Type: Anesthesia Postprocedure Evaluation Filed: 07/27/2022 9:58 AM Note Text: POST ANESTHESIA EVALUATION NOTE : 1980 Procedure Summary Date: 07/27/22 Room / Location: [address] Anesthesia Start: 740 Anesthesia Stop: 827 Procedures: EXAM UNDER ANESTHESIA RECTAL (Anus) PLACEMENT OF SETON (Anus) Diagnosis: Anal fistula (Anal fistula [K60.3]) Surgeons: Christa Dubois MD Responsible Provider: Luz Talavera MD Anesthesia Type: MAC ASA Status: 1 Anesthesia Type: MAC Last Vitals Vitals Value Taken Time BP 119/81 07/27/22 0915 Temp 36.1 ?C (97 ?F) 07/27/22 0912 Pulse 61 07/27/22 0915 Resp 16 07/27/22 0915 SpO2 100 % 07/27/22 0915 Post Anesthesia Patient Status Patient Evaluation: PACU. PACU/ICU Patient Condition: stable. Anticipated Disposition: phase 2 then home. Neurological Status: aware and responsive. Pulmonary Status: breathing comfortably on room air Airway Control: returned to baseline unsupported. Cardiovascular Status: stable. Pain Management: clinically adequate Postoperative Hydration: acceptable. Intraoperative Events: no significant anesthesia events Recommendation: continue current plan of care. Anesthesia Observations No Documentation SIGNATURE: Luz Talavera MD PATIENT NAME: Lorenza Rock DATE: July 27, 2022 TIME: 9:58 AM CSN: [id number] [facility] ANES PRE-OPon 07-27-2022 ANES PRE-OP HNO ID: [id number] Author: Luz Talavera MD Service: Anesthesiology Author Type: Anesthesiologist Type: Anesthesia Preprocedure Evaluation Filed: 07/27/2022 7:11 AM Note Text: ANESTHESIOLOGY DAY OF SURGERY NOTE : 1980 Procedure Information Date/Time: 07/27/22 0730 Procedures: EXAM UNDER ANESTHESIA RECTAL (Anus) PLACEMENT OF SETON (Anus) Location: [address] Surgeons: Christa Dubois MD Estimated body mass index is 32.1 kg/m? as calculated from the following: Height as of 07/16/22: 188 cm (6' 2 ). Weight as of 07/16/22: 113.4 kg (250 lb). Most recent hematocrit and potassium results: No results found for this basename: HCT,HEMATOCRIT,K,POTASSIU M Relevant Problems No relevant active problems I - PHYSICAL EVALUATION AIRWAY Patient intubated: No. Tracheostomy tube not present Mallampati: I. TM distance: >3 FB. Neck ROM: full ROM without neurological symptoms. Mouth opening: adequate. Short neck: no. Thick neck: no DENTAL Dental findings: teeth intact. Additional exam findings: yes. CARDIOVASCULAR Normal cardiovascular observations. PULMONARY Normal pulmonary observations. Breath sounds clear to auscultation. II - ANESTHESIA PLAN ASA Score: 1 Anesthetic Plan: MAC The patient is not a current smoker. NPO Status: adequate Beta Ha Monitoring Plan Monitoring plan: standard ASA. Post Procedure Analgesic Plan Postoperative analgesic plan: multimodal analgesia. Informed Consent Anesthetic risks, benefits, alternatives, personnel and consent discussed: yes. Patient / Responsible Constitution Party agrees to proceed: yes Patient / Surrogate agrees to blood products: blood products not planned DNR status not reviewed with patient and/or family prior to surgery. Significant changes in the patient condition since the History and Physical, not otherwise documented in primary service progress note: no. Potential Anesthesia issues that may suggest increased risk of complications or contraindication to planned procedure: none. Vitals Value Taken Time BP 120/85 07/27/22 0640 Pulse 72 07/27/22 0640 Resp 16 07/27/22 0640 Temp 36.4 ?C (97.5 ?F) 07/27/22 0640 SpO2 98 % 07/27/22 0640 Facility-Administered Medications as of 07/27/2022 Medication Dose Route Frequency - [COMPLETED] acetaminophen 1,000 mg tab(s) (TYLENOL) 1,000 mg ORAL ONCE - [COMPLETED] promethazine 12.5 mg tab(s) (PHENERGAN) 12.5 mg ORAL NOW - lactated ringers iv infusion 30 mL/hr INTRAVENOUS CONTINUOUS - lidocaine (PF) 10 mg/mL (1 %) 1-2 mg injection (XYLOCAINE) 0.1-0.2 mL INTRADERMAL PRN - lactated ringers iv infusion 5-30 mL/hr INTRAVENOUS CONTINUOUS - NaCl 0.9% iv flush bag 20 mL INTRAVENOUS PRN No current outpatient medications on file as of 07/27/2022. I have interviewed and examined the patient. I have reviewed the medical record and/or the pre-anesthesia evaluation, pertinent labs, and test results. This contains updated information obtained within 48 hours of Surgery/Procedure. SIGNATURE: Luz Talavera MD PATIENT NAME: Lorenza Rock DATE: July 27, 2022 TIME: 7:10 AM CSN: [id number] [facility] BRIEF OP NOTon 07-27-2022 BRIEF OP NOT HNO ID: [id number] Author: Bettina Cortés MD Service: Colorectal Author Type: Resident Type: Brief Op Note Filed: 07/27/2022 8:33 AM Note Text: BRIEF OPERATIVE / PROCEDURE NOTE LOG ID: [id number] SURGERY/PROCEDURE DATE: 07/27/2022 INCISION/PROCEDURE START TIME: 7:57 AM INCISION CLOSE/PROCEDURE END TIME: 8:24 AM SURGEON(S)/PROCEDURALIST( S) AND PATTERN CHANGER AND REPAIRER(S): Surgeon(s) and Role: * Christa Dubois MD - Primary * Bettina Cortés MD - Resident - Assisting No Additional Staff SURGERY/PROCEDURE(S): Seton placement ANESTHESIA: Monitored Anesthesia Care FINDINGS: Right lateral fistula apprx ESTIMATED BLOOD LOSS: 3 mls SPECIMENS: None COMPLICATIONS: None CLOSURE TECHNIQUE: Non-primary PRE-OP/PRE-PROCEDURE DIAGNOSIS: Fistula POST-OP/POST-PROCEDURE DIAGNOSIS: Same as Preop SIGNATURE: Bettina Cortés MD PATIENT NAME: Lorenza Rock DATE: July 27, 2022 TIME: 8:33 AM [facility] OPERATIVE NOon 07-27-2022 OPERATIVE NO HNO ID: [id number] Author: Christa Dubois MD Service: Colorectal Author Type: Physician Type: Operative Report Filed: 07/27/2022 8:35 AM Note Text: COLON AND RECTAL SURGERY OPERATIVE REPORT PATIENT NAME: Lorenza Rock ADMISSION DATE: 07/27/2022 LOG ID: [id number] SURGERY/PROCEDURE DATE: 07/27/2022 INCISION/PROCEDURE START TIME: 7:57 AM INCISION CLOSE/PROCEDURE END TIME: 8:24 AM AGE: [age] year old SEX: male SURGEON(S)/PROCEDURALIST( S) AND PATTERN CHANGER AND REPAIRER(S): Surgeon(s) and Role: * Christa Dubois MD - Primary * Bettina Cortés MD - Resident - Assisting No Additional Staff ANESTHESIA: Monitored Anesthesia Care PREOPERATIVE DIAGNOSIS (ES): Anal fistula POSTOPERATIVE DIAGNOSIS (ES): Suprasphincteric anal fistula NAME OF OPERATION: Exam under anesthesia, placement of seton INDICATIONS FOR PROCEDURE: Anal fistula OPERATIVE FINDINGS: Suprasphincteric anal fistula - external opening right lateral 3 cm from the anal verge, internal opening posterior midline dentate line. Tract involves all of the external and some of the internal sphincter muscle. Normal external hemorrhoid tissue, moderately enlarged internal hemorrhoid tissue all locations. Long anal canal. DESCRIPTION OF PROCEDURE: The patient was brought to the operating room, placed under MAC anesthesia in the prone nubia-knife position. A surgical time-out was performed. The perineum was prepped and draped in normal sterile fashion and anesthetized with 40 mL of Exparel/0.5% Marcaine. A detailed digital rectal exam and anoscopy was performed which revealed the above findings. The external opening was queried with a fistula probe and dilute hydrogen peroxide was instilled to delineate the tract and internal opening. A fistula probe was passed through the tract followed by a vessel loop (seton) which was secured without tension using 0 silk ties. The tract was irrigated. Hemostasis was ensured. A gauze dressing was placed. ESTIMATED BLOOD LOSS: 5 mL SPECIMENS: None DRAINS: Seton drain right lateral external opening COMPLICATIONS: None INTRAOPERATIVE FLUIDS: See anesthesia record. SPONGE/INSTRUMENT/NEEDLE COUNTS: Correct x2. PRESENCE STATEMENT: I was present for the entire procedure as I have dictated above. Christa Dubois M.D. Department of Surgery Division of Colon and Rectal Surgery [facility] MR Pelvis WO and W contrast Ashlee 04-10-2023 IMPRESSION: Transsphincteric fistula extending into the right ischioanal fossa and right gluteal cleft. Wagon Drill Operator: PATRICIA Transcribe Date/Time: Jul 23 2022 8:30A Dictated by : ANNETTA ARAUZ MD This examination was interpreted and the report reviewed and electronically signed by: ANNETTA ARAUZ MD on Jul 23 2022 8:49AM [facility] * * *Final Report* * * DATE OF EXAM: Jul 20 2022 12:30PM [facility] - MRI PERINEUM WO/W IVCON / PROCEDURE REASON: Fistula of stomach and duodenum (CODE) * * * * Physician Interpretation * * * * MRI PELVIS WITHOUT AND WITH IV CONTRAST CLINICAL HISTORY: Fistula TECHNIQUE: Magnet: 1.5T scanner. Multiplanar MRI of the pelvis with multiple sequences, including both pre- and post-contrast imaging. Small field of view perianal imaging was performed as per perineum protocol. Contrast: Intravenous: 20cc ml of Dotarem COMPARISON: None. RESULT: For anatomic localization purposes, the 12:00 position will be defined as the anterior aspect of the anal canal with patient in supine position (radiographic anal clock). Perianal: At approximately 3 cm above the anal verge arising from the posterior 6:00 position is a transsphincteric fistula extending into the right ischioanal fossa to the right gluteal cleft. No secondary tracts. No abscesses. No supralevator disease. GI (other): No dilated bowel. : Bladder is unremarkable. Prostatic utricle cyst. No hydronephrosis on wide gfocd-eo-dvwn imaging. Lymph nodes: No pelvic lymphadenopathy. Other: No ascites. Bones/Soft Tissues: No aggressive osseous lesions. [facility] Provider, [facility] g Creole - 07/23/2022 * * *Final Report* * * DATE OF EXAM: Jul 20 2022 12:30PM [facility] - MRI PERINEUM WO/W IVCON / PROCEDURE REASON: Fistula of stomach and duodenum (CODE) * * * * Physician Interpretation * * * * MRI PELVIS WITHOUT AND WITH IV CONTRAST CLINICAL HISTORY: Fistula TECHNIQUE: Magnet: 1.5T scanner. Multiplanar MRI of the pelvis with multiple sequences, including both pre- and post-contrast imaging. Small field of view perianal imaging was performed as per perineum protocol. Contrast: Intravenous: 20cc ml of Dotarem COMPARISON: None. RESULT: For anatomic localization purposes, the 12:00 position will be defined as the anterior aspect of the anal canal with patient in supine position (radiographic anal clock). Perianal: At approximately 3 cm above the anal verge arising from the posterior 6:00 position is a transsphincteric fistula extending into the right ischioanal fossa to the right gluteal cleft. No secondary tracts. No abscesses. No supralevator disease. GI (other): No dilated bowel. : Bladder is unremarkable. Prostatic utricle cyst. No hydronephrosis on wide sqlkk-cy-guqc imaging. Lymph nodes: No pelvic lymphadenopathy. Other: No ascites. Bones/Soft Tissues: No aggressive osseous lesions. IMPRESSION IMPRESSION: Transsphincteric fistula extending into the right ischioanal fossa and right gluteal cleft. Wagon Drill Operator: [facility] Transcribe Date/Time: Jul 23 2022 8:30A Dictated by : ANNETTA ARAUZ MD This examination was interpreted and the report reviewed and electronically signed by: ANNETTA ARAUZ MD on Jul 23 2022 8:49AM EST [facility] MR Pelvis WO and W contrast IVOrdered By: [facility]cf Provider on 07-23-2022 [facility] MR Pelvis WO and W contrast Ashlee 07-20-2022 Radiology Study observation (narrative) [facility] MRI PERINEUM WO/W IVCONon MRI PERINEUM WO/W IVCON * * *Final Report* * * DATE OF EXAM: Jul 20 2022 12:30PM [facility] - MRI PERINEUM WO/W IVCON / PROCEDURE REASON: Fistula of stomach and duodenum (CODE) * * * * Physician Interpretation * * * * MRI PELVIS WITHOUT AND WITH IV CONTRAST CLINICAL HISTORY: Fistula TECHNIQUE: Magnet: 1.5T scanner. Multiplanar MRI of the pelvis with multiple sequences, including both pre- and post-contrast imaging. Small field of view perianal imaging was performed as per perineum protocol. Contrast: Intravenous: 20cc ml of Dotarem COMPARISON: None. RESULT: For anatomic localization purposes, the 12:00 position will be defined as the anterior aspect of the anal canal with patient in supine position (radiographic anal clock). Perianal: At approximately 3 cm above the anal verge arising from the posterior 6:00 position is a transsphincteric fistula extending into the right ischioanal fossa to the right gluteal cleft. No secondary tracts. No abscesses. No supralevator disease. GI (other): No dilated bowel. : Bladder is unremarkable. Prostatic utricle cyst. No hydronephrosis on wide ggelg-ju-sfwq imaging. Lymph nodes: No pelvic lymphadenopathy. Other: No ascites. Bones/Soft Tissues: No aggressive osseous lesions. IMPRESSION: Transsphincteric fistula extending into the right ischioanal fossa and right gluteal cleft. Wagon Drill Operator: [facility] Transcribe Date/Time: Jul 23 2022 8:30A Dictated by : ANNETTA ARAUZ MD This examination was interpreted and the report reviewed and electronically signed by: ANNETTA ARAUZ MD on Jul 23 2022 8:49AM EST [id number] [facility] 07-18-2022 [facility] Telephone (RIF) ----- LORENZA ROCK ([id number]) 1980 M Date Time Provider Department 07/18/22 ELSA DAO) [facility] During your visit today, we recorded the following information about you: Allergies As of Date: 07/18/2022 (No Known Allergies) Date Reviewed: 07/16/2022 Reviewed by: Vivian Powell APRN.[facility] - Fully Assessed Reason for Visit: PT authorization status [Other] Cmt: Pt called to see if authorized. I advised not at this time. I show an attempt to contact him yesterday morning but they were unable to leave a message. Pt confirmed his cell# and advised me his mailbox is not full and he does not show a missed call. I told the patient the notes indicate additional information is needed. I then advised the patient to call his doctor to have him call [facility] to see what additional info is required. Prescriptions as of 07/18/2022 - cholecalciferol (VITAMIN D) 1,000 unit tab tablet Take 1,000 Units by mouth once daily. - HERBAL DRUGS ORAL Take by mouth. Vitamin c, b, e, omega and whey protein Problem List As Of Date 07/18/2022 Noted Resolved Obesity, Class I, BMI 30-34.9 [E66.9] 07/10/2022 Encounter Status:Closed by ELSA AMADOR on 07/18/22 [facility] Aerobic Cultureon 05-03-2022 Aerobic Culture Comment perirectal abscess culture Result Tab Codes No Growth 2 Days Comment perirectal abscess culture ORGANISM: Parabacteroides distasonis (O:PARDIS) Comments Sent to [facility] for Sensitivity Testing Quantity of Growth Rare Growth See report. Scanned copy available in EMR. Comment perirectal abscess culture Gram Stain Result 2+ White Blood Cells No Bacteria Seen PERFORMED BY: [place] [address] PATHOLOGIST VERMIN EXTERMINATOR FLO LIN M.D. 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 [facility] Comment on above: Performed By: #### A ERC #### [facility] [address] [place] [address] Aerobic cultureOrdered By: Mónica Ann on 03-29-2022 Bacteria identified Aer cx Nom (Unsp spec) [facility] Anaerobic cultureOrdered By: Lokesh Ann on 03-29-2022 Bacteria identified Anaer cx Nom (Unsp spec) No Anaerobes Isolated 3 Days [facility] Gram stain for investigation of transfusion reactionOrdered By: Lokesh Ann on 03-29-2022 Microscopic observation Gram stain Nom (Unsp spec) [facility] CT ABD/PELV W CONon 03-27-20 CT ABD/PELV W CON EXAMINATION: CT ABD/ PELV W CON HISTORY: Abscess COMPARISON: CT from 11/27/2018 TECHNIQUE: CT ABD/PELV W CON Dose reduction techniques were achieved by using automated exposure control and/or adjustment of mA and/or kV according to patient size and/or use of iterative reconstruction technique. FINDINGS: LOWER CHEST: LUNG BASES / PLEURA: Normal. DISTAL ESOPHAGUS: Normal. HEART / VESSELS: No significant abnormality. ABDOMEN and PELVIS: LIVER: Small hypoattenuating lesion in the lateral left hepatic lobe, unchanged from the prior exam and statistically a simple cyst. BILIARY TRACT: Normal. GALLBLADDER: No abnormality. PANCREAS: Normal. SPLEEN: Normal. ADRENALS: Normal. KIDNEYS: Multiple simple cysts of the right kidney. LYMPH NODES: None enlarged. STOMACH / SMALL BOWEL: No abnormality. COLON / APPENDIX: Large peripherally enhancing fluid collection the right medial gluteal cleft measuring 2.4 x 7.9 x 8.7 cm (image 172 series 3, image 77 of series 5). There is a suspected fistulous communication with the anus (image 159 of series 3). PERITONEUM / MESENTERY: Normal. RETROPERITONEUM: Normal. VESSELS: No significant abnormality. URINARY BLADDER: Normal. REPRODUCTIVE ORGANS: No abnormality. BODY WALL: As mentioned above, fluid collection in the right medial gluteal cleft. There is also overlying cutaneous thickening and subcutaneous stranding. MUSCULOSKELETAL: No significant abnormality. IMPRESSION: Peripheral enhancing fluid collection in the right medial gluteal cleft, suspicious for a perianal abscess. A fistulous communication with the anus is suspected given the limitations of this exam, though not confirmed. There are also findings indicating overlying cellulitis. Electronically authenticated by: PIA COLLINS Date: 2022-03-26 22:46 Normal [facility] CBC AUTO DIFFon 03-26-2022 BASO # 0.0 103/ul Normal 0.0-0.1 [facility] Comment on above: Performed By: #### C BC #### [facility] [address] [address] [address] Mayela Huddleston Basophils/100 WBC (Bld) 0.3 % Normal 0.2-2.0 [facility] Comment on above: Performed By: #### C BC #### [facility] [address] [place] [address] Dr. Mayela Huddleston EO # 0.1 103/ul Normal 0.0-0.7 [facility] Comment on above: Performed By: #### C BC #### [facility] [address] [place] [address] Dr. Mayela Huddleston Eosinophils/100 WBC (Bld) 1.1 % Normal 0.9-7.0 [facility] Comment on above: Performed By: #### C BC #### [facility] [address] [place] [address] Dr. Mayela Huddleston Erythrocyte distribution width (RBC) [Ratio] 11.9 % Normal 11.0-15.0 [facility] Comment on above: Performed By: #### C BC #### [facility] [address] [place] [address] Dr. Mayela Huddleston Hematocrit (Bld) [Volume fraction] 42.8 % Normal 42.0-54.0 [facility] Comment on above: Performed By: #### C BC #### [facility] [address] [place] [address] Dr. Mayela Huddleston Hemoglobin (Bld) [Mass/Vol] 14.2 g/dL Normal 14.0-18.0 [facility] Comment on above: Performed By: #### C BC #### [facility] [address] [place] [address] Dr. Mayela Huddleston IG # 0.02 10e3/ul Normal 0.00-0.03 [facility] Comment on above: Performed By: #### C BC #### [facility] [address] [place] [address] Dr. Mayela Huddleston IG % 0.3 % Normal 0.0-0.5 [facility] Comment on above: Performed By: #### C BC #### [facility] [address] [place] [address] Dr. Mayela Huddleston LYMPH # 2.0 103/ul Normal 1.2-3.8 [facility] Comment on above: Performed By: #### C BC #### [facility] [address] [place] [address] Dr. Mayela Huddleston Lymphocytes/100 WBC (Bld) 26.3 % Normal 20.5-60.0 [facility] Comment on above: Performed By: #### C BC #### [facility] [address] [place] [address] Dr. Mayela Huddleston MANUAL DIFF REQ NO Normal [facility] Comment on above: Performed By: #### C BC #### [facility] [address] [place] [address] Dr. Mayela Huddleston MCH (RBC) [Entitic mass] 28.0 pg Normal 25.9-34.0 [facility] Comment on above: Performed By: #### C BC #### [facility] [address] [place] [address] Dr. Mayela Huddleston MCHC (RBC) [Mass/Vol] 33.2 g/dL Normal 29.9-35.2 [facility] Comment on above: Performed By: #### C BC #### [facility] [address] [place] [address] Dr. Mayela Huddleston MCV (RBC) [Entitic vol] 84.4 fL Normal 80.0-94.0 [facility] Comment on above: Performed By: #### C BC #### [facility] [address] [place] [address] Dr. Mayela Huddleston MONO # 0.9 103/ul Critically high 0.3-0.8 [facility] Comment on above: Performed By: #### C BC #### [facility] [address] [place] [address] Dr. Mayela Huddleston Monocytes/100 WBC (Bld) 11.4 % Normal 1.7-12.0 [facility] Comment on above: Performed By: #### C BC #### [facility] [address] [place] [address] Dr. Mayela Huddleston NEUT # 4.6 103/ul Normal 1.4-6.5 [facility] Comment on above: Performed By: #### C BC #### [facility] [address] [place] [address] Dr. Mayela Huddleston Neutrophils/100 WBC (Bld) 60.6 % Normal 43.0-75.0 [facility] Comment on above: Performed By: #### C BC #### [facility] [address] [address] [address] Mayela Huddleston Platelet mean volume (Bld) [Entitic vol] 9.2 fL Critically low 9.5-13.5 [facility] Comment on above: Performed By: #### C BC #### [facility] [address] [place] [address] Dr. Mayela Huddleston PLT 193 103/ul Normal 150-450 [facility] Comment on above: Performed By: #### C BC #### [facility] [address] [place] [address] Dr. Mayela Huddleston RBC 5.07 106/ul Normal 4.70-6.10 [facility] Comment on above: Performed By: #### C BC #### [facility] [address] [place] [address] Dr. Mayela Huddleston WBC 7.5 103/ul Normal 4.0-11.0 [facility] Comment on above: Performed By: #### C BC #### [facility] [address] [place] [address] Dr. Mayela Huddleston CRPon 03-26-2022 CRP 3.6 mg/dL Critically high <=1.0 [facility] Comment on above: Performed By: #### C RP, BMP #### [facility] [address] [place] [address] Dr. Mayela Huddleston LACTATE/LACTIC ACIDon 2021 Lactate [Moles/Vol] 0.9 mmol/L Normal 0.4-1.9 [facility] Comment on above: Performed By: #### L ACT #### [facility] [address] [place] [address] Dr. Mayela Huddleston PROF CHEM 8 (BAS METB)on Anion gap [Moles/Vol] 7.1 mmol/L Normal [facility] Comment on above: Performed By: #### C RP, BMP #### [facility] [address] [place] [address] Dr. Mayela Huddleston Calcium [Mass/Vol] 8.7 mg/dL Normal 8.5-10.1 [facility] Comment on above: Performed By: #### C RP, BMP #### [facility] [address] [place] [address] Dr. Mayela Huddleston Chloride [Moles/Vol] 101 mmol/L Normal 98-107 [facility] Comment on above: Performed By: #### C RP, BMP #### [facility] [address] [place] [address] Dr. Mayela Huddleston CO2 [Moles/Vol] 29.8 mmol/L Normal 21.0-32.0 [facility] Comment on above: Performed By: #### C RP, BMP #### [facility] [address] [place] [address] Dr. Mayela Huddleston Creatinine [Mass/Vol] 1.13 mg/dL Normal 0.70-1.30 [facility] Comment on above: Performed By: #### C RP, BMP #### [facility] [address] [place] [address] Dr. Mayela Huddleston EGFR-AF SERBIAN >60 Normal >=60 [facility] Comment on above: Performed By: #### C RP, BMP #### [facility] [address] [place] [address] Dr. Mayela Huddleston EGFR-NON AF SERBIAN >60 Normal >=60 [facility] Comment on above: Performed By: #### C RP, BMP #### [facility] [address] [place] [address] Dr. Mayela Huddleston Glucose [Mass/Vol] 113 mg/dL Critically high 74-106 [facility] Comment on above: Performed By: #### C RP, BMP #### [facility] [address] [address] [address] Mayela Huddleston Potassium [Moles/Vol] 3.9 mmol/L Normal 3.5-5.1 [facility] Comment on above: Performed By: #### C RP, BMP #### [facility] [address] [address] [address] Mayela Huddleston Sodium [Moles/Vol] 134 mmol/L Critically low 136-145 [facility] Comment on above: Performed By: #### C RP, BMP #### [facility] [address] [address] [address] Mayela Huddleston Urea nitrogen [Mass/Vol] 15.0 mg/dL Normal 7.0-18.0 [facility] Comment on above: Performed By: #### C RP, BMP #### [facility] [address] [address] [address] Mayela Huddleston Urea nitrogen/Creatinine [Mass ratio] 13.3 mg/mg Normal [facility] Comment on above: Performed By: #### C RP, BMP #### [facility] [address] [place] [address] Dr. Mayela Huddleston SED RATE [facility] 2021 SED RATE 55 mm/hr Critically high <=15 [facility] Comment on above: Performed By: #### S EDR #### [facility] [address] [place] [address] Dr. Mayela Huddleston US EXT NON VASC LIMITED RTon 03-26-2022 US EXT NON VASC LIMITED RT ULTRASOUND LIMITED OF THE SOFT TISSUES HISTORY: Palpable abnormality at the right medial gluteal area of lump and pain TECHNIQUE: Multiple sonographic images are performed of the medial right gluteal soft tissues using both grayscale and color Doppler. COMPARISON: None. FINDINGS: The right medial gluteal area demonstrates edema and inflammation. No mass. No cyst. IMPRESSION: Subcutaneous edema. Please correlate for cellulitis Electronically authenticated by: CHIKIS SANDOVAL Date: 2022-03-26 21:01 Normal [facility] Reminderson 12-03-2018 Reminders - From: HaughawLizzy lal MA To: EU - Clinical; Sent: 11/18/2018 15:49:06 EDT Show up: 12/02/2018 15:49:00 EDT Subject: FISH/Cytology Reminder/Recall FISH/Cytology done 11/18/18. Negative. Normal [facility] Operative Reporton 9 Operative Report Indication for Surge ry Microscopic hematuria Preoperative Diagnosis Microscopic hematuria Postoperative Diagnosis Microscopic hematuria Operation Cystoscopy Surgeon(s) Antony Contreras M.D. Anesthesia 2% Xylocaine gel local Estimated Blood Loss 0 Urine Output 0 Findings This patient is a 38 children with a history of microscopic hematuria. He is undergoing a computed tomography scan that showed no urinary tract calculi or obstructive uropathy or mass. He's had trace amount of blood and a urinalysis. He is here today for cystoscopic examination. The procedure risk, risk, benefits, alternatives, pre-and postoperative care, expected outcomes have been discussed with the patient preoperatively. Specimen(s) None Complications None Technique This patient about the operative suite was placed in the supine position. Prepped and draped in usual fashion. 2% Xylocaine gel was introduced into the urethra for local anesthesia after routine prep and drape. Endoscopic examination was performed using a standard Flex fiberoptic cystoscope. This evaluation revealed a normal-appearing urethra. Prostatic fossa revealed minimal enlargement of the prostate. No obstruction was identified. The bladder mucosa was unremarkable. There were no tumors, stones, and no increased vascularity. No mucosal lesions were identified. At the conclusion the scope was removed. The patient was discharged home with instructions that he'll follow up in the office on an as-needed basis. Review the results of the computed tomography scan which was negative and the results of the cystoscopic exam today. We'll contact office if he has any problems in the future. Normal [facility] Comment on above: Result Comment: Elec tronically Signed By: Ben Gracia MD, Antony Salgado\.addie\Date and Time Signed: 12/01/18 15:11 EDT XR SHOULDER LEFT (MIN 2 VIEW S)on 09-18-2017 Thyroid stimulating hormone (TSH) EXAMINATION:3 VIEWS OF THE LEFT SHOULDER09/18/2017 8:52 pmCOMPARISON:None.HISTORY :ORDERING SYSTEM PROVIDED HISTORY: injuryTECHNOLOGIST PROVIDED HISTORY:Reason for exam:->injuryOrdering Physician Provided Reason for Exam: Lt shoulder painAcuity: AcuteType of Exam: InitialMechanism of Injury: doing jujitsuFINDINGS:Humeral head is dislocated inferiorly and anteriorly. Cortical marginsintact.IMPRESSION: Anterior Dislocation. No fracture.Interpreted by:HARINDER Thorntonigned by:Sunil Wade MD09/18/18Final result Normal [facility] XR SHOULDER LEFT 1 VWon 06-0 Thyroid stimulating hormone (TSH) EXAMINATION:SINGLE VIEW OF THE LEFT SHOULDER09/18/2017 9:11 pmCOMPARISON:None.HISTORY :ORDERING SYSTEM PROVIDED HISTORY: Post reductionTECHNOLOGIST PROVIDED HISTORY:Reason for exam:->Post reductionOrdering Physician Provided Reason for Exam: Lt shoulder post-reductionAcuity: AcuteType of Exam: InitialFINDINGS:Glenohume ral joint is normally aligned. No evidence of acute fracture ordislocation. No abnormal periarticular calcifications. Successfulreduction. No fracture.Visualized lung is unremarkable.IMPRESSION: No acute abnormality.Interpreted by:HARINDER Thorntonigned by:Sunil Wade MD09/18/18Final result Normal [facility] Vital Signs Date Time Vital Sign Value Performing Clinician Facility 06-17-2023 09:04-0500 Body height 188 cm Renetta Garner MD Work Phone: [facility] 06-17-2023 09:04-0500 Body weight 119.75 kg Renetta Garner MD Work Phone: [facility] 05-31-2023 10:48-0500 Body height 188 cm Erik Powers REHABILITATION LIAISON.SHAREPOINT ANALYST Work Phone: [facility] 05-31-2023 10:48-0500 Body weight 119.75 kg Erik Powers REHABILITATION LIAISON.SHAREPOINT ANALYST Work Phone: [facility] 02-19-2023 14:39-0500 Body temperature 97.7 [degF] Christa Dubois MD Work Phone: [facility] 02-19-2023 14:39-0500 Diastolic blood pressure 82 mm[Hg] Christa Dubois MD Work Phone: [facility] 02-19-2023 14:39-0500 Heart rate 91 /min Christa Dubois MD Work Phone: [facility] 02-19-2023 14:39-0500 SaO2% (BldA) [Mass fraction] 97 % Christa Dubois MD Work Phone: [facility] 02-19-2023 14:39-0500 Systolic blood pressure 147 mm[Hg] Christa Dubois MD Work Phone: [facility] 02-04-2023 11:03-0400 Body height 188 cm Renetta Garner MD Work Phone: [facility] 02-04-2023 11:03-0400 Body temperature 97.5 [degF] Renetta Garner MD Work Phone: [facility] 02-04-2023 11:03-0400 Body weight 122.92 kg Renetta Garner MD Work Phone: [facility] 02-04-2023 11:03-0400 Diastolic blood pressure 80 mm[Hg] Renetta Garner MD Work Phone: [facility] 02-04-2023 11:03-0400 Heart rate 83 /min Renetta Garner MD Work Phone: [facility] 02-04-2023 11:03-0400 SaO2% (BldA) [Mass fraction] 98 % Renetta Garner MD Work Phone: [facility] 02-04-2023 11:03-0400 Systolic blood pressure 119 mm[Hg] Renetta Garner MD Work Phone: [facility] 01-17-2023 09:00-0400 Diastolic blood pressure 62 mm[Hg] Christa Dubois MD Work Phone: [facility] 01-17-2023 09:00-0400 Heart rate 67 /min Christa Dubois MD Work Phone: [facility] 01-17-2023 09:00-0400 Respiratory rate 16 /min Christa Dubois MD Work Phone: [facility] 01-17-2023 09:00-0400 SaO2% (BldA) [Mass fraction] 99 % Christa Dubois MD Work Phone: [facility] 01-17-2023 09:00-0400 Systolic blood pressure 128 mm[Hg] Christa Dubois MD Work Phone: [facility] 01-17-2023 08:35-0400 Body temperature 98.49 [degF] Christa Dubois MD Work Phone: [facility] 01-17-2023 07:11-0400 Body weight 120.66 kg Christa Dubios MD Work Phone: [facility] 01-07-2023 15:14-0400 Body height 186.7 cm Clifford Man MD Work Phone: [facility] 01-07-2023 15:14-0400 Body weight 120.79 kg Clifford Man MD Work Phone: [facility] 01-07-2023 15:14-0400 Diastolic blood pressure 76 mm[Hg] Clifford Man MD Work Phone: [facility] 01-07-2023 15:14-0400 Heart rate 75 /min Clifford Man MD Work Phone: [facility] 01-07-2023 15:14-0400 Systolic blood pressure 120 mm[Hg] Clifford Man MD Work Phone: [facility] 11-27-2022 10:04-0400 Body height 188 cm Christa Dubois MD Work Phone: [facility] 11-27-2022 10:04-0400 Body temperature 98.6 [degF] Christa Dubois MD Work Phone: [facility] 11-27-2022 10:04-0400 Body weight 117.94 kg Christa Dubois MD Work Phone: [facility] 11-27-2022 10:04-0400 Diastolic blood pressure 84 mm[Hg] Christa Dubois MD Work Phone: [facility] 11-27-2022 10:04-0400 Heart rate 86 /min Christa Dubois MD Work Phone: [facility] 11-27-2022 10:04-0400 SaO2% (BldA) [Mass fraction] 95 % Christa Dubois MD Work Phone: [facility] 11-27-2022 10:04-0400 Systolic blood pressure 141 mm[Hg] Christa Dubois MD Work Phone: [facility] 10-17-2022 09:41-0400 Body height 188 cm [facility] Work Phone: [facility] 10-17-2022 09:41-0400 Body weight 117.94 kg [facility] Work Phone: [facility] 10-02-2022 10:22-0400 Body temperature 98.01 [degF] Christa Dubois MD Work Phone: [facility] 10-02-2022 10:22-0400 Diastolic blood pressure 69 mm[Hg] Christa Dubois MD Work Phone: [facility] 10-02-2022 10:22-0400 Heart rate 84 /min Christa Dubois MD Work Phone: [facility] 10-02-2022 10:22-0400 SaO2% (BldA) [Mass fraction] 97 % Christa Dubois MD Work Phone: [facility] 10-02-2022 10:22-0400 Systolic blood pressure 131 mm[Hg] Christa Dubois MD Work Phone: [facility] 08-23-2022 10:05-0400 Body height 188 cm [facility] 08-23-2022 10:05-0400 Body weight 113.4 kg [facility] 08-23-2022 10:05-0400 Heart rate 72 /min [facility] 08-21-2022 08:29-0400 Body temperature 98.01 [degF] Christa Dubois MD Work Phone: [facility] 08-21-2022 08:29-0400 Diastolic blood pressure 80 mm[Hg] Christa Dubois MD Work Phone: [facility] 08-21-2022 08:29-0400 Heart rate 69 /min Christa Dubois MD Work Phone: [facility] 08-21-2022 08:29-0400 SaO2% (BldA) [Mass fraction] 98 % Christa Dubois MD Work Phone: [facility] 08-21-2022 08:29-0400 Systolic blood pressure 137 mm[Hg] Christa Dubois MD Work Phone: [facility] 08-13-2022 08:21-0400 Body height 188 cm Susie Mancia APRN.SHAREPOINT ANALYST Work Phone: [facility] 08-13-2022 08:21-0400 Body temperature 98.6 [degF] Susie Mancia APRN.SHAREPOINT ANALYST Work Phone: [facility] 08-13-2022 08:21-0400 Diastolic blood pressure 83 mm[Hg] Susie Mancia APRN.SHAREPOINT ANALYST Work Phone: [facility] 08-13-2022 08:21-0400 Heart rate 72 /min Susie Mancia APRN.SHAREPOINT ANALYST Work Phone: [facility] 08-13-2022 08:21-0400 SaO2% (BldA) [Mass fraction] 97 % Susie Mancia APRN.SHAREPOINT ANALYST Work Phone: [facility] 08-13-2022 08:21-0400 Systolic blood pressure 144 mm[Hg] Susie Mancia APRN.SHAREPOINT ANALYST Work Phone: [facility] 07-16-2022 08:47-0400 Body height 188 cm [facility] 07-16-2022 08:47-0400 Body weight 113.4 kg [facility] 07-16-2022 08:47-0400 Heart rate 86 /min [facility] 07-10-2022 09:18-0400 Body height 188 cm Christa Dubois MD Work Phone: [facility] 07-10-2022 09:18-0400 Body temperature 98.71 [degF] Christa Dubois MD Work Phone: [facility] 07-10-2022 09:18-0400 Body weight 116.57 kg Christa Dubois MD Work Phone: [facility] 07-10-2022 09:18-0400 Diastolic blood pressure 79 mm[Hg] Christa Dubois MD Work Phone: [facility] 07-10-2022 09:18-0400 Heart rate 76 /min Christa Dubois MD Work Phone: [facility] 07-10-2022 09:18-0400 SaO2% (BldA) [Mass fraction] 98 % Christa Dubois MD Work Phone: [facility] 07-10-2022 09:18-0400 Systolic blood pressure 132 mm[Hg] Christa Dubois MD Work Phone: [facility] 07-06-2022 10:28-0400 Body height 188 cm Tremayne Doyle MD Work Phone: [facility] 07-06-2022 10:28-0400 Body weight 116.57 kg Tremayne Doyle MD Work Phone: [facility] 05-03-2022 17:25-0500 Diastolic blood pressure 76 mm[Hg] DO Renetta Gonzalez Work Phone: [facility] 05-03-2022 17:25-0500 Heart rate 95 /min DO Renetta Gonzalez Work Phone: [facility] 05-03-2022 17:25-0500 Respiratory rate 16 /min DO Renetta Gonzalez Work Phone: [facility] 05-03-2022 17:25-0500 SaO2% (BldA) [Mass fraction] 86 % DO Renetta Gonzalez Work Phone: [facility] 05-03-2022 17:25-0500 Systolic blood pressure 124 mm[Hg] DO Renetta Gonzalez Work Phone: [facility] 05-03-2022 14:20-0500 Body height 187.96 cm DO Renetta Gonzalez Work Phone: [facility] 05-03-2022 14:20-0500 Body mass index (BMI) [Ratio] 32.1 kg/m2 DO Renetta Gonzalez Work Phone: [facility] 05-03-2022 14:20-0500 Body weight 113.39 kg DO Renetta Gonzalez Work Phone: [facility] 05-03-2022 12:58-0500 Body temperature 98.3 [degF] DO Renetta Gonzalez Work Phone: [facility] 03-29-2022 17:13-0500 Diastolic blood pressure 64 mm[Hg] DO Renetta Gonzalez Work Phone: [facility] 03-29-2022 17:13-0500 Heart rate 76 /min DO Renetta Gonzalez Work Phone: [facility] 03-29-2022 17:13-0500 Respiratory rate 16 /min DO Renetta Gonzalez Work Phone: [facility] 03-29-2022 17:13-0500 SaO2% (BldA) [Mass fraction] 94 % DO Renetta Gonzalez Work Phone: [facility] 03-29-2022 17:13-0500 Systolic blood pressure 116 mm[Hg] DO Renetta Gonzalez Work Phone: [facility] 03-29-2022 16:02-0500 Body height 187.96 cm DO Renetta Gonzalez Work Phone: [facility] 03-29-2022 16:02-0500 Body mass index (BMI) [Ratio] 32.1 kg/m2 DO Renetta Gonzalez Work Phone: [facility] 03-29-2022 16:02-0500 Body weight 113.39 kg DO Renetta Gonzalez Work Phone: [facility] 03-29-2022 12:55-0500 Body temperature 97.5 [degF] DO Renetta Gonzalez Work Phone: [facility] 05-08-2021 16:40-0500 Body height 187.32 cm Renetta Gonzalez Other [employer] [facility] [employer] Other 05-08-2021 16:40-0500 Body mass index (BMI) [Ratio] 34.9 kg/m2 Renetta Gonzalez Other [employer] Other 05-08-2021 16:40-0500 Body temperature 98.2 [degF] Renetta Jhapio Other [employer] Other 05-08-2021 16:40-0500 Body weight 122.47 kg Renetta Gonzalez Other [employer] Other 05-08-2021 16:40-0500 Diastolic blood pressure 78 mm[Hg] Renetta Gonzalez Other [employer] Other 05-08-2021 16:40-0500 Respiratory rate 18 /min Renetta Gonzalez Other [employer] Other 05-08-2021 16:40-0500 SaO2% (BldA) [Mass fraction] 96 % Renetta Gonzalez Other [employer] Other 05-08-2021 16:40-0500 Systolic blood pressure 118 mm[Hg] Renetta Gonzalez Other [employer] Other Encounters Encounter Date Encounter Type Care Provider Facility Start: 11-08-2023 Telephone encounter Renetta bill MD Work Phone: Colorectal Surgery Comment on above: Patient Update Start: 11-04-2023 Telephone encounter Renetta bill MD Work Phone: Colorectal Surgery Comment on above: Patient Update; Care Coordination Start: 10-02-2023 Admission to [facility] Renetta Garner MD Work Phone: Colorectal Surgery Comment on above: Bump Start: 10-02-2023 ambulatory Renetta Garner MD Work Phone: Colorectal Surgery Start: 07-17-2023 Chart abstracting Lorena mari RN Colorectal Surgery Start: 07-04-2023 Telephone encounter Renetta bill MD Work Phone: Colorectal Surgery Comment on above: Patient Update; Care Coordination Start: 06-17-2023 End: 06-17-2023 ambulatory RENETTA GARNER Facility:[facility] Start: 06-17-2023 End: 06-17-2023 Patient encounter procedure Renetta Garner MD Work Phone: Colorectal Surgery Comment on above: Anal fistula (Primar y Dx) Start: 05-31-2023 End: 05-31-2023 ambulatory ERIK POWERS Facility:[facility] Start: 05-31-2023 End: 05-31-2023 Patient encounter procedure Erik Powers REHABILITATION LIAISON.SHAREPOINT ANALYST Work Phone: Colorectal Surgery Comment on above: Post-operative state (Primary Dx); Anal or rectal pain Start: 05-30-2023 End: 05-31-2023 Emergency department patient visit RENETTA GONZALEZ Facility:[facility] Start: 05-21-2023 End: 05-21-2023 ambulatory RENETTA GONZALEZ Facility:[facility] Start: 04-22-2023 End: 04-22-2023 ambulatory RENETTA GONZALEZ Facility:[facility] Start: 04-22-2023 End: 04-22-2023 ambulatory RENETTA GONZALEZ Facility:[facility] Start: 03-06-2023 End: 03-06-2023 ambulatory RENETTA GARNER Facility:[facility] Start: 03-05-2023 End: 03-05-2023 ambulatory RENETTA GONZALEZ Facility:[facility] Start: 03-04-2023 ambulatory Christa Dubois MD Work Phone: Colorectal Surgery Comment on above: EUA 03/22 Start: 03-01-2023 ambulatory Renetta Garner MD Work Phone: Colorectal Surgery Start: 02-28-2023 Telephone encounter Renetta bill MD Work Phone: Colorectal Surgery Comment on above: Patient Update Start: 02-27-2023 Telephone encounter Lorena garrison RN Colorectal Surgery Comment on above: Care Coordination Patient Update Start: 02-25-2023 End: 02-25-2023 ambulatory Renetta Garner MD Work Phone: Colorectal Surgery Comment on above: Anal fistula (Primar y Dx) Start: 02-25-2023 End: 02-25-2023 Telemedicine consultation with patient Renetta Garner MD Work Phone: [facility] Start: 02-19-2023 End: 02-19-2023 ambulatory CHRISTA DUBOIS Facility:[facility] Start: 02-19-2023 End: 02-19-2023 Patient encounter procedure Christa Dubois MD Work Phone: Colorectal Surgery Comment on above: Anal fistula (Primar y Dx) Start: 02-05-2023 ambulatory RENETTA GARNER Facility:1 [id number] Start: 02-05-2023 End: 02-05-2023 Subsequent hospital visit by physician Amy [facility] (Lg Bore/1.5t) [facility] MRI Comment on above: Anorectal fissure [K 60.2] Start: 02-04-2023 End: 02-04-2023 Patient encounter procedure Renetta Garner MD Work Phone: Colorectal Surgery Comment on above: Anorectal fissure (P rimary Dx) Start: 02-04-2023 End: 02-04-2023 ambulatory RENETTA GARNER Facility:[facility] Start: 02-03-2023 Chart abstracting Lorena mari RN Colorectal Surgery Start: 01-18-2023 ambulatory CHRISTA DUBOIS Facility:[facility] Start: 01-18-2023 End: 01-18-2023 Subsequent hospital visit by physician Mri Anes/Anxiolysis/[facility] Start: 01-17-2023 ambulatory CHRISTA DUBOIS Facility:[facility] Start: 01-17-2023 End: 01-17-2023 Subsequent hospital visit by physician Christa Dubois MD Work Phone: Procedures Comment on above: Crohn's disease with fistula, unspecified gastrointestinal tract location (HCC) [K50.913] Start: 01-07-2023 End: 01-07-2023 ambulatory CLIFFORD MAN Facility:[facility] Start: 01-07-2023 End: 01-07-2023 Patient encounter procedure Clifford Man MD Work Phone: Gastroenterology [facility] Comment on above: Perianal abscess (Pr imary Dx); Transsphincteric anal fistula Start: 12-05-2022 ambulatory Christa Dubois MD Work Phone: Colorectal Surgery Comment on above: Update Start: 11-28-2022 ambulatory Christa Dubois MD Work Phone: Colorectal Surgery Comment on above: Question Start: 11-27-2022 End: 11-27-2022 ambulatory CHRISTA DUBOIS Facility:[facility] Start: 11-27-2022 End: 11-27-2022 Patient encounter procedure Christa Dubois MD Work Phone: Colorectal Surgery Comment on above: Follow-up examinatio n after colorectal surgery (Primary Dx); Anal fistula; Generalized abdominal pain; Abdominal pain, unspecified abdominal location; Crohn's disease with fistula, unspecified gastrointestinal tract location (HCC) Start: 10-31-2022 ambulatory Christa Dubois MD Work Phone: [facility] Start: 10-31-2022 Follow-up encounter Christa irwin MD Work Phone: Colorectal Surgery Comment on above: Follow up Start: 10-19-2022 End: 10-19-2022 ambulatory CHRISTA DUBOIS Facility:[facility] Start: 10-17-2022 End: 10-17-2022 ambulatory Hannah Smith APRN.CNP Work Phone: Pre Anesthesia Comment on above: Pre op instructions Pre-op evaluation (P rimary Dx); Obesity, Class I, BMI 30-34.9 Start: 10-17-2022 E-mail encounter fro christen caregiver Hannah Smith APRN.SHAREPOINT ANALYST Work Phone: [facility] Start: 10-17-2022 End: 10-17-[facility] Start: 10-17-2022 End: 10-17-2022 Preprocedural examination done [facility] Work Phone: Pre Anesthesia Start: 10-13-2022 ambulatory Christa Dubois MD Work Phone: Colorectal Surgery Comment on above: Bleeding Start: 10-02-2022 End: 10-02-2022 Patient encounter procedure Christa Dubois MD Work Phone: Colorectal Surgery Comment on above: Anal fistula (Primar y Dx); Encounter for post surgical wound check Start: 09-28-2022 ambulatory Christa Dubois MD Work Phone: Colorectal Surgery Comment on above: Update Start: 09-21-2022 Orders Only Christa Dubois MD Work Phone: General Surgery Start: 09-11-[address] [facility] [place] Christa Dubois MD Work Phone: Colorectal Surgery Comment on above: Post surgery Start: 09-11-2022 ambulatory Christa Dubois MD Work Phone: [facility] Start: 09-11-2022 Telephone encounter Christa irwin MD Work Phone: General Surgery Comment on above: Patient Question Start: 09-07-2022 End: 09-07-2022 ambulatory CHRISTA DUBOIS Facility:[facility] Start: 08-23-2022 End: 08-23-2022 Admission to [place] [address] Virtual [facility] Start: 08-23-2022 End: 08-23-2022 ambulatory [facility] Pre Anesthesia Comment on above: Pre-op evaluation (P rimary Dx); Obesity, Class I, BMI 30-34.9 Start: 08-23-2022 End: 08-23-2022 Preprocedural examination done [facility] Pre Anesthesia Start: 08-21-2022 End: 08-21-2022 Patient encounter procedure Christa Dubois MD Work Phone: Colorectal Surgery Comment on above: Anal fistula (Primar y Dx); Follow-up examination after colorectal surgery; Proctalgia Anal fistula (Primar y Dx) Start: 08-13-2022 End: 08-13-2022 Patient encounter procedure Susie Mancia APRN.SHAREPOINT ANALYST Work Phone: Colorectal Surgery Comment on above: Anal fistula (Primar y Dx) Start: 08-07-2022 ambulatory Christa Dubois MD Work Phone: Colorectal Surgery Comment on above: Pain Medication Start: 08-06-2022 ambulatory Christa Dubois MD Work Phone: Colorectal Surgery Comment on above: [facility] Procedure Start: 07-27-2022 Telephone encounter Christa irwin MD Work Phone: Colorectal Surgery Comment on above: [employer] (Follow up) Start: 07-27-2022 End: 07-27-2022 ambulatory CHRISTA DUBOIS Facility:[facility] Start: 07-20-2022 ambulatory CHRISTA DUBOIS Facility:[facility] Start: 07-20-2022 End: 07-20-2022 Subsequent hospital visit by physician Amy Campbell (I-Stat/1.5t) Work Phone: Radiology Comment on above: Anal fistula [K60.3] Start: 07-18-2022 ambulatory Christa Dubois MD Work Phone: [facility] Start: 07-18-2022 Patient encounter procedure Christa Dubois MD Work Phone: Colorectal Surgery Comment on above: MRI appointment Start: 07-18-2022 Telephone encounter Elsa Dao (Pas ) Radiology Comment on above: PT authorization sta tus (Pt called to see if authorized. I advised not at this time. I show an attempt to contact him yesterday morning but they were unable to leave a message. Pt confirmed his cell# and advised me his mailbox is not full and he does not show a missed call. I told the patient the notes indicate additional information is needed. I then advised the patient to call his doctor to have him call [facility] to see what additional info is required.) Patient Update Start: 07-17-2022 ambulatory Christa Dubois MD Work Phone: [facility] Start: 07-17-2022 Patient encounter procedure Christa Dubois MD Work Phone: Colorectal Surgery Comment on above: MRI Appointment Start: 07-16-2022 Telephone encounter Christa irwin MD Work Phone: Colorectal Surgery Comment on above: [employer] (New MRI order) Start: 07-16-2022 End: 07-16-2022 Admission to [address] Start: 07-16-2022 End: 07-16-2022 ambulatory [facility] Pre Anesthesia Comment on above: Pre-op evaluation (P rimary Dx); Obesity, Class I, BMI 30-34.9 Start: 07-16-2022 End: 07-16-2022 Preprocedural examination done [facility] Pre Anesthesia Start: 07-13-2022 Telephone encounter Christa irwin MD Work Phone: Colorectal Surgery Comment on above: [employer] (Surgery date ) Start: 07-12-2022 E-mail encounter fro m caregiver Christa Dubois MD Work Phone: [facility] Start: 07-12-2022 Patient encounter procedure Christa Dubois MD Work Phone: Pre Anesthesia Comment on above: PACC APPOINTMENT Start: 07-11-2022 ambulatory Christa Dubois MD Work Phone: Colorectal Surgery Comment on above: Additional Question Start: 07-10-2022 End: 07-10-2022 Orders Only Christa Dubois MD Work Phone: Colorectal Surgery Comment on above: Anal fistula (Primar y Dx) Anal fistula (Primar y Dx); Obesity, Class I, BMI 30-34.9; Perianal abscess; Anorectal fissure Start: 07-06-2022 End: 07-06-2022 Patient encounter procedure Tremayne Doyle MD Work Phone: General Surgery Comment on above: Anal fistula (Primar y Dx) Start: 06-19-2022 End: 06-19-2022 ambulatory Renetta Gonzalez Other [employer] Other Start: 06-19-2022 Telephone encounter Renetta Gonzalez [facility] Start: 05-03-2022 End: 05-03-2022 ambulatory Lokesh Ann Facility:[facility] Start: 05-03-2022 End: 05-03-2022 Admission to same day surgery center DO Renetta Gonzalez Work Phone: [facility] [place] Start: 05-03-2022 End: 05-03-2022 ambulatory DO Renetta Gonzalez Work Phone: [facility] Work Phone: Start: 03-29-2022 End: 03-29-2022 ambulatory Lokesh Ann Facility:[facility] Start: 03-29-2022 End: 03-29-2022 Admission to same day surgery center DO Renetta Gonzalez Work Phone: [facility] [place] Start: 03-29-2022 End: 03-29-2022 ambulatory DO Renetta Gonzalez Work Phone: [facility] Work Phone: Start: 03-26-2022 End: 03-27-[address] RENETTA GONZALEZ Facility:[facility] Start: 03-01-2022 End: 03-01-[address] RENETTA GONZALEZ Facility:[facility] Start: 02-27-2022 End: 02-27-2022 ambulatory Renetta Gonzalez Other [employer] Other Start: 02-27-2022 Telephone encounter Renetta Gonzalez [facility] Start: 05-08-2021 End: 05-08-2021 ambulatory Renetta Richar Other [employer] Other Start: 05-08-2021 Encounter for antibo dy response examination Renetta Gonzalez [facility] Start: 05-08-2021 Office outpatient vi sit 15 minutes Renetta Gonzalez [facility] Start: 09-18-2017 End: 09-19-2017 Emergency department patient visit JENS SHAIKH [facility] Procedures Date Procedure Procedure Detail Performing Clinician Start: 05-31-2023 Antibody screen ERIK POWERS Comment on above: Order Comment: Speci men Type: BLOOD SPECIMENOrdering Facility: [facility] Address: [address] [place] [address] Performed By: #### T SCR ####CC MAIN BLOOD BANKCLIA [id number] [address] Start: 04-22-2023 Antibody screen ERIK POWERS Comment on above: Order Comment: Speci men Type: BLOOD SPECIMENOrdering Facility: [facility] Address: [address] [place] [address] Performed By: #### T [id number] ####CC MAIN BLOOD BANKCLIA [id number] [address] Start: 01-18-2023 MRI ABD ENTEROG WO/W IVCON Christa Dubois MD Work Phone: Start: 01-17-2023 Level iv surg pathol ogy gross&microscopic exam Christa Dubois MD Work Phone: Start: 01-17-2023 Colonoscopy flx dx w /collj spec when pfrmd Christa Dubois MD Work Phone: Start: 01-17-2023 Colonoscopy Lorena garrison RN Start: 07-20-2022 Mri pelvis w/o & w/c ontrast material Christa Dubois MD Work Phone: Start: 05-03-2022 Debridement DO Renetta lee Work Phone: Start: 03-29-2022 Debridement DO Renetta lee Work Phone: Start: 03-29-2022 Aerobic microbial culture DO Renetta Gonzalez Work Phone: Start: 03-29-2022 Anaerobic microbial culture DO Renetta Gonzalez Work Phone: Start: 03-29-2022 Investigation of tra nsfusion reaction DO Renetta Gonzalez Work Phone: Start: 09-18-2017 Radex shoulder 1 view J DAYANAY HAWA Start: 09-18-2017 SALINE LOCK IV JENS SHAIKH Start: 09-18-2017 SLING AND SWATHE JEFFER Y HAWA Start: 09-18-2017 Radex shoulder compl ete minimum 2 views JENS SHAIKH Plan of Treatment Date Care Activity Detail Author Start: 2042 HEPATITIS B (1 of 3 - Risk 3-dose series) HEPATITIS B (1 of 3 - Risk 3-dose series) [facility] Start: 2042 Hepatitis B Vaccine (1 of 3 - Risk 3-dose series) Hepatitis B Vaccine (1 of 3 - Risk 3-dose series) [facility] Start: 01-17-2033 Colonoscopy Colonoscopy [facility] Start: 01-17-2033 Colorectal Cancer Screening Colorectal Cancer Screening [facility] Start: 01-17-2033 Screening for malign ant neoplasm of colon [facility] Start: 12-15-2023 Covid-19 Vaccine ( season) Covid-19 Vaccine () [facility] Start: 12-15-2023 Influenza vaccination C [facility] Start: 04-15-2023 Behavioral Health Screening Behavioral Health Screening [facility] Start: 04-15-2023 Depression Assessment Depression Ass essment [facility] Start: 12-14-2022 Covid-19 Vaccine ( season) Covid-19 Vaccine ( season) [facility] Start: 12-14-2022 Influenza vaccination C [facility] Start: 11-27-2022 End: 01-27-2023 Erythrocyte sedimentation rate SED RATE WESTERGREN Lab Routine Crohn's disease with fistula, unspecified gastrointestinal tract location (HCC) Expected: 11/27/2022, Expires: 01/27/2023 [facility] Work Phone: Comment on above: Expected: 11/27/2022 , Expires: 01/27/2023 Start: 05-03-2022 [facility] Start: 05-03-2022 End: 05-03-2022 [facility] Start: 05-03-2022 Aerobic Culture Aerobic Culture [facility] Start: 05-03-2022 Anaerobic Culture Anaerobic Culture [facility] Start: 05-03-2022 Microscopic observat ion [Identifier] in Unspecified specimen by Gram stain [facility] Start: 04-15-2022 DEPRESSION ASSESSMENT DEPRESSION ASS ESSMENT [facility] Start: 03-29-2022 End: 03-29-2022 [facility] Start: 12-14-2021 Influenza vaccination INFLUENZA (#1) [facility] Start: 2017 Lipid 1996 panel - Serum or Plasma Lipid Screening [facility] Start: 2017 Lipid panel Lipid Screening [facility] Start: 2017 LIPID SCREEN LIPID SCREEN [facility] Start: 2001 HEPATITIS A (1 of 2 - Risk 2-dose series) HEPATITIS A (1 of 2 - Risk 2-dose series) [facility] Start: 2001 Hepatitis A Vaccine (1 of 2 - Risk 2-dose series) Hepatitis A Vaccine (1 of 2 - Risk 2-dose series) [facility] Start: 2001 Hepatitis B Vaccine (1 of 3 - 19+ 3-dose series) Hepatitis B Vaccine (1 of 3 - 19+ 3-dose series) [facility] Start: 2001 Urine microalbumin profile [facility] Start: 2000 Anxiety Screening Anxiety Screening [facility] Start: 2000 Depression Screening Depression Scre ening [facility] Start: 2000 HEPATITIS C SCREENING HEPATITIS C [facility] Start: 2000 Hepatitis C screening Hepatitis C [facility] Start: 2000 HIV SCREENING [facility]CRE[facility]ING [facility] Start: 2000 HIV screening [facility] Screening [facility] Start: 2000 MMR (1 of 2 - Risk 2-dose series) MMR (1 of 2 - Risk 2-dose series) [facility] Start: 2000 MMR Vaccine (1 of 2 - Risk 2-dose series) MMR Vaccine (1 of 2 - Risk 2-dose series) [facility] Start: 1992 Meningococcal B Vaccine: Consider Based On Risk (1 of 4 - Increased Risk) Meningococcal B Vaccine: Consider Based On Risk (1 of 4 - Increased Risk) [facility] Start: 1992 MENINGOCOCCAL B: Consider based on risk (1 of 4 - Increased Risk) MENINGOCOCCAL B: Consider based on risk (1 of 4 - Increased Risk) [facility] Start: 1988 Pneumococcal vaccination Pneumococcal Vaccine (1 of 2 - PCV) [facility] Start: 1982 COVID-19 VACCINE (#1) COVID-19 VACCI NE (#1) [facility] Start: 1982 HEPATITIS B (1 of 3 - 3-dose series) HEPATITIS B (1 of 3 - 3-dose series) [facility] Aerobic Culture Aerobic Culture [facility] Anaerobic Culture Anaerobic Culture [facility] Bacteria identified in Unspecified specimen by Aerobe culture [facility] Bacteria identified in Unspecified specimen by Anaerobe culture [facility] Calprotectin [Mass/mass] in Stool CALPROTECTIN,FECAL Lab Routine Crohn's disease with fistula, unspecified gastrointestinal tract location (HCC) Ordered: 11/27/2022 [facility] Work Phone: Comment on above: Ordered: 11/27/2022 Calprotectin [Mass/mass] in Stool CALPROTECTIN,FECAL Lab Routine Perianal abscess Ordered: 01/07/2023 [facility] Work Phone: Comment on above: Ordered: 01/07/2023 End: 11-28-2023 COLONOSCOPY DIAGNOSTIC COLONOSCOPY DIAGNOSTIC Endoscopy Routine Crohn's disease with fistula, unspecified gastrointestinal tract location (HCC) 1 Occurrences starting 11/27/2022 until 11/28/2023 [facility] Work Phone: Comment on above: 1 Occurrences starti ng 11/27/2022 until 11/28/2023 FECAL LACTOFERRIN/LEUKOCYTES FECAL LACTOFERRIN/LEUKOCYTES Lab Routine Crohn's disease with fistula, unspecified gastrointestinal tract location (HCC) Ordered: 11/27/2022 [facility] Work Phone: Comment on above: Ordered: 11/27/2022 Microscopic observat ion [Identifier] in Unspecified specimen by Gram stain Gram Stain [facility] End: 12-29-2023 MRI ABD ENTEROG WO/W IVCON MRI ABD ENTEROG WO/W IVCON Radiology Routine Generalized abdominal pain Crohn's disease with fistula, unspecified gastrointestinal tract location (HCC) 1 Occurrences starting 11/27/2022 until 12/29/2023 [facility] Work Phone: Comment on above: 1 Occurrences starti ng 11/27/2022 until 12/29/2023 End: 08-15-2023 Mri pelvis w/o & w/contrast material MRI PERINEUM WO/W IVCON Radiology Routine Fistula of stomach and duodenum (CODE) 1 Occurrences starting 07/16/2022 until 08/15/2023 [facility] Work Phone: Comment on above: 1 Occurrences starti ng 07/16/2022 until 08/15/2023 End: 12-29-2023 Mri pelvis w/o & w/contrast material MRI PEL ENTEROG WO/W IVCON Radiology Routine Abdominal pain, unspecified abdominal location Crohn's disease with fistula, unspecified gastrointestinal tract location (HCC) 1 Occurrences starting 11/27/2022 until 12/29/2023 [facility] Work Phone: Comment on above: 1 Occurrences starti ng 11/27/2022 until 12/29/2023 Mri pelvis w/o & w/contrast material MRI PERINEUM WO/W IVCON Radiology Routine Anorectal fissure 02/05/2023 10:13 AM EDT [facility] Work Phone: End: 03-05-2024 Mri pelvis w/o & w/contrast material MRI PERINEUM WO/W IVCON Radiology Routine Anorectal fissure 1 Occurrences starting 02/04/2023 until 03/05/2024 [facility] Work Phone: Comment on above: 1 Occurrences starti ng 02/04/2023 until 03/05/2024 End: 08-09-2023 Mri pelvis w/o contrast material MRI PERINEUM WO IVCON Radiology Routine Anal fistula Perianal abscess Anorectal fissure 1 Occurrences starting 07/10/2022 until 08/09/2023 [facility] Work Phone: Comment on above: 1 Occurrences starti ng 07/10/2022 until 08/09/2023 Patient Education [facility] Work Phone: Patient referral [facility] Work Phone: REFER FOR ADMIT INTERVIEW REFER FOR ADMIT INTERVIEW Procedures Routine Perirectal fistula Ordered: 03/01/2023 [facility] Work Phone: Comment on above: Ordered: 03/01/2023 [facility] Payers Date Payer Category Payer Self-pay [id number] 2016 Unknown [id number] 2016 Unknown [id number] 1982 Unknown [id number] 1982 Unknown [id number] 1959 Unknown [id number] 1959 Unknown [id number] Unknown [id number] Unknown [id number] Social History Date Type Detail Facility Unknown if ever smoked [facility] Other Start: 07-06-2022 End: 11-02-2022 Sex Assigned At [facility] Other Start: 03-29-2022 End: 07-06-2022 Tobacco smoking status NHIS Never smoked tobacco (finding) [facility] Start: 1980 Sex Assigned At Male F [facility] Start: 07-06-2022 Tobacco use and exposure Smokeless tobacco non-user [facility] Start: 1980 Sex Assigned At Not on file C [facility] Start: 07-10-2022 End: 07-16-2022 Alcohol intake Ex-drinker (finding) [facility] Start: 07-06-2022 End: 11-02-2022 History of Social function [facility] National Score (1-100), lower number is lower risk 63 [facility] Goals Date Patient Goal Desired Activity /State Clinical Notes 07-14-2020 to 11-08-2023 Telephone Encounter - Anita Payne - 11/08/2023 9:16 AM EDTTelephone Encounter - Anita Payne - 11/08/2023 9:16 AM EDTTelephone Encounter - Lorena Ren RN - 11/04/2023 9:48 AM EDT Note Date & Type Note Facility 11-08-2023 Telephone encounter Note Lorenza Rock returned Lorena's call. [phone] [facility] 11-08-2023 Miscellaneous Notes Lorenza Rock returned Lorena's call. [phone] documented in this encounter [facility] 11-04-2023 Telephone encounter Note SPECIALTY CARE COORDINATION FOLLOW-UP NOTE Return call to Lorenza to further discuss message received. No answer, voicemail left to call back to further discuss his concerns. He mentions a 'bump' near his incisional site that is fully healed. Photo was sent via [employer] and the area circled looks as if this is a healed, likely scar tissued area. Does not look concerning or in need of surgical intervention. If he notices that he has a hard nodule/lesion, tenderness, redness, pain, or is experiencing fevers, then he will need further evaluation in office is able to do same day appointment or go the ED for evaluation and rule out abscess. Right now, nothing of concern noted. If he would like to have this evaluated he can schedule a visit with our SECURITY PROGRAM MANAGER, Erik. Mike Ren RN November 04, 2023 [facility] 11-04-2023 Miscellaneous Notes SPECIALTY CARE COORDINATION FOLLOW-UP NOTE Return call to Lorenza to further discuss message received. No answer, voicemail left to call back to further discuss his concerns. He mentions a 'bump' near his incisional site that is fully healed. Photo was sent via [employer] and the area circled looks as if this is a healed, likely scar tissued area. Does not look concerning or in need of surgical intervention. If he notices that he has a hard nodule/lesion, tenderness, redness, pain, or is experiencing fevers, then he will need further evaluation in office is able to do same day appointment or go the ED for evaluation and rule out abscess. Right now, nothing of concern noted. If he would like to have this evaluated he can schedule a visit with our SECURITY PROGRAM MANAGER, Erik. Mike Ren RN November 04, 2023 Lorenza Shweta did not get a response to his [employer] message a month ago. He is still experiencing the same issues. [phone] documented in this encounter [facility] 11-04-2023 Telephone encounter Note Lorenza Rock did not get a response to his [employer] message a month ago. He is still experiencing the same issues. [phone] [facility] 07-17-2023 Note HNO ID: [id number] Author: LORENA REN RN Service: ? Author Type: Registered Nurse Type: Progress Notes Filed: 07/17/2023 14:43 Note Text: Summary: Abstract Lorenza Rock Age 43 Male ([place], [place]) Perirectal Fistula Referral Self 43 y/o male here to follow up S/p EUA, removal of seton and fistulotomy on 05/21/23. Back Story: He began experiencing constipation in fall 12/2021 and noticed a perianal bump about 1-2 months later. Diagnosed with a perianal abscess that spontaneously burst and was debrided in 03/2022. Abscesses were drained in [place] in the OR. The abscess did not heal and he further followed up with Dr. Dubois in Colorectal Surgery. He had an EUA w/seton placement on 07/27/22 and subsequent EUA, drainage of abscess cavity, partial fistulotomy and seton placement on 09/07/22. He had a complex fistulotomy was performed on 10/19/22. He was seen in GI clinic with Dr. Man and recommended to complete Crohn's disease workup and follow up after. Further GI workup to r/o Crohn's disease was completed (see results below) and was negative. He reports that his continence has been affected 5-10% , he can hold soft stools but does not think he would be able to hold diarrhea. Sx Hx EUA, removal of seton and fistulotomy on 05/21/23 EUA, debridement of anal fistula tract and seton placement on 03/06/23 EUA, complex fistulotomy on 10/19/22 EUA, drainage of perirectal abscess, placement of seton on 09/07/22 EUA, placement of seton on 07/27/22 Diagnostics/Endoscopy Reviewed 02/05/23 MRI Perineum WWO FINDINGS: At the posterior aspect of the rectum 3 cm superior to the anal verge there is again demonstrated a fistulous tract from the approximately 6 o'clock location of the anus to the right gluteal fold, this is much less prominent than on the 07/20/2022 study, but this is visualized better than on the 01/18/2023 study, there is no visible abscess. Large and small bowel loops otherwise are unremarkable. Urinary bladder, prostate gland and seminal vesicles are unremarkable. The solid or cystic bone or soft tissue masses. No ascites. Vasculature is unremarkable. Study otherwise is unchanged and unremarkable. 01/18/23 MRE ABD/PEL WWO Impression No active inflammatory small bowel Crohn's disease. Penetrating disease: Absent Poorly visualized right perianal tract possibly corresponding to the known perianal fistula. No abscess. 01/17/23 Colonoscopy- Dr. Christa Dubois Findings: The perianal exam findings include external [...] found during retroflexion. The hemorrhoids were mild. FINAL DIAGNOSIS A. Terminal ileum, biopsy: - Small bowel mucosa with no diagnostic abnormality. B. Ascending colon, biopsy: - Colonic mucosa with no diagnostic abnormality. C. Transverse colon, biopsy: - Colonic mucosa with no diagnostic abnormality. D. Descending colon, biopsy: - Colonic mucosa with no diagnostic abnormality. E. Rectum, biopsy: - Colonic mucosa with no diagnostic abnormality. 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 [facility] 07-17-2023 History of Presen t illness Narrative Summary: Abstract Lorenzajuan Oliveirarenny Age 43 Male ([place], [place]) Perirectal Fistula Referral Self 43 y/o male here to follow up S/p EUA, removal of seton and fistulotomy on 05/21/23. Back Story: He began experiencing constipation in fall 12/2021 and noticed a perianal bump about 1-2 months later. Diagnosed with a perianal abscess that spontaneously burst and was debrided in 03/2022. Abscesses were drained in [place] in the OR. The abscess did not heal and he further followed up with Dr. Dubois in Colorectal Surgery. He had an EUA w/seton placement on 07/27/22 and subsequent EUA, drainage of abscess cavity, partial fistulotomy and seton placement on 09/07/22. He had a complex fistulotomy was performed on 10/19/22. He was seen in GI clinic with Dr. Man and recommended to complete Crohn's disease workup and follow up after. Further GI workup to r/o Crohn's disease was completed (see results below) and was negative. He reports that his continence has been affected 5-10% , he can hold soft stools but does not think he would be able to hold diarrhea. Sx Hx EUA, removal of seton and fistulotomy on 05/21/23 EUA, debridement of anal fistula tract and seton placement on 03/06/23 EUA, complex fistulotomy on 10/19/22 EUA, drainage of perirectal abscess, placement of seton on 09/07/22 EUA, placement of seton on 07/27/22 Diagnostics/Endoscopy Reviewed 02/05/23 MRI Perineum WWO FINDINGS: At the posterior aspect of the rectum 3 cm superior to the anal verge there is again demonstrated a fistulous tract from the approximately 6 o'clock location of the anus to the right gluteal fold, this is much less prominent than on the 07/20/2022 study, but this is visualized better than on the 01/18/2023 study, there is no visible abscess. Large and small bowel loops otherwise are unremarkable. Urinary bladder, prostate gland and seminal vesicles are unremarkable. The solid or cystic bone or soft tissue masses. No ascites. Vasculature is unremarkable. Study otherwise is unchanged and unremarkable. 01/18/23 MRE ABD/PEL WWO Impression No active inflammatory small bowel Crohn's disease. Penetrating disease: Absent Poorly visualized right perianal tract possibly corresponding to the known perianal fistula. No abscess. 01/17/23 Colonoscopy- Dr. Christa Dubois Findings: The perianal exam findings include external [...] found during retroflexion. The hemorrhoids were mild. FINAL DIAGNOSIS A. Terminal ileum, biopsy: - Small bowel mucosa with no diagnostic abnormality. B. Ascending colon, biopsy: - Colonic mucosa with no diagnostic abnormality. C. Transverse colon, biopsy: - Colonic mucosa with no diagnostic abnormality. D. Descending colon, biopsy: - Colonic mucosa with no diagnostic abnormality. E. Rectum, biopsy: - Colonic mucosa with no diagnostic abnormality. 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 documented in this encounter [facility] 07-04-2023 Miscellaneous Notes SPECIALTY CARE COORDINATION FOLLOW-UP NOTE Message sent to Admin to assist with letter needed in request for airline to refund cancelled drip. You can write him a letter for a refund. Just ask him specifically what he needs in the letter. He has a slow healing post-surgical wound. -Lorena Signature Lorena Ren RN July 04, 2023 Lorenza Rock asked to speak with the nurse. He had to cancel his trip to [place] because his wound is not completely healed. The airline is requesting a letter from the doctor so he can get reimbursed. [phone] documented in this encounter [facility] 06-17-2023 History of Presen t illness Narrative Images from the original note were not included. COLORECTAL SURGERY Post-Op Visit June 17, 2023 Lorenza Rock returns for a post-operative visit after undergoing Examination under anesthesia, removal of seton and fistulotomy, on 05/21/23. His post-operative period was uncomplicated. He is tolerating diet with an improving appetite, stable weight, and energy level is improving . He has no specific complaints. He has regular BM, once daily, no bleeding/rectum, occasional yellowish discharge, no incontinence. He shows concern about whitish granulation tissue growth at site of fistulotomy. Current pain medications: NA Current bowel related medications: NA Bowel movement frequency: 1/day Current Outpatient Medications Medication Sig Dispense Refill docusate sodium (COLACE) 100 mg capsule Take 1 capsule by mouth two times a day. 60 capsule 0 iv contrast (will be provided with radiology test) MRI Enterography Inject, intravenously, once for 1 dose. No IV access, insert saline lock prior to the beginning of sedation, infusion, injection of imaging exam. Discontinue saline lock post exam. If Pt. has a central line or IVAD, may access for administration according to line specific nursing protocol. Once exam is complete flush line and de-access according to line specific nursing protocol in the MR contrast administration guidelines link. 1 Each 0 enteric contrast (will be provided with radiology test) For MRI ENTEROGRAPHY WO/W Administer, As Directed One Time Only, via Oral, Rectal, both Oral and Rectal, Enteric Tube, Stoma or Indwelling Catheter, Enteric Contrast as designated per enteric contrast guidelines 1 Each 0 glucagon (GLUCAGEN) 1 mg/mL injection Inject 1 mg intravenously one time only for 1 dose. For MRI Enterography, Inject 1 mg intravenously, as directed. Slow push at the appropriate time during MRI Scan 1 Each 0 ibuprofen (MOTRIN) 200 mg tablet Take 1-2 tablets by mouth every 6 hours. acetaminophen (TYLENOL) 325 mg tablet Take 2 tablets by mouth every 6 hours. No current facility-administered medications for this visit. ALLERGIES No Known Allergies Ht 188 cm (6' 2 ) Wt 119.7 kg (264 lb) BMI 33.90 kg/m Abdominal examination: soft, non-distended, and non-tender without masses or hernias. Wound is granulating. Anorectal: fistulotomy site is healing with healthy granulation tissue and no signs of infection. 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 He is here for postop follow up visit, reporting regular BM, no incontinence. Fistulotomy site is granulating well with no signs of infection. Plan - can use sitz warm bath as needed. - reassured that fistulotomy growth site is healing well - f/u here as needed. Renetta Garner MD documented in this encounter [facility] 06-17-2023 Note HNO ID: [id number] Author: RENETTA GARNER MD Service: ? Author Type: Physician Type: Progress Notes Filed: 06/17/2023 22:27 Note Text: COLORECTAL SURGERY Post-Op Visit June 17, 2023 Lorenza Rock returns for a post-operative visit after undergoing Examination under anesthesia, removal of seton and fistulotomy, on 05/21/23. His post-operative period was uncomplicated. He is tolerating diet with an improving appetite, stable weight, and energy level is improving . He has no specific complaints. He has regular BM, once daily, no bleeding/rectum, occasional yellowish discharge, no incontinence. He shows concern about whitish granulation tissue growth at site of fistulotomy. Current pain medications: NA Current bowel related medications: NA Bowel movement frequency: 1/day Current Outpatient Medications Medication Sig Dispense Refill docusate sodium (COLACE) 100 mg capsule Take 1 capsule by mouth two times a day. 60 capsule 0 iv contrast (will be provided with radiology test) MRI Enterography Inject, intravenously, once for 1 dose. No IV access, insert saline lock prior to the beginning of sedation, infusion, injection of imaging exam. Discontinue saline lock post exam. If Pt. has a central line or IVAD, may access for administration according to line specific nursing protocol. Once exam is complete flush line and de-access according to line specific nursing protocol in the MR contrast administration guidelines link. 1 Each 0 enteric contrast (will be provided with radiology test) For MRI ENTEROGRAPHY WO/W Administer, As Directed One Time Only, via Oral, Rectal, both Oral and Rectal, Enteric Tube, Stoma or Indwelling Catheter, Enteric Contrast as designated per enteric contrast guidelines 1 Each 0 glucagon (GLUCAGEN) 1 mg/mL injection Inject 1 mg intravenously one time only for 1 dose. For MRI Enterography, Inject 1 mg intravenously, as directed. Slow push at the appropriate time during MRI Scan 1 Each 0 ibuprofen (MOTRIN) 200 mg tablet Take 1-2 tablets by mouth every 6 hours. acetaminophen (TYLENOL) 325 mg tablet Take 2 tablets by mouth every 6 hours. No current facility-administered medications for this visit. ALLERGIES No Known Allergies Ht 188 cm (6' 2 ) Wt 119.7 kg (264 lb) BMI 33.90 kg/m? Abdominal examination: soft, non-distended, and non-tender without masses or hernias. Wound is granulating. Anorectal: fistulotomy site is healing with healthy granulation tissue and no signs of infection. 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 He is here for postop follow up visit, reporting regular BM, no incontinence. Fistulotomy site is granulating well with no signs of infection. Plan - can use sitz warm bath as needed. - reassured that fistulotomy growth site is healing well - f/u here as needed. Renetta Garner MD [facility] 05-31-2023 Instructions Erik Powers APRN.[facility] - 05/31/2023 11:11 AM EST -sitz baths 2-3x/day in very warm water for ~15 min -shower daily and allow soap and water to run over the wound -keep dry gauze tucked between buttocks and change as needed -ok to use mana bottle filled with warm soapy water to clean anal area after BMs if needed -avoid sitting directly on the wound for more than 60 min -follow up with Dr. Garner as scheduled Marine Operations Coordinator: [phone] ask for contact lens curve grinder Colorectal surgery documented in this encounter [facility] 05-31-2023 History of Presen t illness Narrative Images from the original note were not included. COLORECTAL SURGERY Post-Op Visit Lorenza Rock returns for a post-operative visit after undergoing surgery, on 05/21/23. SURGEON: Renetta Garner M.D. SURGERY/PROCEDURE: Examination under anesthesia, removal of seton and fistulotomy. INDICATIONS: This is a 42-year-old male with a complicated history related to anal abscesses and fistulas. This started at the end of 2021, and he has required over 6 trips to operating rooms at different hospitals for treatment of his fistula. I performed an examination under anesthesia in February of this year, where a transsphincteric fistula was identified and a seton had been placed. He now presents to the operating room for definitive treatment. We discussed doing a fistulotomy versus advancement flap depending on the involvement of the sphincter muscle. Of note, he had excellent sphincter function. We discussed risks, benefits, and alternatives in detail including risks related to anesthesia, risks of bleeding, infection, recurrence, and sphincter injury. He understood all this well and desired to proceed. OPERATIVE FINDINGS: On examination under anesthesia, the seton was identified posteriorly, just right of the midline approximately a centimeter from the anal verge. The fistula tract was mostly involving scar tissue from prior and a small amount of internal sphincter muscle and about 2 mm of external sphincter muscle. Given the minimal amount of external sphincter muscle involved, the fistulotomy was performed. The external sphincter muscle at the distal aspect of the base of the wound was reapproximated. Patient messaged the office 05/30/23 to report increased wound drainage/bleeding (see photos from 05/30/23). Today he reports: -Patient monitored increased bloody drainage from wound and as the day progressed the amount of bloody drainage increased, which prompted him to go the ED in the evening on 05/30 -the wound had stopped bleeding/draining by the time he was assessed in the ED -wound care: no longer packing. Now keeping dry gauze tucked between buttocks to absorb drainage -Showering daily and doing frequent sitz baths daily -Denies f/c -bm frequency/consistency: once daily, soft -Bowel regimen: none -no pain regimen -denies change in activity that would have caused increased bleeding -wound is tender, feels like there is a foreign object inside his perianal area -Walking and sitting are very uncomfortable -He is avoiding sitting directly on the wound Path: none Current Outpatient Medications Medication Sig Dispense Refill docusate sodium (COLACE) 100 mg capsule Take 1 capsule by mouth two times a day. 60 capsule 0 iv contrast (will be provided with radiology test) MRI Enterography Inject, intravenously, once for 1 dose. No IV access, insert saline lock prior to the beginning of sedation, infusion, injection of imaging exam. Discontinue saline lock post exam. If Pt. has a central line or IVAD, may access for administration according to line specific nursing protocol. Once exam is complete flush line and de-access according to line specific nursing protocol in the MR contrast administration guidelines link. 1 Each 0 enteric contrast (will be provided with radiology test) For MRI ENTEROGRAPHY WO/W Administer, As Directed One Time Only, via Oral, Rectal, both Oral and Rectal, Enteric Tube, Stoma or Indwelling Catheter, Enteric Contrast as designated per enteric contrast guidelines 1 Each 0 glucagon (GLUCAGEN) 1 mg/mL injection Inject 1 mg intravenously one time only for 1 dose. For MRI Enterography, Inject 1 mg intravenously, as directed. Slow push at the appropriate time during MRI Scan 1 Each 0 ibuprofen (MOTRIN) 200 mg tablet Take 1-2 tablets by mouth every 6 hours. acetaminophen (TYLENOL) 325 mg tablet Take 2 tablets by mouth every 6 hours. No current facility-administered medications for this visit. ALLERGIES No Known Allergies There were no vitals taken for this visit. Abdominal examination: deferred Anorectal: perianal skin is mildly excoriated. Perianal wound right lateral to anal verge,nickel-sized, wound is granulating in with scant slough in the wound bed. Skin surrounding wound bed is blanchable and bleeds easily. +TTP. No concern for infection. See picture below for reference: Health Program Director present: Chikis Maharaj MA Assessment Assessment: Incision/wound: healing as expected BMs: normal Overall doing well from surgical standpoint Plan: -sitz baths 2-3x/day in very warm water for ~15 min -shower daily and allow soap and water to run over the wound -keep dry gauze tucked between buttocks and change as needed -ok to use mana bottle filled with warm soapy water to clean anal area after BMs if needed -avoid sitting directly on the wound for more than 60 min -follow up with Dr. Garner as scheduled Erik Powers APRN.CNP [facility] documented in this encounter [facility] 05-31-2023 Note HNO ID: [id number] Author: ERIK POWERS APRN.CNP Service: ? Author Type: Nurse Practitioner Type: Progress Notes Filed: 06/01/2023 22:39 Note Text: COLORECTAL SURGERY Post-Op Visit Lorenza Rock returns for a post-operative visit after undergoing surgery, on 05/21/23. SURGEON: Renetta Garner M.D. SURGERY/PROCEDURE: Examination under anesthesia, removal of seton and fistulotomy. INDICATIONS: This is a 42-year-old male with a complicated history related to anal abscesses and fistulas. This started at the end of 2021, and he has required over 6 trips to operating rooms at different hospitals for treatment of his fistula. I performed an examination under anesthesia in February of this year, where a transsphincteric fistula was identified and a seton had been placed. He now presents to the operating room for definitive treatment. We discussed doing a fistulotomy versus advancement flap depending on the involvement of the sphincter muscle. Of note, he had excellent sphincter function. We discussed risks, benefits, and alternatives in detail including risks related to anesthesia, risks of bleeding, infection, recurrence, and sphincter injury. He understood all this well and desired to proceed. OPERATIVE FINDINGS: On examination under anesthesia, the seton was identified posteriorly, just right of the midline approximately a centimeter from the anal verge. The fistula tract was mostly involving scar tissue from prior and a small amount of internal sphincter muscle and about 2 mm of external sphincter muscle. Given the minimal amount of external sphincter muscle involved, the fistulotomy was performed. The external sphincter muscle at the distal aspect of the base of the wound was reapproximated. Patient messaged the office 05/30/23 to report increased wound drainage/bleeding (see photos from 05/30/23). Today he reports: -Patient monitored increased bloody drainage from wound and as the day progressed the amount of bloody drainage increased, which prompted him to go the ED in the evening on 05/30 -the wound had stopped bleeding/draining by the time he was assessed in the ED -wound care: no longer packing. Now keeping dry gauze tucked between buttocks to absorb drainage -Showering daily and doing frequent sitz baths daily -Denies f/c -bm frequency/consistency: once daily, soft -Bowel regimen: none -no pain regimen -denies change in activity that would have caused increased bleeding -wound is tender, feels like there is a foreign object inside his perianal area -Walking and sitting are very uncomfortable -He is avoiding sitting directly on the wound Path: none Current Outpatient Medications Medication Sig Dispense Refill docusate sodium (COLACE) 100 mg capsule Take 1 capsule by mouth two times a day. 60 capsule 0 iv contrast (will be provided with radiology test) MRI Enterography Inject, intravenously, once for 1 dose. No IV access, insert saline lock prior to the beginning of sedation, infusion, injection of imaging exam. Discontinue saline lock post exam. If Pt. has a central line or IVAD, may access for administration according to line specific nursing protocol. Once exam is complete flush line and de-access according to line specific nursing protocol in the MR contrast administration guidelines link. 1 Each 0 enteric contrast (will be provided with radiology test) For MRI ENTEROGRAPHY WO/W Administer, As Directed One Time Only, via Oral, Rectal, both Oral and Rectal, Enteric Tube, Stoma or Indwelling Catheter, Enteric Contrast as designated per enteric contrast guidelines 1 Each 0 glucagon (GLUCAGEN) 1 mg/mL injection Inject 1 mg intravenously one time only for 1 dose. For MRI Enterography, Inject 1 mg intravenously, as directed. Slow push at the appropriate time during MRI Scan 1 Each 0 ibuprofen (MOTRIN) 200 mg tablet Take 1-2 tablets by mouth every 6 hours. acetaminophen (TYLENOL) 325 mg tablet Take 2 tablets by mouth every 6 hours. No current facility-administered medications for this visit. ALLERGIES No Known Allergies There were no vitals taken for this visit. Abdominal examination: deferred Anorectal: perianal skin is mildly excoriated. Perianal wound right lateral to anal verge,nickel-sized, wound is granulating in with scant slough in the wound bed. Skin surrounding wound bed is blanchable and bleeds easily. +TTP. No concern for infection. See picture below for reference: Health Program Director present: Chikis Maharaj MA Assessment Assessment: Incision/wound: healing as expected BMs: normal Overall doing well from surgical standpoint Plan: -sitz baths 2-3x/day in very warm water for ~15 min -shower daily and allow soap and water to run over the wound -keep dry gauze tucked between buttocks and change as needed -ok to use mana bottle filled with warm soapy water to clean anal area after BMs if needed -avoid sitting directly on the w (more content not included)... [facility] 05-21-2023 Note HNO ID: [id number] Author: NATE GABRIEL APRN.PESTICIDE APPLICATOR Service: ? Author Type: Nurse Sales And Management Trainee Type: Anesthesia Procedure Notes Filed: 05/21/2023 10:27 Note Text: ANESTHESIOLOGY PROCEDURE NOTE Airway General Information Procedure Start Time/Medication Administration: 05/21/2023 10:18 AM Patient location during procedure: OR Patient identity confirmed: arm band, care team leader surgery and patient Staffing PESTICIDE APPLICATOR: Nate Gabriel APRN.PESTICIDE APPLICATOR Performed by: PESTICIDE APPLICATOR Indications and Patient Condition Indications for airway management: anesthesia Preoxygenated: yes anesthesia circuit Patient position: sniffing Method: asleep Final Airway Details Final airway type: supraglottic airway Number of attempts at approach: 1 Final Supraglottic Airway: i-gel Size 5 Seal Adequate: yes Airway not difficult SIGNATURE: Nate Gabriel APRN.PESTICIDE APPLICATOR PATIENT NAME: Lorenza Rock DATE: May 21, 2023 TIME: 10:26 AM CSN: [id number] [facility] 04-22-2023 Note HNO ID: [id number] Author: LORENA REN RN Service: ? Author Type: Registered Nurse Type: Progress Notes Filed: 04/22/2023 12:15 Note Text: Summary: Nurse Education COLON AND RECTAL SURGERY Nursing Education Visit Lorenza Rock 1980 Surgeon: Renetta Garner Reason for Education: [x] Prep for Surgery [x] Wound care [x] Activity [x] Bowel habits and medications [x] Additional questions about surgery [x] Nutrition / Diet [] Stoma care / function [x] Other Present for Education: Patient and Significant other Surgery: Exam under anesthesia of anus, possible fistulotomy, any other necessary procedure (advancement flap or LIFT). Patient's overall appearance: GENERAL APPEARANCE: healthy, alert, no distress, cooperative, smiling The following details surrounding surgery were discussed: Preoperative prep: Mechanical Length of hospital stay: OP Anticipated diet at time of discharge from the hospital: Regular Anticipated activity restrictions at time of discharge from the hospital: Lifting is restricted to 20-25 lbs for 1-2 weeks. May bathe and shower. No walking restrictions. No driving while taking narcotics. May use stairs. May resume sexual activity. No work for 1-2 weeks. Advised to exercise regularly Specific questions and topics discussed with the patient: Bowel pre- 2 fleet saline laxative rectal enemas to administer 1 hour prior to arrival time (if he is unable to complete, he is to alert the pre-op nursing team upon arrival) Activity limited for 1-2 weeks, gradually increase activity as tolerated Daily hygiene care Pain control will be discussed prior to discharge Follow up 1-2 weeks after with SECURITY PROGRAM MANAGER. Prior to surgery, the following consults have been requested: [facility] Nurse Pre-op and Pre-op Clinic Prior to surgery, the following lab tests have been ordered: BMP, CBC, Type AND Screen Additional counseling AND materials provided: Patient given verbal and written preop instructions and voices comprehension and compliance. [x]Pre-op handout [x]Bowel prep instructions [x]Diet education handout [x]Surgical approach information [x]Surgeon specific instructions [x]Facility directions / map oLrena Ren RN Time spent on patient education: 15 minutes [facility] 04-22-2023 Note HNO ID: [id number] Author: RENETTA GARNER MD Service: ? Author Type: Physician Type: Progress Notes Filed: 04/27/2023 07:17 Note Text: COLORECTAL SURGERY Follow-up April 22, 2023 Chief complaint: Perirectal Abscess HPI: Lorenza is a 42 y/o male here to follow up S/p EUA, debridement of anal fistula tract and seton placement on 03/06/23. Back Story: He began experiencing constipation in fall 12/2021 and noticed a perianal bump about 1-2 months later. Diagnosed with a perianal abscess that spontaneously burst and was debrided in 03/2022. Abscesses were drained in [facility] in the OR. The abscess did not heal and he further followed up with Dr. Dubois in Colorectal Surgery. He had an EUA w/seton placement on 07/27/22 and subsequent EUA, drainage of abscess cavity, partial fistulotomy and seton placement on 09/07/22. He had a complex fistulotomy was performed on 10/19/22. He was seen in GI clinic with Dr. Man and recommended to complete Crohn's disease workup and follow up after. Further GI workup to r/o Crohn's disease was completed (see results below) and was negative. Currently: - Seton in place - No perianal pain. - Has occasional discharge - pus/mucus - wears a pad - Passes single soft bowel motion daily. No incontinence to stool or flatus. - No perianal bleeding - Non-smoker. Nil other drugs. Does not vape Diagnostics/Endoscopy Reviewed 02/05/23 MRI Perineum WWO FINDINGS: At the posterior aspect of the rectum 3 cm superior to the anal verge there is again demonstrated a fistulous tract from the approximately 6 o'clock location of the anus to the right gluteal fold, this is much less prominent than on the 07/20/2022 study, but this is visualized better than on the 01/18/2023 study, there is no visible abscess. Large and small bowel loops otherwise are unremarkable. Urinary bladder, prostate gland and seminal vesicles are unremarkable. The solid or cystic bone or soft tissue masses. No ascites. Vasculature is unremarkable. Study otherwise is unchanged and unremarkable. 01/18/23 MRE ABD/PEL WWO Impression No active inflammatory small bowel Crohn's disease. Penetrating disease: Absent Poorly visualized right perianal tract possibly corresponding to the known perianal fistula. No abscess. 01/17/23 Colonoscopy- Dr. Christa Dubois Findings: The perianal exam findings include external [...] found during retroflexion. The hemorrhoids were mild. FINAL DIAGNOSIS A. Terminal ileum, biopsy: - Small bowel mucosa with no diagnostic abnormality. B. Ascending colon, biopsy: - Colonic mucosa with no diagnostic abnormality. C. Transverse colon, biopsy: - Colonic mucosa with no diagnostic abnormality. D. Descending colon, biopsy: - Colonic mucosa with no diagnostic abnormality. E. Rectum, biopsy: - Colonic mucosa with no diagnostic abnormality. 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 Physical Exam: Ht 188 cm (6' 2 ) Wt 119.7 kg (264 lb) BMI 33.90 kg/m? General - awake, alert, no acute distress HS dual Chest clear to auscultation Abdominal - soft and non tender Anorectal: Perianal skin is intact. No erythema, induration or excoriation. Seton in place. Appears as superficial/intersphincteric fistula with external opening close to anal verge but internal opening near dentate. 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 No incontinence. Data Reviewed: Tests AND Documents Reviewed/ordered: Review of prior notes from previous encounters, all within [facility] Review of prior operative reports Review of Pathology Review of Imaging: MRI Abdomen, MRI Pelvis, MRI Perineum Review of Labs: most recent in [facility] Review of Procedures / Tests: Colonoscopy, Flexible [facility] I have independently interpreted: MRI Abdomen, MRI Pelvis, MRI Perineum I have discussed Lorenza Rock's treatment plan and/or results with patient and his . Treatment plan: Explained will do EUA and likely fistulotomy. Risk of surgery explained including incontinence detailed. Consent obtained. Patient has trip booked to [place] end of june and ideally would like to have his surgery end of April/early may so the wound is mostly healed prior to his trip. Discussed that with repeat fistulotomy he is at somewhat increased risk for incontinence. (more content not included)... [facility] 04-22-2023 Note Education (ALBINO) LORENZA ROCK ([id number]) 1980 M Date Time Provider Department 04/22/23 RENETTA GARNER Reason for Visit: Patient Education [91] During your visit today, we recorded the following information about you: Allergies As of Date: 04/22/2023 (No Known Allergies) Date Reviewed: 04/22/2023 Reviewed by: Cynthia Juan LPN - Fully Assessed Prescriptions as of 04/22/2023 - oxyCODONE IR (ROXICODONE) 5 mg immediate release tablet Take 1 tablet by mouth every 8 hours as needed for pain. - iv contrast (will be provided with radiology test) MRI Enterography Inject, intravenously, once for 1 dose. No IV access, insert saline lock prior to the beginning of sedation, infusion, injection of imaging exam. Discontinue saline lock post exam. If Pt. has a central line or IVAD, may access for administration according to line specific nursing protocol. Once exam is complete flush line and de-access according to line specific nursing protocol in the MR contrast administration guidelines link. - enteric contrast (will be provided with radiology test) For MRI ENTEROGRAPHY WO/W Administer, As Directed One Time Only, via Oral, Rectal, both Oral and Rectal, Enteric Tube, Stoma or Indwelling Catheter,? Enteric Contrast as designated per enteric contrast guidelines - glucagon (GLUCAGEN) 1 mg/mL injection Inject 1 mg intravenously one time only for 1 dose. For MRI Enterography, Inject 1 mg intravenously, as directed. Slow push at the appropriate time during MRI Scan - ibuprofen (MOTRIN) 200 mg tablet Take 1-2 tablets by mouth every 6 hours. - acetaminophen (TYLENOL) 325 mg tablet Take 2 tablets by mouth every 6 hours. Encounter Status:Closed by LORENA REN on 04/22/23 [facility] 04-21-2023 Note HNO ID: [id number] Author: LORENA REN, RN Service: ? Author Type: Registered Nurse Type: Progress Notes Filed: 04/21/2023 15:45 Note Text: Summary: Abstract Lorenza Rock Age 42 Male ([place], [place]) Perirectal Fistula Referral Self 42 y/o male here to follow up S/p EUA, debridement of anal fistula tract and seton placement on 03/06/23. Back Story: He began experiencing constipation in fall 12/2021 and noticed a perianal bump about 1-2 months later. Diagnosed with a perianal abscess that spontaneously burst and was debrided in 03/2022. Abscesses were drained in [facility] in the OR. The abscess did not heal and he further followed up with Dr. Dubois in Colorectal Surgery. He had an EUA w/seton placement on 07/27/22 and subsequent EUA, drainage of abscess cavity, partial fistulotomy and seton placement on 09/07/22. He had a complex fistulotomy was performed on 10/19/22. He was seen in GI clinic with Dr. Man and recommended to complete Crohn's disease workup and follow up after. Further GI workup to r/o Crohn's disease was completed (see results below) and was negative. He reports that his continence has been affected 5-10% , he can hold soft stools but does not think he would be able to hold diarrhea. Diagnostics/Endoscopy Reviewed 02/05/23 MRI Perineum WWO FINDINGS: At the posterior aspect of the rectum 3 cm superior to the anal verge there is again demonstrated a fistulous tract from the approximately 6 o'clock location of the anus to the right gluteal fold, this is much less prominent than on the 07/20/2022 study, but this is visualized better than on the 01/18/2023 study, there is no visible abscess. Large and small bowel loops otherwise are unremarkable. Urinary bladder, prostate gland and seminal vesicles are unremarkable. The solid or cystic bone or soft tissue masses. No ascites. Vasculature is unremarkable. Study otherwise is unchanged and unremarkable. 01/18/23 MRE ABD/PEL WWO Impression No active inflammatory small bowel Crohn's disease. Penetrating disease: Absent Poorly visualized right perianal tract possibly corresponding to the known perianal fistula. No abscess. 01/17/23 Colonoscopy- Dr. Christa Dubois Findings: The perianal exam findings include external [...] found during retroflexion. The hemorrhoids were mild. FINAL DIAGNOSIS A. Terminal ileum, biopsy: - Small bowel mucosa with no diagnostic abnormality. B. Ascending colon, biopsy: - Colonic mucosa with no diagnostic abnormality. C. Transverse colon, biopsy: - Colonic mucosa with no diagnostic abnormality. D. Descending colon, biopsy: - Colonic mucosa with no diagnostic abnormality. E. Rectum, biopsy: - Colonic mucosa with no diagnostic abnormality. 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 [facility] 03-06-2023 Note HNO ID: [id number] Author: Fang Sweeney APRN.PESTICIDE APPLICATOR Service: ? Author Type: Nurse Sales And Management Trainee Type: Anesthesia Procedure Notes Filed: 03/06/2023 11:20 AM Note Text: ANESTHESIOLOGY PROCEDURE NOTE Airway General Information Procedure Start Time/Medication Administration: 03/06/2023 11:20 AM Patient location during procedure: OR Timeout Performed Pre-procedure: timeout performed Consent Obtained: Yes Patient identity confirmed: arm band and patient Staffing PESTICIDE APPLICATOR: Fang Sweeney APRN.PESTICIDE APPLICATOR Performed by: NILAY Indications and Patient Condition Indications for airway management: anesthesia Preoxygenated: yes anesthesia circuit Method: sleep Difficult Mask: No Final Airway Details Final airway type: supraglottic airway Number of attempts at approach: 1 Final Supraglottic Airway: i-gel Size 5 Seal Adequate: yes Airway not difficult SIGNATURE: Fang Sweeney APRN.PESTICIDE APPLICATOR PATIENT NAME: Lorenza Rock DATE: March 06, 2023 TIME: 11:20 AM CSN: [id number] [facility] 02-28-2023 Miscellaneous Notes Lorenza Rock called again to schedule procedure. [phone] documented in this encounter [facility] 02-27-2023 Miscellaneous Notes Lorenza Rock returned call to Lorena. [phone] documented in this encounter [facility] 02-27-2023 Miscellaneous Notes SPECIALTY CARE COORDINATION FOLLOW-UP NOTE Follow up call to Lorenza. No answer, voicemail left recommending call back to the office, contact information provided. As discussed during virtual visit, plan for EUA with Dr. Garner. Signature Lorena Ren RN February 27, 2023 documented in this encounter [facility] 02-25-2023 History of Presen t illness Narrative COLORECTAL SURGERY VIRTUAL VISIT FOLLOW UP I have communicated my name and active licensure. The patient's identity and physical location were verified at the time of this visit. Either the patient or their legal sales representative door to door has been informed of the risks and benefits of -- and alternatives to -- treatment through a remote evaluation and consents to proceed with the evaluation remotely. I had a virtual visit with Mr. Rock today for follow up of MRI imaging. UPDATED HISTORY: Lorenza Rock is a 42 year old male here to discuss surgical treatment planning after recent MRI imaging. He feels about the same. Still has tiny opening by anus, drains a little bit. 02/05/23 MRI Perineum WWO FINDINGS: At the posterior aspect of the rectum 3 cm superior to the anal verge there is again demonstrated a fistulous tract from the approximately 6 o'clock location of the anus to the right gluteal fold, this is much less prominent than on the 07/20/2022 study, but this is visualized better than on the 01/18/2023 study, there is no visible abscess. Large and small bowel loops otherwise are unremarkable. Urinary bladder, prostate gland and seminal vesicles are unremarkable. The solid or cystic bone or soft tissue masses. No ascites. Vasculature is unremarkable. Study otherwise is unchanged and unremarkable. Impression The right perianal fissure extending to the right gluteal fold is less prominent than on 07/20/2022 exam, it is better visualized than on the 01/18/2023 study but this likely relates to differences in technique. Recommend considering consult with Interventional Radiology to evaluate for possible closure of the fistula. Discussed MRI with Dr. Telles: Fistula tract appears smaller and more fibrotic than on initial MRI c/w treatment. It appears to be an intersphincteric fistula at this point with small amount of internal sphincter involvement. Back Story: He began experiencing constipation in fall 12/2021 and noticed a perianal bump about 1-2 months later. Diagnosed with a perianal abscess that spontaneously burst and was debrided in 03/2022. Abscesses were drained in [place] in the OR. The abscess did not heal and he further followed up with Dr. Dubois in Colorectal Surgery. He had an EUA w/seton placement on 07/27/22 and subsequent EUA, drainage of abscess cavity, partial fistulotomy and seton placement on 09/07/22. He had a complex fistulotomy was performed on 10/19/22. He was seen in GI clinic with Dr. Man and recommended to complete Crohn's disease workup and follow up after. Further GI workup to r/o Crohn's disease was completed (see results below) and was negative. He reports that his continence has been affected 5-10% , he can hold soft stools but does not think he would be able to hold diarrhea. Previous Encounters 02/04/23 Office Visit w/Dr. Garner Assessment & Diagnosis: Lorenza Rock is a 42 year old male with a history of complex perianal fistula presents with persistent drainage and pain and small external opening seen on exam. Good sphincter tone with palpable scar/defect from prior fistulotomy. No episodes of incontinence. Having symptoms related to ongoing mild drainage and discomfort when sitting for prolonged periods. Treatment plan: Discussed that complex anal fistulas can be difficult to heal and recurrence/persistence is not uncommon and often necessitate multiple staged procedures to completely heal. - We discussed that the most recent MRI was an MRE to rule out small bowel inflammatory disease and is not optimized for assessment of complex anal fistula. - Will order an MRI of the perineum to better assess post surgical anatomy. The presence of an external opening with drainage raises the suspicion of a persistent fistula versus a sinus tract. - Will reconvene after the MRI. Will likely need an EUA. We discussed that he may either need another fistulotomy/sinusotomy versus a seton depending on sphincter involvement. - He can continue following with my partner, Dr. Dubois at [place], but also happy to see him here at . Diagnostics/Endoscopy Reviewed 01/18/23 MRE ABD/PEL WWO Impression No active inflammatory small bowel Crohn's disease. Penetrating disease: Absent Poorly visualized right perianal tract possibly corresponding to the known perianal fistula. No abscess. 01/17/23 Colonoscopy- Dr. Christa Dubois Findings: The perianal exam findings include external [...] found during retroflexion. The hemorrhoids were mild. FINAL DIAGNOSIS A. Terminal ileum, biopsy: - Small bowel mucosa with no diagnostic abnormality. B. Ascending colon, biopsy: - Colonic mucosa with no diagnostic abnormality. C. Transverse colon, biopsy: - Colonic mucosa with no diagnostic abnormality. D. Descending colon, biopsy: - Colonic mucosa with no diagnostic abnormality. E. Rectum, biopsy: - Colonic mucosa with no diagnostic abnormality. 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 Medical Decision Making: Assessment Assessment & Diagnosis: Lorenza Rock is a 42 year old male with recurrent perianal fistula s/p staged fistulotomy 10/19/2022. Presents with persistent drainage and pain and small external opening seen on exam. Good sphincter tone with palpable scar/defect from prior fistulotomy. No episodes of incontinence. Having symptoms related to ongoing mild drainage and discomfort when sitting for prolonged periods. Reviewed MRI with radiology: Fistula tract appears smaller and more fibrotic than on initial MRI from July/w treatment. It appears to be an intersphincteric fistula at this point with small amount of internal sphincter involvement. Data Reviewed: Tests & Documents Reviewed/ordered: Review of prior notes from previous encounters, most recent in [facility] Review of prior operative reports Review of Pathology Review of Imaging: MRI Pelvis, MRI Perineum Review of Labs: most recent in [facility] Review of Procedures / Tests: [facility], [facility] I have independently interpreted: MRI Pelvis, MRI Perineum I have discussed Lorenza Rock's treatment plan and/or results with Dr. Telles. Treatment plan: Discussed with patient that next step would be EUA and further treatment based on findings: - if has small recurrent fistula with only minimal internal sphincter involved, would likely do repeat fistulotomy with relatively low risk for developing any incontinence. - if has more significant sphincter muscle involvement will opt for seton placement. - if only sinus tract present will perform debridement and likely packing of wound at home Discussed all this with the patient and he would like to have his next EUA done here at [facility]. Will send e-consent for procedure and we will call him back to schedule. Risk of morbidity and/or complications of treatment plan: moderate documented in this encounter [facility] 02-25-2023 Note HNO ID: [id number] Author: Renetta Garner MD Service: ? Author Type: Physician Type: Progress Notes Filed: 02/27/2023 11:00 AM Note Text: COLORECTAL SURGERY VIRTUAL VISIT FOLLOW UP I have communicated my name and active licensure. The patient's identity and physical location were verified at the time of this visit. Either the patient or their legal sales representative door to door has been informed of the risks and benefits of -- and alternatives to -- treatment through a remote evaluation and consents to proceed with the evaluation remotely. I had a virtual visit with Mr. Rock today for follow up of MRI imaging. UPDATED HISTORY: Lorenza Rock is a 42 year old male here to discuss surgical treatment planning after recent MRI imaging. He feels about the same. Still has tiny opening by anus, drains a little bit. 02/05/23 MRI Perineum WWO FINDINGS: At the posterior aspect of the rectum 3 cm superior to the anal verge there is again demonstrated a fistulous tract from the approximately 6 o'clock location of the anus to the right gluteal fold, this is much less prominent than on the 07/20/2022 study, but this is visualized better than on the 01/18/2023 study, there is no visible abscess. Large and small bowel loops otherwise are unremarkable. Urinary bladder, prostate gland and seminal vesicles are unremarkable. The solid or cystic bone or soft tissue masses. No ascites. Vasculature is unremarkable. Study otherwise is unchanged and unremarkable. Impression The right perianal fissure extending to the right gluteal fold is less prominent than on 07/20/2022 exam, it is better visualized than on the 01/18/2023 study but this likely relates to differences in technique. Recommend considering consult with Interventional Radiology to evaluate for possible closure of the fistula. Discussed MRI with Dr. Telles: Fistula tract appears smaller and more fibrotic than on initial MRI c/w treatment. It appears to be an intersphincteric fistula at this point with small amount of internal sphincter involvement. Back Story: He began experiencing constipation in fall 12/2021 and noticed a perianal bump about 1-2 months later. Diagnosed with a perianal abscess that spontaneously burst and was debrided in 03/2022. Abscesses were drained in [place] in the OR. The abscess did not heal and he further followed up with Dr. Dubois in Colorectal Surgery. He had an EUA w/seton placement on 07/27/22 and subsequent EUA, drainage of abscess cavity, partial fistulotomy and seton placement on 09/07/22. He had a complex fistulotomy was performed on 10/19/22. He was seen in GI clinic with Dr. Man and recommended to complete Crohn's disease workup and follow up after. Further GI workup to r/o Crohn's disease was completed (see results below) and was negative. He reports that his continence has been affected 5-10% , he can hold soft stools but does not think he would be able to hold diarrhea. Previous Encounters 02/04/23 Office Visit w/Dr. Garner Assessment AND Diagnosis: Lorenza Rock is a 42 year old male with a history of complex perianal fistula presents with persistent drainage and pain and small external opening seen on exam. Good sphincter tone with palpable scar/defect from prior fistulotomy. No episodes of incontinence. Having symptoms related to ongoing mild drainage and discomfort when sitting for prolonged periods. Treatment plan: Discussed that complex anal fistulas can be difficult to heal and recurrence/persistence is not uncommon and often necessitate multiple staged procedures to completely heal. - We discussed that the most recent MRI was an MRE to rule out small bowel inflammatory disease and is not optimized for assessment of complex anal fistula. - Will order an MRI of the perineum to better assess post surgical anatomy. The presence of an external opening with drainage raises the suspicion of a persistent fistula versus a sinus tract. - Will reconvene after the MRI. Will likely need an EUA. We discussed that he may either need another fistulotomy/sinusotomy versus a seton depending on sphincter involvement. - He can continue following with my partner, Dr. Dubois at [place], but also happy to see him here at . Diagnostics/Endoscopy Reviewed 01/18/23 MRE ABD/PEL WWO Impression No active inflammatory small bowel Crohn's disease. Penetrating disease: Absent Poorly visualized right perianal tract possibly corresponding to the known perianal fistula. No abscess. 01/17/23 Colonoscopy- Dr. Christa Dubois Findings: The perianal exam findings include external opening right posterior 2 cm from the anal verge without fluctuance. The exam was otherwise without abnormality on direct and retroflexion views. Random biopsies were taken with [employer] forceps in the TI, ascending colon, transvese colon, descending colon and rectum. EBL was minimal. No internal fistula opening visuali (more content not included)... [facility] 02-22-2023 Note HNO ID: [id number] Author: Lorena Ren RN Service: ? Author Type: Registered Nurse Type: Progress Notes Filed: 02/22/2023 1:13 PM Note Text: Lorenza Rock Age 42 Male ([place], [place]) Perirectal Fistula, second opinion Referral Self 42 y/o male here to discuss surgical treatment planning after recent MRI imaging. 02/05/23 MRI Perineum WWO FINDINGS: At the posterior aspect of the rectum 3 cm superior to the anal verge there is again demonstrated a fistulous tract from the approximately 6 o'clock location of the anus to the right gluteal fold, this is much less prominent than on the 07/20/2022 study, but this is visualized better than on the 01/18/2023 study, there is no visible abscess. Large and small bowel loops otherwise are unremarkable. Urinary bladder, prostate gland and seminal vesicles are unremarkable. The solid or cystic bone or soft tissue masses. No ascites. Vasculature is unremarkable. Study otherwise is unchanged and unremarkable. Impression The right perianal fissure extending to the right gluteal fold is less prominent than on 07/20/2022 exam, it is better visualized than on the 01/18/2023 study but this likely relates to differences in technique. Recommend considering consult with Interventional Radiology to evaluate for possible closure of the fistula. Back Story: He began experiencing constipation in 12/2021 and noticed a perianal bump about 1-2 months later. Diagnosed with a perianal abscess that spontaneously burst and was debrided in 03/2022. Abscesses were drained in [place] in the OR. The abscess did not heal and he further followed up with Dr. Dubois in Colorectal Surgery. He had an EUA w/seton placement on 07/27/22 and subsequent EUA, drainage of abscess cavity, partial fistulotomy and seton placement on 09/07/22. He had a complex fistulotomy was performed on 10/19/22. He was seen in GI clinic with Dr. Man and recommended to complete Crohn's disease workup and follow up after. Further GI workup to r/o Crohn's disease was completed (see results below) and was negative. He reports that his continence has been affected 5-10% , he can hold soft stools but does not think he would be able to hold diarrhea. Previous Encounters 02/04/23 Office Visit w/Dr. Garner Assessment AND Diagnosis: Lorenza Rock is a 42 year old male with a history of complex perianal fistula presents with persistent drainage and pain and small external opening seen on exam. Good sphincter tone with palpable scar/defect from prior fistulotomy. No episodes of incontinence. Having symptoms related to ongoing mild drainage and discomfort when sitting for prolonged periods. Treatment plan: Discussed that complex anal fistulas can be difficult to heal and recurrence/persistence is not uncommon and often necessitate multiple staged procedures to completely heal. - We discussed that the most recent MRI was an MRE to rule out small bowel inflammatory disease and is not optimized for assessment of complex anal fistula. - Will order an MRI of the perineum to better assess post surgical anatomy. The presence of an external opening with drainage raises the suspicion of a persistent fistula versus a sinus tract. - Will reconvene after the MRI. Will likely need an EUA. We discussed that he may either need another fistulotomy/sinusotomy versus a seton depending on sphincter involvement. - He can continue following with my partner, Dr. Dubois at [place], but also happy to see him here at . Diagnostics/Endoscopy Reviewed 01/18/23 MRE ABD/PEL WWO Impression No active inflammatory small bowel Crohn's disease. Penetrating disease: Absent Poorly visualized right perianal tract possibly corresponding to the known perianal fistula. No abscess. 01/17/23 Colonoscopy- Dr. Christa Dubois Findings: The perianal exam findings include external [...] found during retroflexion. The hemorrhoids were mild. FINAL DIAGNOSIS A. Terminal ileum, biopsy: - Small bowel mucosa with no diagnostic abnormality. B. Ascending colon, biopsy: - Colonic mucosa with no diagnostic abnormality. C. Transverse colon, biopsy: - Colonic mucosa with no diagnostic abnormality. D. Descending colon, biopsy: - Colonic mucosa with no diagnostic abnormality. E. Rectum, biopsy: - Colonic mucosa with no diagnostic abnormality. 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 [facility] 02-19-2023 History of Presen t illness Narrative COLORECTAL SURGERY February 19, 2023 Lorenza Rock Chief Complaint: follow up/ anal fistula History of Present Illness: Lorenza Rock is a 42 year old male presents to the office for a follow up evaluation after undergoing a rectal exam under anesthesia with complex fistulotomy on 10/19/2022. Last seen in the office on 11/27/22. Prior A/P: Lorenza Rock is a 42 year old male with complex, atypical anal fistula s/p staged fistulotomy w/ sinus tract posterior midline appreciated on most recent EUA concerning for perianal Crohn's disease. Wound defer any testing until 8 weeks from surgery as he is otherwise asymptomatic and healing well They are very anxious about next steps if this does not heal and desire to proceed with Crohn's workup. Colonoscopy Labs MR enterography GI consultation - he will defer scheduling until next month Still with persistent drainage from external opening as before. Denies swelling, pain, erythema. Moving his bowels no issue. No FI. Saw Dr. Garner for second opinion regarding management who recommended MR perineum and likely EUA Assessment and plan of Dr Clifford Man on 01/07/23: 1) Complex transsphincteric anal fistula 2) Hx of perianal abscess Luminal and small bowel Crohn's disease should be ruled out in light of his difficult to treat perianal disease. He has no other concerning GI symptoms. No prior colonoscopy. No known FHx of IBD or colon cancer. If his objective testing is suggestive of Crohn's disease, an anti-TNF agent will be advised to manage his fistulizing disease. --Fecal calprotectin --Labs (CBC, CMP, CRP) --Diagnostic colonoscopy scheduled with Dr. Dubois early next month. Recommend segmental biopsies to rule out histologic features of Crohn's disease. --MRE scheduled early next month Follow up in 2 months Colonoscopy on 01/17/23: - External opening right posterior 2 cm from the anal verge without fluctuance found on perianal exam. - Non-bleeding internal hemorrhoids. - The examination was otherwise normal on direct and retroflexion views. No internal fistula opening visualized. - Random biopsies of the TI, ascending, transvese, descending colon and rectum for histoloy. Pathology: A. Terminal ileum, biopsy: - Small bowel mucosa with no diagnostic abnormality. B. Ascending colon, biopsy: - Colonic mucosa with no diagnostic abnormality. C. Transverse colon, biopsy: - Colonic mucosa with no diagnostic abnormality. D. Descending colon, biopsy: - Colonic mucosa with no diagnostic abnormality. E. Rectum, biopsy: - Colonic mucosa with no diagnostic abnormality MRI Enterography on 01/18/23: No active inflammatory small bowel Crohn's disease. Penetrating disease: Absent Poorly visualized right perianal tract possibly corresponding to the known perianal fistula. No abscess. MR perineum 02/2023: The right perianal fissure extending to the right gluteal fold is less prominent than on 07/20/2022 exam, it is better visualized than on the 01/18/2023 study but this likely relates to differences in technique. Recommend considering consult with Interventional Radiology to evaluate for possible closure of the fistula. FINDINGS: At the posterior aspect of the rectum 3 cm superior to the anal verge there is again demonstrated a fistulous tract from the approximately 6 o'clock location of the anus to the right gluteal fold, this is much less prominent than on the 07/20/2022 study, but this is visualized better than on the 01/18/2023 study, there is no visible abscess. Large and small bowel loops otherwise are unremarkable. Urinary bladder, prostate gland and seminal vesicles are unremarkable. The solid or cystic bone or soft tissue masses. No ascites. Vasculature is unremarkable. Study otherwise is unchanged and unremarkable. PAST MEDICAL HISTORY Diagnosis Date Fistula 07/2022 PAST SURGICAL HISTORY Procedure Laterality Date FISTULOTOMY SUBCUT 10/2022 PAST SURGICAL HISTORY OF rectal abscess drained x 2 PAST SURGICAL HISTORY OF [place] teeth removal PAST SURGICAL HISTORY OF 08/2022 anal procedure Current Outpatient Medications Medication Sig Dispense Refill ibuprofen (MOTRIN) 200 mg tablet Take 1-2 tablets by mouth every 6 hours. acetaminophen (TYLENOL) 325 mg tablet Take 2 tablets by mouth every 6 hours. iv contrast (will be provided with radiology test) MRI Enterography Inject, intravenously, once for 1 dose. No IV access, insert saline lock prior to the beginning of sedation, infusion, injection of imaging exam. Discontinue saline lock post exam. If Pt. has a central line or IVAD, may access for administration according to line specific nursing protocol. Once exam is complete flush line and de-access according to line specific nursing protocol in the MR contrast administration guidelines link. 1 Each 0 enteric contrast (will be provided with radiology test) For MRI ENTEROGRAPHY WO/W Administer, As Directed One Time Only, via Oral, Rectal, both Oral and Rectal, Enteric Tube, Stoma or Indwelling Catheter, Enteric Contrast as designated per enteric contrast guidelines 1 Each 0 glucagon (GLUCAGEN) 1 mg/mL injection Inject 1 mg intravenously one time only for 1 dose. For MRI Enterography, Inject 1 mg intravenously, as directed. Slow push at the appropriate time during MRI Scan 1 Each 0 No current facility-administered medications for this visit. ALLERGIES No Known Allergies FAMILY HISTORY Problem Relation Age of Onset No Known Problems Mother No Known Problems Father Clotting Disorder No Family History Anesthesia Problems No Family History Malig Hyperthermia No Family History Social History Tobacco Use Smoking status: Never Smokeless tobacco: Never Vaping Use Vaping Use: Never used Substance Use Topics Alcohol use: Not Currently Drug use: Not Currently Physical Exam: BP 147/82 (BP Site: Right Arm, BP Position: Sitting, BP Cuff Size: Regular Adult) Pulse 91 Temp 36.5 C (97.7 F) SpO2 97% General Appearance: Well appearing, alert, in no acute distress, well-hydrated, well nourished. Abdomen: soft ND NT Assessment Assessment and Plan: Lorenza Rock is a 42 year old male w/ complex posterior anal fistula s/p staged fistulotomy now w/ persistent external opening without recurrent infection and possible persistent sinus versus fistula. I reviewed the MR perineum with the patient and his . The described tract corresponds to the prior staged fistulotomy site coursing to the right. 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 We discussed that the findings are consistent with persistent sinus versus fistula and that an EUA would be the best next step - if no fistula, but blind sinus(es), sinus unroofing and marsupialization could be performed at the same time. If persistent complex fistula involving significant muscle as I would expect based on the MR, would like place a seton and discuss staged repair. The patient asked about having IR perform fistulagram or having an opinion from an outside radiologist. My recommendation was to forgo further radiographic testing as he would still require definitive treatment in the operating room. He will call if he desires to proceed with EUA. Medical Decision Making: Data Reviewed: Tests & Documents Reviewed/ordered: Review of prior notes from myself, Dr. Garner, Dr. Man Review of prior operative reports Review of Imaging: CT Abdomen, CT Pelvis, MRI Pelvis Review of Procedures / Tests: Colonoscopy Additional testing or imaging to be ordered: EUA I have independently interpreted: MRI Pelvis with findings as above I have discussed Lorenza Rock's treatment plan and/or results with the patient, his , Dr. Garner. I spent a total of 40 minutes on the date of the service which included preparing to see the patient, [id number] patient care, completing clinical documentation, obtaining and/or reviewing separately obtained history, counseling and educating the patient/family/caregiver, communicating with other HCPs (not separately reported), independently interpreting results (not separately reported), communicating results to the patient/family/caregiver, and care coordination (not separately reported). Christa Dubois MD Colorectal Surgery documented in this encounter [facility] 02-19-2023 Note HNO ID: [id number] Author: Christa Dubois MD Service: ? Author Type: Physician Type: Progress Notes Filed: 02/20/2023 3:02 PM Note Text: COLORECTAL SURGERY February 19, 2023 Lorenza Rock Chief Complaint: follow up/ anal fistula History of Present Illness: Lorenza Rock is a 42 year old male presents to the office for a follow up evaluation after undergoing a rectal exam under anesthesia with complex fistulotomy on 10/19/2022. Last seen in the office on 11/27/22. Prior A/P: Lorenza Rock is a 42 year old male with complex, atypical anal fistula s/p staged fistulotomy w/ sinus tract posterior midline appreciated on most recent EUA concerning for perianal Crohn's disease. Wound defer any testing until 8 weeks from surgery as he is otherwise asymptomatic and healing well They are very anxious about next steps if this does not heal and desire to proceed with Crohn's workup. Colonoscopy Labs MR enterography GI consultation - he will defer scheduling until next month Still with persistent drainage from external opening as before. Denies swelling, pain, erythema. Moving his bowels no issue. No FI. Saw Dr. Garner for second opinion regarding management who recommended MR perineum and likely EUA Assessment and plan of Dr Clifford Man on 01/07/23: 1) Complex transsphincteric anal fistula 2) Hx of perianal abscess Luminal and small bowel Crohn's disease should be ruled out in light of his difficult to treat perianal disease. He has no other concerning GI symptoms. No prior colonoscopy. No known FHx of IBD or colon cancer. If his objective testing is suggestive of Crohn's disease, an anti-TNF agent will be advised to manage his fistulizing disease. --Fecal calprotectin --Labs (CBC, CMP, CRP) --Diagnostic colonoscopy scheduled with Dr. Dubois early next month. Recommend segmental biopsies to rule out histologic features of Crohn's disease. --MRE scheduled early next month Follow up in 2 months Colonoscopy on 01/17/23: - External opening right posterior 2 cm from the anal verge without fluctuance found on perianal exam. - Non-bleeding internal hemorrhoids. - The examination was otherwise normal on direct and retroflexion views. No internal fistula opening visualized. - Random biopsies of the TI, ascending, transvese, descending colon and rectum for histoloy. Pathology: A. Terminal ileum, biopsy: - Small bowel mucosa with no diagnostic abnormality. B. Ascending colon, biopsy: - Colonic mucosa with no diagnostic abnormality. C. Transverse colon, biopsy: - Colonic mucosa with no diagnostic abnormality. D. Descending colon, biopsy: - Colonic mucosa with no diagnostic abnormality. E. Rectum, biopsy: - Colonic mucosa with no diagnostic abnormality MRI Enterography on 01/18/23: No active inflammatory small bowel Crohn's disease. Penetrating disease: Absent Poorly visualized right perianal tract possibly corresponding to the known perianal fistula. No abscess. MR perineum 02/2023: The right perianal fissure extending to the right gluteal fold is less prominent than on 07/20/2022 exam, it is better visualized than on the 01/18/2023 study but this likely relates to differences in technique. Recommend considering consult with Interventional Radiology to evaluate for possible closure of the fistula. FINDINGS: At the posterior aspect of the rectum 3 cm superior to the anal verge there is again demonstrated a fistulous tract from the approximately 6 o'clock location of the anus to the right gluteal fold, this is much less prominent than on the 07/20/2022 study, but this is visualized better than on the 01/18/2023 study, there is no visible abscess. Large and small bowel loops otherwise are unremarkable. Urinary bladder, prostate gland and seminal vesicles are unremarkable. The solid or cystic bone or soft tissue masses. No ascites. Vasculature is unremarkable. Study otherwise is unchanged and unremarkable. PAST MEDICAL HISTORY Diagnosis Date Fistula 07/2022 PAST SURGICAL HISTORY Procedure Laterality Date FISTULOTOMY SUBCUT 10/2022 PAST SURGICAL HISTORY OF rectal abscess drained x 2 PAST SURGICAL HISTORY OF [place] teeth removal PAST SURGICAL HISTORY OF 08/2022 anal procedure Current Outpatient Medications Medication Sig Dispense Refill ibuprofen (MOTRIN) 200 mg tablet Take 1-2 tablets by mouth every 6 hours. acetaminophen (TYLENOL) 325 mg tablet Take 2 tablets by mouth every 6 hours. iv contrast (will be provided with radiology test) MRI Enterography Inject, intravenously, once for 1 dose. No IV access, insert saline lock prior to the beginning of sedation, infusion, injection of imaging exam. Discontinue saline lock post exam. If Pt. has a central line or IVAD, may access for administration according to line specific nursing protocol. Once exam is complete flu (more content not included)... [facility] 02-19-2023 Nurse Note What is the reason for your visit today? Follow up anal fistula Who is your referring physician? Are you having poor oral intake? NO Have you had unintentional weight loss of 15 lbs/7 Kg in the last 3-6 months? NO Bowels: regular Wound: Temperature: No Drains: No documented in this encounter [facility] 02-05-2023 Note HNO ID: [id number] Author: Clotilde Negrete RT(Oumar) Service: ? Author Type: Technologist Type: Progress Notes Filed: 02/05/2023 10:08 AM Note Text: Radiology Service Progress Note DATE OF SERVICE: February 05, 2023 TIME: 10:05 AM PATIENT IDENTITY VERIFICATION COMPLETED USING TWO (2) STANDARD IDENTIFIERS: Name and Date of confirmed by patient verbally and Name and Date of confirmed by identification band. FALL SCREENING: Has the patient had 2 falls in the last year or 1 fall with injury or currently using an Ambulatory Assistive Device (Walker, Cane, Wheelchair, Crutches, etc.)? No PATIENT GENDER DATA: Male PATIENT RELEVANT IMPLANT DATA REVIEWED: Yes ALLERGIES: Reviewed and unchanged CONTRAST ALLERGY: NO. EXAM: MRI - CONTRAST TYPE: GROUP II PERIPHERAL IV DATA: Ambulatory: A peripheral IV was started in the Left antecubital site with a Angio cath: 22 gauge. RADIOLOGY DEPARTMENT: MR; Exam(s) Completed: Body: Pelvis PERINEUM PROTOCOL W/WO ANORECTAL FISSURE SIGNATURE: RT Niall(R) PATIENT NAME: Lorenza Rock DATE: February 05, 2023 TIME: 10:[address] [facility] 02-05-2023 History of Presen t illness Narrative Radiology Service Progress Note DATE OF SERVICE: February 05, 2023 TIME: 10:05 AM PATIENT IDENTITY VERIFICATION COMPLETED USING TWO (2) STANDARD IDENTIFIERS: Name and Date of confirmed by patient verbally and Name and Date of confirmed by identification band. FALL SCREENING: Has the patient had 2 falls in the last year or 1 fall with injury or currently using an Ambulatory Assistive Device (Walker, Cane, Wheelchair, Crutches, etc.)? No PATIENT GENDER DATA: Male PATIENT RELEVANT IMPLANT DATA REVIEWED: Yes ALLERGIES: Reviewed and unchanged CONTRAST ALLERGY: NO. EXAM: MRI - CONTRAST TYPE: GROUP II PERIPHERAL IV DATA: Ambulatory: A peripheral IV was started in the Left antecubital site with a Angio cath: 22 gauge. RADIOLOGY DEPARTMENT: MR; Exam(s) Completed: Body: Pelvis PERINEUM PROTOCOL W/WO ANORECTAL FISSURE SIGNATURE: RT Niall(R) PATIENT NAME: Lorenza Rock DATE: February 05, 2023 TIME: 10:05 AM documented in this encounter [facility] 02-04-2023 Note HNO ID: [id number] Author: Renetta Garner MD Service: ? Author Type: Physician Type: Progress Notes Filed: 02/09/2023 8:39 PM Note Text: COLORECTAL SURGERY New Patient Visit February 04, 2023 Chief Complaint: Anal Fistula History of Present Illness: Lorenza Rock is a 42 year old male here for second surgical opinion for her anal fistula. He has been seen previously at [facility] with Dr. Christa Dubois. He began experiencing constipation in fall 12/2021 and noticed a perianal bump about 1-2 months later. Diagnosed with a perianal abscess that spontaneously burst and was debrided in 03/2022. Abscesses were drained in [place] in the OR. The abscess did not heal and he further followed up with Dr. Dubois in Colorectal Surgery. He had an EUA w/seton placement on 07/27/22 and subsequent EUA, drainage of abscess cavity, partial fistulotomy and seton placement on 09/07/22. He had a complex fistulotomy was performed on 10/19/22. He was seen in GI clinic with Dr. Man and recommended to complete Crohn's disease workup and follow up after. Further GI workup to r/o Crohn's disease was completed (see results below) and was negative. He is presenting today with concerns that the medial portion of the wound has not healed with discharge still. He reports that the discharge color and amount varies per day. Bowel Habits: - once per day - soft - No stool softeners , no fiber supplements He reports that his continence has been affected 5-10% , he can hold soft stools but does not think he would be able to hold diarrhea. Previous Encounters 11/27/22 Office Visit w/Dr. Dubois Assessment and Plan: Lorenza Rock is a 42 year old male with complex, atypical anal fistula s/p staged fistulotomy w/ sinus tract posterior midline appreciated on most recent EUA concerning for perianal Crohn's disease. Wound defer any testing until 8 weeks from surgery as he is otherwise asymptomatic and healing well They are very anxious about next steps if this does not heal and desire to proceed with Crohn's workup. Colonoscopy Labs MR enterography GI consultation - he will defer scheduling until next month Diagnostics/Endoscopy Reviewed 01/18/23 MRE ABD/PEL WWO Impression No active inflammatory small bowel Crohn's disease. Penetrating disease: Absent Poorly visualized right perianal tract possibly corresponding to the known perianal fistula. No abscess. 01/17/23 Colonoscopy- Dr. Christa Dubois Findings: The perianal exam findings include external [...] found during retroflexion. The hemorrhoids were mild. FINAL DIAGNOSIS A. Terminal ileum, biopsy: - Small bowel mucosa with no diagnostic abnormality. B. Ascending colon, biopsy: - Colonic mucosa with no diagnostic abnormality. C. Transverse colon, biopsy: - Colonic mucosa with no diagnostic abnormality. D. Descending colon, biopsy: - Colonic mucosa with no diagnostic abnormality. E. Rectum, biopsy: - Colonic mucosa with no diagnostic abnormality. 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 PAST MEDICAL HISTORY Diagnosis Date Fistula 07/2022 PAST SURGICAL HISTORY Procedure Laterality Date FISTULOTOMY SUBCUT 10/2022 PAST SURGICAL HISTORY OF rectal abscess drained x 2 PAST SURGICAL HISTORY OF [place] teeth removal PAST SURGICAL HISTORY OF 08/2022 anal procedure Current Outpatient Medications Medication Sig Dispense Refill ibuprofen (MOTRIN) 200 mg tablet Take 1-2 tablets by mouth every 6 hours. acetaminophen (TYLENOL) 325 mg tablet Take 2 tablets by mouth every 6 hours. iv contrast (will be provided with radiology test) MRI Enterography Inject, intravenously, once for 1 dose. No IV access, insert saline lock prior to the beginning of sedation, infusion, injection of imaging exam. Discontinue saline lock post exam. If Pt. has a central line or IVAD, may access for administration according to line specific nursing protocol. Once exam is complete flush line and de-access according to line specific nursing protocol in the MR contrast administration guidelines link. 1 Each 0 enteric contrast (will be provided with radiology test) For MRI ENTEROGRAPHY WO/W Administer, As Directed One Time Only, via Oral, Rectal, both Oral and Rectal, Enteric Tube, Stoma or Indwelling Catheter, Enteric Contrast as designated per enteric contrast guidelines 1 Each 0 glucagon (GLUCAGEN) 1 mg/mL injection Inject 1 mg intravenously one time only for 1 dose. For MRI Enterography, Inject 1 mg in (more content not included)... [facility] 02-04-2023 History of Presen t illness Narrative COLORECTAL SURGERY New Patient Visit February 04, 2023 Chief Complaint: Anal Fistula History of Present Illness: Lorenza Rock is a 42 year old male here for second surgical opinion for her anal fistula. He has been seen previously at [facility] with Dr. Christa Dubois. He began experiencing constipation in fall 12/2021 and noticed a perianal bump about 1-2 months later. Diagnosed with a perianal abscess that spontaneously burst and was debrided in 03/2022. Abscesses were drained in [place] in the OR. The abscess did not heal and he further followed up with Dr. Dubois in Colorectal Surgery. He had an EUA w/seton placement on 07/27/22 and subsequent EUA, drainage of abscess cavity, partial fistulotomy and seton placement on 09/07/22. He had a complex fistulotomy was performed on 10/19/22. He was seen in GI clinic with Dr. Man and recommended to complete Crohn's disease workup and follow up after. Further GI workup to r/o Crohn's disease was completed (see results below) and was negative. He is presenting today with concerns that the medial portion of the wound has not healed with discharge still. He reports that the discharge color and amount varies per day. Bowel Habits: - once per day - soft - No stool softeners , no fiber supplements He reports that his continence has been affected 5-10% , he can hold soft stools but does not think he would be able to hold diarrhea. Previous Encounters 11/27/22 Office Visit w/Dr. Dubois Assessment and Plan: Lorenza Rock is a 42 year old male with complex, atypical anal fistula s/p staged fistulotomy w/ sinus tract posterior midline appreciated on most recent EUA concerning for perianal Crohn's disease. Wound defer any testing until 8 weeks from surgery as he is otherwise asymptomatic and healing well They are very anxious about next steps if this does not heal and desire to proceed with Crohn's workup. Colonoscopy Labs MR enterography GI consultation - he will defer scheduling until next month Diagnostics/Endoscopy Reviewed 01/18/23 MRE ABD/PEL WWO Impression No active inflammatory small bowel Crohn's disease. Penetrating disease: Absent Poorly visualized right perianal tract possibly corresponding to the known perianal fistula. No abscess. 01/17/23 Colonoscopy- Dr. Christa Dubois Findings: The perianal exam findings include external [...] found during retroflexion. The hemorrhoids were mild. FINAL DIAGNOSIS A. Terminal ileum, biopsy: - Small bowel mucosa with no diagnostic abnormality. B. Ascending colon, biopsy: - Colonic mucosa with no diagnostic abnormality. C. Transverse colon, biopsy: - Colonic mucosa with no diagnostic abnormality. D. Descending colon, biopsy: - Colonic mucosa with no diagnostic abnormality. E. Rectum, biopsy: - Colonic mucosa with no diagnostic abnormality. 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 PAST MEDICAL HISTORY Diagnosis Date Fistula 07/2022 PAST SURGICAL HISTORY Procedure Laterality Date FISTULOTOMY SUBCUT 10/2022 PAST SURGICAL HISTORY OF rectal abscess drained x 2 PAST SURGICAL HISTORY OF [place] teeth removal PAST SURGICAL HISTORY OF 08/2022 anal procedure Current Outpatient Medications Medication Sig Dispense Refill ibuprofen (MOTRIN) 200 mg tablet Take 1-2 tablets by mouth every 6 hours. acetaminophen (TYLENOL) 325 mg tablet Take 2 tablets by mouth every 6 hours. iv contrast (will be provided with radiology test) MRI Enterography Inject, intravenously, once for 1 dose. No IV access, insert saline lock prior to the beginning of sedation, infusion, injection of imaging exam. Discontinue saline lock post exam. If Pt. has a central line or IVAD, may access for administration according to line specific nursing protocol. Once exam is complete flush line and de-access according to line specific nursing protocol in the MR contrast administration guidelines link. 1 Each 0 enteric contrast (will be provided with radiology test) For MRI ENTEROGRAPHY WO/W Administer, As Directed One Time Only, via Oral, Rectal, both Oral and Rectal, Enteric Tube, Stoma or Indwelling Catheter, Enteric Contrast as designated per enteric contrast guidelines 1 Each 0 glucagon (GLUCAGEN) 1 mg/mL injection Inject 1 mg intravenously one time only for 1 dose. For MRI Enterography, Inject 1 mg intravenously, as directed. Slow push at the appropriate time during MRI Scan 1 Each 0 No current facility-administered medications for this visit. ALLERGIES No Known Allergies Review of Systems / PACC screen: Do you have difficulty climbing a full flight of stairs without feeling short of breath? no Do you require oxygen for your breathing or have your gone to an emergency department because of breathing problems? no Are you on dialysis or have you been told that your kidneys do not work well as they should? no Do have an implanted cardiac device (pacemaker, defibrillator etc.) that has not been checked in the last 6 months? no Have you had an organ transplant? no Have you been told that you had excessive bleeding during surgical procedures or do you take blood thinning medications other than aspirin? no Have you ever had a heart attack, heart stents/surgery, valve problems, or other heart problems? no Have you had a stroke, seizures, or unexplained loss of consciousness? no Do you have a neurologic condition like Parkinson's disease or multiple sclerosis? no Have you or a blood relative had a life-threatening reaction to anesthesia? no Do you have cirrhosis of the liver or other liver disease? no Have you had a blood clot within the past year? no Do you take insulin or other injections for diabetes? no Do you have sleep apnea or have you been told you may have sleep apnea? no Do you have other implanted devices (deep brain stimulator, spinal cord stimulator, etc.)? no Physical Exam: BP 119/80 Pulse 83 Temp 36.4 C (97.5 F) Ht 188 cm (6' 2 ) Wt 122.9 kg (271 lb) SpO2 98% BMI 34.79 kg/m General Appearance: Well appearing, alert, in no acute distress, well-hydrated, well nourished. Lungs: Lungs clear to auscultation. No wheezing, rhonchi, rales. Heart: RRR without murmur, gallop, or rubs. No ectopy Edema: no Abdomen: Normal abdominal exam, Abdomen soft, non-tender. Bowel sounds normal. No masses, organomegaly Anorectal: Perianal skin is intact. No erythema, induration or excoriation. External opening of a suspected mana anal fistula to the right of the midline posteriorly, no external hemorrhoids. On PAPI A small/superficial sphincter defect is palpated posterior in the at the site of the prior fistulotomy. Good sphincter tone. Could not appreciate an internal opening on this exam. Assessment Medical Decision Making: Assessment & Diagnosis: Lorenza Rock is a 42 year old male with a history of complex perianal fistula presents with persistent drainage and pain and small external opening seen on exam. Good sphincter tone with palpable scar/defect from prior fistulotomy. No episodes of incontinence. Having symptoms related to ongoing mild drainage and discomfort when sitting for prolonged periods. Data Reviewed: Tests & Documents Reviewed/ordered: Review of prior notes from previous encounters, all within [facility] Review of prior operative reports Review of Pathology Review of Imaging: MRI Abdomen, MRI Pelvis, MRI Perineum Review of Labs: most recent in [facility] Review of Procedures / Tests: [facility] I have independently interpreted: MRI Abdomen, MRI Pelvis, MRI Perineum I have discussed Lorenza Rock's treatment plan and/or results with Mr. Rock. Treatment plan: Discussed that complex anal fistulas can be difficult to heal and recurrence/persistence is not uncommon and often necessitate multiple staged procedures to completely heal. - We discussed that the most recent MRI was an MRE to rule out small bowel inflammatory disease and is not optimized for assessment of complex anal fistula. - Will order an MRI of the perineum to better assess post surgical anatomy. The presence of an external opening with drainage raises the suspicion of a persistent fistula versus a sinus tract. - Will reconvene after the MRI. Will likely need an EUA. We discussed that he may either need another fistulotomy/sinusotomy versus a seton depending on sphincter involvement. - He can continue following with my partner, Dr. Dubois at [place], but also happy to see him here at . Renetta Garner MD Colorectal Surgery Risk of morbidity and/or complications of treatment plan: moderate documented in this encounter [facility] 02-03-2023 Note HNO ID: [id number] Author: Lorena Ren RN Service: ? Author Type: Registered Nurse Type: Progress Notes Filed: 02/03/2023 9:50 PM Note Text: Summary: Abstract Lorenza Rock Age 42 Male ([place], [place]) Perirectal Fistula, second opinion Referral Self 42 y/o male here for second surgical opinion for her anal fistula. He has been seen previously at [facility] with Dr. Christa Dubois. He began experiencing constipation in 12/2021 and noticed a bump about 1-2 months later. Diagnosed with a perianal abscess that spontaneously burst and was debrided in 03/2022. The abscess did not heal and he further followed up with Dr. Dubois in Colorectal Surgery. He had an EUA w/seton placement on 07/27/22 and subsequent EUA, drainage of abscess cavity, partial fistulotomy and seton placement on 09/07/22. He had a complex fistulotomy was performed on 10/19/22. He was seen in GI clinic with Dr. Man and recommended to complete Crohn's disease workup and follow up after. Further GI workup to r/o Crohn's disease was completed (see results below) and was negative. Previous Encounters 11/27/22 Office Visit w/Dr. Dubois Assessment and Plan: Lorenza Rock is a 42 year old male with complex, atypical anal fistula s/p staged fistulotomy w/ sinus tract posterior midline appreciated on most recent EUA concerning for perianal Crohn's disease. Wound defer any testing until 8 weeks from surgery as he is otherwise asymptomatic and healing well They are very anxious about next steps if this does not heal and desire to proceed with Crohn's workup. Colonoscopy Labs MR enterography GI consultation - he will defer scheduling until next month Diagnostics/Endoscopy Reviewed 01/18/23 MRE ABD/PEL WWO Impression No active inflammatory small bowel Crohn's disease. Penetrating disease: Absent Poorly visualized right perianal tract possibly corresponding to the known perianal fistula. No abscess. 01/17/23 Colonoscopy- Dr. Christa Dubois Findings: The perianal exam findings include external [...] found during retroflexion. The hemorrhoids were mild. FINAL DIAGNOSIS A. Terminal ileum, biopsy: - Small bowel mucosa with no diagnostic abnormality. B. Ascending colon, biopsy: - Colonic mucosa with no diagnostic abnormality. C. Transverse colon, biopsy: - Colonic mucosa with no diagnostic abnormality. D. Descending colon, biopsy: - Colonic mucosa with no diagnostic abnormality. E. Rectum, biopsy: - Colonic mucosa with no diagnostic abnormality. 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 [facility] 02-03-2023 History of Presen t illness Narrative Summary: Abstract Lorenza Rock Age 42 Male ([place], [place]) Perirectal Fistula, second opinion Referral Self 42 y/o male here for second surgical opinion for her anal fistula. He has been seen previously at [facility] with Dr. Christa Dubois. He began experiencing constipation in fall 12/2021 and noticed a bump about 1-2 months later. Diagnosed with a perianal abscess that spontaneously burst and was debrided in 03/2022. The abscess did not heal and he further followed up with Dr. Dubois in Colorectal Surgery. He had an EUA w/seton placement on 07/27/22 and subsequent EUA, drainage of abscess cavity, partial fistulotomy and seton placement on 09/07/22. He had a complex fistulotomy was performed on 10/19/22. He was seen in GI clinic with Dr. Man and recommended to complete Crohn's disease workup and follow up after. Further GI workup to r/o Crohn's disease was completed (see results below) and was negative. Previous Encounters 11/27/22 Office Visit w/Dr. Dubois Assessment and Plan: Lorenza Rock is a 42 year old male with complex, atypical anal fistula s/p staged fistulotomy w/ sinus tract posterior midline appreciated on most recent EUA concerning for perianal Crohn's disease. Wound defer any testing until 8 weeks from surgery as he is otherwise asymptomatic and healing well They are very anxious about next steps if this does not heal and desire to proceed with Crohn's workup. Colonoscopy Labs MR enterography GI consultation - he will defer scheduling until next month Diagnostics/Endoscopy Reviewed 01/18/23 MRE ABD/PEL WWO Impression No active inflammatory small bowel Crohn's disease. Penetrating disease: Absent Poorly visualized right perianal tract possibly corresponding to the known perianal fistula. No abscess. 01/17/23 Colonoscopy- Dr. Christa Dubois Findings: The perianal exam findings include external [...] found during retroflexion. The hemorrhoids were mild. FINAL DIAGNOSIS A. Terminal ileum, biopsy: - Small bowel mucosa with no diagnostic abnormality. B. Ascending colon, biopsy: - Colonic mucosa with no diagnostic abnormality. C. Transverse colon, biopsy: - Colonic mucosa with no diagnostic abnormality. D. Descending colon, biopsy: - Colonic mucosa with no diagnostic abnormality. E. Rectum, biopsy: - Colonic mucosa with no diagnostic abnormality. 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 documented in this encounter [facility] 01-17-2023 History and physical note UPDATED HISTORY AND PHYSICAL EXAMINATION SERVICE DATE: 01/17/2023 SERVICE TIME: 7:56 AM PHYSICAL EXAM MUST BE COMPLETED ON ADMISSION The History and Physical (completed in the past 30 days) has been reviewed and the patient has been examined. The contents accurately reflect the patient's condition with the following additions or revisions since the H&P was completed. CV: RRR Pulm: no increased respiratory effort Examination indicates no changes. This H&P can be found in the attached. SIGNATURE: Christa Dubois MD PATIENT NAME: Lorenza Rock DATE: January 17, 2023 TIME: 7:56 AM Source Note - Clifford Man MD - 01/07/2023 3:30 PM EDT Consultation requested by Dr. Christa Dubois for an opinion regarding Crohn's evaluation. My final recommendations will be communicated back to the requesting physician by way of shared medical record or fax. REASON FOR VISIT: Evaluation for possible Crohn's disease HPI: Lorenza Rock is a 42 year old male with a history of obesity who is referred to the GI clinic for evaluation of possible Crohn's disease. He was in his usual state of health until he developed acute constipation on vacation in 12/2021. He passed a hard stool while straining and felt pain afterwards that eventually went away. Approximately 1-2 months later, he felt a bump forming in his perianal area. This protrusion burst in 03/2022 with yellow drainage. He was diagnosed with a perianal abscess that was debrided in 03/2022 and 04/2022. These debridements did not heal and continued to drain yellow/clear fluid. He underwent EUA in 07/2022, which revealed a suprasphincteric anal fistula. A seton was placed He went back to the OR again on 09/07/22 for drainage of persistent perianal abscess and placement of another seton. 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 At his last post-op visit on 11/27/22, his wound was healing with with a small punctate area of granulation tissue near the posterior midline draining a small amount of yellow fluid. Today, he still reports some scant yellow/drainage in the perianal area. He denies rectal pain or fevers/chills. He has a scheduled colonoscopy and MRE on the first week of January. GI ROS negative for rashes, joint pain, eye symptoms, aphthous ulcers, dysphagia, heartburn, regurgitation, early satiety, nausea, vomiting, abdominal pain, changes in appetite, change in bowel habits, unintentional weight loss or GI bleeding. He averages 1 soft, complete BM/day. No history of luminal surgery. No personal history of IBD. No prior history of colonoscopy. No known FHx of IBD or colon cancer. Tobacco - None EtOH - None Illicits - None NSAIDs - Infrequent ibuprofen use Past Clinical Work-Up: MR perineum: 07/23/22: Transsphincteric fistula extending into the right ischioanal fossa and right gluteal cleft. CT abd/pelv: 03/27/22: Peripheral enhancing fluid collection in the right medial gluteal cleft, suspicious for a perianal abscess. A fistulous communication with the anus is suspected given the limitations of this exam, though not confirmed. There are also findings indicating overlying cellulitis. ALLERGIES No Known Allergies No past medical history on file. PAST SURGICAL HISTORY Procedure Laterality Date PAST SURGICAL HISTORY OF rectal abscess drained x 2 PAST SURGICAL HISTORY OF [place] teeth removal PAST SURGICAL HISTORY OF 08/2022 anal procedure FAMILY HISTORY Problem Relation Age of Onset No Known Problems Mother No Known Problems Father Clotting Disorder No Family History Anesthesia Problems No Family History Malig Hyperthermia No Family History Social History Tobacco Use Smoking status: Never Smokeless tobacco: Never Vaping Use Vaping Use: Never used Substance Use Topics Alcohol use: Not Currently Drug use: Not Currently Current Outpatient Medications Medication Sig iv contrast (will be provided with radiology test) MRI Enterography Inject, intravenously, once for 1 dose. No IV access, insert saline lock prior to the beginning of sedation, infusion, injection of imaging exam. Discontinue saline lock post exam. If Pt. has a central line or IVAD, may access for administration according to line specific nursing protocol. Once exam is complete flush line and de-access according to line specific nursing protocol in the MR contrast administration guidelines link. enteric contrast (will be provided with radiology test) For MRI ENTEROGRAPHY WO/W Administer, As Directed One Time Only, via Oral, Rectal, both Oral and Rectal, Enteric Tube, Stoma or Indwelling Catheter, Enteric Contrast as designated per enteric contrast guidelines glucagon (GLUCAGEN) 1 mg/mL injection Inject 1 mg intravenously one time only for 1 dose. For MRI Enterography, Inject 1 mg intravenously, as directed. Slow push at the appropriate time during MRI Scan oxyCODONE IR (ROXICODONE) 5 mg immediate release tablet Take 0.5 tablets by mouth every 6 hours as needed for pain. (Patient not taking: Reported on 11/27/2022) ibuprofen (MOTRIN) 200 mg tablet Take 1-2 tablets by mouth every 6 hours. acetaminophen (TYLENOL) 325 mg tablet Take 2 tablets by mouth every 6 hours. No current facility-administered medications for this visit. I have confirmed and edited, if necessary, the PFSH obtained by others. REVIEW OF SYSTEMS CONSTITUTIONAL: Negative for unintentional weight loss, malaise or fevers HEENT: Negative for frequent/significant headaches, changes in hearing/vision, nose bleeds or other nasal problems RESPIRATORY: Negative for cough, hemoptysis, wheezing or dyspnea CARDIOVASCULAR: Negative for chest pain, palpitations, syncope or lightheadedness GI: See HPI : Negative for dysuria, polyuria, incontinence or hematuria MUSCULOSKELETAL: Negative for arthralgia or myalgia INTEGUMENTARY/SKIN: Negative for rash or skin lesion HEMATOLOGY/LYMPHOLOGY: Negative for prolonged bleeding, easy bruising or swollen nodes ENDOCRINE: Negative for cold/heat intolerance, polydipsia or goiter NEURO: Negative for encephalopathy, tremor or gait abnormality PSYCH: Negative for new changes in mood or affect PHYSICAL EXAM: BP 120/76 Pulse 75 Ht 186.7 cm (6' 1.5 ) Wt 120.8 kg (266 lb 4.8 oz) BMI 34.66 kg/m Gen: Comfortable male in NAD Head: Normocephalic, atraumatic Skin: No jaundice, rashes or skin lesions Eyes: Sclera anicteric, conjunctiva pink Neck: Supple, no palpable lymphadenopathy or goiter Heart: RRR, no murmurs, rubs or gallops Lungs: CTAB, non-labored breathing Abd: Soft, non-distended, non-tender, bowel sounds present, no palpable masses or organomegaly Ext: No lower extremity edema, clubbing or cyanosis. Extremities are warm and well-perfused Neuro: Alert and oriented, no tremor or gross focal motor deficits Psych: Congruent mood and affect, appropriate insight and judgement ASSESSMENT/PLAN: Lorenza Rock is a 42 year old male with a history of obesity who is referred to the GI clinic for evaluation of possible Crohn's disease in the setting of refractory perianal abscess with complex fistula tract. He underwent multiple EUAs with perianal abscess drainage and seton placement x 2 with persistent drainage. Eventually, he was brought to the OR by Dr. Dubois on 10/19/22 for a complex fistulotomy. He is now 2-3 months post-op, but still noticing some very subtle perianal drainage. 1) Complex transsphincteric anal fistula 2) Hx of perianal abscess Luminal and small bowel Crohn's disease should be ruled out in light of his difficult to treat perianal disease. He has no other concerning GI symptoms. No prior colonoscopy. No known FHx of IBD or colon cancer. If his objective testing is suggestive of Crohn's disease, an anti-TNF agent will be advised to manage his fistulizing disease. --Fecal calprotectin --Labs (CBC, CMP, CRP) --Diagnostic colonoscopy scheduled with Dr. Dubois early next month. Recommend segmental biopsies to rule out histologic features of Crohn's disease. --MRE scheduled early next month Follow up in 2 months Clifford Man MD Associate Staff, Department of Gastroenterology and Hepatology Digestive Disease and Surgery [place] documented in this encounter [facility] 01-07-2023 History and physical note Consultation requested by Dr. Christa Dubois for an opinion regarding Crohn's evaluation. My final recommendations will be communicated back to the requesting physician by way of shared medical record or fax. REASON FOR VISIT: Evaluation for possible Crohn's disease HPI: Lorenza Rock is a 42 year old male with a history of obesity who is referred to the GI clinic for evaluation of possible Crohn's disease. He was in his usual state of health until he developed acute constipation on vacation in 12/2021. He passed a hard stool while straining and felt pain afterwards that eventually went away. Approximately 1-2 months later, he felt a bump forming in his perianal area. This protrusion burst in 03/2022 with yellow drainage. He was diagnosed with a perianal abscess that was debrided in 03/2022 and 04/2022. These debridements did not heal and continued to drain yellow/clear fluid. He underwent EUA in 07/2022, which revealed a suprasphincteric anal fistula. A seton was placed He went back to the OR again on 09/07/22 for drainage of persistent perianal abscess and placement of another seton. 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 At his last post-op visit on 11/27/22, his wound was healing with with a small punctate area of granulation tissue near the posterior midline draining a small amount of yellow fluid. Today, he still reports some scant yellow/drainage in the perianal area. He denies rectal pain or fevers/chills. He has a scheduled colonoscopy and MRE on the first week of January. GI ROS negative for rashes, joint pain, eye symptoms, aphthous ulcers, dysphagia, heartburn, regurgitation, early satiety, nausea, vomiting, abdominal pain, changes in appetite, change in bowel habits, unintentional weight loss or GI bleeding. He averages 1 soft, complete BM/day. No history of luminal surgery. No personal history of IBD. No prior history of colonoscopy. No known FHx of IBD or colon cancer. Tobacco - None EtOH - None Illicits - None NSAIDs - Infrequent ibuprofen use Past Clinical Work-Up: MR perineum: 07/23/22: Transsphincteric fistula extending into the right ischioanal fossa and right gluteal cleft. CT abd/pelv: 03/27/22: Peripheral enhancing fluid collection in the right medial gluteal cleft, suspicious for a perianal abscess. A fistulous communication with the anus is suspected given the limitations of this exam, though not confirmed. There are also findings indicating overlying cellulitis. ALLERGIES No Known Allergies No past medical history on file. PAST SURGICAL HISTORY Procedure Laterality Date PAST SURGICAL HISTORY OF rectal abscess drained x 2 PAST SURGICAL HISTORY OF [place] teeth removal PAST SURGICAL HISTORY OF 08/2022 anal procedure FAMILY HISTORY Problem Relation Age of Onset No Known Problems Mother No Known Problems Father Clotting Disorder No Family History Anesthesia Problems No Family History Malig Hyperthermia No Family History Social History Tobacco Use Smoking status: Never Smokeless tobacco: Never Vaping Use Vaping Use: Never used Substance Use Topics Alcohol use: Not Currently Drug use: Not Currently Current Outpatient Medications Medication Sig iv contrast (will be provided with radiology test) MRI Enterography Inject, intravenously, once for 1 dose. No IV access, insert saline lock prior to the beginning of sedation, infusion, injection of imaging exam. Discontinue saline lock post exam. If Pt. has a central line or IVAD, may access for administration according to line specific nursing protocol. Once exam is complete flush line and de-access according to line specific nursing protocol in the MR contrast administration guidelines link. enteric contrast (will be provided with radiology test) For MRI ENTEROGRAPHY WO/W Administer, As Directed One Time Only, via Oral, Rectal, both Oral and Rectal, Enteric Tube, Stoma or Indwelling Catheter, Enteric Contrast as designated per enteric contrast guidelines glucagon (GLUCAGEN) 1 mg/mL injection Inject 1 mg intravenously one time only for 1 dose. For MRI Enterography, Inject 1 mg intravenously, as directed. Slow push at the appropriate time during MRI Scan oxyCODONE IR (ROXICODONE) 5 mg immediate release tablet Take 0.5 tablets by mouth every 6 hours as needed for pain. (Patient not taking: Reported on 11/27/2022) ibuprofen (MOTRIN) 200 mg tablet Take 1-2 tablets by mouth every 6 hours. acetaminophen (TYLENOL) 325 mg tablet Take 2 tablets by mouth every 6 hours. No current facility-administered medications for this visit. I have confirmed and edited, if necessary, the PFSH obtained by others. REVIEW OF SYSTEMS CONSTITUTIONAL: Negative for unintentional weight loss, malaise or fevers HEENT: Negative for frequent/significant headaches, changes in hearing/vision, nose bleeds or other nasal problems RESPIRATORY: Negative for cough, hemoptysis, wheezing or dyspnea CARDIOVASCULAR: Negative for chest pain, palpitations, syncope or lightheadedness GI: See HPI : Negative for dysuria, polyuria, incontinence or hematuria MUSCULOSKELETAL: Negative for arthralgia or myalgia INTEGUMENTARY/SKIN: Negative for rash or skin lesion HEMATOLOGY/LYMPHOLOGY: Negative for prolonged bleeding, easy bruising or swollen nodes ENDOCRINE: Negative for cold/heat intolerance, polydipsia or goiter NEURO: Negative for encephalopathy, tremor or gait abnormality PSYCH: Negative for new changes in mood or affect PHYSICAL EXAM: BP 120/76 Pulse 75 Ht 186.7 cm (6' 1.5 ) Wt 120.8 kg (266 lb 4.8 oz) BMI 34.66 kg/m Gen: Comfortable male in NAD Head: Normocephalic, atraumatic Skin: No jaundice, rashes or skin lesions Eyes: Sclera anicteric, conjunctiva pink Neck: Supple, no palpable lymphadenopathy or goiter Heart: RRR, no murmurs, rubs or gallops Lungs: CTAB, non-labored breathing Abd: Soft, non-distended, non-tender, bowel sounds present, no palpable masses or organomegaly Ext: No lower extremity edema, clubbing or cyanosis. Extremities are warm and well-perfused Neuro: Alert and oriented, no tremor or gross focal motor deficits Psych: Congruent mood and affect, appropriate insight and judgement ASSESSMENT/PLAN: Lorenza Rock is a 42 year old male with a history of obesity who is referred to the GI clinic for evaluation of possible Crohn's disease in the setting of refractory perianal abscess with complex fistula tract. He underwent multiple EUAs with perianal abscess drainage and seton placement x 2 with persistent drainage. Eventually, he was brought to the OR by Dr. Dubois on 10/19/22 for a complex fistulotomy. He is now 2-3 months post-op, but still noticing some very subtle perianal drainage. 1) Complex transsphincteric anal fistula 2) Hx of perianal abscess Luminal and small bowel Crohn's disease should be ruled out in light of his difficult to treat perianal disease. He has no other concerning GI symptoms. No prior colonoscopy. No known FHx of IBD or colon cancer. If his objective testing is suggestive of Crohn's disease, an anti-TNF agent will be advised to manage his fistulizing disease. --Fecal calprotectin --Labs (CBC, CMP, CRP) --Diagnostic colonoscopy scheduled with Dr. Dubois early next month. Recommend segmental biopsies to rule out histologic features of Crohn's disease. --MRE scheduled early next month Follow up in 2 months Clifford Man MD Associate Staff, Department of Gastroenterology and Hepatology Digestive Disease and Surgery [place] documented in this encounter [facility] 01-07-2023 Instructions Clifford Man MD - 01/07/2023 3:21 PM EDT Thank you for seeing me in clinic today. It was very nice to meet you! As we discussed, my recommendations are as follows: Please schedule a colonoscopy at your earliest convenience. Please see the pre-procedure diet and bowel preparation instructions below for details. You can purchase all of the ingredients for the bowel prep over the counter at your local pharmacy. Schedule your MR enterography as ordered by Dr. Dubois Please get lab work done and submit a stool sample at your earliest convenience. Please make a follow up visit with me in 2 months If you have any questions about the above treatment plan, please do not hesitate to send me a [employer] message or call the [facility] at [phone] to route me a message. documented in this encounter [facility] 11-27-2022 Nurse Note Prep instructions given on colonoscopy for 01/17/23. Offered sooner date but he declined due to a scheduled vacation. He was also educated on how to schedule enterography and GI consult. No other questions at this time. What is the reason for your visit today? follow up evaluation after undergoing a rectal exam under anesthesia with complex fistulotomy on 10/19/2022 Who is your referring physician? Are you having poor oral intake? NO Have you had unintentional weight loss of 15 lbs/7 Kg in the last 3-6 months? NO Bowels: regular Wound: Temperature: No Drains: No documented in this encounter [facility] 11-27-2022 History of Presen t illness Narrative COLORECTAL SURGERY November 27, 2022 Lorenza Rock Chief Complaint: follow up/ anal fistula History of Present Illness: Lorenza Rock is a 42 year old male presents to the office for a follow up evaluation after undergoing a rectal exam under anesthesia with complex fistulotomy on 10/19/2022. Last seen in the office on 11/02/22 with Susie Mancia NP. Wound has been healing well. Still with a punctate wound of granulation tissue near posterior midline that drains small amount of yellow or purulent fluid with pressure posterior midline from that area. No FI Stool is soft, some form. No diarrhea or hematochezia. No abdominal pain. Weight stable. OPERATIVE FINDINGS: 10/19/[address] Healed scar from prior partial fistulotomy at right lateral aspect of the anal margin. Seton with external opening right posterior involving some external sphincter muscle with internal opening posterior midline at dentate line. Normal external hemorrhoids, moderately enlarged internal hemorrhoids all locations. Normal rectal mucosa without proctitis. After fistulotomy, blind sinuses appreciated tracking right posterior to 6 cm from the anal verge (1 cm diameter) and posterior midline towards coccyx 5 cm from the anal verge (2 mm diameter). No past medical history on file. PAST SURGICAL HISTORY Procedure Laterality Date PAST SURGICAL HISTORY OF rectal abscess drained x 2 PAST SURGICAL HISTORY OF [place] teeth removal PAST SURGICAL HISTORY OF 08/2022 anal procedure Current Outpatient Medications Medication Sig Dispense Refill ibuprofen (MOTRIN) 200 mg tablet Take 1-2 tablets by mouth every 6 hours. acetaminophen (TYLENOL) 325 mg tablet Take 2 tablets by mouth every 6 hours. iv contrast (will be provided with radiology test) MRI Enterography Inject, intravenously, once for 1 dose. No IV access, insert saline lock prior to the beginning of sedation, infusion, injection of imaging exam. Discontinue saline lock post exam. If Pt. has a central line or IVAD, may access for administration according to line specific nursing protocol. Once exam is complete flush line and de-access according to line specific nursing protocol in the MR contrast administration guidelines link. 1 Each 0 enteric contrast (will be provided with radiology test) For MRI ENTEROGRAPHY WO/W Administer, As Directed One Time Only, via Oral, Rectal, both Oral and Rectal, Enteric Tube, Stoma or Indwelling Catheter, Enteric Contrast as designated per enteric contrast guidelines 1 Each 0 glucagon (GLUCAGEN) 1 mg/mL injection Inject 1 mg intravenously one time only for 1 dose. For MRI Enterography, Inject 1 mg intravenously, as directed. Slow push at the appropriate time during MRI Scan 1 Each 0 oxyCODONE IR (ROXICODONE) 5 mg immediate release tablet Take 0.5 tablets by mouth every 6 hours as needed for pain. (Patient not taking: Reported on 11/27/2022) 10 tablet 0 No current facility-administered medications for this visit. ALLERGIES No Known Allergies FAMILY HISTORY Problem Relation Age of Onset No Known Problems Mother No Known Problems Father Clotting Disorder No Family History Anesthesia Problems No Family History Malig Hyperthermia No Family History Social History Tobacco Use Smoking status: Never Smokeless tobacco: Never Vaping Use Vaping Use: Never used Substance Use Topics Alcohol use: Not Currently Drug use: Not Currently Physical Exam: BP 141/84 (BP Site: Right Arm, BP Position: Sitting, BP Cuff Size: Regular Adult) Pulse 86 Temp 37 C (98.6 F) Ht 188 cm (6' 2 ) Wt 117.9 kg (260 lb) SpO2 95% BMI 33.38 kg/m General Appearance: Well appearing, alert, in no acute distress, well-hydrated, well nourished. Abdomen: soft ND NT Anorectal: External exam reveals posterior midline 2 mm focus of granulation tissue at medial aspect of fistulotomy site closed to 3.5 cm from the anal verge in the right lateral position, additional 2 mm focus of exophytic granulation tissue posterior midline at anal verge. No surrounding fluctuance, induration or erythema. No drainage expressed with pressure at posterior anal margin just outside granulation tissue Health Program Director present: Yes Bertha Assessment Assessment and Plan: Lorenza Rock is a 42 year old male with complex, atypical anal fistula s/p staged fistulotomy w/ sinus tract posterior midline appreciated on most recent EUA concerning for perianal Crohn's disease. Wound defer any testing until 8 weeks from surgery as he is otherwise asymptomatic and healing well They are very anxious about next steps if this does not heal and desire to proceed with Crohn's workup. Colonoscopy Labs MR enterography GI consultation - he will defer scheduling until next month Medical Decision Making: Data Reviewed: Tests & Documents Reviewed/ordered: Review of prior notes from myself Review of prior operative reports Review of Imaging: MRI Pelvis Additional testing or imaging to be ordered: colonoscopy, MR enterography, labs, GI referral if non-healing wounds after 2 months or concern for IBD on workup I have independently interpreted: MRI Pelvis I have discussed Lorenza Rock's treatment plan and/or results with the patient, his , Dr. Man. I spent a total of 45 minutes on the date of the service which included preparing to see the patient, [id number] patient care, completing clinical documentation, obtaining and/or reviewing separately obtained history, performing a medically appropriate examination, counseling and educating the patient/family/caregiver, ordering medications, tests, or procedures, communicating with other HCPs (not separately reported), independently interpreting results (not separately reported), communicating results to the patient/family/caregiver, and care coordination (not separately reported). Christa Dubois MD Colorectal Surgery documented in this encounter [facility] 11-27-2022 Note HNO ID: [id number] Author: Christa Dubois MD Service: ? Author Type: Physician Type: Progress Notes Filed: 11/27/2022 11:03 AM Note Text: COLORECTAL SURGERY November 27, 2022 Lorenza Rock Chief Complaint: follow up/ anal fistula History of Present Illness: Lorenza Rock is a 42 year old male presents to the office for a follow up evaluation after undergoing a rectal exam under anesthesia with complex fistulotomy on 10/19/2022. Last seen in the office on 11/02/22 with Susie Jhon SECURITY PROGRAM MANAGER. Wound has been healing well. Still with a punctate wound of granulation tissue near posterior midline that drains small amount of yellow or purulent fluid with pressure posterior midline from that area. No FI Stool is soft, some form. No diarrhea or hematochezia. No abdominal pain. Weight stable. OPERATIVE FINDINGS: 10/19/[address] Healed scar from prior partial fistulotomy at right lateral aspect of the anal margin. Seton with external opening right posterior involving some external sphincter muscle with internal opening posterior midline at dentate line. Normal external hemorrhoids, moderately enlarged internal hemorrhoids all locations. Normal rectal mucosa without proctitis. After fistulotomy, blind sinuses appreciated tracking right posterior to 6 cm from the anal verge (1 cm diameter) and posterior midline towards coccyx 5 cm from the anal verge (2 mm diameter). No past medical history on file. PAST SURGICAL HISTORY Procedure Laterality Date PAST SURGICAL HISTORY OF rectal abscess drained x 2 PAST SURGICAL HISTORY OF [place] teeth removal PAST SURGICAL HISTORY OF 08/2022 anal procedure Current Outpatient Medications Medication Sig Dispense Refill ibuprofen (MOTRIN) 200 mg tablet Take 1-2 tablets by mouth every 6 hours. acetaminophen (TYLENOL) 325 mg tablet Take 2 tablets by mouth every 6 hours. iv contrast (will be provided with radiology test) MRI Enterography Inject, intravenously, once for 1 dose. No IV access, insert saline lock prior to the beginning of sedation, infusion, injection of imaging exam. Discontinue saline lock post exam. If Pt. has a central line or IVAD, may access for administration according to line specific nursing protocol. Once exam is complete flush line and de-access according to line specific nursing protocol in the MR contrast administration guidelines link. 1 Each 0 enteric contrast (will be provided with radiology test) For MRI ENTEROGRAPHY WO/W Administer, As Directed One Time Only, via Oral, Rectal, both Oral and Rectal, Enteric Tube, Stoma or Indwelling Catheter, Enteric Contrast as designated per enteric contrast guidelines 1 Each 0 glucagon (GLUCAGEN) 1 mg/mL injection Inject 1 mg intravenously one time only for 1 dose. For MRI Enterography, Inject 1 mg intravenously, as directed. Slow push at the appropriate time during MRI Scan 1 Each 0 oxyCODONE IR (ROXICODONE) 5 mg immediate release tablet Take 0.5 tablets by mouth every 6 hours as needed for pain. (Patient not taking: Reported on 11/27/2022) 10 tablet 0 No current facility-administered medications for this visit. ALLERGIES No Known Allergies FAMILY HISTORY Problem Relation Age of Onset No Known Problems Mother No Known Problems Father Clotting Disorder No Family History Anesthesia Problems No Family History Malig Hyperthermia No Family History Social History Tobacco Use Smoking status: Never Smokeless tobacco: Never Vaping Use Vaping Use: Never used Substance Use Topics Alcohol use: Not Currently Drug use: Not Currently Physical Exam: BP 141/84 (BP Site: Right Arm, BP Position: Sitting, BP Cuff Size: Regular Adult) Pulse 86 Temp 37 ?C (98.6 ?F) Ht 188 cm (6' 2 ) Wt 117.9 kg (260 lb) SpO2 95% BMI 33.38 kg/m? General Appearance: Well appearing, alert, in no acute distress, well-hydrated, well nourished. Abdomen: soft ND NT Anorectal: External exam reveals posterior midline 2 mm focus of granulation tissue at medial aspect of fistulotomy site closed to 3.5 cm from the anal verge in the right lateral position, additional 2 mm focus of exophytic granulation tissue posterior midline at anal verge. No surrounding fluctuance, induration or erythema. No drainage expressed with pressure at posterior anal margin just outside granulation tissue Health Program Director present: Yes Bertha Assessment Assessment and Plan: Lorenza Rock is a 42 year old male with complex, atypical anal fistula s/p staged fistulotomy w/ sinus tract posterior midline appreciated on most recent EUA concerning for perianal Crohn's disease. Wound defer any testing until 8 weeks from surgery as he is otherwise asymptomatic and healing well They are very anxious about next steps if this does not heal and desire to proceed with Crohn's workup. Colonoscopy Labs MR enterography GI consultation - he will defer scheduling until next month Medical Decis (more content not included)... [facility] 10-17-2022 Instructions Hannah Smith APRN.JORGE - 10/17/2022 9:49 AM EDT PATIENT PREOPERATIVE INSTRUCTIONS Christa Dubois MD has scheduled you for your procedure at this surgery center: [facility]: [phone] --[id number] [id number]. Please check in on the 1st floor at registration desk 6. Please read below carefully for your personalized instructions. Dietary Restrictions: - No solid food after midnight. - You may have 12 ounces of clear liquids (water, clear juices such as apple juice or gatorade, carbonated beverages, clear tea, black coffee, jello) until 2 hours before scheduled arrival at facility. Is Patient Diabetic:No Medications: Unless instructed differently below, stay on all of your medications until your surgery. Approved medications to take the morning of surgery with a sip of water: None If you take any medications for erectile dysfunction-Cialis (Tadalafil), Levitra, Staxyn (Vardenafil) Viagra (Sildenenafil please do not take these for 48 hours before surgery. If you start any new medications after today's visit, please contact the surgeon's office. Blood Thinning Medications: - Stop NSAIDS (Ibuprofen, Advil, Aleve, Motrin, Celebrex, Mobic, etc.) 7 days before surgery, as directed by your surgeon. - Stop Aspirin 7 days before surgery, as directed by your surgeon. - Stop Vitamin E, ALL multi-vitamins, herbals and dietary supplements 7 days before surgery. - You may take Tylenol (Acetaminophen) or any of your pain medications that do not contain aspirin or NSAIDS as needed. Important Reminders: - Candy, mints, and tobacco products are NOT permitted the morning of surgery. - Hearing aids, dentures and glasses may be worn the morning of surgery. - NO jewelry, body piercings, makeup, hairpins or contacts are to be worn the day of surgery. If you develop symptoms such as a fever, cold, or flu, or have other changes to your health within TWO DAYS of scheduled surgery or the morning of surgery, please contact the surgery center above. Personal Belongings: -Please have photo ID and insurance cards. -If you do not have a copy of advance directives on file with us, please bring a copy with you on the day of surgery. - Leave ALL valuables and money at home or with family members. For Outpatient Procedures: - YOU MUST HAVE A RESPONSIBLE WELDING MACHINE OPERATOR ELECTRON BEAM TAKE YOU HOME. A SPIRITUAL COUNSELOR OR CLINICAL FIELD SPECIALIST CANNOT BE MADE A RESPONSIBLE WELDING MACHINE OPERATOR ELECTRON BEAM. - We recommend that a responsible person stays with you overnight to take care of you. - You cannot stay in a hotel alone after outpatient surgery. You will not be permitted to have your surgery, if you do not have someone to take care of you. Arrival Time for Surgery: - The Surgery Center or hospital where you are having surgery will call the afternoon before surgery (or Saturday for Saturday surgery) with a scheduled arrival time. - If you have not heard by 4 pm, please contact the surgery center above. Please be aware that emergency situations arise, which may delay or change your surgical time. If this happens, we will notify you as soon as possible and regret any inconvenience. If you already have an Advance Directive, please fax a copy to [phone] or email to for it to be added to your chart. If you do not have an Advance Directive, you can find the appropriate form and more information at [email or web address]. We recommend that you complete the Advance Directive form found on the website and bring it with you the day of your surgery. It can be witnessed and scanned into your chart that day. Hannah Smith APRN.CNP documented in this encounter [facility] 10-17-2022 History and physical note HISTORY AND PHYSICAL EXAMINATION SERVICE DATE: 10/17/2022 SERVICE TIME: 9:38 AM This is a virtual visit using [employer] video visit. It required patient-provider interaction for the medical decision making as documented below. I have communicated my name and active licensure. The patient's identity and physical location were verified at the time of this visit. Either the patient or their legal sales representative door to door has been informed of the risks and benefits of and alternatives to treatment through a remote evaluation and consents to proceed with the evaluation remotely. PRIMARY CARE PHYSICIAN: Renetta Gonzlaez, This is a virtual visit using [employer] video visit. It required patient-provider interaction for the medical decision making as documented below. REASON FOR VISIT: Lorenza Rock is a 42 year old male who is scheduled for Procedure(s): ANAL FISTULOTOMY INTERSPHINCTERIC (N/A) at the request of Dr. Christa Dubois for consultation. My final recommendation will be communicated back to the requesting physician by way of shared medical record or letter. Subjective The patient has the following: ACTIVE PROBLEM LIST Obesity, Class I, Bmi 30-34.9 COVID-19 Immunization Status Overdue - COVID-19 VACCINE (1) Overdue - never done No completion, postpone, frequency change, or communication history exists for this topic. CHIEF COMPLAINT: Anal fistula HPI: This 42 year old male is scheduled for the above procedure and presents to the [facility] virtually for pre-operative examination. Patient reports history of perianal pain that increases with activity due to presence of fistula. He previously underwent procedure on 09/07/22. He states this will be his 5th surgery for the same issue and he typically does well with anesthesia. Denies fevers, chills, nausea, vomiting, abdominal pain, chest pain, and SOB. REVIEW OF SYSTEMS: General: +Obesity Negative for: malaise and fever. Neurological: No history of TIA's, stroke, WIDE AREA NETWORK ADMINISTRATOR tumor, impaired sensorium, hemiplegia, paraplegia or quadraplegia. No neurological symptoms or problems. Respiratory: No history of current cough or dyspnea, or pneumonia in the past 6 weeks. No history of respiratory/pulmonary symptoms or problems. Negative for: asthma, COPD and obstructive sleep apnea. Cardiovascular: No history of HTN requiring medication, no history of angina, CHF, TX, cardiac surgery or stents. Denies rest pain, gangrene or revascularization/amputation for PVD. No history of cardiovascular symptoms or problems. GI: See HPI. Negative for: abdominal pain, GERD, inflammatory bowel disease and liver disease. : No history of dysuria, frequency or incontinence, stones or chronic kidney disease. No difficulty urinating, nocturia > 1 time per night or hematuria. Endocrine: No history of diabetes. Has not taken steroids within the past 30 days. No history of endocrinological symptoms or problems. Hematology: No history of bleeding or clotting disorder. Patient is not taking anti-coagulation or platelet medications. No history of hematological symptoms or problems. Oncology: No history of CA metastasis, chemo within 30 days, or radiotherapy within 90 days. No history of oncological symptoms or problems. Psych: No history of psychiatric symptoms or problems. Musculoskeletal: Negative for joint pain or swelling, back pain or muscle pain. Skin: Negative for lesions, rash and itching. History reviewed. No pertinent past medical history. PAST SURGICAL HISTORY Procedure Laterality Date PAST SURGICAL HISTORY OF rectal abscess drained x 2 PAST SURGICAL HISTORY OF [place] teeth removal PAST SURGICAL HISTORY OF 08/2022 anal procedure FAMILY HISTORY Problem Relation Age of Onset No Known Problems Mother No Known Problems Father Clotting Disorder No Family History Anesthesia Problems No Family History Malig Hyperthermia No Family History Social History Tobacco Use Smoking status: Never Smokeless tobacco: Never Vaping Use Vaping Use: Never used Substance Use Topics Alcohol use: Not Currently Drug use: Not Currently Prior to Admission medications as of 10/17/22 0942 Medication Sig Last Dose Taking oxyCODONE IR (ROXICODONE) 5 mg immediate release tablet Take 1 tablet by mouth every 6 hours as needed for pain. Patient not taking: Reported on 10/17/2022 Not Taking acetaminophen (TYLENOL ORAL) Take by mouth. Patient not taking: Reported on 10/17/2022 Not Taking ibuprofen (MOTRIN ORAL) Take by mouth. Patient not taking: Reported on 10/17/2022 Not Taking DICLOFENAC SODIUM ORAL Take 50 mg by mouth twice daily. Patient not taking: Reported on 10/17/2022 Not Taking cholecalciferol (VITAMIN D3) 1,000 unit tab tablet Take 1,000 Units by mouth once daily. Patient not taking: Reported on 10/17/2022 Not Taking HERBAL DRUGS ORAL Take by mouth. Vitamin c, b, e, omega and whey protein Patient not taking: Reported on 10/17/2022 Not Taking No medication comments found. ALLERGIES No Known Allergies Objective PHYSICAL EXAM: (if completed, exam performed via video enabled technology) General: Alert and appropriate; in no acute distress; well-hydrated; well-nourished; happy, smiling, interactive. Skin: normal color, no rash or lesions. HEENT: Normocephalic; no abnormality or lesions noted. No ocular injection; visual acuity is grossly normal. Hearing grossly normal. Mucous membranes moist and pink. Full neck ROM, no cervical lymph nodes noted. Cardiovascular: Self palpated radial pulse, regular when counted aloud by patient. Respiratory: Breathing non-labored. Equal chest rise with normal respiratory effort. Abdomen: No tenderness upon patient self palpation of abdomen. Extremities: No obvious deficit. Neurological: No obvious deficit. PAIN ASSESSMENT: VITALS: Ht 6' 2 [pt reported[ (1.88m) Wt 260 lb (117.9kg) BMI 33.37 kg/(m^2). Diagnostic tests reviewed for today's visit: Lab Value Units Date High Low HB No results within date range. HCT No results within date range. WBC No results within date range. PLT No results within date range. NA No results within date range. K No results within date range. GLUC No results within date range. BUN No results within date range. CREAT No results within date range. PTSEC No results within date range. INR No results within date range. APTT No results within date range. ALT No results within date range. AST No results within date range. TBILI No results within date range. TSH No results within date range. Lab Value Units Date High Low HCGQT No results within date range. UHCG No results within date range. HCG, BODY* No results within date range. Lab Value Units Date High Low ABORHD No results within date range. ABSCREEN No results within date range. No results found for: HBA1C No results found for this or any previous visit (from the past 8760 hour(s)). No results found for this or any previous visit (from the past 09479 hour(s)). Assessment Patient has the following medical conditions which may affect mana-operative course: Obesity, Class I, BMI 30-34.9 Assessment: Body mass index is 33.38 kg/m . Jennings Activity Status Index: METS: Climb a flight of stairs or walk up a hill (5.50 METs) DASI Score: 5.5 Patient denies any chest pain or undue shortness of breath with the above physical activity. Clinical Frailty Scale: 3. Well, with treated comorbid disease STOP-Bang Score: Male patient Denies snoring loudly Denies feeling tired, fatigued, or sleepy during the daytime Has not been observed to stop breathing or choking/gasping during sleep Denies having high blood pressure BMI less than or equal to 35 kg/m^2 Patient 50 years old or younger Does not have a large neck STOP-Bang Score: 1 [id number] Score: Age: <65 Sex: male CHF history: No Hypertension history: No Stroke/TIA/thromboembolism history: No Vascular disease history: No Diabetes history: No [id number] Score: 0 ARISCAT Score: Age: <=50 Preoperative SpO2: >=96% Respiratory infection in the last month: No Preoperative anemia: No Surgical incision: peripheral Duration of surgery: <2 hrs Emergency procedure: No ARISCAT Score: 0 ASA Class: 2 ANESTHESIA FINDINGS: Intubation History: No prior intubation Significant Anesthesia Considerations: none Airway History: No prior intubation I - PHYSICAL EVALUATION AIRWAY Patient intubated: No. Tracheostomy tube not present Mallampati: II. TM distance: >3 FB. Neck ROM: full ROM without neurological symptoms. Mouth opening: adequate. Short neck: no. Thick neck: no Dunham present: no Lip Bite Test: I Microretrognathia/Micronagthia/R ecessed Chin: No DENTAL Dental findings: teeth intact. II - ANESTHESIA PLAN ASA Score: 2 Anesthetic plan additional comments: *[facility] - anesthesia choice. Beta Ha Monitoring Plan Post Procedure Analgesic Plan Prepared for Surgery: optimally prepared for surgery. Labs/EKG not indicated per [facility] protocol. CONSULTS: Patient does not require consults for optimization at this time Planned Anesthetic: anesthesia choice The Following Tests/Procedures Have Been Initiated: No orders of the defined types were placed in this encounter. Instructions Given to Patient: Patient given verbal instructions and voices comprehension and compliance. Copy sent electronically via My Chart, email, or mobile device. I spent more than 0-20 minutes [id number] with the patient and over half the time was devoted to counseling and/or coordination of care. This is a virtual visit. It required patient-provider interaction for the medical decision making as documented above. SIGNATURE: Hannah Smith APRN.CNP PATIENT NAME: Lorenza Rock DATE: October 17, 2022 TIME: 9:38 AM PAGER/CONTACT #: documented in this encounter [facility] 10-02-2022 Nurse Note What is the reason for your visit today? Wound check Who is your referring physician? Are you having poor oral intake? NO Have you had unintentional weight loss of 15 lbs/7 Kg in the last 3-6 months? NO Bowels: regular Wound: Temperature: No Drains: No documented in this encounter [facility] 10-02-2022 History of Presen t illness Narrative COLORECTAL SURGERY October 02, 2022 Lorenza Rock Chief Complaint: follow up/ anal fistula/ wound check History of Present Illness: Lorenza Rock is a 42 year old male presents to the office for a follow up evaluation and wound check of an anal fistula after undergoing a a Exam under anesthesia, drainage of perirectal abscess, placement of seton on 09/07/22. He was last seen in the office on 09/20/22. OPERATIVE FINDINGS: Induration right posterior space lateral to seton with expression of purulent fluid from internal opening of known fistula with pressure. New internal opening 0.5 cm lateral to external opening of known tract with seton in place communicating with same internal opening and abscess cavity. Fistula tract shortened from external opening - new external opening right posterior 1 cm from the anal verge. Abscess cavity and portion of fistula tract exposed curetted. Prior seton removed and new seton placed without tension. Symptoms: healing right posterior wound, not able to place packing as wound is too shallow. Firm area at posterior midline just outside external opening of seton. States pressure at this area previously resulted in purulent drainage from seton opening. Denies fever/chills, fluctuance, increased swelling or pain. States pain has been minimal since procedure. No past medical history on file. PAST SURGICAL HISTORY Procedure Laterality Date PAST SURGICAL HISTORY OF rectal abscess drained x 2 PAST SURGICAL HISTORY OF [place] teeth removal Current Outpatient Medications Medication Sig Dispense Refill oxyCODONE IR (ROXICODONE) 5 mg immediate release tablet Take 1 tablet by mouth every 6 hours as needed for pain. 20 tablet 0 acetaminophen (TYLENOL ORAL) Take by mouth. ibuprofen (MOTRIN ORAL) Take by mouth. DICLOFENAC SODIUM ORAL Take 50 mg by mouth twice daily. cholecalciferol (VITAMIN D3) 1,000 unit tab tablet Take 1,000 Units by mouth once daily. HERBAL DRUGS ORAL Take by mouth. Vitamin c, b, e, omega and whey protein No current facility-administered medications for this visit. ALLERGIES No Known Allergies FAMILY HISTORY Problem Relation Age of Onset No Known Problems Mother No Known Problems Father Social History Tobacco Use Smoking status: Never Smokeless tobacco: Never Vaping Use Vaping Use: Never used Substance Use Topics Alcohol use: Not Currently Drug use: Not Currently Physical Exam: BP 131/69 (BP Site: Right Arm, BP Position: Sitting) Pulse 84 Temp 36.7 C (98 F) SpO2 97% General Appearance: Well appearing, alert, in no acute distress, well-hydrated, well nourished. Abdomen: soft ND NT Anorectal: External exam reveals RP seton in place nearly healed right lateral surgical wound. Area of induration posterior midline adjacent to seton with expression of purulent fluid from seton tract with pressure. Health Program Director present: Yes Ashleigh Assessment Assessment and Plan: Lorenza Rokc is a 42 year old male with complex recurrent RP anal fistula most recently s/p shortening of tract and replacement of seton. Plan for completion fistulotomy and will curette likely adjacent abscess cavity. We discussed that because plan is no longer for complex repair requiring normal/healthy tissue, we should be ok to proceed to OR as planned. Will move procedure up per patient and request. Likely plan to pack the wound post-op as he had minimal pain with prior extensive procedure and they are adept with wound care at this point. Medical Decision Making: Data Reviewed: Tests & Documents Reviewed/ordered: Review of prior notes from myself Review of prior operative reports I have discussed Lorenza Rock's treatment plan and/or results with the patient, his . I spent a total of 30 minutes on the date of the service which included preparing to see the patient, [id number] patient care, completing clinical documentation, obtaining and/or reviewing separately obtained history, performing a medically appropriate examination, counseling and educating the patient/family/caregiver, and care coordination (not separately reported). Christa Dubois MD Colorectal Surgery documented in this encounter [facility] 09-11-2022 Miscellaneous Notes Call returned to patient. He is post op 09/10 EUA, fistulotomy, seton. He states he is packing cavity and feels healing well. He was informed to call office today to schedule a post op wound check this week. Will coordinate time/location and return call. Patient requesting a date for surgery 4 weeks from last weeks surgery. Discussed with Dr Dubois. Patient appreciative of the call back. Patient's called with questions about wound care and scheduling a second surgery. She also stated she wants her to be seen as soon as possible for his post op appt after his surgery on 09/07/22. Contact # [phone] documented in this encounter [facility] 08-23-2022 Instructions Nate Cleveland APRN.[facility] - 08/23/2022 9:57 AM EDT PATIENT PREOPERATIVE INSTRUCTIONS Christa Dubois MD has scheduled you for your procedure at this surgery center: [facility]: [phone] --[address] [place] [address]. Please read below carefully for your personalized instructions. Dietary Restrictions: - No solid food after midnight. - You may have 12 ounces of clear liquids (water, clear juices such as apple juice or gatorade, carbonated beverages, clear tea, black coffee, jello) until 2 hours before scheduled arrival at facility. Contact Sherly's office regarding any further dietary/ or bowel prep needs. Is Patient Diabetic:No Medications: Unless instructed differently below, stay on all of your medications until your surgery. Approved medications to take the morning of surgery with a sip of water: None. Okay to take Oxycodone as prescribed if needed. If you take any medications for erectile dysfunction-Cialis (Tadalafil), Levitra, Staxyn (Vardenafil) Viagra (Sildenenafil please do not take these for 48 hours before surgery. If you start any new medications after today's visit, please contact the surgeon's office. Blood Thinning Medications: - Stop NSAIDS (Ibuprofen, Advil, Aleve, Motrin, Celebrex, Mobic, etc.) 7 days before surgery, as directed by your surgeon. - Stop Aspirin 7 days before surgery, as directed by your surgeon. - Do NOT stop aspirin or other anticoagulants without consulting with your support worker or prescribing physician. - Stop Vitamin E, ALL multi-vitamins, herbals and dietary supplements 14 days before surgery. - You may take Tylenol (Acetaminophen) or any of your pain medications that do not contain aspirin or NSAIDS as needed. Important Reminders: - Candy, mints, and tobacco products are NOT permitted the morning of surgery. - Hearing aids, dentures and glasses may be worn the morning of surgery. - NO jewelry, body piercings, makeup, hairpins or contacts are to be worn the day of surgery. If you develop symptoms such as a fever, cold, or flu, or have other changes to your health within TWO DAYS of scheduled surgery or the morning of surgery, please contact the surgery center above. Personal Belongings: -Please have photo ID and insurance cards. -If you do not have a copy of advance directives on file with us, please bring a copy with you on the day of surgery. - Leave ALL valuables and money at home or with family members. For Outpatient Procedures: - YOU MUST HAVE A RESPONSIBLE WELDING MACHINE OPERATOR ELECTRON BEAM TAKE YOU HOME. A SPIRITUAL COUNSELOR OR CLINICAL FIELD SPECIALIST CANNOT BE MADE A RESPONSIBLE WELDING MACHINE OPERATOR ELECTRON BEAM. - We recommend that a responsible person stays with you overnight to take care of you. - You cannot stay in a hotel alone after outpatient surgery. You will not be permitted to have your surgery, if you do not have someone to take care of you. Arrival Time for Surgery: - The Surgery Center or hospital where you are having surgery will call the afternoon before surgery (or Saturday for Saturday surgery) with a scheduled arrival time. - If you have not heard by 4 pm, please contact the surgery center above. Please be aware that emergency situations arise, which may delay or change your surgical time. If this happens, we will notify you as soon as possible and regret any inconvenience. If you already have an Advance Directive, please fax a copy to [phone] or email to for it to be added to your chart. If you do not have an Advance Directive, you can find the appropriate form and more information at [email or web address]. We recommend that you complete the Advance Directive form found on the website and bring it with you the day of your surgery. It can be witnessed and scanned into your chart that day. Nate Cleveland APRN.[facility] documented in this encounter [facility] 08-23-2022 History and physical note PREANESTHESIA CONSULT CLINIC TELEHEALTH VISIT Patient has been identified by name and date of : Yes This is a virtual visit using MyChart video visit. It require patient-provider interaction for the medical decision making as documented below. Reason for contact: PACC visit Accompanied by: Self Scheduled Surgery: ANAL FISTULOTOMY INTERSPHINCTERIC This is a virtual visit using MyChart video visit. It required patient-provider interaction for the medical decision making as documented below. I have communicated my name and active licensure. The patient's identity and physical location were verified at the time of this visit. Either the patient or their legal sales representative door to door has been informed of the risks and benefits of and alternatives to treatment through a remote evaluation and consents to proceed with the evaluation remotely. Subjective CHIEF COMPLAINT: Patient presents with: Anal Fistula HPI: This is a 42 year old male who is scheduled for the above procedure. Has Perianal pain. Pain increases with activity. Denies CP, Heart Palpitations, SOB, Abdominal Pain, Fevers and Chills. ACTIVE PROBLEM LIST Obesity, Class I, Bmi 30-34.9 History reviewed. No pertinent past medical history. PAST SURGICAL HISTORY Procedure Laterality Date PAST SURGICAL HISTORY OF rectal abscess drained x 2 PAST SURGICAL HISTORY OF [place] teeth removal FAMILY HISTORY Problem Relation Age of Onset No Known Problems Mother No Known Problems Father Social History Tobacco Use Smoking status: Never Smokeless tobacco: Never Vaping Use Vaping Use: Never used Substance Use Topics Alcohol use: Not Currently Drug use: Not Currently ALLERGIES No Known Allergies MEDICATIONS: Current Outpatient Medications Medication Sig acetaminophen (TYLENOL ORAL) Take by mouth. ibuprofen (MOTRIN ORAL) Take by mouth. DICLOFENAC SODIUM ORAL Take 50 mg by mouth twice daily. oxyCODONE IR (ROXICODONE) 5 mg immediate release tablet Take 1 tablet by mouth every 6 hours as needed for pain. cholecalciferol (VITAMIN D3) 1,000 unit tab tablet Take 1,000 Units by mouth once daily. HERBAL DRUGS ORAL Take by mouth. Vitamin c, b, e, omega and whey protein No current facility-administered medications for this visit. COVID VACCINATION STATUS: Not vaccinated REVIEW OF SYSTEMS: Pain Assessment: General: No weight loss, malaise or fevers. +BMI = 32.10. Neuro: No history of TIA's, stroke, WIDE AREA NETWORK ADMINISTRATOR tumor, impaired sensorium, hemiplegia, paraplegia or quadraplegia. No neurological symptoms or problems. Respiratory: No history of current cough or dyspnea, or pneumonia in the past 6 weeks. No history of respiratory/pulmonary symptoms or problems. Cardiovascular: No history of HTN requiring medication, no history of angina, CHF, [place], cardiac surgery or stents. Denies rest pain, gangrene or revascularization/amputation for PVD. No history of cardiovascular symptoms or problems. GI: No history of esophageal varices, recent ascites, or ETOH greater than 2 drinks per day. +Anal Fistula, see HPI. : No history of dysuria, frequency or incontinence,, stones or chronic kidney disease Endocrine: No history of diabetes. Has not taken steroids within the past 30 days. No history of endocrinological symptoms or problems. Hematology: No history of bleeding or clotting disorder. Pt is not taking anti-coagulation or platelet medications. No history of hematological symptoms or problems. Oncology: No history of CA metastasis, chemo within 30 days, or radiotherapy within 90 days. Has not lost 10% of body wt in 6 months. No history of oncological symptoms or problems. Psych: No history of psychiatric symptoms or problems. Musculoskeletal: Negative for joint pain or swelling, back pain or muscle pain. Skin: Negative for lesions, rash and itching. Objective PHYSICAL EXAM: Pulse 72[Patient Palpated.[ Ht 6' 2 [Patient reported.[ (1.88m) Wt 250 lb (113.4kg) BMI 32.08 kg/(m^2). VIDEO EXAM: (if completed, performed via video enabled technology) GENERAL: alert and appropriate, in no distress, well-hydrated, well nourished, and happy, smiling, interactive SKIN: no rash noted HEAD: normocephalic, no abnormality or lesion noted EYES: no injection and visual acuity is grossly normal NOSE: external nose normal without rhinorrhea OROPHARYNX: moist mucus membranes NECK: full ROM, no cervical LNs noted RESPIRATORY: breathing non-labored CHEST: equal chest rise with normal respiratory effort HEART: Self palpated radial pulse, regular when counted aloud by patient NEUROLOGIC: no obvious deficit Diagnostic tests reviewed for today's visit: Lab Value Units Date High Low HB No results within date range. HCT No results within date range. WBC No results within date range. PLT No results within date range. NA No results within date range. K No results within date range. GLUC No results within date range. BUN No results within date range. CREAT No results within date range. PTSEC No results within date range. INR No results within date range. APTT No results within date range. ALT No results within date range. AST No results within date range. TBILI No results within date range. TSH No results within date range. Lab Value Units Date High Low HCGQT No results within date range. UHCG No results within date range. HCG, BODY* No results within date range. Lab Value Units Date High Low ABORHD No results within date range. ABSCREEN No results within date range. No results found for: HBA1C Impression/Recommendations ASSESSMENT: Obesity, Class I, BMI 30-34.9 Assessment: BMI = 32.10. METS: Walk indoors, such as around the house (1.75 METs) Walk a block or two on level ground (2.75 METs) Climb a flight of stairs or walk up a hill (5.50 METs) Patient denies any chest pain or undue shortness of breath with the above physical activity. ASA Class: 2 ANESTHESIA FINDINGS: Intubation History: No prior intubation Significant Anesthesia Considerations: None Airway Exam: General: Normal appearance Mallampati Score is CLASS III ULBT: Class I - Lower incisors can bite the upper lip above the li line Neck: Normal appearance and function, Distance from hyoid to mentum during neck extension is at least 3 finger breaths Mouth: Normal tongue size and Mouth opening greater than 2 finger breaths Dentition: Intact, Retainer that is non-removable. Airway History: No prior intubation STOP BANG Score: Criteria: Male gender Score = 1 PLAN: This patient is optimally prepared for surgery. CONSULTS: Patient does not require consults for optimization at this time. The Following Tests/Procedures Have Been Initiated: Labs not indicated per PACC protocol, EKG not indicated per [facility] protocol Planned Anesthetic: Per anesthesia choice Instructions Given to Patient: Patient given verbal instructions and voices comprehension and compliance. Copy sent electronically via My Chart, email, or mobile device. I spent more than 0-20 minutes [id number] with the patient and over half the time was devoted to counseling and/or coordination of care. This is a virtual visit. It required patient-provider interaction for the medical decision making as documented above. SIGNATURE: Nate Cleveland APRN.CNP PATIENT NAME: Lorenza Rock DATE: 08/23/2022 TIME: 9:57 am PAGER/CONTACT #: documented in this encounter [facility] 08-21-2022 Nurse Note Education packet given for LIFT procedure on September 07. No questions or concerns at this time. What is the reason for your visit today? Follow up anal fistula, seton placement, discuss plan of care Who is your referring physician? Are you having poor oral intake? NO Have you had unintentional weight loss of 15 lbs/7 Kg in the last 3-6 months? NO Bowels: regular Wound: clean and dry Temperature: No Drains: No documented in this encounter [facility] 08-21-2022 History of Presen t illness Narrative COLORECTAL SURGERY August 21, 2022 Lorenza Rock Chief Complaint: follow up/ anal fistula History of Present Illness: Lorenza Rock is a 42 year old male presents to the office for a follow up evaluation after undergoing a Exam under anesthesia, placement of seton on 07/27/22 for a anal fistula. Last seen in the office on 08/13/22. Operative findings: Suprasphincteric anal fistula - external opening right lateral 3 cm from the anal verge, internal opening posterior midline dentate line. Tract involves all of the external and some of the internal sphincter muscle. Normal external hemorrhoid tissue, moderately enlarged internal hemorrhoid tissue all locations. Long anal canal. Symptoms: Still with proctalgia worse when standing or ambulating [place]. Describes firm area RP that expresses purulent drainage from external opening with pressure. No past medical history on file. PAST SURGICAL HISTORY Procedure Laterality Date PAST SURGICAL HISTORY OF rectal abscess drained x 2 Current Outpatient Medications Medication Sig Dispense Refill DICLOFENAC SODIUM ORAL Take 50 mg by mouth twice daily. oxyCODONE IR (ROXICODONE) 5 mg immediate release tablet Take 1 tablet by mouth every 6 hours as needed for pain. 5 tablet 0 cholecalciferol (VITAMIN D3) 1,000 unit tab tablet Take 1,000 Units by mouth once daily. HERBAL DRUGS ORAL Take by mouth. Vitamin c, b, e, omega and whey protein No current facility-administered medications for this visit. ALLERGIES No Known Allergies No family history on file. Social History Tobacco Use Smoking status: Never Smokeless tobacco: Never Substance Use Topics Alcohol use: Not Currently Drug use: Not Currently Physical Exam: BP 137/80 (BP Site: Right Arm, BP Position: Sitting) Pulse 69 Temp 36.7 C (98 F) SpO2 98% General Appearance: Well appearing, alert, in no acute distress, well-hydrated, well nourished. Abdomen: soft ND NT Anorectal: External exam reveals external opening RL 2.5 cm from the anal verge with associated granulation tissue, firm tissue right posterior likely corresponding to fistula tract itself no fluctuance or erythema. Health Program Director present: Yes Ashleigh Assessment Assessment and Plan: Lorenza Rock is a 42 year old male w/ transsphincteric anal fistula s/p seton placement. Discussed ligation of intersphincteric fistula tract, expected recovery and 30% risk of fistula recurrence. Consent signed. Sitz baths Tylenol/ibuprofen for pain Medical Decision Making: Data Reviewed: Tests & Documents Reviewed/ordered: Review of prior notes from myself Review of prior operative reports Additional testing or imaging to be ordered: preop testing I have discussed Lorenza Rock's treatment plan and/or results with the patient and his partner. I spent a total of 45 minutes on the date of the service which included preparing to see the patient, [id number] patient care, completing clinical documentation, obtaining and/or reviewing separately obtained history, performing a medically appropriate examination, counseling and educating the patient/family/caregiver, ordering medications, tests, or procedures, and care coordination (not separately reported). Christa Dubois MD Colorectal Surgery documented in this encounter [facility] 08-13-2022 History of Presen t illness Narrative COLORECTAL SURGERY August 13, 2022 Lorenza Rock 42 year old Chief Complaint: Postoperative pain, anal fistula History of Present Illness: Lorenza Rock is a 42 year old male status post rectal exam under anesthesia with placement of seton for suprasphinteric anal fistula on 07/27/[address] Dubois. Patient presents today regarding concerns with perianal pain associated with the seton. He denies fevers or chills since the procedure. He states that just following the procedure he was feeling well however now feels that the pain has been progressively increasing. He reports that he is doing very little at home because of the discomfort. He was given a refill on her oxycodone in which she is using sparingly. He states when he is lying flat he has minimal pain but with standing or any activity will cause discomfort. He reports continued drainage from seton. He denies concern regarding recurrent abscess or infection. He denies the sensation of a recurrent fluid collection. He also has concerns regarding the knot on the seton track which she is unable to identify. He has been changing his gauze 3-4 times per day. He reports a yellow-tinged and sometimes blood-tinged drainage. Patient is scheduled to follow-up with Dr. Dubois in the next week and a half and is also scheduled for lift procedure later this month.. No past medical history on file. PAST SURGICAL HISTORY Procedure Laterality Date PAST SURGICAL HISTORY OF rectal abscess drained x 2 Current Outpatient Medications Medication Sig Dispense Refill oxyCODONE IR (ROXICODONE) 5 mg immediate release tablet Take 1 tablet by mouth every 6 hours as needed for pain. 5 tablet 0 cholecalciferol (VITAMIN D3) 1,000 unit tab tablet Take 1,000 Units by mouth once daily. HERBAL DRUGS ORAL Take by mouth. Vitamin c, b, e, omega and whey protein No current facility-administered medications for this visit. ALLERGIES No Known Allergies No family history on file. Social History Tobacco Use Smoking status: Never Smokeless tobacco: Never Substance Use Topics Alcohol use: Not Currently Drug use: Not Currently Physical Exam: BP 144/83 (BP Site: Right Arm, BP Position: Sitting) Pulse 72 Temp 37 C (98.6 F) Ht 188 cm (6' 2 ) SpO2 97% BMI 32.10 kg/m General Appearance: Well appearing, alert, in no acute distress, well-hydrated, well nourished. Abdomen: Deferred Anorectal: External exam reveals snug seton in the right lateral position. External opening appears to be within normal limits. There is no erythema or cellulitis noted. Drainage of a mucopurulent nature with palpation to the external opening. Attempted digital rectal exam to identify knot/silk ties. Exam somewhat limited due to patient's discomfort. Similar drainage noted per anus with palpation to the perianal region. No identical recurrent abscess. Health Program Director present: Yes Anoscopy due to patient's discomfort Assessment Assessment and Plan: Lorenza Rock is a 42 year old male who recently underwent seton fistulotomy with Dr. Dubois. We discussed that he appears to be healing as expected. We will trial a short course of Bactrim to see if that helps decrease the drainage and discomfort. We discussed continuing sitz baths as a comfort measure and alternating Tylenol/ibuprofen/Roxicodone as needed for pain management. Patient was advised to contact the office if he needs a refill although he should be feeling some improvement in symptoms over the next 1 to 2 weeks. We discussed due to the snug fitting nature of the seton this is likely what is causing some increased irritation. Patient will plan to follow-up with Dr. Dubois as previously scheduled and will contact the office with any new or concerning symptoms. Medical Decision Making: Problems: Low: 2+ self-limited or minor problems Data: Unique test result(s) reviewed: 1 Risk: Low: Low risk from testing/treatment Medical Decision Making Level: 3 - Low Susie Mancia APRN.CNP Colorectal Surgery documented in this encounter [facility] 08-13-2022 Nurse Note What is the reason for your visit today? Post op anal fistula Who is your referring physician? Are you having poor oral intake? NO Have you had unintentional weight loss of 15 lbs/7 Kg in the last 3-6 months? NO Bowels: regular Wound: Temperature: No Drains: No documented in this encounter [facility] 08-09-2022 Miscellaneous Notes Discussed with Dr Dubois and will order more pain medication until he is seen with susie mancia NP on 08/13/22. documented in this encounter [facility] 07-27-2022 Miscellaneous Notes Returned Ariella's call to the office. She called the office to schedule her husbands follow up appointment on August 21. I informed her that I will save a surgery date of September 07 for his second procedure but we will not schedule the procedure until Dr Dubois assess him on August 21. She agreed with the plan of care. No other questions or concerns at this time. documented in this encounter [facility] 07-18-2022 Miscellaneous Notes I spoke with patient regarding MRI. Patient stated that he spoke with Diandra in radiology and everything is good for patient to have this test done this July 20 documented in this encounter [facility] 07-18-2022 Miscellaneous Notes We spoke over the phone. See phone encounter for details. documented in this encounter [facility] 07-18-2022 Miscellaneous Notes Returned call. Informed him that he was pre authorized for the first MRI so he should be pre authorized for this MRI. He will need to contact billing for this information. Provided him with a number to call [phone]. He will try this and call back with any other questions or concerns. Pt called about his upcoming MRI says they still need more information from the doctor. Would like a call PH: [phone] documented in this encounter [facility] 07-16-2022 History and physical note PREANESTHESIA CONSULT CLINIC TELEHEALTH VISIT Patient has been identified by name and date of : Yes This is a virtual visit using MyChart video visit. It require patient-provider interaction for the medical decision making as documented below. Reason for contact: PACC visit Accompanied by: Self This is a virtual visit using MyChart video visit. It required patient-provider interaction for the medical decision making as documented below. I have communicated my name and active licensure. The patient's identity and physical location were verified at the time of this visit. Either the patient or their legal sales representative door to door has been informed of the risks and benefits of and alternatives to treatment through a remote evaluation and consents to proceed with the evaluation remotely. Scheduled Surgery: EXAM UNDER ANESTHESIA RECTAL and PLACEMENT OF SETON Subjective CHIEF COMPLAINT: Patient presents with: Pre-Op Visit HPI: 42 year old male with history of rectal abscess, now to have EXAM UNDER ANESTHESIA RECTAL and PLACEMENT OF SETON Pt takes nothing for pain. He denies abdominal pain, nausea, vomiting, fevers or chills. ACTIVE PROBLEM LIST Obesity, Class I, Bmi 30-34.9 History reviewed. No pertinent past medical history. PAST SURGICAL HISTORY Procedure Laterality Date PAST SURGICAL HISTORY OF rectal abscess drained x 2 History reviewed. No pertinent family history. Social History Tobacco Use Smoking status: Never Smokeless tobacco: Never Substance Use Topics Alcohol use: Not Currently Drug use: Not Currently ALLERGIES No Known Allergies MEDICATIONS: Current Outpatient Medications Medication Sig iv contrast (will be provided with radiology test) MRI Pel/Perineum Inject, intravenously, once for 1 dose. No IV access, insert saline lock prior to the beginning of sedation, infusion, injection of imaging exam. Discontinue saline lock post exam. If Pt has a central line or IVAD, may access for administration according to line specific nursing protocol. Once exam is complete flush line and de-access according to line specific nursing protocol in the MR contrast administration guidelines link. cholecalciferol (VITAMIN D) 1,000 unit tab tablet Take 1,000 Units by mouth once daily. HERBAL DRUGS ORAL Take by mouth. Vitamin c, b, e, omega and whey protein No current facility-administered medications for this visit. COVID VACCINATION STATUS: Not vaccinated, prior infection REVIEW OF SYSTEMS: Pain Assessment: General: No weight loss, malaise or fevers. Neuro: No history of TIA's, stroke, WIDE AREA NETWORK ADMINISTRATOR tumor, impaired sensorium, hemiplegia, paraplegia or quadraplegia. No neurological symptoms or problems. Respiratory: No history of current cough or dyspnea, or pneumonia in the past 6 weeks. No history of respiratory/pulmonary symptoms or problems. Cardiovascular: No history of HTN requiring medication, no history of angina, CHF, TX, cardiac surgery or stents. Denies rest pain, gangrene or revascularization/amputation for PVD. No history of cardiovascular symptoms or problems. GI: See HPI : No history of dysuria, frequency or incontinence,, stones or chronic kidney disease Endocrine: No history of diabetes. Has not taken steroids within the past 30 days. No history of endocrinological symptoms or problems. Hematology: No history of bleeding or clotting disorder. Pt is not taking anti-coagulation or platelet medications. No history of hematological symptoms or problems. Oncology: No history of CA metastasis, chemo within 30 days, or radiotherapy within 90 days. Has not lost 10% of body wt in 6 months. No history of oncological symptoms or problems. Psych: No history of psychiatric symptoms or problems. Musculoskeletal: Negative for joint pain or swelling, back pain or muscle pain. Skin: Negative for lesions, rash and itching. Objective PHYSICAL EXAM: Pulse 86[per Apple watch[ Ht 6' 2 (1.88m) Wt 250 lb (113.4kg) BMI 32.08 kg/(m^2). VIDEO EXAM: (if completed, performed via video enabled technology) GENERAL: alert and appropriate, in no distress, well-hydrated,and interactive SKIN: no rash noted HEAD: normocephalic, no abnormality or lesion noted EYES: no injection EARS: external ears normal NOSE: external nose normal without rhinorrhea OROPHARYNX: moist mucus membranes, lips, teeth and gums are without obvious lesion NECK: full ROM, no cervical LNs noted RESPIRATORY: breathing non-labored and no grunting/flaring/retractions CHEST: equal chest rise with normal respiratory effort HEART: Pt denies palpitations, no alert of irregular HR on Apple watch ABDOMEN: soft and non-tender EXTREMITIES: no reported LE edema per pt NEUROLOGIC: no obvious deficit Diagnostic tests reviewed for today's visit: Lab Value Units Date High Low HB No results within date range. HCT No results within date range. WBC No results within date range. PLT No results within date range. NA No results within date range. K No results within date range. GLUC No results within date range. BUN No results within date range. CREAT No results within date range. PTSEC No results within date range. INR No results within date range. APTT No results within date range. ALT No results within date range. AST No results within date range. TBILI No results within date range. TSH No results within date range. Lab Value Units Date High Low HCGQT No results within date range. UHCG No results within date range. HCG, BODY* No results within date range. Lab Value Units Date High Low ABORHD No results within date range. ABSCREEN No results within date range. No results found for: HBA1C Most recent labs Impression/Recommendations ASSESSMENT: Obesity, Class I, BMI 30-34.9 Assessment: BMI=32 METS: Climb a flight of stairs or walk up a hill (5.50 METs) Patient denies any chest pain or undue shortness of breath with the above physical activity. Cardio and weights Runs some days ASA Class: 2 ANESTHESIA FINDINGS: Intubation History: No history of difficult intubation Significant Anesthesia Considerations: None Airway Exam: General: Normal appearance Mallampati Score is CLASS III ULBT: Class I - Lower incisors can bite the upper lip above the li line Neck: Normal appearance and function, Distance from hyoid to mentum during neck extension is at least 3 finger breaths Mouth: Normal tongue size and Mouth opening greater than 2 finger breaths Dentition: Intact Airway History: No abnormal airway history STOP BANG Score: Criteria: Male gender Score = 1 PLAN: This patient is optimally prepared for surgery. CONSULTS: Patient does not require consults for optimization at this time. The Following Tests/Procedures Have Been Initiated: Orders Placed This Encounter cholecalciferol (VITAMIN D) 1,000 unit tab tablet Sig: Take 1,000 Units by mouth once daily. HERBAL DRUGS ORAL Sig: Take by mouth. Vitamin c, b, e, omega and whey protein Planned Anesthetic: Per anesthesia choice Instructions Given to Patient: Patient given verbal instructions and voices comprehension and compliance. Copy sent electronically via My Chart, email, or mobile device. I spent more than 0-20 minutes [id number] with the patient and over half the time was devoted to counseling and/or coordination of care. This is a virtual visit. It required patient-provider interaction for the medical decision making as documented above. SIGNATURE: Vivian Powell APRN.CNP PATIENT NAME: Lorenza Rock DATE: July 16, 2022 TIME: 8:42 AM PAGER/CONTACT #: documented in this encounter [facility] 07-16-2022 Instructions Vivian Powell APRN.CNP - 07/16/2022 8:37 AM EDT PATIENT PREOPERATIVE INSTRUCTIONS Christa Dubois MD has scheduled you for your procedure at this surgery center: [facility]: [phone] --[address] [place] [address]. Please read below carefully for your personalized instructions. Dietary Restrictions: - No solid food after midnight. - You may have 12 ounces of clear liquids (water, clear juices such as apple juice or gatorade, carbonated beverages, clear tea, black coffee, jello) until 2 hours before scheduled arrival at facility. Medications: Unless instructed differently below, stay on all of your medications until your surgery. Approved medications to take the morning of surgery with a sip of water: none If you start any new medications after today's visit, please contact the surgeon's office. Blood Thinning Medications: - Stop NSAIDS (Ibuprofen, Advil, Aleve, Motrin, Celebrex, Mobic, etc.) 7 days before surgery, as directed by your surgeon. - Stop Aspirin 7 days before surgery, as directed by your surgeon. - Do NOT stop aspirin or other anticoagulants without consulting with your support worker or prescribing physician. - Stop Vitamin E, ALL multi-vitamins, herbals and dietary supplements 14 days before surgery. - You may take Tylenol (Acetaminophen) or any of your pain medications that do not contain aspirin or NSAIDS as needed. Important Reminders: - Candy, mints, and tobacco products are NOT permitted the morning of surgery. - Hearing aids, dentures and glasses may be worn the morning of surgery. - NO jewelry, body piercings, makeup, hairpins or contacts are to be worn the day of surgery. If you develop symptoms such as a fever, cold, or flu, or have other changes to your health within TWO DAYS of scheduled surgery or the morning of surgery, please contact the surgery center above. Personal Belongings: -Please have photo ID and insurance cards. -If you do not have a copy of advance directives on file with us, please bring a copy with you on the day of surgery. - Leave ALL valuables and money at home or with family members. For Outpatient Procedures: - YOU MUST HAVE A RESPONSIBLE WELDING MACHINE OPERATOR ELECTRON BEAM TAKE YOU HOME. A SPIRITUAL COUNSELOR OR CLINICAL FIELD SPECIALIST CANNOT BE MADE A RESPONSIBLE WELDING MACHINE OPERATOR ELECTRON BEAM. - We recommend that a responsible person stays with you overnight to take care of you. - You cannot stay in a hotel alone after outpatient surgery. You will not be permitted to have your surgery, if you do not have someone to take care of you. Arrival Time for Surgery: - The Surgery Center or hospital where you are having surgery will call the afternoon before surgery (or Saturday for Saturday surgery) with a scheduled arrival time. - If you have not heard by 4 pm, please contact the surgery center above. Please be aware that emergency situations arise, which may delay or change your surgical time. If this happens, we will notify you as soon as possible and regret any inconvenience. If you already have an Advance Directive, please fax a copy to [phone] or email to for it to be added to your chart. If you do not have an Advance Directive, you can find the appropriate form and more information at [email or web address]. We recommend that you complete the Advance Directive form found on the website and bring it with you the day of your surgery. It can be witnessed and scanned into your chart that day. Vivian Powell APRN.CNP documented in this encounter [facility] 07-16-2022 Miscellaneous Notes Corrected order for MRI documented in this encounter [facility] 07-13-2022 Miscellaneous Notes He returned call and accepted the new surgery date of 07/[address] Dubois. No other questions or concerns at this time. Called and left him a voice message informing him that I can move his surgery date up from 08/10 to 07/[address] Dubois. Waiting on a call back to confirm. documented in this encounter [facility] 07-10-2022 Miscellaneous Notes Addended by: ANDREEA JACKSON on: 07/10/2022 02:42 PM Modules accepted: Orders documented in this encounter [facility] 07-10-2022 Nurse Note Education packet given. NIGEL with joannesara scheduled for August 10. He is requesting an earlier date if available. Our office will help schedule his MRI. No other questions or concerns at this time. What is the reason for your visit today? New patient presents for anal fissure. Who is your referring physician? Dr. Doyle Are you having poor oral intake? NO Have you had unintentional weight loss of 15 lbs/7 Kg in the last 3-6 months? NO Bowels: regular Wound: n/a Temperature: No Drains: No documented in this encounter [facility] 07-10-2022 History of Presen t illness Narrative COLORECTAL SURGERY July 10, 2022 Lorenza Rock This consult was requested by Dr. Tremayne Doyle and my final recommendations will be communicated to the requesting health care provider by way of the shared medical record for internal providers or letter via the [employer] for external providers. Chief Complaint: anal fistula History of Present Illness: Lorenza Rock is a 42 year old male presents to the office for evaluation of an anal fistula. Patient remembers a very hard BM and straining 12/2021 with associated pain. After that, he developed a mana-anal abscess that was debrided in OR 03/2022 and 04/2022. These debridements are non-healing and continue to drain fluid that is clear, yellow, intermittently purulent, but non-feculent. Patient is packing the opening now and leaving dry gauze over the area. Duration of symptoms: 03/2022 Prior episodes same location: 2 Prior antibiotics: sometimes Prior I&D or procedure: x2 Immunosuppression: No Personal history of Crohn's: No No prior colonoscopy No known family h/o CRC or IBD 03/27/2022 CT A/P IMPRESSION: Peripheral enhancing fluid collection in the right medial gluteal cleft, suspicious for a perianal abscess. A fistulous communication with the anus is suspected given the limitations of this exam, though not confirmed. There are also findings indicating overlying cellulitis. No past medical history on file. No past surgical history on file. No current outpatient medications on file. No current facility-administered medications for this visit. ALLERGIES No Known Allergies No family history on file. Social History Tobacco Use Smoking status: Never Smokeless tobacco: Never Substance Use Topics Alcohol use: Not Currently Drug use: Not Currently Physical Exam: BP 132/79 (BP Site: Right Arm, BP Position: Sitting) Pulse 76 Temp 37.1 C (98.7 F) Ht 188 cm (6' 2 ) Wt 116.6 kg (257 lb) SpO2 98% BMI 33.00 kg/m General Appearance: Well appearing, alert, in no acute distress, well-hydrated, well nourished. Abdomen: non-tender Anorectal: External exam reveals wound opening 3 cm from the anal verge right anterior, gauze with light yellow clear drainage. Digital rectal exam reveals normal sphincter tone Health Program Director present: Yes Anoscopy: The patient was placed in chest-knee position. After digital exam with a lubricated finger, the scope was easily inserted. Normal internal hemorrhoids were noted. Otherwise normal mucosa was noted, no obvious internal opening. Anoscopy completed. Assessment Assessment and Plan: Lorenza Rock is a 42 year old male w/ perianal abscess s/p multiple I&Ds with likely underlying anal fistula. Discussed EUA, possible seton placement, less likely fistulotomy and possibility that internal opening cannot be identified in the OR. We discussed staged nature of complex fistula repair with 2nd procedure at least 4 weeks from placement of seton. Will concurrently arrange for MRI given difficulty of locating internal opening by previous provider and patient preference Medical Decision Making: Data Reviewed: Tests & Documents Reviewed/ordered: Review of Imaging: CT Abdomen, CT Pelvis Additional testing or imaging to be ordered: MRI perineum, EUA I have independently interpreted: CT Abdomen, CT Pelvis showing perianal abscess right lateral and possible fistula I have discussed Lorenza Oliveirarenny's treatment plan and/or results with the patient and his . I spent a total of 60 minutes on the date of the service which included preparing to see the patient, [id number] patient care, completing clinical documentation, obtaining and/or reviewing separately obtained history, performing a medically appropriate examination, counseling and educating the patient/family/caregiver, ordering medications, tests, or procedures, independently interpreting results (not separately reported), communicating results to the patient/family/caregiver, and care coordination (not separately reported). Chrisat Dubois MD Colorectal Surgery documented in this encounter [facility] 05-08-2021 Evaluation note Encounter Date Diagnosis Assessment Notes Apr, Hypertriglyceridemia (ICD-10 - E78.1) Discussed cholesterol results with patient today. Total is 166. HDL is 35. LDL is 99. Triglycerides are 160. He is to continue to monitor his diet watch intake of carbs and sugars. Work on weight loss, follow with hospice patient care secretary. Apr, COVID-19 (ICD-10 - U07.1) He had COVID-19 in July 2020. We discussed that he has antibodies but they are very low at this time. He voices that it took about eight months for him to feel like himself again. He had constant headaches for some time after he had COVID-19. Apr, Immunity status testing (ICD-10 - Z01.84) His COVID-19 antibodies are positive but at the lower end. All questions he has about this were answered. Apr, Weight gain (ICD-10 - R63.5) He voices that he started seeing a hospice patient care secretary and started taking an Tomales vitamin, Co-Q10 vitamin and Magnesium vitamin. He voices that his hospice patient care secretary did recommend that he have certain vitamins tested, I did advise him that this can be done but I am unsure if his insurance will pay for this. He can provide the office with a list of the vitamins that his hospice patient care secretary would like to have checked. Apr, Lumbar pain (ICD-10 - M54.50) At the end of Feb (2020) he pulled his low back while working out, he took 10 days off and then worked out again and hurt his low back again, the pain was not the same but he did find that it took longer for him to recover. He did begin physical therapy twice a week and feels this has helped his back pain. He has been going to [facility] and feels this has even helped his headache away as well. He was told not to do anymore lifts. Apr, Headache (ICD-10 - R51.9) Physical therapy has helped the headaches he was having as well. He does not have any headaches any longer. Apr, Other He did not have all the lab drawn for his appointment today, I did provide him with a copy of the order and asked him to return to the lab to have the rest of the lab drawn. He can call for these results. [employer] Other 04-01-2021 History general Narrative - Reported* Type Description Date Medical History hyperlipidemia Medical History fatty liver Medical History hypertriglyceridemia Medical History renal cyst Medical History COVID 07/2020 Surgical History wisdom teeth removed 04/2018 [employer] Other Evaluation noteNo [employer] Other Evaluation noteNo assessment information available [facility] Work Phone: Evaluation note* Diagnosis [facility]- [facility]- Primary [facility] Diagnosis Anal fistula- Primary Obesity, Class I, BMI 30-34.9 Obesity, unspecified Perianal abscess Abscess of anal and rectal regions Anorectal fissure Anal fissure Anal [facility] Pre-op evaluation- Primary Preoperative examination, unspecified Obesity, Class I, BMI 30-34.9 Obesity, unspecified Anal fistula documented in this encounter [facility] note* Diagnosis Fistula of stomach and duodenum (CODE)- Primary Anal fistula documented in this encounter [facility] note* Diagnosis Post-op pain Other acute postoperative pain documented in this encounter [facility] note* Diagnosis Anal fistula- Primary documented in this encounter [facility] note* Diagnosis Anal fistula- Primary Follow-up examination after colorectal surgery Follow-up examination, following other surgery Proctalgia Anal or rectal pain Anal fistula documented in this encounter [facility] note* Diagnosis Anal fistula- Primary Anal fistula documented in this encounter [facility] note* Diagnosis Pre-op evaluation- Primary Preoperative examination, unspecified Obesity, Class I, BMI 30-34.9 Obesity, unspecified Anal fistula documented in this encounter [facility] note* Diagnosis Anal fistula- Primary Encounter for post surgical wound check Anal fistula documented in this encounter [facility] note* Diagnosis Pre-op evaluation- Primary Preoperative examination, unspecified Obesity, Class I, BMI 30-34.9 Obesity, unspecified Anal fistula documented in this encounter [facility] note* Diagnosis Follow-up examination after colorectal surgery- Primary Follow-up examination, following other surgery Anal fistula Generalized abdominal pain Abdominal pain, generalized Abdominal pain, unspecified abdominal location Crohn's disease with fistula, unspecified gastrointestinal tract location (HCC) documented in this encounter [facility] note* Diagnosis Perianal abscess- Primary Abscess of anal and rectal regions Transsphincteric anal fistula Abscess of anal and rectal regions documented in this encounter [facility] note* Diagnosis Generalized abdominal pain Abdominal pain, generalized Crohn's disease with fistula, unspecified gastrointestinal tract location (HCC) documented in this encounter [facility] note* Diagnosis Anorectal fissure Anal fissure Anal fistula- Primary documented in this encounter [facility] note* Diagnosis Anorectal fissure- Primary Anal fissure Anal fistula- Primary documented in this encounter [facility] note* Diagnosis Crohn's disease with fistula, unspecified gastrointestinal tract location (HCC) Anal fistula- Primary documented in this encounter [facility] note* Diagnosis Anal fistula- Primary documented in this encounter [facility] note* Diagnosis Anal fistula- Primary documented in this encounter [facility] note* Diagnosis Perirectal fistula- Primary Anal fistula Perirectal fistula Anal fistula documented in this encounter [facility] note* Diagnosis Post-operative state- Primary Other postprocedural status Anal or rectal pain documented in this encounter [facility] note* Diagnosis Anal fistula- Primary documented in this encounter [facility] note* Diagnosis Pre-op evaluation- Primary Preoperative examination, unspecified Obesity, Class I, BMI 30-34.9 Obesity, unspecified Anal fistula Perianal abscess Abscess of anal and rectal regions Anorectal fissure Anal fissure Fistula of stomach and duodenum (CODE) Pre-op evaluation- Primary Preoperative examination, unspecified Obesity, Class I, BMI 30-34.9 Obesity, unspecified Pre-op evaluation- Primary Preoperative examination, unspecified Obesity, Class I, BMI 30-34.9 Obesity, unspecified [facility] Additional Instructions Empty and record drain output every 12 hours. May shower. No driving if taking narcotic pain medication.[facility] Work Phone: Hospital Discharge instructions Additional Instructions Dressing changes to right perirectal wound daily: Remove packing, irrigate with saline, repack with saline moistened 4 x 4 gauze and cover with dry dressingPremier Health [facility] Work Phone: Reason for referral (narrative)* Outpatient Procedure (Routine) - Authorized Specialty Diagnoses / Procedures Referred By Jose L t Referred To Contact [facility] Diagnoses Crohn's disease with fistula, unspecified gastrointestinal tract location (HCC) Procedures COLONOSCOPY DIAGNOSTIC COLONOSCOPY FLX DX W/[place] [address] [place] [address] [facility] [address] [place] [address] Referral ID Status Reason Start Date Expiration Date Visits Requested Visits Authorized [id number] Authorized Auto-Generat ed Referral 11/27/2022 11/28/2023 1 1 * MRI/CT (Routine) - Pending Review Specialty Diagnoses / Procedures Referred By Contac t Referred To Contact [facility] Diagnoses Abdominal pain, unspecified abdominal location Crohn's disease with fistula, unspecified gastrointestinal tract location (HCC) Procedures MRI PEL ENTEROG WO/W IVCON MRI PELVIS W/O & W/[place] [address] [place] [address] [facility] Referral ID Status Reason Start Date Expiration Date Visits Requested Visits Authorized [id number] Pending Review Auto-Generat ed Referral 11/27/2022 12/27/2023 1 1 * Transition of Care (Routine) - Ref Not Required Specialty Diagnoses / Procedures Referred By Contac t Referred To Contact Gastroenterology Diagnoses Crohn's disease with fistula, unspecified gastrointestinal tract location (HCC) Procedures CONSULT [place] [address] [place] [id number] [place] [address] [place] [address] Referral ID Status Reason Start Date Expiration Date Visits Requested Visits Authorized [id number] Ref Not Required PCP Requested Referral 11/27/2022 11/27/2023 1 1 * MRI/CT (Routine) - Pending Review Specialty Diagnoses / Procedures Referred By Contac t Referred To Contact [facility] Diagnoses Generalized abdominal pain Crohn's disease with fistula, unspecified gastrointestinal tract location (HCC) Procedures MRI ABD ENTEROG WO/W IVCON MRI ABDOMEN W/O & W/CONTRAST MATERIAL MRI PELVIS W/O & [place] [address] [place] [id number] Mr Imaging Referral ID Status Reason Start Date Expiration Date Visits Requested Visits Authorized [id number] Pending Review Auto-Generat ed Referral 11/27/2022 12/27/2023 1 1 [facility] for referral (narrative)* Outpatient Procedure (Routine) - Closed Specialty Diagnoses / Procedures Referred By Contac t Referred To Contact [facility] Diagnoses Crohn's disease with fistula, unspecified gastrointestinal tract location (HCC) Procedures COLONOSCOPY DIAGNOSTIC COLONOSCOPY FLX DX W/[place] [address] [place] [address] [place] [address] Referral ID Status Reason Start Date Expiration Date V isits Requested Visits Authorized [id number] Closed Auto-Generate d Referral 11/27/2022 11/28/2023 1 1 [facility] for visit Narrative* Outpatient Procedure (Routine) - Closed Specialty Diagnoses / Procedures Referred By Contjunior t Referred To Contact [facility] Diagnoses Crohn's disease with fistula, unspecified gastrointestinal tract location (HCC) Procedures COLONOSCOPY DIAGNOSTIC COLONOSCOPY FLX DX W/[place] [address] [place] [address] [place] [phone] Referral ID Status Reason Start Date Expiration Date V isits Requested Visits Authorized [id number] Closed Auto-Generate d Referral 11/27/2022 11/28/2023 1 1 [facility] Summary Purpose Family History Relationship Condition Age at Onset Recorded Date/T sharon Not Specified No pertinent family history Unknown Advance Directives Advance Directive Response Recorded Date/ Time Advance Directives No June 13 18 2:41pm Reason for Referral Specialty Diagnoses / Procedures Referred By Contac t Referred To Contact MR IMAGING Diagnoses Anorectal fissure Procedures MRI PERINEUM WO/W IVCON MRI PELVIS W/O & W/CONTRAST MATERIAL Renetta Garner MD [address] [place] [phone] Mr Imaging [place] [address] Referral ID Status Reason Start Date Expiration Date V isits Requested Visits Authorized [id number] Closed Auto-Generat ed Referral Patient Cleared - Admin/Chairm an/Director advise to proceed or did not respond 02/04/2023 03/21/2023 1 1 Specialty Diagnoses / Procedures Referred By Contac t Referred To Contact MR IMAGING Diagnoses Fistula of stomach and duodenum (CODE) Procedures MRI PERINEUM WO/W IVCON MRI PELVIS W/O & W/[place] [address] [place] [address] Mr Imaging Referral ID Status Reason Start Date Expiration Date Visits Requested Visits Authorized [id number] Pending Review Auto-Generat ed Referral 07/16/2022 08/15/2023 1 1 Specialty Diagnoses / Procedures Referred By Contac t Referred To Contact MR IMAGING Diagnoses Anal fistula Perianal abscess Anorectal fissure Procedures MRI PERINEUM WO IVCON MRI PELVIS W/[place] [address] [place] [address] Mr Imaging Referral ID Status Reason Start Date Expiration Date Visits Requested Visits Authorized [id number] Additional Clinical Info Needed Auto-Generat ed Referral 07/10/2022 08/09/2023 1 1 Specialty Diagnoses / Procedures Referred By Contac t Referred To Contact Colon and Rectal Surgery Diagnoses Anal fistula Procedures CONSULT TO COLO-RECTAL SURGERY OFFICE/OUTPATIENT [facility] 60-[place] [address] [place] [address] Referral ID Status Reason Start Date Expiration Date Visits Requested Visits Authorized [id number] Authorized PCP Requested Referral 07/06/2022 07/06/2023 1 1 Reason appt please conta ct pt to schedule consult for second opinion on perirectal abscess Diagnosis 1 Perirectal abscess ( K61.1) Referral Organization [facility] Family Elena Zuniga Referring Provider First Name Renetta Referring Provider Last Name Richar Referring Provider Specialty Family Prac mahesh Referred Organization [facility] Referred Address [address],[place], [place],[address] Referred Provider Specialty Surgery Referral Priority Routine General Notes Estrella Darby 06/19/2022 03:58:14 PM > referral faxed with all Dr Ann visit note, OR reports and insurance cards per pt request with note to contact pt to schedule an appt. Reason appt pt is amadou suzan to see whomever can see him first consult for eval and treatment of internal hemorrhoids Diagnosis 1 Hemorrhoids, interna l (K64.8) Referral Organization [facility] Elena Zuniga Referring Provider First Name Renetta Referring Provider Last Name Richar Referring Provider Specialty Family Prac mahesh Referred Organization [facility] Referred Provider Carlos Dean Referred Address ,[place], [place],[address] Referred Provider Specialty Surgery Referral Priority Routine General Notes Estrella Darby 02/27/2022 02:21:33 PM > referral sent p2p with TE message and insurance card. pt understands he will be contacted to schedule this appt. Chief Complaint and Reason for Visit Chief Complaint Abscess Chief Complaint Abscess Perirectal Abscess Medications Administered Section Inactive Administered Medications - up to 3 most recent administrations Medication Order MAR Action Action Date Dose Rate Site glucagon 1 mg injection 1 mg, INTRAVENOUS, ONCE, 1 dose, On Sat01/18/23 at 0830, Inject 1 mg intravenously one time only for 1 dose. For MRI Enterography, Inject 1 mg intravenously, as directed. Slow push at the appropriate time during MRI Scan, Intraprocedure Given 01/18/2023 9:44 AM EDT 1 mg Additional Source Comments (unrecognized sect ion and content) No Status Records FoundNo Status Records FoundNo Status Records FoundNo Status Records FoundNo Status Records FoundNo Status Records FoundNo Status Records FoundNo Status Records Found INFORMATION SOURCE (unrecogn ized section and content) DATE CREATED AUTHOR 10/01/2017 [facility] DATE CREATED AUTHOR AUTHOR'S ORGANIZ ATION 12/04/2018 [facility] DATE CREATED AUTHOR AUTHOR'S ORGANIZ ATION 05/25/2022 [facility] DATE CREATED AUTHOR AUTHOR'S ORGANIZ ATION 06/13/2022 [facility] DATE CREATED AUTHOR AUTHOR'S ORGANIZ ATION 01/20/2023 [facility] DATE CREATED AUTHOR AUTHOR'S ORGANIZ ATION 01/21/2023 [facility] DATE CREATED AUTHOR AUTHOR'S ORGANIZ ATION 02/17/2023 [facility] DATE CREATED AUTHOR AUTHOR'S ORGANIZ ATION 11/13/2023 [facility] REASON FOR VISIT (unrecogniz ed section and content) Reason Comments Consult Perianal abscess Reason Comments New Patient Anal fissure 2 surge jeronimo not healing. Specialty Diagnoses / Procedures Referred By Contac t Referred To Contact Colon and Rectal Surgery Diagnoses Anal fistula Procedures CONSULT TO COLO-RECTAL SURGERY OFFICE/OUTPATIENT NEW HIGH MDM 60-[place] [address] [place] [address] Referral ID Status Reason Start Date Expiration Date V isits Requested Visits Authorized [id number] Closed PCP Requested Referral 07/06/2022 07/06/2023 1 1 Reason Comments [employer] - Other Surgery date Reason Comments Pre-Op Visit Reason Comments [employer] - Other New MRI order Reason Comments PT authorization status Pt called to see if authorized. I advised not at this time. I show an attempt to contact him yesterday morning but they were unable to leave a message. Pt confirmed his cell# and advised me his mailbox is not full and he does not show a missed call. I told the patient the notes indicate additional information is needed. I then advised the patient to call his doctor to have him call [facility] to see what additional info is required. Reason Comments Patient Update Reason Comments [employer] - Other Follow up Reason Comments Post Op Anal fistula/seton p lacement Reason Comments Follow Up Anal fistula Reason Comments Anal Fistula Reason Comments Patient Question Reason Comments Wound Check Reason Comments Anesthesia Consult Reason Comments Post Op Follow Up follow up evaluation after undergoing a rectal exam under anesthesia with complex fistulotomy on 10/19/2022 Reason Comments Consult Specialty Diagnoses / Procedures Referred By Contac t Referred To Contact MR IMAGING Diagnoses Generalized abdominal pain Crohn's disease with fistula, unspecified gastrointestinal tract location (HCC) Procedures MRI ABD ENTEROG WO/W IVCON MRI ABDOMEN W/O & W/CONTRAST MATERIAL MRI PELVIS W/O & [place] [address] [place] [address] [place] [address] Referral ID Status Reason Start Date Expiration Date V isits Requested Visits Authorized [id number] Closed Auto-Generate d Referral 11/27/2022 12/27/2023 1 1 Specialty Diagnoses / Procedures Referred By Contac t Referred To Contact MR IMAGING Diagnoses Anorectal fissure Procedures MRI PERINEUM WO/W IVCON MRI PELVIS W/O & W/CONTRAST MATERIAL Renetta Garner MD [address] [place] [phone] Mr Imaging [id number] Referral ID Status Reason Start Date Expiration Date Visits Requested Visits Authorized [id number] Pending Review Auto-Genera bolivar Referral Patient Cleared - Admin/Chair man/Directo r advise to proceed or did not respond 3 03/05/2024 1 1 Reason Comments New Reason Comments Care Coordination Reason Comments Anal fistula Reason Comments Established Patient Follow Up Reason Comments Post Op Reason Comments Patient Update Care Coordination Specialty Diagnoses / Procedures Referred By Contac t Referred To Contact MR IMAGING Diagnoses Fistula of stomach and duodenum (CODE) Procedures MRI PERINEUM WO/W IVCON MRI PELVIS W/O & W/[place] [address] [place] [address] Mr Imaging [id number] Referral ID Status Reason Start Date Expiration Date V isits Requested Visits Authorized [id number] Closed Auto-Generat ed Referral Patient Cleared - Admin/Chairm an/Director advise to proceed or did not respond 07/17/2022 08/31/2022 1 1 Care Teams (unrecognized sec tion and content) Team Status: Inactive Member Role Status Dates Renetta Gonzalez DO Primary Care Provider Active Lokesh Ann MD Attending Provider Active Team Status: Active Member Role Status Dates Renetta Gonzalez DO Primary Care Provider Active Emergency Services Dispatcher Relationship Specialty Start Date End Date Renetta Gonzalez DO [address] [place] [address] PCP - General Family Medicine 07/12/22 Emergency Services Dispatcher Relationship Specialty Start Date End Date Renetta Gonzalez DO [address] [place] [address] PCP - General Family Medicine 07/12/22 Emergency Services Dispatcher Relationship Specialty Start Date End Date Renetta Gonzalez, DO [address] [place] [address] PCP - [facility] Medicine 07/12/22 Emergency Services Dispatcher Relationship Specialty Start Date End Date Renetta Gonzalez, DO [address] [place] [address] PCP - [facility] Medicine 07/12/22 Emergency Services Dispatcher Relationship Specialty Start Date End Date Renetta Gonzalez, DO [address] [place] [address] PCP - [facility] 07/12/22 Emergency Services Dispatcher Relationship Specialty Start Date End Date Renetta Gonzalez, DO [address] [place] [address] PCP - [facility] 07/12/22 Emergency Services Dispatcher Relationship Specialty Start Date End Date Renetta Gonzalez, DO [address] [place] [address] PCP - [facility] 07/12/22 Emergency Services Dispatcher Relationship Specialty Start Date End Date Renetta Gonzalez, DO [address] [place] [address] PCP - [facility] 07/12/22 Emergency Services Dispatcher Relationship Specialty Start Date End Date Renetta Gonzalez, DO [address] [place] [address] PCP - [facility] 07/12/22 Emergency Services Dispatcher Relationship Specialty Start Date End Date Renetta Gonzalez, DO [address] [place] [address] PCP - [facility] 07/12/22 Emergency Services Dispatcher Relationship Specialty Start Date End Date Renetta Gonzalez, DO [address] [place] [address] PCP - General Family Medicine 07/12/22 Emergency Services Dispatcher Relationship Specialty Start Date End Date Renetta Gonzalez, DO [address] [place] [phone] PCP - General Family Medicine 07/12/22 Emergency Services Dispatcher Relationship Specialty Start Date End Date Renetta Gonzalez, DO [address] [place] [address] PCP - General Family Medicine 07/12/22 Emergency Services Dispatcher Relationship Specialty Start Date End Date Renetta Gonzalez, DO [address] [place] [address] PCP - General Family Medicine 07/12/22 Emergency Services Dispatcher Relationship Specialty Start Date End Date Renetta Gonzalez DO [address] [place] [phone] PCP - General Family Medicine 07/12/22 Emergency Services Dispatcher Relationship Specialty Start Date End Date Renetta Gonzalez DO [address] [place] [address] PCP - General Family Medicine 07/12/22 Emergency Services Dispatcher Relationship Specialty Start Date End Date Renetta Gonzalez DO [address] [place] [phone] PCP - General Family Medicine 07/12/22 Emergency Services Dispatcher Relationship Specialty Start Date End Date Renetta Gonzalez DO [address] [place] [phone] PCP - General Family Medicine 07/12/22 Emergency Services Dispatcher Relationship Specialty Start Date End Date Renetta Gonzalez DO [address] [place] [address] PCP - General Family Medicine 07/12/22 Emergency Services Dispatcher Relationship Specialty Start Date End Date Renetta Gonzalez, DO [address] [place] [address] PCP - General Family Medicine 07/12/22 Emergency Services Dispatcher Relationship Specialty Start Date End Date Renetta Gonzalez, DO [address] [place] [phone] PCP - General Family Medicine 07/12/22 Emergency Services Dispatcher Relationship Specialty Start Date End Date Renetta Gonzalez, DO [address] [place] [address] PCP - General Family Medicine 07/12/22 Emergency Services Dispatcher Relationship Specialty Start Date End Date Renetta Gonzalez, DO [address] [place] [address] PCP - General Family Medicine 07/12/22 Emergency Services Dispatcher Relationship Specialty Start Date End Date Renetta Gonzalez, DO [address] [place] [address] PCP - General Family Medicine 07/12/22 Emergency Services Dispatcher Relationship Specialty Start Date End Date Renetta Gonzalez, DO [address] [place] [address] PCP - General Family Medicine 07/12/22 Emergency Services Dispatcher Relationship Specialty Start Date End Date Renetta Gonzalez, DO [address] [place] [address] PCP - General Family Medicine 07/12/22 Emergency Services Dispatcher Relationship Specialty Start Date End Date Renetta Gonzalez, [address] [place] [address] PCP - General [facility] Medicine 07/12/22 Emergency Services Dispatcher Relationship Specialty Start Date End Date Renetta Gonzalez, [address] [place] [address] PCP - General Family Medicine 07/12/22 Emergency Services Dispatcher Relationship Specialty Start Date End Date Renetta Gonzalez, [address] [place] [address] PCP - General [facility] 07/12/22 Source Comments (unrecognize d section and content) In the event this informatio n is protected by the Federal Confidentiality of Alcohol and Drug Abuse Patient Records regulations: The Federal rules restrict any use of the information to criminally investigate or prosecute any alcohol or drug abuse patient.[facility] the event this information is protected by the Federal Confidentiality of Alcohol and Drug Abuse Patient Records regulations: The Federal rules restrict any use of the information to criminally investigate or prosecute any alcohol or drug abuse patient.[facility] the event this information is protected by the Federal Confidentiality of Alcohol and Drug Abuse Patient Records regulations: The Federal rules restrict any use of the information to criminally investigate or prosecute any alcohol or drug abuse patient.[facility] the event this information is protected by the Federal Confidentiality of Alcohol and Drug Abuse Patient Records regulations: The Federal rules restrict any use of the information to criminally investigate or prosecute any alcohol or drug abuse patient.[facility] the event this information is protected by the Federal Confidentiality of Alcohol and Drug Abuse Patient Records regulations: The Federal rules restrict any use of the information to criminally investigate or prosecute any alcohol or drug abuse patient.[facility] the event this information is protected by the Federal Confidentiality of Alcohol and Drug Abuse Patient Records regulations: The Federal rules restrict any use of the information to criminally investigate or prosecute any alcohol or drug abuse patient.[facility] the event this information is protected by the Federal Confidentiality of Alcohol and Drug Abuse Patient Records regulations: The Federal rules restrict any use of the information to criminally investigate or prosecute any alcohol or drug abuse patient.[facility] the event this information is protected by the Federal Confidentiality of Alcohol and Drug Abuse Patient Records regulations: The Federal rules restrict any use of the information to criminally investigate or prosecute any alcohol or drug abuse patient.[facility] the event this information is protected by the Federal Confidentiality of Alcohol and Drug Abuse Patient Records regulations: The Federal rules restrict any use of the information to criminally investigate or prosecute any alcohol or drug abuse patient.[facility] Center[facility] the event this information is protected by the Federal Confidentiality of Alcohol and Drug Abuse Patient Records regulations: The Federal rules restrict any use of the information to criminally investigate or prosecute any alcohol or drug abuse patient.[facility] Center[facility] the event this information is protected by the Federal Confidentiality of Alcohol and Drug Abuse Patient Records regulations: The Federal rules restrict any use of the information to criminally investigate or prosecute any alcohol or drug abuse patient.[facility] Center[facility] the event this information is protected by the Federal Confidentiality of Alcohol and Drug Abuse Patient Records regulations: The Federal rules restrict any use of the information to criminally investigate or prosecute any alcohol or drug abuse patient.[facility] Center[facility] the event this information is protected by the Federal Confidentiality of Alcohol and Drug Abuse Patient Records regulations: The Federal rules restrict any use of the information to criminally investigate or prosecute any alcohol or drug abuse patient.[facility] Center[facility] the event this information is protected by the Federal Confidentiality of Alcohol and Drug Abuse Patient Records regulations: The Federal rules restrict any use of the information to criminally investigate or prosecute any alcohol or drug abuse patient.[facility] Center[facility] the event this information is protected by the Federal Confidentiality of Alcohol and Drug Abuse Patient Records regulations: The Federal rules restrict any use of the information to criminally investigate or prosecute any alcohol or drug abuse patient.[facility] Center[facility] the event this information is protected by the Federal Confidentiality of Alcohol and Drug Abuse Patient Records regulations: The Federal rules restrict any use of the information to criminally investigate or prosecute any alcohol or drug abuse patient.[facility] Center[facility] the event this information is protected by the Federal Confidentiality of Alcohol and Drug Abuse Patient Records regulations: The Federal rules restrict any use of the information to criminally investigate or prosecute any alcohol or drug abuse patient.[facility] CenterIn the event this information is protected by the Federal Confidentiality of Alcohol and Drug Abuse Patient Records regulations: The Federal rules restrict any use of the information to criminally investigate or prosecute any alcohol or drug abuse patient.[facility] CenterIn the event this information is protected by the Federal Confidentiality of Alcohol and Drug Abuse Patient Records regulations: The Federal rules restrict any use of the information to criminally investigate or prosecute any alcohol or drug abuse patient.[facility] CenterIn the event this information is protected by the Federal Confidentiality of Alcohol and Drug Abuse Patient Records regulations: The Federal rules restrict any use of the information to criminally investigate or prosecute any alcohol or drug abuse patient.[facility] CenterIn the event this information is protected by the Federal Confidentiality of Alcohol and Drug Abuse Patient Records regulations: The Federal rules restrict any use of the information to criminally investigate or prosecute any alcohol or drug abuse patient.[facility] CenterIn the event this information is protected by the Federal Confidentiality of Alcohol and Drug Abuse Patient Records regulations: The Federal rules restrict any use of the information to criminally investigate or prosecute any alcohol or drug abuse patient.[facility] CenterIn the event this information is protected by the Federal Confidentiality of Alcohol and Drug Abuse Patient Records regulations: The Federal rules restrict any use of the information to criminally investigate or prosecute any alcohol or drug abuse patient.[facility] CenterIn the event this information is protected by the Federal Confidentiality of Alcohol and Drug Abuse Patient Records regulations: The Federal rules restrict any use of the information to criminally investigate or prosecute any alcohol or drug abuse patient.[facility] CenterIn the event this information is protected by the Federal Confidentiality of Alcohol and Drug Abuse Patient Records regulations: The Federal rules restrict any use of the information to criminally investigate or prosecute any alcohol or drug abuse patient.[facility] CenterIn the event this information is protected by the Federal Confidentiality of Alcohol and Drug Abuse Patient Records regulations: The Federal rules restrict any use of the information to criminally investigate or prosecute any alcohol or drug abuse patient.[facility] CenterIn the event this information is protected by the Federal Confidentiality of Alcohol and Drug Abuse Patient Records regulations: The Federal rules restrict any use of the information to criminally investigate or prosecute any alcohol or drug abuse patient.[facility] CenterIn the event this information is protected by the Federal Confidentiality of Alcohol and Drug Abuse Patient Records regulations: The Federal rules restrict any use of the information to criminally investigate or prosecute any alcohol or drug abuse patient.[facility] CenterIn the event this information is protected by the Federal Confidentiality of Alcohol and Drug Abuse Patient Records regulations: The Federal rules restrict any use of the information to criminally investigate or prosecute any alcohol or drug abuse patient.[facility] CenterIn the event this information is protected by the Federal Confidentiality of Alcohol and Drug Abuse Patient Records regulations: The Federal rules restrict any use of the information to criminally investigate or prosecute any alcohol or drug abuse patient.[facility] CenterIn the event this information is protected by the Federal Confidentiality of Alcohol and Drug Abuse Patient Records regulations: The Federal rules restrict any use of the information to criminally investigate or prosecute any alcohol or drug abuse patient.[facility] CenterIn the event this information is protected by the Federal Confidentiality of Alcohol and Drug Abuse Patient Records regulations: The Federal rules restrict any use of the information to criminally investigate or prosecute any alcohol or drug abuse patient.[facility] CenterIn the event this information is protected by the Federal Confidentiality of Alcohol and Drug Abuse Patient Records regulations: The Federal rules restrict any use of the information to criminally investigate or prosecute any alcohol or drug abuse patient.[facility] CenterIn the event this information is protected by the Federal Confidentiality of Alcohol and Drug Abuse Patient Records regulations: The Federal rules restrict any use of the information to criminally investigate or prosecute any alcohol or drug abuse patient.[facility] CenterIn the event this information is protected by the Federal Confidentiality of Alcohol and Drug Abuse Patient Records regulations: The Federal rules restrict any use of the information to criminally investigate or prosecute any alcohol or drug abuse patient.[facility] CenterIn the event this information is protected by the Federal Confidentiality of Alcohol and Drug Abuse Patient Records regulations: The Federal rules restrict any use of the information to criminally investigate or prosecute any alcohol or drug abuse patient.[facility] CenterIn the event this information is protected by the Federal Confidentiality of Alcohol and Drug Abuse Patient Records regulations: The Federal rules restrict any use of the information to criminally investigate or prosecute any alcohol or drug abuse patient.[facility] CenterIn the event this information is protected by the Federal Confidentiality of Alcohol and Drug Abuse Patient Records regulations: The Federal rules restrict any use of the information to criminally investigate or prosecute any alcohol or drug abuse patient.[facility] CenterIn the event this information is protected by the Federal Confidentiality of Alcohol and Drug Abuse Patient Records regulations: The Federal rules restrict any use of the information to criminally investigate or prosecute any alcohol or drug abuse patient.[facility] CenterIn the event this information is protected by the Federal Confidentiality of Alcohol and Drug Abuse Patient Records regulations: The Federal rules restrict any use of the information to criminally investigate or prosecute any alcohol or drug abuse patient.[facility] CenterIn the event this information is protected by the Federal Confidentiality of Alcohol and Drug Abuse Patient Records regulations: The Federal rules restrict any use of the information to criminally investigate or prosecute any alcohol or drug abuse patient.[facility] CenterIn the event this information is protected by the Federal Confidentiality of Alcohol and Drug Abuse Patient Records regulations: The Federal rules restrict any use of the information to criminally investigate or prosecute any alcohol or drug abuse patient.[facility] CenterIn the event this information is protected by the Federal Confidentiality of Alcohol and Drug Abuse Patient Records regulations: The Federal rules restrict any use of the information to criminally investigate or prosecute any alcohol or drug abuse patient.[facility] CenterIn the event this information is protected by the Federal Confidentiality of Alcohol and Drug Abuse Patient Records regulations: The Federal rules restrict any use of the information to criminally investigate or prosecute any alcohol or drug abuse patient.[facility] CenterIn the event this information is protected by the Federal Confidentiality of Alcohol and Drug Abuse Patient Records regulations: The Federal rules restrict any use of the information to criminally investigate or prosecute any alcohol or drug abuse patient.[facility] CenterIn the event this information is protected by the Federal Confidentiality of Alcohol and Drug Abuse Patient Records regulations: The Federal rules restrict any use of the information to criminally investigate or prosecute any alcohol or drug abuse patient.[facility] CenterIn the event this information is protected by the Federal Confidentiality of Alcohol and Drug Abuse Patient Records regulations: The Federal rules restrict any use of the information to criminally investigate or prosecute any alcohol or drug abuse patient.[facility] CenterIn the event this information is protected by the Federal Confidentiality of Alcohol and Drug Abuse Patient Records regulations: The Federal rules restrict any use of the information to criminally investigate or prosecute any alcohol or drug abuse patient.[facility] CenterIn the event this information is protected by the Federal Confidentiality of Alcohol and Drug Abuse Patient Records regulations: The Federal rules restrict any use of the information to criminally investigate or prosecute any alcohol or drug abuse patient.[facility] CenterIn the event this information is protected by the Federal Confidentiality of Alcohol and Drug Abuse Patient Records regulations: The Federal rules restrict any use of the information to criminally investigate or prosecute any alcohol or drug abuse patient.[facility] CenterIn the event this information is protected by the Federal Confidentiality of Alcohol and Drug Abuse Patient Records regulations: The Federal rules restrict any use of the information to criminally investigate or prosecute any alcohol or drug abuse patient.[facility] CenterIn the event this information is protected by the Federal Confidentiality of Alcohol and Drug Abuse Patient Records regulations: The Federal rules restrict any use of the information to criminally investigate or prosecute any alcohol or drug abuse patient.[facility] CenterIn the event this information is protected by the Federal Confidentiality of Alcohol and Drug Abuse Patient Records regulations: The Federal rules restrict any use of the information to criminally investigate or prosecute any alcohol or drug abuse patient.[facility] CenterIn the event this information is protected by the Federal Confidentiality of Alcohol and Drug Abuse Patient Records regulations: The Federal rules restrict any use of the information to criminally investigate or prosecute any alcohol or drug abuse patient.[facility] CenterIn the event this information is protected by the Federal Confidentiality of Alcohol and Drug Abuse Patient Records regulations: The Federal rules restrict any use of the information to criminally investigate or prosecute any alcohol or drug abuse patient.[facility] FOR RECORDS PERTAINING TO PATIENTS WHO ARE OR HAVE BEEN ENROLLED IN A CHEMICAL DEPENDENCY/SUBSTANCEABUSE PROGRAM, SOME INFORMATION MAY BE OMITTED. This clinical summary was aggregated from multiple sources. Caution should be exercised in using it in the provision of clinical care. This summary normalizes information from multiple sources, and as a consequence, information in this document may materially change the coding, format and clinical context of patient data. In addition, data may be omitted in some cases. CLINICAL DECISIONS SHOULD BE BASED ON THE PRIMARY CLINICAL RECORDS. [employer] [facility]. provides no warranty or guarantee of the accuracy or completeness of information in this document.
[2024-11-12 09:42] LABS: Alanine Aminotransferase 41 U/L (16-63); Albumin Globulin Ratio 1.2; Albumin Level 4.1 g/dL (3.4-5.0); Alkaline Phosphatase 54 U/L (46-116); Anion Gap 12.3; Aspartate Amino Transferase 25 U/L (15-37); Blood Urea Nitrogen 24.0 mg/dL (7.0-18.0); Calcium 8.9 mg/dL (8.5-10.1); Carbon Dioxide 28.9 mmol/L (21.0-32.0); Chloride 103 mmol/L (98-107); Cholesterol 187 mg/dL (<=200); Estimated GFR (African America >60 (>=60 mL/min/1.73m^2); Estimated GFR (Non-African Ame >60 (>=60 mL/min/1.73m^2); Globulin 3.5 g/dL; Glucose 109 mg/dL (74-106); HDL Cholesterol 45 mg/dL (40-60); Potassium 4.2 mmol/L (3.5-5.1); Sodium 140 mmol/L (136-145); Thyroid Stimulating Hormone 1.586 uIU/mL (0.358-3.740); Total Protein 7.6 g/dL (6.4-8.2); Triglycerides 141 mg/dL (<=150); VLDL CHOLESTEROL 28.2 mg/dL
[2024-11-12 09:55] LABS: Hematocrit 47.0 % (42.0-54.0); Hemoglobin 16.0 g/dL (14.0-18.0); Immature Granulocytes Abs Auto 0.04 10^3/uL (0.00-0.03); Immature Granulocytes Pct Auto 0.7 % (0.0-0.5); Lymphocytes Absolute Auto 2.4 10^3/uL (1.2-3.8); Mean Corpuscular HGB Conc 34.0 g/dL (29.9-35.2); Mean Corpuscular Hemoglobin 28.9 pg (25.9-34.0); Mean Corpuscular Volume 84.8 fL (80.0-94.0); Platelet Count 260 10^3/uL (150-450); Red Blood Count 5.54 10^6/uL (4.70-6.10); White Blood Count 6.1 10^3/uL (4.0-11.0)
[2024-11-12 10:15] LABS: Glucose Urine UA NEGATIVE (NEGATIVE)
[2024-11-12 11:21] LABS: Cast Seen? NONE SEEN #/LPF (NONE SEEN); Crystals Seen? None Seen #/HPF (None Seen)
== END 2024-11-12 08:46 | disposition home or self-care (01) ==
PROVIDERS: PCP Family Medicine; Visit Provider Family Medicine
DX: Z00.00 Encounter for general adult medical examination without abnormal findings (principal); Z12.5 Encounter for screening for malignant neoplasm of prostate; R73.9 Hyperglycemia, unspecified
CPT/HCPCS: 36415; 80053; 80061; 81001; 83036; 84443; 85025; G0103